=== PATIENT | male | born 1945 | race Caucasian/White ===

== ENCOUNTER → 2017-10-16 12:36 | Outpatient (CLI) | payer MEDICARE, SELFPAY ==
[2017-10-16 13:06] LABS: Hemoglobin A1c 6.1 % (4.2-6.3)
== END ==
PROVIDERS: Family Provider Family Medicine; PCP Family Medicine; Visit Provider Family Medicine
DX: Z79.899 Other long term (current) drug therapy (principal)
CPT/HCPCS: 83036

== ENCOUNTER → 2017-10-25 08:11 | Outpatient (CLI) | payer MEDICARE, SELFPAY ==
[2017-10-25 13:49] LABS: Vitamin B12 580 pg/mL (211-911)
[2017-10-25 14:14] LABS: T4 Free Direct 0.75 ng/dL (0.76-1.46); Thyroid Stim Hormone (TSH) 3.39 uIU/mL (0.358-3.74)
== END ==
PROVIDERS: Family Provider Family Medicine; PCP Family Medicine; Visit Provider Family Medicine
DX: R20.0 Anesthesia of skin (principal); R20.2 Paresthesia of skin
CPT/HCPCS: 82607; 82746; 84439; 84443

== ENCOUNTER → 2017-11-27 12:11 | Outpatient (CLI) | payer MEDICARE, SELFPAY ==
[2017-11-27 12:44] LABS: Free T3 2.6 pg/mL (2.18-3.98); T4 Free Direct 0.75 ng/dL (0.76-1.46); T4 Total, Thyroxin 6.7 ug/dL (4.5-12.1)
== END ==
PROVIDERS: Family Provider Family Medicine; PCP Family Medicine; Visit Provider Family Medicine
DX: R94.6 Abnormal results of thyroid function studies (principal)
CPT/HCPCS: 84436; 84439; 84443; 84481

== ENCOUNTER → 2018-01-10 12:20 | Outpatient (CLI) | payer MEDICARE, SELFPAY ==
--- NOTE | 2018-01-10 13:47 | NEURO ---
NCS and/or EMG Patient Report Ordering Doctor: Fidencio Benson DATE OF SERVICE: 01/10/18 Valdemar Vitale is a 72-year-old male who presents for electrodiagnostic testing of the left lower limb. He has numbness in the left lower leg. Electrodiagnostic findings: Left common peroneal nerve demonstrates normal distal latency, amplitude and conduction velocity. Normal left tibial motor response. Sensory responses are within normal limits. Normal F waves. On needle EMG, all muscles tested in the left lower limb show no evidence of denervation with normal motor unit action potentials. Electrodiagnostic impression: This a normal electrodiagnostic study in the left lower limb. There is no electrodiagnostic evidence for peripheral neuropathy or lumbosacral radiculopathy. If there are any further questions, please do not hesitate to contact me.
== END ==
PROVIDERS: Family Provider Family Medicine; PCP Family Medicine; Visit Provider Family Medicine
DX: R20.0 Anesthesia of skin (principal); R20.2 Paresthesia of skin
CPT/HCPCS: 95886; 95910

== ENCOUNTER → 2018-01-17 10:40 | Outpatient (CLI) | payer MEDICARE, SELFPAY ==
[2018-01-17 11:56] LABS: AST(SGOT) 29 U/L (15-37); Alanine Aminotransfer ALT/SGPT 27 U/L (16-61); Albumin, Serum 3.6 g/dL (3.2-5.0); Alkaline Phosphatase 46 U/L (45-117); Bilirubin, Direct 0.16 mg/dL (0.00-0.30); Cholesterol 146 mg/dL (200); Globulin 3.6 g/dL (2.2-4.2); High Density Lipoprotein 41 mg/dL; Protein, Total 7.2 g/dL (6.4-8.2); Triglycerides 123 mg/dL; Very Low Density Lipoprotein 25 mg/dL (5-40)
== END ==
PROVIDERS: Internal Medicine Cardiovascular Disease; Family Provider Family Medicine; PCP Family Medicine; Visit Provider Physician Assistant Medical
DX: E78.5 Hyperlipidemia, unspecified (principal); I25.10 Atherosclerotic heart disease of native coronary artery without angina pectoris
CPT/HCPCS: 36415; 80061; 80076; J0330; J2405

== ENCOUNTER 2018-02-05 11:27 | Day surgery (SDC) | payer MEDICARE, SELFPAY ==
[2018-01-30 11:17] VITALS: BP 131/85; PULSE 70; RESP 16; TEMP 36.4; O2SAT 96; BMI 25.9
[2018-01-30 13:46] LABS: Hematocrit 42.8 % (40-54); Hemoglobin 13.9 g/dl (13.0-16.5); Mean Corp Hgb Conc 32.5 g/gl (32-36); Mean Corpuscular Hgb 31.7 pg (27.0-32.0); Mean Corpuscular Volume 97.7 fL (80-94); Mean Platelet Vol. 9.5 fl (6.2-12.0); Platelet Count 191 K/mm3 (150-450); RBC Distribution Width CV 13.4 % (11.6-14.6); RBC Distribution Width SD 47.7 fl (35.1-43.9); Red Blood Count 4.38 M/mm3 (4.6-6.2); White Blood Count 5.8 K/mm3 (4.4-11.0)
[2018-01-30 13:49] LABS: Scan Indicated on CBC? Y/N NO
[2018-01-30 14:05] LABS: Anion Gap 4 (5-15); BUN 16 mg/dL (7-18); BUN/Creat Ratio 13.1 RATIO (10-20); Calcium,Total 9.3 mg/dL (8.5-10.1); Chloride 105 mmol/L (98-107); Creatinine, Serum 1.22 mg/dL (0.70-1.30); EST Glomerular Filtration Rate 62 mL/min (>60); Est Glom Filt Rate - Afr Amer 75 mL/min (>60); Glucose 85 mg/dL (74-106); Potassium 4.4 mmol/L (3.5-5.1); Sodium Level 140 mmol/L (136-145)
[2018-02-05] VITALS (7 sets, daily range): BP systolic 127–151; BP diastolic 84–93; PULSE 51–59; RESP 16; TEMP 35.9–36.9; O2SAT 94–100; BMI 25.9
[2018-02-05] MEDS: Cefazolin 2 GM in 0.9% Normal Saline 100 ML IV (12:39)
[2018-02-05] MEDS: Bupivacaine Mpf 0.5% 30 ML VIAL (13:06)
--- NOTE | 2018-02-05 13:58 | PCM.IMDPSTOP ---
Immediate Post-Op Note Date of Procedure: 02/05/18 Primary Surgeon/Physician: Markos Adair bow string maker: Israel Diamond Pre-Operative Diagnosis: SAIS, AC arthrosis, bicipital tendonitis and rotator cuff tear left Post-Operative Diagnosis: Same with Os Acromiale Surgery/Procedure Performed:: ASD, Araceli, biceps tenotomy and repair of rotator cuff tear left Description of Surgical Findings:: see note Estimated Blood Loss: 10cc Specimen's removed: none Drains: 0 Type of Anesthesia:: General ASA Class: ASA2 Mod Systematic Disease - Admit VTE Documentation VTE Present on Admission: No VTE Mechan Device Prophylaxis: SCD's VTE Pharm Prophylaxis ordered?: No Reason prophylaxis not ordered:: Treatment Not Indicated
--- NOTE | 2018-02-05 14:01 | OP.PN_ITS ---
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: Israel Diamond Pre-Operative Diagnosis: SAIS, AC arthrosis, bicipital tendonitis and rotator cuff tear left Post-Operative Diagnosis: Same with Os Acromiale Surgery/Procedure Performed:: ASD, Araceli, biceps tenotomy and repair of rotator cuff tear left Description of Surgical Findings:: see note Estimated Blood Loss: 10cc Specimen's removed: none Drains: 0 Type of Anesthesia:: General ASA Class: ASA2 Mod Systematic Disease - Admit VTE Documentation VTE Present on Admission: No VTE Mechan Device Prophylaxis: SCD's VTE Pharm Prophylaxis ordered?: No Reason prophylaxis not ordered:: Treatment Not Indicated
[2018-02-05] MEDS: HYDROcodone Bitartrate/Apap 5/325 Tablet PO (15:45)
== END 2018-02-05 16:22 | disposition home or self-care (01) ==
LOC: SDC 11:27 → AC 11:28
PROVIDERS: Family Provider Family Medicine; PCP Family Medicine; Visit Provider Orthopaedic Surgery
PROC: (CPT 29827; principal; 2018-02-05 12:45)
DX: M75.102 Unspecified rotator cuff tear or rupture of left shoulder, not specified as traumatic (principal); M75.22 Bicipital tendinitis, left shoulder; M25.512 Pain in left shoulder; I25.10 Atherosclerotic heart disease of native coronary artery without angina pectoris; E78.00 Pure hypercholesterolemia, unspecified; G47.30 Sleep apnea, unspecified; F32.9 Major depressive disorder, single episode, unspecified; Z86.73 Personal history of transient ischemic attack (TIA), and cerebral infarction without residual deficits; Z87.891 Personal history of nicotine dependence; Z79.1 Long term (current) use of non-steroidal anti-inflammatories (NSAID); Z79.899 Other long term (current) drug therapy
CPT/HCPCS: 29826; 29827; 29828; 36415; 80048; 85027; J7120

== ENCOUNTER → 2018-04-24 08:18 | Outpatient (CLI) | payer MEDICARE, SELFPAY ==
[2018-04-24 13:32] LABS: Bacteria 0 SEEN /hpf (None Seen); Mucous, Urine 0 SEEN /hpf (<or=2+); Red Blood Cells-Urine 0 SEEN /hpf (0-5); Squamous Epithelial Cells - UA 0 SEEN /hpf (0-5); White Blood Cells 0 SEEN /hpf (0-5)
[2018-04-24 14:19] LABS: AST(SGOT) 25 U/L (15-37); Alanine Aminotransfer ALT/SGPT 26 U/L (16-61); Albumin, Serum 3.8 g/dL (3.2-5.0); Alkaline Phosphatase 46 U/L (45-117); Anion Gap 10 (5-15); BUN 19 mg/dL (7-18); BUN/Creat Ratio 15.3 RATIO (10-20); Chloride 106 mmol/L (98-107); Cholesterol 142 mg/dL (200); Creatinine, Serum 1.24 mg/dL (0.70-1.30); EST Glomerular Filtration Rate 61 mL/min (>60); Est Glom Filt Rate - Afr Amer 73 mL/min (>60); Globulin 3.7 g/dL (2.2-4.2); Glucose 93 mg/dL (74-106); High Density Lipoprotein 43 mg/dL; PSA,Total- Diagnostic 0.43 ng/mL (0.0-4.0); Potassium 4.4 mmol/L (3.5-5.1); Protein, Total 7.5 g/dL (6.4-8.2); Sodium Level 143 mmol/L (136-145); Triglycerides 93 mg/dL; Very Low Density Lipoprotein 19 mg/dL (5-40)
[2018-04-24 15:00] LABS: Color, Urine Yellow (Yellow); Glucose, Dipstick Normal (Normal); Ketone-Dipstick Negative (Negative); Leukocyte Esterase-Dipstick Negative /ul (Negative); Nitrite-Dipstick Negative (Negative); Occult Blood-Urine 10 /ul (Negative); Protein-Dipstick Negative (Negative); Urine Bilirubin Dipstick Negative (Negative); Urine Clarity Clear (Clear); Urine Urobilinogen Normal (Normal)
[2018-04-24 15:03] LABS: Hemoglobin A1c 5.6 % (4.2-6.3)
== END ==
PROVIDERS: Family Provider Family Medicine; PCP Family Medicine; Visit Provider Family Medicine
DX: E78.2 Mixed hyperlipidemia (principal); R73.09 Other abnormal glucose; N42.9 Disorder of prostate, unspecified; I25.10 Atherosclerotic heart disease of native coronary artery without angina pectoris; I25.83 Coronary atherosclerosis due to lipid rich plaque; I10 Essential (primary) hypertension
CPT/HCPCS: 80053; 80061; 81001; 83036; 84153

== ENCOUNTER → 2018-07-20 07:59 | Outpatient (CLI) | payer MEDICARE, SELFPAY ==
[2018-02-05 11:49] VITALS: BMI 25.9
[2018-07-20 10:32] LABS: AST(SGOT) 27 U/L (15-37); Alanine Aminotransfer ALT/SGPT 33 U/L (16-61); Albumin, Serum 3.7 g/dL (3.2-5.0); Alkaline Phosphatase 47 U/L (45-117); Bilirubin, Direct 0.14 mg/dL (0.00-0.30); Cholesterol 160 mg/dL (200); Globulin 3.5 g/dL (2.2-4.2); High Density Lipoprotein 43 mg/dL; Protein, Total 7.2 g/dL (6.4-8.2); Triglycerides 124 mg/dL; Very Low Density Lipoprotein 25 mg/dL (5-40)
--- OUTSIDE RECORDS SUMMARY | 2018-09-14 01:40 | XMS RPT_ITS ---
:1945 Author Organization OHIP Support Name Relationship Address Phone SALINA JEFFERSON Unavailable [address] + [place] [address] SAWYER YI Un[address] + [place] [address] R Unavailable Unavailable Unavailable LI, SALINA Unavailable [address] + [place] [address] SAWYER YI Un[address] + [place] [address] R Unavailable Unavailable Unavailable LI, SALINA Unavailable [address] + [place] [address] SAWYER YI Un[address] + [place] [address] R Unavailable Unavailable Unavailable LI, SALINA Unavailable [address] + [place] [address] SAWYER YI Unavailable Unavailable + [place] [address] R Unavailable Unavailable Unavailable R Unavailable Unavailable Unavailable R Unavailable Unavailable Unavailable LI, SALINA Unavailable [address] + [place] [address] R Unavailable Unavailable Unavailable LI, SALINA Unavailable [address] + [place] [address] R Unavailable Unavailable Unavailable LI, SALINA Unavailable [address] + [place] [address] R Unavailable Unavailable Unavailable LI, SALINA Unavailable [address] + [place] [address] R Unavailable Unavailable Unavailable LI, SALINA Unavailable [address] + [place] [address] R Unavailable Unavailable Unavailable LI, SALINA Unavailable [address] + [place] [address] R Unavailable Unavailable Unavailable LI, SALINA Unavailable [address] + [place] [address] R Unavailable Unavailable Unavailable LI, SALINA Unavailable [address] + [place] [address] R Unavailable Unavailable Unavailable LI SALINA Unavailable [address] + [place] [address] R Unavailable Unavailable Unavailable LI SALINA Unavailable [address] + [place] [address] R Unavailable Unavailable Unavailable Care Team Providers Name Role Phone CHANTELLE, SIXTO A Referring Unavailable CHANTELLE, SIXTO A Attending Unavailable CHANTELLE, SIXTO A Referring Unavailable CHANTELLE, SIXTO A Referring Unavailable CHANTELLE, SIXTO A Referring Unavailable CHANTELLE, SIXTO A Referring Unavailable CHANTELLE, SIXTO A Attending Unavailable CHANTELLE, SIXTO A Referring Unavailable Uche, Lobo Attending Unavailable Chantelle, Sixto Primary Care Unavailable Samuel Cuello Attending Unavailable Chantelle, Sixto Primary Care Unavailable Chantelle, Sixto Attending Unavailable Chantelle, Sixto Primary Care Unavailable Uche, Lobo Attending Unavailable [facility], [facility] Referring Unavailable [facility], [facility] Attending Unavailable Uche, Lobo Referring Unavailable Chantelle, Sixto Attending Unavailable Chantelle, Sixto Referring Unavailable Chantelle, Sixto Primary Care Unavailable Chantelle, Sixto Attending Unavailable Chantelle, Sixto Primary Care Unavailable Chantelle, Sixto Referring Unavailable Nat Monterroso Attending Unavailable Chantelle, Sixto Attending Unavailable Chantelle, Sixto Referring Unavailable Chantelle, Sixto Primary Care Unavailable Kelin Lowe Attending Unavailable Kadi Infante Attending Unavailable Chantelle, Sixto Referring Unavailable Chantelle, Sixto Primary Care Unavailable Kadi Infante Attending Unavailable Kadi Infante Referring Unavailable Chantelle, Sixto Primary Care Unavailable Markos Adair Attending Unavailable Markos Adair Referring Unavailable Chantelle, Sixto Primary Care Unavailable Chantelle, Sixto Attending Unavailable Chantelle, Sixto Referring Unavailable Chantelle, Sixto Primary Care Unavailable Kadi Infante Attending Unavailable Kadi Infante Referring Unavailable Chantelle, Sixto Primary Care Unavailable PROBLEMS PROBLEMS DATE TYPE CONDITION / CODE ATTENDING STATUS SOURCE 10/16/2017 Active Other abnormal NA Active [place] glucose / Clinic Main R73.09(ICD-10) [place] Repository 10/16/2017 Active Essential (primary) NA Active [place] hypertension / Clinic Main I10(ICD-10) [place] Repository 04/26/2017 Active Personal history of NA Active [place] transient ischemic Clinic Main attack (TIA), and [place] cerebral infarction Repository without residual deficits / Z86.73(ICD-10) 04/26/2017 Active Disorder of prostate, NA Active [place] unspecified / Clinic Main N42.9(ICD-10) [place] Repository 04/26/2017 Active Mixed hyperlipidemia NA Active [place] / E78.2(ICD-10) Clinic Main [place] Repository 04/24/2018 Active Atherosclerotic heart NA Active [place] disease of [place] [facility] Main coronary artery [place] without angina Repository pectoris / I25.10(ICD-10) 04/24/2018 Active Coronary NA Active [place] atherosclerosis due [facility] Main to lipid rich plaque [place] / I25.83(ICD-10) Repository 04/24/2018 Unknown E78.2 - Mixed Sixto Lockhart Active [place] hyperlipidemia / Community E78.2(ICD-10) Hospital Repository 04/24/2018 Unknown R73.09 - Other Sixto Lockhart Active [place] abnormal glucose / Community R73.09(ICD-10) Hospital Repository 01/17/2018 Unknown 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 / Hospital I36.1(ICD-10) Repository 11/28/2017 Unknown R94.6 - Abnormal Sixto Lockhart Active [place] results of thyroid Community function studies / Hospital R94.6(ICD-10) Repository 11/27/2017 Active Abnormal results of NA Active [place] thyroid function Clinic Main studies / [place] R94.6(ICD-10) Repository 10/23/2017 Active Anesthesia of skin / NA Active [place] R20.0(ICD-10) Clinic Main [place] Repository 10/23/2017 Active Paresthesia of skin / NA Active [place] R20.2(ICD-10) [facility] Main [place] Repository 10/25/2017 Unknown R20.0 - Anesthesia of Sixto Lockhart Active [place] skin / R20.0(ICD-10) [facility] Repository 10/25/2017 Unknown R20.2 - Paresthesia Sixto Lockhart Active [place] of skin / Community R20.2(ICD-10) Hospital Repository 10/23/2017 Active Unknown / SIXTO LOCKHART Active [place] UNK(Unknown) A Clinic Main [place] Repository 10/16/2017 Unknown Z79.899 - Other long Sixto Lockhart Active [place] term (current) drug [facility] therapy / Hospital Z79.899(ICD-10) Repository 10/16/2017 Active Other [facility] NA Active [place] (current) drug [facility] Main therapy / [place] Z79.899(ICD-10) Repository 08/11/2017 Unknown E78.5 - [facility], [facility] Active [place] Hyperlipidemia, Community unspecified / Hospital E78.5(ICD-10) Repository PROCEDURES PROCEDURES No Procedure Records FoundRESULTS RESULTS LIVER PROFILE Collected: 07/20/2018 Status: F Source: [place] 8:03 [facility] REPOSITORY TYPE CODE TESTS RESULT OUT OF RANGE REFERENCE UNITS LAB L501.1500 6.4-8.2 g/dL Normal T PROT 7.2 LAB L501.1800 3.2-5.0 g/dL Normal ALB 3.7 LAB L501.1950 2.2-4.2 g/dL Normal GLOB 3.5 LAB L501.4100 15-37 U/L Normal AST 27 LAB L501.4305 45-117 U/L Normal ALK P 47 LAB L501.4405 16-61 U/L Normal ALT 33 LAB L501.4600 0.20-1.00 mg/dL Normal T BILI 0.60 LAB L501.4700 0.00-0.30 mg/dL Normal D BILI 0.14 Performed By: #### L500.3400, L500.4100 #### [facility] [address] [place], [place], [address] LIPID PROFILE Collected: 07/20/2018 Status: F Source: [place] 8:03 [facility] REPOSITORY TYPE CODE TESTS RESULT OUT OF RANGE REFERENCE UNITS LAB L501.4900 200 mg/dL Normal CHOL 160 Result Comment: <200 mg/dL Desirable 200-240 mg/dL Borderline >240 mg/dL High Risk LAB L501.5000 mg/dL Normal TRIG 124 Result Comment: The drugs N-Acetylcysteine and Metamizole may falsely depress this assay. Serum Triglycerides Reference Interval Normal <150 mg/dL Borderline high 150 - 199 mg/dL High 200 - 499 mg/dL Very High > or = 500 mg/dL LAB L501.6400 mg/dL Normal HDL 43 Result Comment: The drugs N-Acetylcysteine and Metamizole may falsely depress this assay. Reference Range HDL <40 mg/dL Low HDL Cholesterol HDL >or= 60 mg/dL High HDL Cholesterol LAB L501.6500 0-130 mg/dL Normal LDL 92 LAB L501.6600 5-40 mg/dL Normal VLDL 25 Performed By: #### L500.3400, L500.4100 #### [facility] [address] [place], [place], [address] PROGRESS Observed: 05/01/2018 Status: COMPLETED Source: [place] 2:12 PM [facility] [place] REPOSITORY HNO ID: [id number] Author: Sixto Lockhart Service: (none) Author Type: Physician Type: Progress Notes Filed: 05/01/2018 10:52 PM Note Text: Medicare Yearly Visit Medical B eligibilty date not able to find Date of last exam 04/26/2017 PAST MEDICAL HISTORY Diagnosis Date - Abdominal adhesions 01/10/2016 - Benign prostatic hyperplasia with lower urinary tract symptoms 04/26/2017 - Cataracts, bilateral - Coronary atherosclerosis of unspecified type of vessel, [place] or graft - Diverticulosis of colon (without mention of hemorrhage) Diverticulosis - Elevated hemoglobin A1c 10/16/2017 - Glaucoma - Head trauma 2011 - History of TIA (transient ischemic attack) 04/26/2017 Cause not know. - HTN (hypertension) - Hyperlipidemia, mixed - Major depressive disorder, single episode 04/19/2005 - Other and unspecified hyperlipidemia - Other specified anemias - Unspecified hemorrhoids without mention of complication Hemorrhoids - Vertigo PAST SURGICAL HISTORY Procedure Laterality Date - APPENDECTOMY - CARPAL TUNNEL Left - CATARACT EXTRACTION HX Right 2014 - COLONOSCOP W/ OR W/O [facility] SPEC Colonoscopy - HERNIA REPAIR HX Left - LAP REPAIR INTIAL INGUINAL HERNIA 01/04/16 Right direct (no left) - LAP VENT/ABD HERNIA REPAIR 01/04/16 with ventralex - LAP, SURG ENTEROLYSIS 01/04/16 RLQ adhesion due to prior appy - REPAIR ING HERNIA,5+Y/O,REDUCIBL Hernia repair, inguinal - STRESS ECHO EXERCISE Patient has no known allergies. Medications reviewed: Yes FAMILY HISTORY Problem Relation Age of Onset - Heart Brother - Heart Brother - Heart Sister - Hypertension Mother - Heart Mother - Stroke Mother SOCIAL HISTORY: Social History Marital status: Spouse name: Years of education: Number of children: Social History Main Topics Smoking status: Former Smoker Packs/day: 1.00 Years: 4.00 Types: Cigarettes Quit date: 01/11/1966 Smokeless tobacco: Never Used Alcohol use: Yes Comment: rare Drug use: No Valdemar works out regularly 2-4 times per week with walking and gym class. He watches his diet for sodium, low fat and low cholesterol most of the time. List of current specialists seen: Dr. Mahan and Dr. Ivey End of Live Planning discussed including patients advanced directive wishes: Yes I am willing to follow Valdemar's advanced directives. Depression screen He in the past two weeks denies having felt down, depressed, hopeless or with little interest or pleasure in doing things. Functional Ability/Safety Screen 1. Was the patient's timed Up and Go test unsteady or longer than 30 seconds? No 2. Does the patient need help with the phone, transportation, shopping,preparing meals, housework, laundry, medications or managing money? No 3. Does your home have rugs in the hallway, lack of grab bars in the bathroom(Y), lack of handrails on the stairs or have poor lighting? No Hearing Evaluation: normal PHYSICAL EXAM BP 126/82 Pulse 60 Resp 14 Ht 171.5 cm (5' 7.5) Wt 74.8 kg (165 lb) BMI 25.46 kg/m? Alert and oriented X 3: YES Body mass index is 25.46 kg/m?. See Below ASSESSMENT/PLAN: 73 year old male The following prevention plan was discussed during the office visit and provided to the patient: See below Sixto Lockhart MD Chief Complaint Patient presents with: Physical: 6 months HPI Valdemar Jefferson is a 73 year old male who presents here today for extensive exam. Patient with Hx of elevated A1c, HTN, Hyperlipidemia, CAD as well as those reviewed and addressed below. Has been doing well. Past medical history, appointments, medications, allergies reviewed. Previous Medical History PAST MEDICAL HISTORY Diagnosis Date - Abdominal adhesions 01/10/2016 - Benign prostatic hyperplasia with lower urinary tract symptoms 04/26/2017 - Cataracts, bilateral - Coronary atherosclerosis of unspecified type of vessel, [place] or graft - Diverticulosis of colon (without mention of hemorrhage) Diverticulosis - Elevated hemoglobin A1c 10/16/2017 - Glaucoma - Head trauma 2011 - History of TIA (transient ischemic attack) 04/26/2017 Cause not know. - HTN (hypertension) - Hyperlipidemia, mixed - Major depressive disorder, single episode 04/19/2005 - Other and unspecified hyperlipidemia - Other specified anemias - Unspecified hemorrhoids without mention of complication Hemorrhoids - Vertigo Previous Surgical History PAST SURGICAL HISTORY Procedure Laterality Date - APPENDECTOMY - CARPAL TUNNEL Left - CATARACT EXTRACTION HX Right 2014 - COLONOSCOP W/ OR W/O [facility] SPEC Colonoscopy - HERNIA REPAIR HX Left - LAP REPAIR INTIAL INGUINAL HERNIA 01/04/16 Right direct (no left) - LAP VENT/ABD HERNIA REPAIR 01/04/16 with ventralex - LAP, SURG ENTEROLYSIS 01/04/16 RLQ adhesion due to prior appy - REPAIR ING HERNIA,5+Y/O,REDUCIBL Hernia repair, inguinal - STRESS ECHO EXERCISE Family History FAMILY HISTORY Problem Relation Age of Onset - Heart Brother - Heart Brother - Heart Sister - Hypertension Mother - Heart Mother - Stroke Mother Patient Allergies ALLERGIES No Known Allergies Current Medications Current Outpatient Prescriptions on File Prior to Visit: buPROPion (WELLBUTRIN) 100 mg tablet TAKE ONE TABLET BY MOUTH TWICE DAILY tamsulosin ER (FLOMAX) 0.4 mg cap TAKE ONE CAPSULE BY MOUTH DAILY rosuvastatin (CRESTOR) 20 mg tablet Take 1 tablet by mouth once daily. omega-3 fatty acids 1,000 mg cap Take 1 capsule by mouth once daily. apixaban (ELIQUIS) 5 mg tab tab(s) Take 1 tablet by mouth twice daily. latanoprost (XALATAN) 0.005 % ophthalmic solution Use 1 Drop in the left eye daily at bedtime. coQ10, ubiquinol, 100 mg cap Take 1 tablet by mouth once daily. Timolol Maleate 0.25 % dpet Use 1 Drop in the left eye once daily. ATENOLOL 25 MG ORAL TAB Take 1/2 tablet by mouth once daily. MULTI-VITAMIN ORAL TAB Take one(1) tablet daily. No current facility-administered medications on file prior to visit. Social History Social History Marital status: Spouse name: Years of education: Number of children: Social History Main Topics Smoking status: Former Smoker Packs/day: 1.00 Years: 4.00 Types: Cigarettes Quit date: 01/11/1966 Smokeless tobacco: Never Used Alcohol use: Yes Comment: rare Drug use: No Review of Symptoms REVIEW OF SYSTEMS GENERAL: No weight loss, malaise or fevers HEENT: No changes in hearing or vision, no nose bleeds or other nasal problems NECK: Negative for lumps, goiter, pain and significant neck swelling RESPIRATORY: Negative for cough, hemoptysis, wheezing, COPD, dyspnea or shortness of breath CARDIOVASCULAR: Negative for chest pain, leg swelling, hypertension, CHF or palpitations GI: No nausea, vomiting, or diarrhea, No heartburn or reflux symptoms and no blood : No history of dysuria, frequency or blood. Up once a night. MUSCULOSKELETAL: Negative for joint pain or swelling, back pain or muscle pain SKIN: Negative for lesions, rash, and itching PSYCH: Negative for mood disorder and recent psychosocial stressors. No problems initially falling asleep but will wake up around 4 AM and can't get back to sleep. HEMATOLOGY/LYMPHOLOGY: Negative for prolonged bleeding, bruising easily or swollen nodes ENDOCRINE: Negative for cold or heat intolerance, polyuria, polydipsia and goiter, diana symptoms of low blood sugars NEURO: No history of syncope, paralysis, seizures or tremors. Has frequent headache's and seems to have been persistent since Stroke. Not bothersome or debilitating. EXAM: BP 126/82 Pulse 60 Resp 14 Ht 171.5 cm (5' 7.5) Wt 74.8 kg (165 lb) BMI 25.46 kg/m? General Appearance: Well appearing, alert, in no acute distress, well-hydrated, well nourished.. Skin: Skin color, texture, turgor normal, no suspicious rashes or lesions. Head: Normocephalic, no masses, lesions, tenderness or abnormalities. Eyes: Anicteric sclera. Pupils are equally round and reactive to light. Extraocular movements are intact. . Ears: External ears normal, canals clear. Nose/Sinuses: Nares normal, septum midline, mucosa normal, no drainage or sinus tenderness. Oropharynx: Lips, mucosa, and tongue normal, teeth and gums normal, oropharynx normal. Neck: Supple, no adenopathy; thyroid symmetric, normal size, no bruits. Lungs: Lungs clear to auscultation. No wheezing, rhonchi, rales. Heart: RRR without murmur, gallop, or rubs. No ectopy. Abdomen: Normal abdominal exam, Abdomen soft, non-tender. Bowel sounds normal. No masses, organomegaly. Extremities: No deformities, edema, skin discoloration. Musculoskeletal: No joint swelling, deformity, or tenderness. Muscle strength was normal. Peripheral Pulses: Normal. Neurologic: Gait normal. Reflexes normal and symmetric. Sensation to light touch and crainal nerves 2-12 intact.. Genitalia: Normal, Penis normal. No urethral discharge. Scrotum normal to palpation. No hernia.. Rectal: Normal exam. Prostate enlarged but smooth firm capsule. Health Maintenance List BP CONTROLLED (<130/80) due on 1962 DTAP,TDAP,TD(1 - Tdap) due on 1963 ADULT PREVNAR-13 due on 2009 INFLUENZA(1) due on 04/21/2018 STATIN MED ADHERENCE due on 05/21/2018 COLORECTAL CANCER SCREENING,SEE MODIFIER due on 09/03/2018 ANNUAL PCP TEAM CHRONIC DISEASE VISIT due on 10/23/2018 LDL CHOLESTEROL due on 04/24/2019 DIABETES SCREEN due on 04/24/2021 LIPID SCREEN due on 04/24/2023 PNEUMOVAX AGE 65 AND OVER WITH 5YR LOOKBACK Completed Data reviewed Component Latest Ref Rng AND Units 08/11/2017 10/16/2017 04/24/2018 NA 136 - 145 mmol/L 143 K 3.5 - 5.1 mmol/L 4.4 Chloride 98 - 107 MEQ/L 106 CO2 21 - 32 MEQ/L 27.0 Glucose 74 - 106 MG/DL 93 BUN 7 - 18 MG/DL 19 (A) Creatinine 0.6 - 1.3 MG/DL 1.24 GFR mL/MIN 61 GFR AFR AMER mL/MIN 73 Total Protein 6.4 - 8.2 gm/dL 7.5 Albumin 3.2 - 4.6 gm/dL 3.8 Calcium 8.5 - 10.1 mg/dL 9.0 Bili Total 0.2 - 1 mg/dL 0.60 AST 8 - 37 U/L 25 ALT (SGPT) 12 - 78 U/L 46 Alk Phos Total 45 - 117 U/L 46 Cholesterol, Total 200 163 Triglyceride 149 mg/dL 115 93 HDL CHOLESTEROL 40 53 LDL Cholesterol 70 87 (A) Cholesterol, Total 0 - 200 MG/DL 142 HDC-L 41 mg/dL 43 (A) LDL Chol, calculated 130 MG/DL 80 Hemoglobin A1C 4.3 - 5.6 6.1 5.6 PSA. 0.0 - 4.0 0.43 A/P ASSESSMENT/PLAN: 1. Medicare annual wellness visit, subsequent - ICD9: V70.0, ICD10: Z00.00 (primary diagnosis) - Completed Digital Rectal exam - Recommended regular aerobic exercise. - Follow up for annual exam in one year. 2. Need for vaccination - ICD9: V05.9, ICD10: Z23 - PNEUMOCOCCAL-13 VACCINE PCV-13 given 3. Essential hypertension - ICD9: 401.9, ICD10: I10 - good control - Continue current medication(s) - Recommended regular aerobic exercise. - Recommend home blood pressure monitoring, to bring results in on next visit - Goal of BP <140/90 4. Hyperlipidemia, mixed - ICD9: 272.2, ICD10: E78.2 - good control - Encouraged following a low fat, low cholesterol diet. - Discussed the benefits of regular aerobic exercise and weight loss. - Encouraged following a low carbohydrate, healthy oil intake diet. - Continue current therapy. 5. Elevated hemoglobin A1c - ICD9: 790.29, ICD10: R73.09 - Improved control with dietary changes. Patient to continue. 6. Depression, major, single episode, mild (HCC) - ICD9: 296.21, ICD10: F32.0 - doing well with the Wellbutrin no changes. 7. Coronary atherosclerosis due to lipid rich plaque - ICD9: 414.3, ICD10: I25.10, I25.83 - Clinically stable no changes cont f/u with cardio as well. 8. History of TIA (transient ischemic attack) - ICD9: V12.54, ICD10: Z86.73 - Clinically stable and source of frequent headaches. No changes in current Tx. 9. Diverticulosis of colon - ICD9: 562.10, ICD10: K57.30 - Clinically stable 10. Benign prostatic hyperplasia with lower urinary tract symptoms, symptom details unspecified - ICD9: 600.01, ICD10: N40.1 - Clinically stable 11. Insomnia, unspecified type - ICD9: 780.52, ICD10: G47.00 - Patient to try melatonin 5 mg right before bed and then let me know if helping stay asleep. Signed Prescriptions Disp Refills tamsulosin ER (FLOMAX) 0.4 mg cap 90 capsule 1 Sig: Take 1 capsule by mouth once daily. MARVA: No f/u 6 months routine check CMP and A1c prior. Sixto Lockhart MD CNOV Observed: 05/01/2018 Status: COMPLETED Source: [place] 2:00 PM [facility] REPOSITORY Office Visit (FAMPWS) VALDEMAR JEFFERSON ([id number]) 1945 M Date Time Provider Department 05/01/18 2:00 PM [facility] During your visit today, we recorded the following information about you: Pulse Respiration Blood pressure Weight 60/minute 14/minute 126/82 74.8 kg Height 1.715 m Sixto Lockhart MD 05/01/2018 10:52 PM Signed Medicare Yearly Visit Medical B eligibilty date not able to find Date of last exam 04/26/2017 PAST MEDICAL HISTORY Diagnosis Date - Abdominal adhesions 01/10/2016 - Benign prostatic hyperplasia with lower urinary tract symptoms 04/26/2017 - Cataracts, bilateral - Coronary atherosclerosis of unspecified type of vessel, [place] or graft - Diverticulosis of colon (without mention of hemorrhage) Diverticulosis - Elevated hemoglobin A1c 10/16/2017 - Glaucoma - Head trauma 2011 - History of TIA (transient ischemic attack) 04/26/2017 Cause not know. - HTN (hypertension) - Hyperlipidemia, mixed - Major depressive disorder, single episode 04/19/2005 - Other and unspecified hyperlipidemia - Other specified anemias - Unspecified hemorrhoids without mention of complication Hemorrhoids - Vertigo PAST SURGICAL HISTORY Procedure Laterality Date - APPENDECTOMY - CARPAL TUNNEL Left - CATARACT EXTRACTION HX Right 2014 - COLONOSCOP W/ OR W/O [facility] SPEC Colonoscopy - HERNIA REPAIR HX Left - LAP REPAIR INTIAL INGUINAL HERNIA 01/04/16 Right direct (no left) - LAP VENT/ABD HERNIA REPAIR 01/04/16 with ventralex - LAP, SURG ENTEROLYSIS 01/04/16 RLQ adhesion due to prior appy - REPAIR ING HERNIA,5+Y/O,REDUCIBL Hernia repair, inguinal - STRESS ECHO EXERCISE Patient has no known allergies. Medications reviewed: Yes FAMILY HISTORY Problem Relation Age of Onset - Heart Brother - Heart Brother - Heart Sister - Hypertension Mother - Heart Mother - Stroke Mother SOCIAL HISTORY: Social History Marital status: Spouse name: Years of education: Number of children: Social History Main Topics Smoking status: Former Smoker Packs/day: 1.00 Years: 4.00 Types: Cigarettes Quit date: 01/11/1966 Smokeless tobacco: Never Used Alcohol use: Yes Comment: rare Drug use: No Valdemar works out regularly 2-4 times per week with walking and gym class. He watches his diet for sodium, low fat and low cholesterol most of the time. List of current specialists seen: Dr. Mahan and Dr. Ivey End of Live Planning discussed including patients advanced directive wishes: Yes I am willing to follow Valdemar's advanced directives. Depression screen He in the past two weeks denies having felt down, depressed, hopeless or with little interest or pleasure in doing things. Functional Ability/Safety Screen 1. Was the patient's timed Up and Go test unsteady or longer than 30 seconds? No 2. Does the patient need help with the phone, transportation, shopping,preparing meals, housework, laundry, medications or managing money? No 3. Does your home have rugs in the hallway, lack of grab bars in the bathroom(Y), lack of handrails on the stairs or have poor lighting? No Hearing Evaluation: normal PHYSICAL EXAM BP 126/82 Pulse 60 Resp 14 Ht 171.5 cm (5' 7.5) Wt 74.8 kg (165 lb) BMI 25.46 kg/m? Alert and oriented X 3: YES Body mass index is 25.46 kg/m?. See Below ASSESSMENT/PLAN: 73 year old male The following prevention plan was discussed during the office visit and provided to the patient: See below Sixto Lockhart MD Chief Complaint Patient presents with: Physical: 6 months HPI Valdemar Jefferson is a 73 year old male who presents here today for extensive exam. Patient with Hx of elevated A1c, HTN, Hyperlipidemia, CAD as well as those reviewed and addressed below. Has been doing well. Past medical history, appointments, medications, allergies reviewed. Previous Medical History PAST MEDICAL HISTORY Diagnosis Date - Abdominal adhesions 01/10/2016 - Benign prostatic hyperplasia with lower urinary tract symptoms 04/26/2017 - Cataracts, bilateral - Coronary atherosclerosis of unspecified type of vessel, [place] or graft - Diverticulosis of colon (without mention of hemorrhage) Diverticulosis - Elevated hemoglobin A1c 10/16/2017 - Glaucoma - Head trauma 2011 - History of TIA (transient ischemic attack) 04/26/2017 Cause not know. - HTN (hypertension) - Hyperlipidemia, mixed - Major depressive disorder, single episode 04/19/2005 - Other and unspecified hyperlipidemia - Other specified anemias - Unspecified hemorrhoids without mention of complication Hemorrhoids - Vertigo Previous Surgical History PAST SURGICAL HISTORY Procedure Laterality Date - APPENDECTOMY - CARPAL TUNNEL Left - CATARACT EXTRACTION HX Right 2014 - COLONOSCOP W/ OR W/O [facility] SPEC Colonoscopy - HERNIA REPAIR HX Left - LAP REPAIR INTIAL INGUINAL HERNIA 01/04/16 Right direct (no left) - LAP VENT/ABD HERNIA REPAIR 01/04/16 with ventralex - LAP, SURG ENTEROLYSIS 01/04/16 RLQ adhesion due to prior appy - REPAIR ING HERNIA,5+Y/O,REDUCIBL Hernia repair, inguinal - STRESS ECHO EXERCISE Family History FAMILY HISTORY Problem Relation Age of Onset - Heart Brother - Heart Brother - Heart Sister - Hypertension Mother - Heart Mother - Stroke Mother Patient Allergies ALLERGIES No Known Allergies Current Medications Current Outpatient Prescriptions on File Prior to Visit: buPROPion (WELLBUTRIN) 100 mg tablet TAKE ONE TABLET BY MOUTH TWICE DAILY tamsulosin ER (FLOMAX) 0.4 mg cap TAKE ONE CAPSULE BY MOUTH DAILY rosuvastatin (CRESTOR) 20 mg tablet Take 1 tablet by mouth once daily. omega-3 fatty acids 1,000 mg cap Take 1 capsule by mouth once daily. apixaban (ELIQUIS) 5 mg tab tab(s) Take 1 tablet by mouth twice daily. latanoprost (XALATAN) 0.005 % ophthalmic solution Use 1 Drop in the left eye daily at bedtime. coQ10, ubiquinol, 100 mg cap Take 1 tablet by mouth once daily. Timolol Maleate 0.25 % dpet Use 1 Drop in the left eye once daily. ATENOLOL 25 MG ORAL TAB Take 1/2 tablet by mouth once daily. MULTI-VITAMIN ORAL TAB Take one(1) tablet daily. No current facility-administered medications on file prior to visit. Social History Social History Marital status: Spouse name: Years of education: Number of children: Social History Main Topics Smoking status: Former Smoker Packs/day: 1.00 Years: 4.00 Types: Cigarettes Quit date: 01/11/1966 Smokeless tobacco: Never Used Alcohol use: Yes Comment: rare Drug use: No Review of Symptoms REVIEW OF SYSTEMS GENERAL: No weight loss, malaise or fevers HEENT: No changes in hearing or vision, no nose bleeds or other nasal problems NECK: Negative for lumps, goiter, pain and significant neck swelling RESPIRATORY: Negative for cough, hemoptysis, wheezing, COPD, dyspnea or shortness of breath CARDIOVASCULAR: Negative for chest pain, leg swelling, hypertension, CHF or palpitations GI: No nausea, vomiting, or diarrhea, No heartburn or reflux symptoms and no blood : No history of dysuria, frequency or blood. Up once a night. MUSCULOSKELETAL: Negative for joint pain or swelling, back pain or muscle pain SKIN: Negative for lesions, rash, and itching PSYCH: Negative for mood disorder and recent psychosocial stressors. No problems initially falling asleep but will wake up around 4 AM and can't get back to sleep. HEMATOLOGY/LYMPHOLOGY: Negative for prolonged bleeding, bruising easily or swollen nodes ENDOCRINE: Negative for cold or heat intolerance, polyuria, polydipsia and goiter, diana symptoms of low blood sugars NEURO: No history of syncope, paralysis, seizures or tremors. Has frequent headache's and seems to have been persistent since Stroke. Not bothersome or debilitating. EXAM: BP 126/82 Pulse 60 Resp 14 Ht 171.5 cm (5' 7.5) Wt 74.8 kg (165 lb) BMI 25.46 kg/m? General Appearance: Well appearing, alert, in no acute distress, well-hydrated, well nourished.. Skin: Skin color, texture, turgor normal, no suspicious rashes or lesions. Head: Normocephalic, no masses, lesions, tenderness or abnormalities. Eyes: Anicteric sclera. Pupils are equally round and reactive to light. Extraocular movements are intact. . Ears: External ears normal, canals clear. Nose/Sinuses: Nares normal, septum midline, mucosa normal, no drainage or sinus tenderness. Oropharynx: Lips, mucosa, and tongue normal, teeth and gums normal, oropharynx normal. Neck: Supple, no adenopathy; thyroid symmetric, normal size, no bruits. Lungs: Lungs clear to auscultation. No wheezing, rhonchi, rales. Heart: RRR without murmur, gallop, or rubs. No ectopy. Abdomen: Normal abdominal exam, Abdomen soft, non-tender. Bowel sounds normal. No masses, organomegaly. Extremities: No deformities, edema, skin discoloration. Musculoskeletal: No joint swelling, deformity, or tenderness. Muscle strength was normal. Peripheral Pulses: Normal. Neurologic: Gait normal. Reflexes normal and symmetric. Sensation to light touch and crainal nerves 2-12 intact.. Genitalia: Normal, Penis normal. No urethral discharge. Scrotum normal to palpation. No hernia.. Rectal: Normal exam. Prostate enlarged but smooth firm capsule. Health Maintenance List BP CONTROLLED (<130/80) due on 1962 DTAP,TDAP,TD(1 - Tdap) due on 1963 ADULT PREVNAR-13 due on 2009 INFLUENZA(1) due on 04/21/2018 STATIN MED ADHERENCE due on 05/21/2018 COLORECTAL CANCER SCREENING,SEE MODIFIER due on 09/03/2018 ANNUAL PCP TEAM CHRONIC DISEASE VISIT due on 10/23/2018 LDL CHOLESTEROL due on 04/24/2019 DIABETES SCREEN due on 04/24/2021 LIPID SCREEN due on 04/24/2023 PNEUMOVAX AGE 65 AND OVER WITH 5YR LOOKBACK Completed Data reviewed Component Latest Ref Rng AND Units 08/11/2017 10/16/2017 04/24/2018 NA 136 - 145 mmol/L 143 K 3.5 - 5.1 mmol/L 4.4 Chloride 98 - 107 MEQ/L 106 CO2 21 - 32 MEQ/L 27.0 Glucose 74 - 106 MG/DL 93 BUN 7 - 18 MG/DL 19 (A) Creatinine 0.6 - 1.3 MG/DL 1.24 GFR mL/MIN 61 GFR AFR AMER mL/MIN 73 Total Protein 6.4 - 8.2 gm/dL 7.5 Albumin 3.2 - 4.6 gm/dL 3.8 Calcium 8.5 - 10.1 mg/dL 9.0 Bili Total 0.2 - 1 mg/dL 0.60 AST 8 - 37 U/L 25 ALT (SGPT) 12 - 78 U/L 46 Alk Phos Total 45 - 117 U/L 46 Cholesterol, Total 200 163 Triglyceride 149 mg/dL 115 93 HDL CHOLESTEROL 40 53 LDL Cholesterol 70 87 (A) Cholesterol, Total 0 - 200 MG/DL 142 HDC-L 41 mg/dL 43 (A) LDL Chol, calculated 130 MG/DL 80 Hemoglobin A1C 4.3 - 5.6 6.1 5.6 PSA. 0.0 - 4.0 0.43 A/P ASSESSMENT/PLAN: 1. Medicare annual wellness visit, subsequent - ICD9: V70.0, ICD10: Z00.00 (primary diagnosis) - Completed Digital Rectal exam - Recommended regular aerobic exercise. - Follow up for annual exam in one year. 2. Need for vaccination - ICD9: V05.9, ICD10: Z23 - PNEUMOCOCCAL-13 VACCINE PCV-13 given 3. Essential hypertension - ICD9: 401.9, ICD10: I10 - good control - Continue current medication(s) - Recommended regular aerobic exercise. - Recommend home blood pressure monitoring, to bring results in on next visit - Goal of BP <140/90 4. Hyperlipidemia, mixed - ICD9: 272.2, ICD10: E78.2 - good control - Encouraged following a low fat, low cholesterol diet. - Discussed the benefits of regular aerobic exercise and weight loss. - Encouraged following a low carbohydrate, healthy oil intake diet. - Continue current therapy. 5. Elevated hemoglobin A1c - ICD9: 790.29, ICD10: R73.09 - Improved control with dietary changes. Patient to continue. 6. Depression, major, single episode, mild (HCC) - ICD9: 296.21, ICD10: F32.0 - doing well with the Wellbutrin no changes. 7. Coronary atherosclerosis due to lipid rich plaque - ICD9: 414.3, ICD10: I25.10, I25.83 - Clinically stable no changes cont f/u with cardio as well. 8. History of TIA (transient ischemic attack) - ICD9: V12.54, ICD10: Z86.73 - Clinically stable and source of frequent headaches. No changes in current Tx. 9. Diverticulosis of colon - ICD9: 562.10, ICD10: K57.30 - Clinically stable 10. Benign prostatic hyperplasia with lower urinary tract symptoms, symptom details unspecified - ICD9: 600.01, ICD10: N40.1 - Clinically stable 11. Insomnia, unspecified type - ICD9: 780.52, ICD10: G47.00 - Patient to try melatonin 5 mg right before bed and then let me know if helping stay asleep. Signed Prescriptions Disp Refills tamsulosin ER (FLOMAX) 0.4 mg cap 90 capsule 1 Sig: Take 1 capsule by mouth once daily. MARVA: No f/u 6 months routine check CMP and A1c prior. MD Sixto Winkler MD 05/01/2018 2:37 PM Signed Please get fasting labs on or after 10/19/2018 piror to next visit. Referring Provider: SIXTO LOCKHART [[id number]] Allergies As of Date: 05/01/2018 (No Known Allergies) Date Reviewed: 05/01/2018 Reviewed by: Sixto Lockhart - Fully Assessed Reason for Visit: Physical [83] Cmt: 6 months Primary Visit Diagnosis:Medicare annual wellness visit, subsequent [Z00.00] Other Visit Diagnoses:Need for vaccination [Z23] Essential hypertension [I10] Hyperlipidemia, mixed [E78.2] Elevated hemoglobin A1c [R73.09] Coronary atherosclerosis due to lipid rich plaque [I25.10, I25.83] History of TIA (transient ischemic attack) [Z86.73] Diverticulosis of colon [K57.30] Benign prostatic hyperplasia with lower urinary tract symptoms, symptom details unspecified [N40.1] Insomnia, unspecified type [G47.00] Frequent headaches [R51] Depression, major, single episode, mild (HCC) [F32.0] Order(s):PNEUMOCOCCAL-13 VACCINE PCV-13 [[id number]] Order #: [id number] HGB A1C [EHADN7Q] Order #: [id number] FUTURE LIPID PANEL, NONFASTING [SQLIPNF] Order #: [id number] FUTURE tamsulosin ER (FLOMAX) 0.4 mg capTake 1 capsule by mouth once daily.Disp: 90 capsuleRfl: 1 Prescriptions as of 05/01/2018 Sig: TAMSULOSIN 0.4 MG CAPSULE Take 1 capsule by mouth once * BUPROPION HCL 100 MG TABLET TAKE ONE TABLET BY MOUTH TWIC* ROSUVASTATIN 20 MG TABLET Take 1 tablet by mouth once d* OMEGA-3 FATTY ACIDS 1,000 MG * Take 1 capsule by mouth once * APIXABAN 5 MG TABLET Take 1 tablet by mouth twice * LATANOPROST 0.005 % EYE DROPS Use 1 Drop in the left eye da* COENZYME Q10 (UBIQUINOL) 100 * Take 1 tablet by mouth once d* TIMOLOL MALEATE (PF) 0.25 % E* Use 1 Drop in the left eye on* * ATENOLOL 25 MG TABLET Take 1/2 tablet by mouth once* * MULTI-VITAMIN TABLET Take one(1) tablet daily. Problem List As Of Date 05/01/2018 Noted Resolved Depression, major, single episode, mild (HCC) [*INVALID FOR* Priority: A Hyperlipidemia, mixed [E78.2] Priority: A Diverticulosis of colon [K57.30] Priority: C More... Hemorrhoids [K64.9] Priority: C More... Coronary atherosclerosis [I25.10] Priority: A More... Abdominal adhesions [K66.0] INVALID FOR* Priority: C History of TIA (transient ischemic attack) [Z86*INVALID FOR* Priority: A More... Benign prostatic hyperplasia with lower urinary*INVALID FOR* Priority: C Prostate disorder [N42.9] INVALID FOR* Glaucoma [H40.9] Priority: G Essential hypertension [I10] Priority: A Ex-smoker [Z87.891] INVALID FOR* Priority: C More... Medicare annual wellness visit, subsequent [Z00*INVALID FOR* Priority: E More... Well adult exam [Z00.00] INVALID FOR* Priority: E More... Chronic anticoagulation [Z79.01] INVALID FOR* Priority: B Encounter for screening for diabetes mellitus [*INVALID FOR* Elevated hemoglobin A1c [R73.09] INVALID FOR* Priority: A Numbness and tingling of left leg [R20.0, R20.2]INVALID FOR* Left shoulder pain [M25.512] INVALID FOR* Insomnia [G47.00] INVALID FOR* Frequent headaches [R51] INVALID FOR* Priority: A More... Other instructions from your clinician: Please get fasting labs on or after 10/19/2018 piror to next visit. Prescriptions ordered this encounter Disp Refills Start End TAMSULOSIN 0.4 MG CAPSULE 90 c* 1 05/01/2018 Cmt: Patient accidentally threw out new script and is without medication. Please refill early. Route: ORAL Sig: Take 1 capsule by mouth once daily. Medications Discontinued During This Encounter tamsulosin ER (FLOMAX) 0.4 mg cap 90 c* 1 04/24/2018 05/01/2018 Cmt: This prescription was filled on 04/24/2018. Any refills authorized will be placed on file. Sig: TAKE ONE CAPSULE BY MOUTH DAILY Disc: Reason for discontinue is not on file. Disposition: Return in about 6 months (around 10/29/2018) for routine. Follow-up and Disposition History Recorded Encounter Status:Closed by SIXTO LOCKHART on 05/01/18 HOSP Observed: 04/25/2018 Status: COMPLETED Source: [place] 12:00 AM [facility] REPOSITORY Patient Update (FAMPWS) VALDEMAR JEFFERSON ([id number]) 1945 M Date Time Provider Department 04/25/18 [facility] During your visit today, we recorded the following information about you: Allergies As of Date: 04/25/2018 (No Known Allergies) Date Reviewed: 10/23/2017 Reviewed by: Sixto Lockhart - Fully Assessed Order(s):PSA (OUTSIDE) [[id number]] Order #: [id number] HBA1C (OUTSIDE) [[id number]] Order #: [id number] Prescriptions as of 04/25/2018 Sig: BUPROPION HCL 100 MG TABLET TAKE ONE TABLET BY MOUTH TWIC* TAMSULOSIN 0.4 MG CAPSULE TAKE ONE CAPSULE BY MOUTH JESSICA* ROSUVASTATIN 20 MG TABLET Take 1 tablet by mouth once d* OMEGA-3 FATTY ACIDS 1,000 MG * Take 1 capsule by mouth once * APIXABAN 5 MG TABLET Take 1 tablet by mouth twice * LATANOPROST 0.005 % EYE DROPS Use 1 Drop in the left eye da* COENZYME Q10 (UBIQUINOL) 100 * Take 1 tablet by mouth once d* TIMOLOL MALEATE (PF) 0.25 % E* Use 1 Drop in the left eye on* * ATENOLOL 25 MG TABLET Take 1/2 tablet by mouth once* * MULTI-VITAMIN TABLET Take one(1) tablet daily. Problem List As Of Date 04/25/2018 Noted Resolved Major depressive disorder, single episode [F32.*INVALID FOR* Priority: A Hyperlipidemia, mixed [E78.2] Priority: A Diverticulosis of colon [K57.30] Priority: C More... Hemorrhoids [K64.9] Priority: C More... Coronary atherosclerosis [I25.10] Priority: A More... Abdominal adhesions [K66.0] INVALID FOR* Priority: C History of TIA (transient ischemic attack) [Z86*INVALID FOR* Priority: A More... Benign prostatic hyperplasia with lower urinary*INVALID FOR* Priority: C Prostate disorder [N42.9] INVALID FOR* Glaucoma [H40.9] Priority: G Essential hypertension [I10] Priority: A Ex-smoker [Z87.891] INVALID FOR* Priority: C More... Medicare annual wellness visit, subsequent [Z00*INVALID FOR* Priority: E More... Well adult exam [Z00.00] INVALID FOR* Priority: E More... Chronic anticoagulation [Z79.01] INVALID FOR* Priority: B Encounter for screening for diabetes mellitus [*INVALID FOR* Elevated hemoglobin A1c [R73.09] INVALID FOR* Priority: A Numbness and tingling of left leg [R20.0, R20.2]INVALID FOR* Left shoulder pain [M25.512] INVALID FOR* Insomnia [G47.00] INVALID FOR* Encounter Status:Closed by SIXTO LOCKHART on 04/25/18 URINALYSIS WITH Collected: 04/24/2018 Status: F Source: [facility] 8:27 AM [facility] REPOSITORY TYPE CODE TESTS RESULT OUT OF RANGE REFERENCE UNITS LAB UCOL Yellow Abnormal Test Alert Color sent to [facility]. Result Comment: Account Credited HIDE LAB [facility] Clear Abnormal Test Alert Clarity sent to [facility]. Result Comment: Account Credited HIDE LAB UGLUC Negative mg/dL Test Abnormal Glucose, Urine sent to [facility]. Result Comment: Account Credited HIDE LAB UBIL Negative Abnormal Test Alert Bilirubin, Urine sent to [facility]. Result Comment: Account Credited HIDE LAB UKET Negative Abnormal Test Alert Ketones, Urine sent to [facility]. Result Comment: Account Credited HIDE LAB USPG 1.005-1.030 Test Specific sent to [facility] [place] [facility] Result Comment: Account Credited HIDE LAB UHGB Negative Hemoglobin/Blood,Ur Abnormal Test sent to Alert [facility]. Result Comment: Account Credited HIDE LAB UPH 4.5-8.0 Test sent to pH [facility]. Result Comment: Account Credited HIDE LAB UPROT Negative mg/dL Test Abnormal Protein, Urine sent to [facility]. Result Comment: Account Credited HIDE LAB UUROB Normal Abnormal Urobilinogen Test Alert sent to [facility]. Result Comment: Account Credited HIDE LAB UNITR Negative Abnormal Test Alert Nitrites sent to [facility]. Result Comment: Account Credited HIDE LAB ULKEST Negative Abnormal Test Alert Leukest sent to [facility]. Result Comment: Account Credited HIDE LAB UCOM Comments SEE COMMENT Result Comment: Test sent to [facility]. Account Credited HIDE LAB UMCOM Urine SEE Buddy Comment COMMENT Result Comment: Test sent to [facility]. Account Credited HIDE LAB RECHEK Recheck Test sent to [facility]. Result Comment: Account Credited AYLINE HEMOGLOBIN A1C Collected: 04/24/2018 Status: F Source: [place] 8:27 AM [facility] REPOSITORY TYPE CODE TESTS RESULT OUT OF REFERENCE UNITS RANGE LAB HGBA1C 4.0-6.0 % Test Hemoglobin A1c sent to [facility]. Result Comment: Account Credited HIDE LAB HBA0 mg/dL Est. Test sent Average Glucose to [facility]. Result Comment: Account Credited [facility] PSA, DIAGNOSTIC Collected: 04/24/2018 Status: F Source: [place] 8:27 AM [facility] REPOSITORY TYPE CODE TESTS RESULT OUT OF REFERENCE UNITS RANGE LAB PSA 0.00-2.59 ng/mL PSA, Test Diagnostic sent to [facility]. Result Comment: Account Credited [facility] COMP METABOLIC PANEL Collected: 04/24/2018 Status: F Source: [place] 8:27 AM [facility] REPOSITORY TYPE CODE TESTS RESULT OUT OF REFERENCE UNITS RANGE LAB TP 6.3-8.0 g/dL Test sent to [facility]. Result Comment: Account Credited HIDE LAB ALB 3.9-4.9 g/dL Test Albumin sent to [facility]. Result Comment: Account Credited HIDE LAB CA 8.5-10.2 mg/dL Test Calcium, Total sent to [facility]. Result Comment: Account Credited HIDE LAB TBIL 0.2-1.3 mg/dL Bilirubin, Test Total sent to [facility]. Result Comment: Account Credited HIDE LAB ALKP 36-108 U/L Alkaline Test Phosphatase sent to [facility]. Result Comment: Account Credited HIDE LAB AST 14-40 U/L Test sent AST to [facility]. Result Comment: Account Credited HIDE LAB GLU 74-99 mg/dL Test sent Glucose to [facility]. Result Comment: Account Credited HIDE LAB BUN 9-24 mg/dL Test sent BUN to [facility]. Result Comment: Account Credited HIDE LAB CRET 0.73-1.22 mg/dL Creatinine Test sent to [facility]. Result Comment: Account Credited HIDE LAB NA 136-144 mmol/L Test Sodium sent to [facility]. Result Comment: Account Credited HIDE LAB K 3.7-5.1 mmol/L Test Potassium sent to [facility]. Result Comment: Account Credited HIDE LAB CL 97-105 mmol/L Test Chloride sent to [facility]. Result Comment: Account Credited HIDE LAB CO2 22-30 mmol/L Test sent CO2 to [facility]. Result Comment: Account Credited HIDE LAB AGAP 9-18 mmol/L Test sent Anion Gap to [facility]. Result Comment: Account Credited HIDE LAB ALT 10-54 U/L Test sent ALT to [facility]. Result Comment: Account Credited HIDE LAB GFRAA eGFR- Amer. Test sent to [facility]. Result Comment: Account Credited HIDE LAB GFRNAA . eGFR-All Test sent Other Races to [facility]. Result Comment: Account Credited HIDE LAB GFRPED eGFR-Ped. Test sent Factor to [facility]. Result Comment: Account Credited HIDE LIPID PANEL, BASIC Collected: 04/24/2018 Status: F Source: [place] 8:27 AM [facility] REPOSITORY TYPE CODE TESTS RESULT OUT OF REFERENCE UNITS RANGE LAB CHOL <200 mg/dL Cholesterol Test sent to [facility]. Result Comment: Account Credited [facility] LAB TRIGLY <150 mg/dL Triglyceride Test sent to [facility]. Result Comment: Account Credited [facility] LAB HDL >39 mg/dL HDL-Cholesterol Test sent to [facility]. Result Comment: Account Credited [facility] LAB LDL <100 mg/dL LDL-Cholesterol Test sent to [facility]. Result Comment: Account Credited [facility] LAB NONHDL 90-159 mg/dL Non HDL Test Cholesterol sent to [facility]. Result Comment: Account Credited [facility] LAB FT hrs Fasting Time 12 LAB VLDL <30 mg/dL VLDL Cholesterol Test sent to [facility]. Result Comment: Account Credited [facility] LAB TCHDL <5.10 Test sent TC:HDL Ratio to [facility]. Result Comment: Account Credited [facility] LAB LDLHDL <2.54 Test sent LDL:HDL Ratio to [facility]. Result Comment: Account Credited [facility] COMPREHENSIVE METABOLIC Collected: 04/24/2018 Status: F Source: [facility] 12:00 AM [facility] REPOSITORY TYPE CODE TESTS RESULT OUT OF RANGE REFERENCE UNITS LAB L501.0100 74-106 mg/dL Normal GLU 93 Result Comment: Please note revised GLUCOSE reference range effective 2017. LAB L501.1000 7-18 mg/dL High BUN 19 LAB L501.1100 0.70-1.30 mg/dL Normal CREAT,SERUM 1.24 Result Comment: The validity of the calculated GFR AND GFRAA in patients over 70 years has not been determined. Clinical correlation is essential. LAB L501.1110 >60 mL/min Normal EST GFR 61 Result Comment: Non- GFR Calc LAB L501.1115 >60 mL/min Normal EST GFR - AA 73 Result Comment: GFR Calc LAB L501.1300 10-20 RATIO Normal BUN/CRE 15.3 LAB L501.1500 6.4-8.2 g/dL T Normal PROT 7.5 LAB L501.1800 3.2-5.0 g/dL Normal ALB 3.8 LAB L501.1950 2.2-4.2 g/dL Normal GLOB 3.7 LAB L501.2000 0.9-2.4 RATIO Normal A/G 1.0 LAB L501.2200 8.5-10.1 mg/dL CA Normal 9.0 LAB L501.4100 15-37 U/L Normal AST 25 LAB L501.4305 45-117 U/L Normal ALK P 46 LAB L501.4405 16-61 U/L Normal ALT 26 LAB L501.4600 0.20-1.00 mg/dL T Normal BILI 0.60 LAB L501.5300 136-145 mmol/L NA Normal 143 LAB L501.5600 3.5-5.1 mmol/L K Normal 4.4 LAB L501.5900 98-107 mmol/L CL Normal 106 LAB L501.6100 21.0-32.0 mmol/L Normal CO2 27.0 LAB L501.6200 5-15 Normal GAP 10 Performed By: #### L500.4050, L500.4100, L501.9940 #### [facility] [address] [place], [address] LIPID PROFILE Collected: 04/24/2018 Status: F Source: [place] 12:00 AM [facility] REPOSITORY TYPE CODE TESTS RESULT OUT OF RANGE REFERENCE UNITS LAB L501.4900 200 mg/dL Normal CHOL 142 Result Comment: <200 mg/dL Desirable 200-240 mg/dL Borderline >240 mg/dL High Risk LAB L501.5000 mg/dL Normal TRIG 93 Result Comment: The drugs N-Acetylcysteine and Metamizole may falsely depress this assay. Serum Triglycerides Reference Interval Normal <150 mg/dL Borderline high 150 - 199 mg/dL High 200 - 499 mg/dL Very High > or = 500 mg/dL LAB L501.6400 mg/dL Normal HDL 43 Result Comment: The drugs N-Acetylcysteine and Metamizole may falsely depress this assay. Reference Range HDL <40 mg/dL Low HDL Cholesterol HDL >or= 60 mg/dL High HDL Cholesterol LAB L501.6500 0-130 mg/dL Normal LDL 80 LAB L501.6600 5-40 mg/dL Normal VLDL 19 Performed By: #### L500.4050, L500.4100, L501.9940 #### [facility] [address] [place], [address] PSA,TOTAL- DIAGNOSTIC Collected: 04/24/2018 Status: F Source: [place] 12:00 AM [facility] REPOSITORY TYPE CODE TESTS RESULT OUT OF RANGE REFERENCE UNITS LAB L501.9940 0.0-4.0 ng/mL PSA, Normal DIAGNOSTIC 0.43 Result Comment: This test was performed using the TPSA assay method for the [employer] chemistry system. Values obtained with different assay methods cannot be used interchangably. When changing PSA assays in the course of monitoring a patient, additional sequential testing should be carried out to confirm baseline values. Performed By: #### L500.4050, L500.4100, L501.9940 #### [facility] [address] [place], [address] URINALYSIS, COMPLETE Collected: 04/24/2018 Status: F Source: [place] 12:00 AM [facility] REPOSITORY Order Comment: How was Urine Obtained? CLEAN CATCH TYPE CODE TESTS RESULT OUT OF RANGE REFERENCE UNITS LAB L400.3000 Yellow COLOR Normal Yellow LAB L400.3050 Clear Normal CLARITY Clear LAB L400.3200 Normal mg/dl Normal GLUCOSE, UR Normal LAB L400.3300 Negative mg/dL Normal BILIRUBIN URINE Negative LAB L400.3400 Negative mg/dl Normal KETONE UR Negative LAB L400.3465 1.002-1.030 Normal SP.GR. DIPSTX 1.010 LAB L400.3550 5.0 - 8.0 pH UR Normal 7.0 LAB L400.3600 Negative mg/dl PROT Normal DIPSTX Negative LAB L400.3700 Normal mg/dl Normal UROBILI Normal LAB L400.3750 Negative Normal NITRITE UR Negative LAB L400.3780 Negative /ul High 10 OCCULT BLOOD-UR LAB L400.3800 Negative /ul LEUK Normal ESTERASE Negative LAB L400.4050 0-5 /hpf WBC 0 Normal SEEN LAB L400.4100 0-5 /hpf 0 Normal RBC-UA SEEN LAB L400.4150 0-5 /hpf SQUAM 0 Normal EPI SEEN LAB L400.4300 None Seen /hpf 0 Normal BACTERIA SEEN LAB L400.4350 <or=2+ /hpf 0 Normal MUCUS, URINE SEEN Performed By: #### L400.0001 #### [facility] [address], [address] HEMOGLOBIN A1C Collected: 04/24/2018 Status: F Source: [place] 12:00 AM [facility] REPOSITORY TYPE CODE TESTS RESULT OUT OF RANGE REFERENCE UNITS LAB L501.9985 4.2-6.3 % Normal HGB A1C 5.6 Performed By: #### L501.9985 #### [facility] [address] [place], [address] CNPTOUTREACH Observed: 04/17/2018 Status: COMPLETED Source: [place] 12:00 AM [facility] REPOSITORY Patient Outreach (INTMWH) VALDEMAR JEFFERSON ([id number]) 1945 M Date Time Provider Department 04/17/18 SIXTO LOCKHART [facility] During your visit today, we recorded the following information about you: Allergies As of Date: 04/17/2018 (No Known Allergies) Date Reviewed: 10/23/2017 Reviewed by: Sixto Lockhart - Fully Assessed Visit Diagnosis:Medication management [Z79.899] Prescriptions as of 04/17/2018 Sig: ROSUVASTATIN 20 MG TABLET Take 1 tablet by mouth once d* X BUPROPION HCL 100 MG TABLET Take 1 tablet by mouth twice * X TAMSULOSIN 0.4 MG CAPSULE Take 1 capsule by mouth once * OMEGA-3 FATTY ACIDS 1,000 MG * Take 1 capsule by mouth once * APIXABAN 5 MG TABLET Take 1 tablet by mouth twice * LATANOPROST 0.005 % EYE DROPS Use 1 Drop in the left eye da* COENZYME Q10 (UBIQUINOL) 100 * Take 1 tablet by mouth once d* TIMOLOL MALEATE (PF) 0.25 % E* Use 1 Drop in the left eye on* * ATENOLOL 25 MG TABLET Take 1/2 tablet by mouth once* * MULTI-VITAMIN TABLET Take one(1) tablet daily. Problem List As Of Date 04/17/2018 Noted Resolved Major depressive disorder, single episode [F32.*INVALID FOR* Priority: A Hyperlipidemia, mixed [E78.2] Priority: A Diverticulosis of colon [K57.30] Priority: C More... Hemorrhoids [K64.9] Priority: C More... Coronary atherosclerosis [I25.10] Priority: A More... Abdominal adhesions [K66.0] INVALID FOR* Priority: C History of TIA (transient ischemic attack) [Z86*INVALID FOR* Priority: A More... Benign prostatic hyperplasia with lower urinary*INVALID FOR* Priority: C Prostate disorder [N42.9] INVALID FOR* Glaucoma [H40.9] Priority: G Essential hypertension [I10] Priority: A Ex-smoker [Z87.891] INVALID FOR* Priority: C More... Medicare annual wellness visit, subsequent [Z00*INVALID FOR* Priority: E More... Well adult exam [Z00.00] INVALID FOR* Priority: E More... Chronic anticoagulation [Z79.01] INVALID FOR* Priority: B Encounter for screening for diabetes mellitus [*INVALID FOR* Elevated hemoglobin A1c [R73.09] INVALID FOR* Priority: A Numbness and tingling of left leg [R20.0, R20.2]INVALID FOR* Left shoulder pain [M25.512] INVALID FOR* Insomnia [G47.00] INVALID FOR* Encounter Status:Closed by RIC CISNEROS on 06/01/18 CARDIOLOGY VISIT Observed: 01/31/2018 Status: F Source: [place] REPORT 8:21 AM [facility] REPOSITORY [facility] [address] [place] [address]. [address] [place] [address] OFFICE VISIT Date of Service: 01/17/18 MR#: [id number] Acct: [id number] Name: VALDEMAR JEFFERSON Danny Rep #: [id number] : 1945 Provider: Kadi Infante Age/Sex: 72/M Location: [facility] Status: Signed HPI HPI Details: VALDEMAR JEFFERSON, is a 72 M who presents to the office today for a cardiovascular follow-up. He has a history of mild coronary artery disease, ischemic stroke involving the left temporal and parietal lobes, probable atrial fibrillation and hyperlipidemia. EKG today demonstrates sinus bradycardia with heart rate of 53. From a cardiac standpoint patient is doing well. He does not have any chest discomfort or heaviness. He is not aware of any palpitations. He has not had any further strokelike symptoms. He does not have any worsening shortness of breath. He does keep himself active. He does not have any near-syncope or syncope. He does occasionally have positional dizziness. He does not have any lower extremity edema. He is planning on having surgery for his rotator cuff Dr. Adair's office has requested preoperative cardiac assessment from us. 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 Accompanied by: Is patient in pain?: No Allergies No Known Allergies Allergy (Verified 01/17/18 09:53) Medications Co Q10 200 [Co Q-10] 200 mg PO DAILY 12/31/15 [History Confirmed 01/17/18] Latanoprost 0.005% [Xalatan Opthalmic] 1 drp LEFT EYE QHS 12/31/15 [History Confirmed 01/17/18] Multivitamins,Therapeutic [Multivitamin] 1 tab PO DAILY 12/31/15 [History Confirmed 01/17/18] Tamsulosin HCl [Flomax] 0.4 mg PO QHS 12/31/15 [History Confirmed 01/17/18] Timolol Maleate [Timoptic-XE 0.25%] 1 drp LEFT EYE DAILY 12/31/15 [History Confirmed 01/17/18] buPROPion tablets [Wellbutrin tablets] 100 mg PO BID 12/31/15 [History Confirmed 01/17/18] Apixaban [Eliquis] 5 mg PO BID #90 tab 04/12/16 [Rx Confirmed 01/17/18] metoprolol tartrate 25 mg tablet See Label Instructions PO BID 01/08/18 [History Confirmed 01/17/18] rosuvastatin 20 mg tablet 20 mg PO QHS tab 01/08/18 [History Confirmed 01/17/18] Ejection fraction %: 60 to 64 PFSH Medical History History of carpal tunnel release (Resolved) Paroxysmal atrial fibrillation (Chronic) CAD (coronary artery disease) (Chronic) Hyperlipidemia (Chronic) Benign essential hypertension (Chronic) Surgical History Hx of appendectomy (Resolved) Hx of cataract surgery (Resolved) H/O colonoscopy (Resolved) H/O hernia repair (Resolved) Family History Mother CAD (coronary artery disease) Hypertension Brother CAD (coronary artery disease) Sister CAD (coronary artery disease) Social History Smoking Status: Former smoker alcohol intake: current alcohol intake frequency: holidays/special occasions only substance use type: does not use caffeine: Yes Type: coffee Number of servings: 2 what type of physical activity do you participate in: other details: healthpoint ROS Const Const: Negative for weakness, fatigue, fever(s) or headache(s) Eyes Eyes: Negative for blind spots, loss of peripheral vision or transient loss of vision ENT ENT: Negative for headache(s), dizziness, tinnitus or Nosebleed/epistaxis Cardio Chest Pain: No Palpitations: No Edema: None Muscle aches with walking: None Resp Respiratory: Negative for SOB with activity, SOB at rest, SOB orthopnea\SOB lying down or Cough GI GI: Negative nausea, vomiting, heartburn or vomiting blood/hematemesis : Negative for hematuria Musc Musc: Negative for muscle aches/ myalgia Neuro Neuro: Negative for weakness, headache(s), dizziness, near syncope, syncope, lightheadedness or orthostatic symptoms Huy Hematologic/Lymphatic: Negative for easy bleeding Endo Endo: Negative for fatigue Cardiology Exam Const Appearance: cooperative, no acute distress and well developed Orientation: alert, awake and oriented x3 Head Head: normocephalic and atraumatic Mouth: moist mucous membranes Eyes General: appearance normal, both eyes and all related structures Conjunctivae: conjunctivae normal Pupils: PERRL EOM: EOM intact bilaterally Neck Neck: normal visual inspection, no lymphadenopathy and no JVD Carotids: Negative bruit Neck Mass: Negative Neck mass Chest Chest inspection: normal inspection of the chest and symmetric chest movement Auscultation: Bilateral: Clear to Auscultation Cardio Palpation: normal PMI Rate: regular rate Rhythm: regular rhythm Heart sounds: S1 normal and S2 normal; negative rub, gallop or murmur GI GI: normal to inspection, soft, no hepatosplenomegaly and bowel sounds present; negative tender Neuro General: alert, awake, oriented x3, CN's II-XI intact bilaterally and moves all extremities Extremities Pulses: Normal: Right Posterior Tibial Pulse, Left Posterior Tibial Pulse, Right Radial Pulse, Left Radial Pulse Lower Extremity Edema: None: Bilateral Psych Psychological: normal affect Supplemental Info Stress test in 2016 demonstrated CONCLUSION: 1. Mild left ventricular systolic dysfunction. 2. Exercise myocardial perfusion stress test with no evidence of ischemia at a high workload. 3. Excellent functional work capacity. 4. No clinical angina noted. Echocardiogram at that time demnstrated Normal LV size. Left ventricular systolic function is normal. The estimated ejection fraction is 55 %. Mild tricuspid va].ve insufficien . Trivial eccentric mitral valve insufficiency. Trivial aort.ic valve insufficien.c3 . Previous positive buhb].e Assessment AND Plan 1. Paroxysmal atrial fibrillation I48.0 Plan - BRADFORD Johnston Patient has not had any symptomatic recurrence. He remains anticoagulated with a factor Xa have better. He also remains on his beta-eder. In regards to his upcoming surgery do not feel that any additional cardiac testing needed at this time. It would be okay for him to hold his factor Xa inhibitor prior to his surgery and resume as soon as possible after surgery. 2. Pure hypercholesterolemia E78.00; E78.0 Plan - BRADFORD Johnston Patient is due to have these checked in the near future. Will adjust accordingly. He will have these done later today. Plan Detail Other Orders Orders: Additional Comments - BRADFORD Johnston The above patient was discussed with Dr. Ivey, he agrees with plan of care. Thank you for allowing us to participate in patient's plan of care, if you have any questions please do not hesitate to call. This note was generated using a voice recognition system and there may be incorrect words, spelling or punctuation errors that were not noted when reviewing the office note prior to saving. 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) Coding Level of Care Code Off vis,est,level 3 Diagnoses Paroxysmal atrial fibrillation I48.0 Pure hypercholesterolemia E78.00; E78.0 Hyperlipidemia type: pure hypercholesterolemia Coding Level of Care Code Off vis,est,level 3 Diagnoses Paroxysmal atrial fibrillation I48.0 Pure hypercholesterolemia E78.00; E78.0 Hyperlipidemia type: pure hypercholesterolemia 01/17/18 1100 <Electronically signed by Kadi Infante PA> Date Kadi FELDER 01/31/18 0821<Electronically signed by Lobo Ivey MD> Cosigner Signature: Date (if applicable) Lobo Ivey MD CC: Sixto Lockhart MD; Markos Adair DO CBC-COMPLETE BLOOD CNT Collected: 01/30/2018 Status: F Source: [place] NO DIFF 12:05 PM [facility] REPOSITORY TYPE CODE TESTS RESULT OUT OF RANGE REFERENCE UNITS LAB L100.1000 4.4-11.0 K/mm3 Normal WBC 5.8 LAB L100.1200 4.6-6.2 M/mm3 Low RBC 4.38 LAB L100.1300 13.0-16.5 g/dl Normal HGB 13.9 LAB L100.1400 40-54 % Normal HCT 42.8 LAB L100.1500 80-94 fL High MCV 97.7 LAB L100.1600 27.0-32.0 pg Normal MCH 31.7 LAB L100.1700 32-36 g/gl Normal MCHC 32.5 LAB L100.1810 11.6-14.6 % Normal RDW CV 13.4 LAB L100.1820 35.1-43.9 fl High RDW SD 47.7 LAB L100.1900 150-450 K/mm3 Normal PLT 191 LAB L100.2000 6.2-12.0 fl Normal MPV 9.5 Performed By: #### L100.0500 #### [facility] [address] [place], [address] BASIC METABOLIC Collected: 01/30/2018 Status: F Source: [place] PROFILE (BMP) 12:05 PM [facility] REPOSITORY TYPE CODE TESTS RESULT OUT OF RANGE REFERENCE UNITS LAB L501.0100 74-106 mg/dL Normal GLU 85 Result Comment: Please note revised GLUCOSE reference range effective 2017. LAB L501.1000 7-18 mg/dL Normal BUN 16 LAB L501.1100 0.70-1.30 mg/dL Normal CREAT,SERUM 1.22 Result Comment: The validity of the calculated GFR AND GFRAA in patients over 70 years has not been determined. Clinical correlation is essential. LAB L501.1110 >60 mL/min Normal EST GFR 62 Result Comment: Non- GFR Calc LAB L501.1115 >60 mL/min Normal EST GFR - AA 75 Result Comment: GFR Calc LAB L501.1300 10-20 RATIO Normal BUN/CRE 13.1 LAB L501.2200 8.5-10.1 mg/dL CA Normal 9.3 LAB L501.5300 136-145 mmol/L NA Normal 140 LAB L501.5600 3.5-5.1 mmol/L K Normal 4.4 LAB L501.5900 98-107 mmol/L CL Normal 105 LAB L501.6100 21.0-32.0 mmol/L Normal CO2 31.0 LAB L501.6200 5-15 Low GAP 4 Performed By: #### L500.2500 #### [facility] [address] [place], [address] LIVER PROFILE Collected: 01/17/2018 Status: F Source: [place] 10:47 AM [facility] REPOSITORY TYPE CODE TESTS RESULT OUT OF RANGE REFERENCE UNITS LAB L501.1500 6.4-8.2 g/dL Normal T PROT 7.2 LAB L501.1800 3.2-5.0 g/dL Normal ALB 3.6 LAB L501.1950 2.2-4.2 g/dL Normal GLOB 3.6 LAB L501.4100 15-37 U/L Normal AST 29 LAB L501.4305 45-117 U/L Normal ALK P 46 LAB L501.4405 16-61 U/L Normal ALT 27 LAB L501.4600 0.20-1.00 mg/dL Normal T BILI 0.50 LAB L501.4700 0.00-0.30 mg/dL Normal D BILI 0.16 Performed By: #### L500.3400, L500.4100 #### [facility] [address] [place], [address] LIPID PROFILE Collected: 01/17/2018 Status: F Source: [place] 10:47 AM [facility] REPOSITORY TYPE CODE TESTS RESULT OUT OF RANGE REFERENCE UNITS LAB L501.4900 200 mg/dL Normal CHOL 146 Result Comment: <200 mg/dL Desirable 200-240 mg/dL Borderline >240 mg/dL High Risk LAB L501.5000 mg/dL Normal TRIG 123 Result Comment: The drugs N-Acetylcysteine and Metamizole may falsely depress this assay. Serum Triglycerides Reference Interval Normal <150 mg/dL Borderline high 150 - 199 mg/dL High 200 - 499 mg/dL Very High > or = 500 mg/dL LAB L501.6400 mg/dL Normal HDL 41 Result Comment: The drugs N-Acetylcysteine and Metamizole may falsely depress this assay. Reference Range HDL <40 mg/dL Low HDL Cholesterol HDL >or= 60 mg/dL High HDL Cholesterol LAB L501.6500 0-130 mg/dL Normal LDL 80 LAB L501.6600 5-40 mg/dL Normal VLDL 25 Performed By: #### L500.3400, L500.4100 #### [facility] [address] [place], [address] 12 LEAD EKG PERFORMED Observed: 01/17/2018 Status: F Source: [place] BY [facility] 9:49 AM [facility] REPOSITORY [facility] [address] [place] [address] 12 Lead EKG performed by [facility] 01/17/18 0948 MR#: [id number] Acct: [id number] Name: VALDEMAR JEFFERSON Danny Rep #: [id number] : 1945 72 From: Kadi FELDER Attending Dr: Kadi Infante Status: DEP [facility] Ordering Dr: Kadi Infante Date: 01/17/18 Location: [facility] Sex: M C Admitted: BMS/12 Lead EKG performed by [facility] ECG Report Interpretation Sinus Bradycardia WITHIN NORMAL LIMITSElectronically signed on 02/12/2018 at 17:16 by Lobo Ivey 02/12/18 1720 Date Kadi FELDER CC: Sixto Lockhart MD Date Dictated: 01/17/18947 Date Transcribed: 01/17/18947 Tourist Agent: FARHAD Signed HOSP Observed: 01/17/2018 Status: COMPLETED Source: [place] 12:00 AM [facility] REPOSITORY Patient Update (FAMPWS) VALDEMAR JEFFERSON ([id number]) 1945 M Date Time Provider Department 01/17/18 SIXTO LOCKHART During your visit today, we recorded the following information about you: Allergies As of Date: 01/17/2018 (No Known Allergies) Date Reviewed: 10/23/2017 Reviewed by: Sixto Lockhart - Fully Assessed Order(s):LIPID PANEL (OUTSIDE) [[id number]] Order #: [id number] Prescriptions as of 01/17/2018 Sig: ROSUVASTATIN 20 MG TABLET Take 1 tablet by mouth once d* BUPROPION HCL 100 MG TABLET Take 1 tablet by mouth twice * TAMSULOSIN 0.4 MG CAPSULE Take 1 capsule by mouth once * OMEGA-3 FATTY ACIDS 1,000 MG * Take 1 capsule by mouth once * APIXABAN 5 MG TABLET Take 1 tablet by mouth twice * LATANOPROST 0.005 % EYE DROPS Use 1 Drop in the left eye da* COENZYME Q10 (UBIQUINOL) 100 * Take 1 tablet by mouth once d* TIMOLOL MALEATE (PF) 0.25 % E* Use 1 Drop in the left eye on* * ATENOLOL 25 MG TABLET Take 1/2 tablet by mouth once* * MULTI-VITAMIN TABLET Take one(1) tablet daily. Problem List As Of Date 01/17/2018 Noted Resolved Major depressive disorder, single episode [F32.*INVALID FOR* Priority: A Hyperlipidemia, mixed [E78.2] Priority: A Diverticulosis of colon [K57.30] Priority: C More... Hemorrhoids [K64.9] Priority: C More... Coronary atherosclerosis [I25.10] Priority: A More... Abdominal adhesions [K66.0] INVALID FOR* Priority: C History of TIA (transient ischemic attack) [Z86*INVALID FOR* Priority: A More... Benign prostatic hyperplasia with lower urinary*INVALID FOR* Priority: C Prostate disorder [N42.9] INVALID FOR* Glaucoma [H40.9] Priority: G Essential hypertension [I10] Priority: A Ex-smoker [Z87.891] INVALID FOR* Priority: C More... Medicare annual wellness visit, subsequent [Z00*INVALID FOR* Priority: E More... Well adult exam [Z00.00] INVALID FOR* Priority: E More... Chronic anticoagulation [Z79.01] INVALID FOR* Priority: B Encounter for screening for diabetes mellitus [*INVALID FOR* Elevated hemoglobin A1c [R73.09] INVALID FOR* Priority: A Numbness and tingling of left leg [R20.0, R20.2]INVALID FOR* Left shoulder pain [M25.512] INVALID FOR* Insomnia [G47.00] INVALID FOR* Encounter Status:Closed by SIXTO LOCKHART on 01/17/18 NCS AND/OR EMG Observed: 01/10/2018 Status: F Source: [place] PATIENT 2:26 PM [facility] REPOSITORY [facility] Pulmonary Services/Neurology [address] [place] [address] MR#: [id number] Acct: [id number] Name: VALDEMAR JEFFERSON Rep #: [id number] : 1945 72 From: Carola Glover MD Referring Dr: Sixto Lockhart MD Status: REG CLI Ordering Dr: Date: Location: PSN Sex: M C NCS and/or EMG Patient Report Ordering Doctor: Sixto Lockhart DATE OF SERVICE: 01/10/18 Valdemar Jefferson is a 72-year-old male who presents for electrodiagnostic testing of the left lower limb. He has numbness in the left lower leg. Electrodiagnostic findings: Left common peroneal nerve demonstrates normal distal latency, amplitude and conduction velocity. Normal left tibial motor response. Sensory responses are within normal limits. Normal F waves. On needle EMG, all muscles tested in the left lower limb show no evidence of denervation with normal motor unit action potentials. Electrodiagnostic impression: This a normal electrodiagnostic study in the left lower limb. There is no electrodiagnostic evidence for peripheral neuropathy or lumbosacral radiculopathy. If there are any further questions, please do not hesitate to contact me. 01/10/18 1426 <Electronically signed by Carola Glover MD> Date Carola Glover MD CC: Carola Glover; Sixto Lockhart MD Date Dictated: 01/10/18 1347 Date Transcribed: 01/10/181346 Tourist Agent: NINA Signed FREE T3 Collected: 11/27/2017 Status: F Source: [place] 10:28 AM [facility] REPOSITORY TYPE CODE TESTS RESULT OUT OF REFERENCE UNITS RANGE LAB FREET3 2.3-4.1 pg/mL Test Free sent to [address] Result Comment: Account Credited HIDE FREE T4 Collected: 11/27/2017 Status: F Source: [place] 10:28 AM [facility] REPOSITORY TYPE CODE TESTS RESULT OUT OF REFERENCE UNITS RANGE LAB FT4 0.9-1.7 ng/dL Test Free sent to [address] Result Comment: Account Credited HIDE TSH Collected: 11/27/2017 Status: F Source: [place] 10:28 AM [facility] REPOSITORY TYPE CODE TESTS RESULT OUT OF REFERENCE UNITS RANGE LAB TSH 0.400-5.500 uU/mL Test TSH sent to [facility]. Result Comment: Account Credited HIDE FREE T3 Collected: 11/27/2017 Status: F Source: [place] 10:25 AM [facility] REPOSITORY Order Comment: Has Patient had X-rays with Contrast this admission? N TYPE CODE TESTS RESULT OUT OF RANGE REFERENCE UNITS LAB L501.60037 2.18-3.98 pg/mL Normal FREE T3 2.6 Performed By: #### L501.77577, L501.9310, L501.9520, L506.0400 #### [facility] [address] [place], [address] T4 TOTAL, THYROXIN Collected: 11/27/2017 Status: F Source: [place] 10:25 AM [facility] REPOSITORY Order Comment: Has Patient had X-rays with Contrast this admission? N TYPE CODE TESTS RESULT OUT OF RANGE REFERENCE UNITS LAB L501.9310 4.5-12.1 ug/dL T4 Normal THYROXIN 6.7 Performed By: #### L501.00647, L501.9310, L501.9520, L506.0400 #### [facility] [address] [place], [address] THYROID STIM HORMONE Collected: 11/27/2017 Status: F Source: [place] (TSH) 10:25 AM [facility] REPOSITORY Order Comment: Has Patient had X-rays with Contrast this admission? N TYPE CODE TESTS RESULT OUT OF RANGE REFERENCE UNITS LAB L501.9520 0.358-3.74 uIU/mL Normal TSH 2.80 Performed By: #### L501.38609, L501.9310, L501.9520, L506.0400 #### [facility] [address] [place], [address] T4 FREE DIRECT Collected: 11/27/2017 Status: F Source: [place] 10:25 AM [facility] REPOSITORY Order Comment: Has Patient had X-rays with Contrast this admission? N TYPE CODE TESTS RESULT OUT OF REFERENCE UNITS RANGE LAB L506.0400 0.76-1.46 ng/dL Low T4 FREE 0.75 DIRECT Performed By: #### L501.19203, L501.9310, L501.9520, L506.0400 #### [facility] [address] [place], [address] VITAMIN B12 Collected: 10/25/2017 Status: F Source: [place] 1:09 PM [facility] REPOSITORY TYPE CODE TESTS RESULT OUT OF RANGE REFERENCE UNITS LAB L503.0105 211-911 pg/mL Normal Vitamin B12 580 Performed By: #### L503.0105 #### [facility] [address] [place], [address] THYROID STIM HORMONE Collected: 10/25/2017 Status: F Source: [place] (TSH) 1:09 PM [facility] REPOSITORY Order Comment: Is Patient Taking Vitamins or Folic Acid Supplements? N TYPE CODE TESTS RESULT OUT OF RANGE REFERENCE UNITS LAB L501.9520 0.358-3.74 uIU/mL Normal TSH 3.39 Performed By: #### L501.9520, L506.0250, L506.0400 #### [facility] [address] [place], [address] FOLATES, (FOLIC ACID) Collected: 10/25/2017 Status: F Source: [place] 1:09 PM [facility] REPOSITORY Order Comment: Is Patient Taking Vitamins or Folic Acid Supplements? N TYPE CODE TESTS RESULT OUT OF REFERENCE UNITS RANGE LAB L506.0250 3.1-55.4 ng/mL High FOLATES 61.90 Performed By: #### L501.9520, L506.0250, L506.0400 #### [facility] [address] [place], [address] T4 FREE DIRECT Collected: 10/25/2017 Status: F Source: [place] 1:09 PM [facility] REPOSITORY Order Comment: Is Patient Taking Vitamins or Folic Acid Supplements? N TYPE CODE TESTS RESULT OUT OF REFERENCE UNITS RANGE LAB L506.0400 0.76-1.46 ng/dL Low T4 FREE 0.75 DIRECT Performed By: #### L501.9520, L506.0250, L506.0400 #### [facility] [address] [place], [address] VITAMIN B12 Collected: 10/25/2017 Status: F Source: [place] 8:18 AM [facility] REPOSITORY TYPE CODE TESTS RESULT OUT OF REFERENCE UNITS RANGE LAB B12 232-1245 pg/mL Test Vitamin B12 sent to [facility]. Result Comment: Account Credited HIDE FREE T4 Collected: 10/25/2017 Status: F Source: [place] 8:18 AM [facility] REPOSITORY TYPE CODE TESTS RESULT OUT OF REFERENCE UNITS RANGE LAB FT4 0.9-1.7 ng/dL Test Free sent to [address] Result Comment: Account Credited AYLINE FOLATE, SERUM Collected: 10/25/2017 Status: F Source: [place] 8:18 AM [facility] REPOSITORY TYPE CODE TESTS RESULT OUT OF REFERENCE UNITS RANGE LAB SERFOL >4.7 ng/mL Test sent to [facility]. Result Comment: Account Credited HIDE TSH Collected: 10/25/2017 Status: F Source: [place] 8:18 AM [facility] REPOSITORY TYPE CODE TESTS RESULT OUT OF REFERENCE UNITS RANGE LAB TSH 0.400-5.500 uU/mL Test TSH sent to [facility]. Result Comment: Account Credited ADVON MONTGOMERY Observed: 10/25/2017 Status: COMPLETED Source: [place] 12:00 AM [facility] REPOSITORY [facility] VALDEMAR JEFFERSON ([id number]) 1945 M Date Time Provider Department 10/25/17 [facility]OCK[facility] During your visit today, we recorded the following information about you: Allergies As of Date: 10/25/2017 (No Known Allergies) Date Reviewed: 10/23/2017 Reviewed by: Sixto Lockhart - Fully Assessed Reason for Visit: Patient Update [1234] Order(s):TSH (EXTERNAL) [2970914] Order #: [id number] VITAMIN B12 BLOOD [97690] Order #: [id number] Prescriptions as of 10/25/2017 Sig: ROSUVASTATIN 20 MG TABLET Take 1 tablet by mouth once d* BUPROPION HCL 100 MG TABLET Take 1 tablet by mouth twice * TAMSULOSIN 0.4 MG CAPSULE Take 1 capsule by mouth once * OMEGA-3 FATTY ACIDS 1,000 MG * Take 1 capsule by mouth once * APIXABAN 5 MG TABLET Take 1 tablet by mouth twice * LATANOPROST 0.005 % EYE DROPS Use 1 Drop in the left eye da* COENZYME Q10 (UBIQUINOL) 100 * Take 1 tablet by mouth once d* TIMOLOL MALEATE (PF) 0.25 % E* Use 1 Drop in the left eye on* * ATENOLOL 25 MG TABLET Take 1/2 tablet by mouth once* * MULTI-VITAMIN TABLET Take one(1) tablet daily. Problem List As Of Date 10/25/2017 Noted Resolved Major depressive disorder, single episode [F32.*INVALID FOR* Priority: A Hyperlipidemia, mixed [E78.2] Priority: A Diverticulosis of colon [K57.30] Priority: C More... Hemorrhoids [K64.9] Priority: C More... Coronary atherosclerosis [I25.10] Priority: A More... Abdominal adhesions [K66.0] INVALID FOR* Priority: C History of TIA (transient ischemic attack) [Z86*INVALID FOR* Priority: A More... Benign prostatic hyperplasia with lower urinary*INVALID FOR* Priority: C Prostate disorder [N42.9] INVALID FOR* Glaucoma [H40.9] Priority: G Essential hypertension [I10] Priority: A Ex-smoker [Z87.891] INVALID FOR* Priority: C More... Medicare annual wellness visit, subsequent [Z00*INVALID FOR* Priority: E More... Well adult exam [Z00.00] INVALID FOR* Priority: E More... Chronic anticoagulation [Z79.01] INVALID FOR* Priority: B Encounter for screening for diabetes mellitus [*INVALID FOR* Elevated hemoglobin A1c [R73.09] INVALID FOR* Priority: A Numbness and tingling of left leg [R20.0, R20.2]INVALID FOR* Left shoulder pain [M25.512] INVALID FOR* Insomnia [G47.00] INVALID FOR* Encounter Status:Closed by CHRISTINA OTTO MA on 10/25/17 PROGRESS Observed: 10/23/2017 Status: COMPLETED Source: [place] 1:50 PM [facility] REPOSIT[facility] HNO ID: [id number] Author: Sixto Lockhart Service: (none) Author Type: Physician Type: Progress Notes Filed: 10/23/2017 2:35 PM Note Text: Chief Complaint Patient presents with: Recheck HPI Valdemar Jefferson is a 72 year old male who presents here today for Chronic Medical Conditions.. Patient with Hx as reviewed and documented below. Has been ok. left shoulder was continuing to hurt so went to PHYSICAL THERAPY twice a week and in the past 4-6 weeks has had no improvement in the pain. Some times maybe awoken from sleep. Patient has been waking up around 4:00 AM and then can't fall back to sleep. Sometimes his shoulder is bothering him at this time. Is wearing his CPAP and wears nightly. Has not had a CPAP titration in quit some time. Not aware of any recent weight changes. Has been getting a tingling in the back of his left calf. 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 Occasional low back pain but nothing new or different. Past medical history, appointments, medications, allergies reviewed. Previous Medical History PAST MEDICAL HISTORY Diagnosis Date - Abdominal adhesions 01/10/2016 - Benign prostatic hyperplasia with lower urinary tract symptoms 04/26/2017 - Cataracts, bilateral - Coronary atherosclerosis of unspecified type of vessel, [place] or graft - Diverticulosis of colon (without mention of hemorrhage) Diverticulosis - Elevated hemoglobin A1c 10/16/2017 - Glaucoma - Head trauma 2011 - History of TIA (transient ischemic attack) 04/26/2017 Cause not know. - HTN (hypertension) - Hyperlipidemia, mixed - Major depressive disorder, single episode 04/19/2005 - Other and unspecified hyperlipidemia - Other specified anemias - Unspecified hemorrhoids without mention of complication Hemorrhoids - Vertigo Previous Surgical History PAST SURGICAL HISTORY Procedure Laterality Date - APPENDECTOMY - CARPAL TUNNEL Left - CATARACT EXTRACTION HX Right 2014 - COLONOSCOP W/ OR W/O [facility] SPEC Colonoscopy - HERNIA REPAIR HX Left - LAP REPAIR INTIAL INGUINAL HERNIA 01/04/16 Right direct (no left) - LAP VENT/ABD HERNIA REPAIR 01/04/16 with ventralex - LAP, SURG ENTEROLYSIS 01/04/16 RLQ adhesion due to prior appy - REPAIR ING HERNIA,5+Y/O,REDUCIBL Hernia repair, inguinal - STRESS ECHO EXERCISE Family History FAMILY HISTORY Problem Relation Age of Onset - Heart Brother - Heart Brother - Heart Sister - Hypertension Mother - Heart Mother - Stroke Mother Patient Allergies ALLERGIES No Known Allergies Current Medications Current Outpatient Prescriptions on File Prior to Visit: omega-3 fatty acids 1,000 mg cap Take 1 capsule by mouth once daily. apixaban (ELIQUIS) 5 mg tab tab(s) Take 1 tablet by mouth twice daily. latanoprost (XALATAN) 0.005 % ophthalmic solution Use 1 Drop in the left eye daily at bedtime. coQ10, ubiquinol, 100 mg cap Take 1 tablet by mouth once daily. Timolol Maleate 0.25 % dpet Use 1 Drop in the left eye once daily. tamsulosin ER (FLOMAX) 0.4 mg cp24 Take 0.4 mg by mouth once daily. buPROPion (WELLBUTRIN) 100 mg tablet Take 100 mg by mouth twice daily. ATENOLOL 25 MG ORAL TAB Take 1/2 tablet by mouth once daily. MULTI-VITAMIN ORAL TAB Take one(1) tablet daily. No current facility-administered medications on file prior to visit. Social History Social History Marital status: Spouse name: Years of education: Number of children: Social History Main Topics Smoking status: Former Smoker Packs/day: 1.00 Years: 4.00 Types: Cigarettes Quit date: 01/11/1966 Smokeless status: Never Used Alcohol use: Yes Comment: rare Drug use: No Review of Symptoms REVIEW OF SYSTEMS GENERAL: No weight loss, malaise or fevers NECK: Negative for lumps, goiter, pain and significant neck swelling RESPIRATORY: Negative for cough, hemoptysis, wheezing, COPD, dyspnea or shortness of breath CARDIOVASCULAR: Negative for chest pain, leg swelling, hypertension, CHF or palpitations GI: No nausea, vomiting, or diarrhea and No heartburn or reflux symptoms MUSCULOSKELETAL: See HPI ENDOCRINE: Negative for , polyuria, polydipsia and goiter NEURO: No history of headaches, syncope, paralysis, seizures or tremors. See HPI Psych: Seems ok on the Wellbutrin. EXAM: BP 118/88 (BP Site: Right Arm, BP Position: Sitting, BP Cuff Size: Regular Adult) Pulse 68 Resp 14 Wt 79.4 kg (175 lb) BMI 27 kg/m2 General Appearance: Well appearing, alert, in no acute distress, well-hydrated, well nourished.. Eyes: Anicteric sclera. Pupils are equally round and reactive to light. Extraocular movements are intact. . Oropharynx: Lips, mucosa, and tongue normal, teeth and gums normal, oropharynx normal. Neck: Supple, no adenopathy; thyroid symmetric, normal size, no bruits. Lungs: Lungs clear to auscultation. No wheezing, rhonchi, rales. Heart: RRR without murmur, gallop, or rubs. No ectopy. Abdomen: Normal abdominal exam, Abdomen soft, non-tender. Bowel sounds normal. No masses, organomegaly. Extremities: No deformities, edema, skin discoloration. Musculoskeletal: has weakness and pain on the left with external rotation and a positive empty can test. Hawken's and nears was unremarkable.. Peripheral Pulses: Normal. Health Maintenance List TETANUS due on 1955 ADULT PREVNAR-13 due on 2009 COLORECTAL CANCER SCREENING,SEE MODIFIER due on 09/03/2018 DIABETES SCREEN due on 10/16/2020 LIPID SCREEN due on 08/11/2022 PROSTATE CANCER SCREENING DISCUSSION Completed INFLUENZA Completed PNEUMOVAX AGE 65 AND OVER WITH 5YR LOOKBACK Completed Data reviewed Component Latest Ref Rng AND Units 08/11/2017 10/16/2017 Cholesterol, Total 200 163 Triglyceride 150 115 HDL CHOLESTEROL 40 53 LDL Cholesterol 70 87 (A) Hemoglobin A1C 6.5 6.1 A/P ASSESSMENT/PLAN: 1. Coronary atherosclerosis due to lipid rich plaque - ICD9: 414.3, ICD10: I25.10, I25.83 (primary diagnosis) - Clinically stable, npo changes, cont cardio f/u 2. Hyperlipidemia, mixed - ICD9: 272.2, ICD10: E78.2 - good control - Continue current dose of rosuvastatin (Crestor) 20 mg. - Encouraged following a low fat, low cholesterol diet. - Discussed the benefits of regular aerobic exercise and weight loss. - Encouraged following a low carbohydrate, healthy oil intake diet. 3. Major depressive disorder with single episode, remission status unspecified - ICD9: 296.20, ICD10: F32.9 - Clinically stable with the Wellbutrin 4. History of TIA (transient ischemic attack) - ICD9: V12.54, ICD10: Z86.73 - Stable cont current Tx. 5. Essential hypertension - ICD9: 401.9, ICD10: I10 - good control - Continue current medication(s) - Recommended regular aerobic exercise. - Recommend home blood pressure monitoring, to bring results in on next visit - Goal of BP <140/90 6. Elevated hemoglobin A1c - ICD9: 790.29, ICD10: R73.09 - Patient to work on diet to get improved control 7. Numbness and tingling of left leg - ICD9: 782.0, ICD10: R20.0, R20.2 Changes in symptom Check - TSH BLD - VITAMIN B12 BLOOD - T4 FREE/FREE THYROX - FOLATE SERUM - EMG(NEURO/NI) 8. Left shoulder pain, unspecified chronicity - ICD9: 719.41, ICD10: M25.512 Change in symptom Has done PHYSICAL THERAPY twice a week for last 4-6 weeks with no change. ?Patient has a positive empty can test and pain with weakness with external rotation. ?These are strong indicators for a rotator cuff tear and a plain x-ray will be none diagnostic. Check - MRI SHOULDER WO IVCON LT 9. Insomnia, unspecified type - ICD9: 780.52, ICD10: G47.00 New issue - This maybe related to needing new CPAP settings. Patient to discuss with neurology in near future. This may also be related to the shoulder pain and not being able to lay on it. Signed Prescriptions Disp Refills rosuvastatin (CRESTOR) 20 mg tablet Sig: Take 1 tablet by mouth once daily. MARVA: No buPROPion (WELLBUTRIN) 100 mg tablet 180 tablet 1 Sig: Take 1 tablet by mouth twice daily. MARVA: No tamsulosin ER (FLOMAX) 0.4 mg cp24 90 capsule 1 Sig: Take 1 capsule by mouth once daily. MARVA: No F/u in 6 months WAE, Check CMP, FLP, UA, A1c and PSA prior. Time with patient face to face was 25 min MD MIO Winkler Observed: 10/23/2017 Status: COMPLETED Source: [place] 1:40 PM [facility] REPOSITORY Office Visit ([facility]) VALDEMAR JEFFERSON ([id number]) 1945 M Date Time Provider Department 10/23/17 1:40 PM SIXTO LOCKHART During your visit today, we recorded the following information about you: Pulse Respiration Blood pressure Weight 68/minute 14/minute 118/88 79.4 kg Sixto Lockhart MD 10/23/2017 2:35 PM Signed Chief Complaint Patient presents with: Recheck HPI Valdemar Jefferson is a 72 year old male who presents here today for Chronic Medical Conditions.. Patient with Hx as reviewed and documented below. Has been ok. left shoulder was continuing to hurt so went to PHYSICAL THERAPY twice a week and in the past 4-6 weeks has had no improvement in the pain. Some times maybe awoken from sleep. Patient has been waking up around 4:00 AM and then can't fall back to sleep. Sometimes his shoulder is bothering him at this time. Is wearing his CPAP and wears nightly. Has not had a CPAP titration in quit some time. Not aware of any recent weight changes. Has been getting a tingling in the back of his left calf. 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 Occasional low back pain but nothing new or different. Past medical history, appointments, medications, allergies reviewed. Previous Medical History PAST MEDICAL HISTORY Diagnosis Date - Abdominal adhesions 01/10/2016 - Benign prostatic hyperplasia with lower urinary tract symptoms 04/26/2017 - Cataracts, bilateral - Coronary atherosclerosis of unspecified type of vessel, [place] or graft - Diverticulosis of colon (without mention of hemorrhage) Diverticulosis - Elevated hemoglobin A1c 10/16/2017 - Glaucoma - Head trauma 2011 - History of TIA (transient ischemic attack) 04/26/2017 Cause not know. - HTN (hypertension) - Hyperlipidemia, mixed - Major depressive disorder, single episode 04/19/2005 - Other and unspecified hyperlipidemia - Other specified anemias - Unspecified hemorrhoids without mention of complication Hemorrhoids - Vertigo Previous Surgical History PAST SURGICAL HISTORY Procedure Laterality Date - APPENDECTOMY - CARPAL TUNNEL Left - CATARACT EXTRACTION HX Right 2014 - COLONOSCOP W/ OR W/O [facility] SPEC Colonoscopy - HERNIA REPAIR HX Left - LAP REPAIR INTIAL INGUINAL HERNIA 01/04/16 Right direct (no left) - LAP VENT/ABD HERNIA REPAIR 01/04/16 with ventralex - LAP, SURG ENTEROLYSIS 01/04/16 RLQ adhesion due to prior appy - REPAIR ING HERNIA,5+Y/O,REDUCIBL Hernia repair, inguinal - STRESS ECHO EXERCISE Family History FAMILY HISTORY Problem Relation Age of Onset - Heart Brother - Heart Brother - Heart Sister - Hypertension Mother - Heart Mother - Stroke Mother Patient Allergies ALLERGIES No Known Allergies Current Medications Current Outpatient Prescriptions on File Prior to Visit: omega-3 fatty acids 1,000 mg cap Take 1 capsule by mouth once daily. apixaban (ELIQUIS) 5 mg tab tab(s) Take 1 tablet by mouth twice daily. latanoprost (XALATAN) 0.005 % ophthalmic solution Use 1 Drop in the left eye daily at bedtime. coQ10, ubiquinol, 100 mg cap Take 1 tablet by mouth once daily. Timolol Maleate 0.25 % dpet Use 1 Drop in the left eye once daily. tamsulosin ER (FLOMAX) 0.4 mg cp24 Take 0.4 mg by mouth once daily. buPROPion (WELLBUTRIN) 100 mg tablet Take 100 mg by mouth twice daily. ATENOLOL 25 MG ORAL TAB Take 1/2 tablet by mouth once daily. MULTI-VITAMIN ORAL TAB Take one(1) tablet daily. No current facility-administered medications on file prior to visit. Social History Social History Marital status: Spouse name: Years of education: Number of children: Social History Main Topics Smoking status: Former Smoker Packs/day: 1.00 Years: 4.00 Types: Cigarettes Quit date: 01/11/1966 Smokeless status: Never Used Alcohol use: Yes Comment: rare Drug use: No Review of Symptoms REVIEW OF SYSTEMS GENERAL: No weight loss, malaise or fevers NECK: Negative for lumps, goiter, pain and significant neck swelling RESPIRATORY: Negative for cough, hemoptysis, wheezing, COPD, dyspnea or shortness of breath CARDIOVASCULAR: Negative for chest pain, leg swelling, hypertension, CHF or palpitations GI: No nausea, vomiting, or diarrhea and No heartburn or reflux symptoms MUSCULOSKELETAL: See HPI ENDOCRINE: Negative for , polyuria, polydipsia and goiter NEURO: No history of headaches, syncope, paralysis, seizures or tremors. See HPI Psych: Seems ok on the Wellbutrin. EXAM: BP 118/88 (BP Site: Right Arm, BP Position: Sitting, BP Cuff Size: Regular Adult) Pulse 68 Resp 14 Wt 79.4 kg (175 lb) BMI 27 kg/m2 General Appearance: Well appearing, alert, in no acute distress, well-hydrated, well nourished.. Eyes: Anicteric sclera. Pupils are equally round and reactive to light. Extraocular movements are intact. . Oropharynx: Lips, mucosa, and tongue normal, teeth and gums normal, oropharynx normal. Neck: Supple, no adenopathy; thyroid symmetric, normal size, no bruits. Lungs: Lungs clear to auscultation. No wheezing, rhonchi, rales. Heart: RRR without murmur, gallop, or rubs. No ectopy. Abdomen: Normal abdominal exam, Abdomen soft, non-tender. Bowel sounds normal. No masses, organomegaly. Extremities: No deformities, edema, skin discoloration. Musculoskeletal: has weakness and pain on the left with external rotation and a positive empty can test. Hawken's and nears was unremarkable.. Peripheral Pulses: Normal. Health Maintenance List TETANUS due on 1955 ADULT PREVNAR-13 due on 2009 COLORECTAL CANCER SCREENING,SEE MODIFIER due on 09/03/2018 DIABETES SCREEN due on 10/16/2020 LIPID SCREEN due on 08/11/2022 PROSTATE CANCER SCREENING DISCUSSION Completed INFLUENZA Completed PNEUMOVAX AGE 65 AND OVER WITH 5YR LOOKBACK Completed Data reviewed Component Latest Ref Rng ANDamp; Units 08/11/2017 10/16/2017 Cholesterol, Total 200 163 Triglyceride 150 115 HDL CHOLESTEROL 40 53 LDL Cholesterol 70 87 (A) Hemoglobin A1C 6.5 6.1 A/P ASSESSMENT/PLAN: 1. Coronary atherosclerosis due to lipid rich plaque - ICD9: 414.3, ICD10: I25.10, I25.83 (primary diagnosis) - Clinically stable, npo changes, cont cardio f/u 2. Hyperlipidemia, mixed - ICD9: 272.2, ICD10: E78.2 - good control - Continue current dose of rosuvastatin (Crestor) 20 mg. - Encouraged following a low fat, low cholesterol diet. - Discussed the benefits of regular aerobic exercise and weight loss. - Encouraged following a low carbohydrate, healthy oil intake diet. 3. Major depressive disorder with single episode, remission status unspecified - ICD9: 296.20, ICD10: F32.9 - Clinically stable with the Wellbutrin 4. History of TIA (transient ischemic attack) - ICD9: V12.54, ICD10: Z86.73 - Stable cont current Tx. 5. Essential hypertension - ICD9: 401.9, ICD10: I10 - good control - Continue current medication(s) - Recommended regular aerobic exercise. - Recommend home blood pressure monitoring, to bring results in on next visit - Goal of BP ANDlt;140/90 6. Elevated hemoglobin A1c - ICD9: 790.29, ICD10: R73.09 - Patient to work on diet to get improved control 7. Numbness and tingling of left leg - ICD9: 782.0, ICD10: R20.0, R20.2 Changes in symptom Check - TSH BLD - VITAMIN B12 BLOOD - T4 FREE/FREE THYROX - FOLATE SERUM - EMG(NEURO/NI) 8. Left shoulder pain, unspecified chronicity - ICD9: 719.41, ICD10: M25.512 Change in symptom Has done PHYSICAL THERAPY twice a week for last 4-6 weeks with no change. ?Patient has a positive empty can test and pain with weakness with external rotation. ?These are strong indicators for a rotator cuff tear and a plain x-ray will be none diagnostic. Check - MRI SHOULDER WO IVCON LT 9. Insomnia, unspecified type - ICD9: 780.52, ICD10: G47.00 New issue - This maybe related to needing new CPAP settings. Patient to discuss with neurology in near future. This may also be related to the shoulder pain and not being able to lay on it. Signed Prescriptions Disp Refills rosuvastatin (CRESTOR) 20 mg tablet Sig: Take 1 tablet by mouth once daily. MARVA: No buPROPion (WELLBUTRIN) 100 mg tablet 180 tablet 1 Sig: Take 1 tablet by mouth twice daily. MARVA: No tamsulosin ER (FLOMAX) 0.4 mg cp24 90 capsule 1 Sig: Take 1 capsule by mouth once daily. MARVA: No F/u in 6 months WAE, Check CMP, FLP, UA, A1c and PSA prior. Time with patient face to face was 25 min MD Sixto Winkler MD 10/23/2017 2:17 PM Signed Please get fasting labs and urine test on or after 04/13/2018 prior to next visit. Referring Provider: SIXTO LOCKHART [[id number]] Allergies As of Date: 10/23/2017 (No Known Allergies) Date Reviewed: 10/23/2017 Reviewed by: Sixto Lockhart - Fully Assessed Reason for Visit: Recheck [92] Primary Visit Diagnosis:Coronary atherosclerosis due to lipid rich plaque [I25.10, I25.83] Other Visit Diagnoses:Hyperlipidemia, mixed [E78.2] Major depressive disorder with single episode, remission status unspecified [F32.9] History of TIA (transient ischemic attack) [Z86.73] Essential hypertension [I10] Elevated hemoglobin A1c [R73.09] Numbness and tingling of left leg [R20.0, R20.2] Left shoulder pain, unspecified chronicity [M25.512] Insomnia, unspecified type [G47.00] Prostate disorder [N42.9] Order(s):rosuvastatin (CRESTOR) 20 mg tabletTake 1 tablet by mouth once daily.Disp: Rfl: MRI SHOULDER WO IVCON LT [[id number]] Order #: [id number] FUTURE TSH BLD [SQTSH] Order #: [id number] FUTURE VITAMIN B12 BLOOD [SQB12] Order #: [id number] FUTURE T4 FREE/FREE THYROX [SQFT4] Order #: [id number] FUTURE FOLATE SERUM [SQSERFOL] Order #: [id number] FUTURE EMG(NEURO/NI) [[id number]] Order #: [id number]: 1 FUTURE COMP METABOLIC PANEL [SQCMP] Order #: [id number] FUTURE HGB A1C [GFEBM9Q] Order #: [id number] FUTURE LIPID PANEL BASIC [SQLIPB] Order #: [id number] FUTURE PSA/PROSTSPECAG DIAG [SQPSA] Order #: [id number] FUTURE URINALYSIS WITH MICROSCOPIC [SQUAWMIC] Order #: [id number] FUTURE buPROPion (WELLBUTRIN) 100 mg tabletTake 1 tablet by mouth twice daily.Disp: 180 tabletRfl: 1 tamsulosin ER (FLOMAX) 0.4 mg [id number] 1 capsule by mouth once daily.Disp: 90 capsuleRfl: 1 Prescriptions as of 10/23/2017 Sig: ROSUVASTATIN 20 MG TABLET Take 1 tablet by mouth once d* BUPROPION HCL 100 MG TABLET Take 1 tablet by mouth twice * TAMSULOSIN 0.4 MG CAPSULE Take 1 capsule by mouth once * OMEGA-3 FATTY ACIDS 1,000 MG * Take 1 capsule by mouth once * APIXABAN 5 MG TABLET Take 1 tablet by mouth twice * LATANOPROST 0.005 % EYE DROPS Use 1 Drop in the left eye da* COENZYME Q10 (UBIQUINOL) 100 * Take 1 tablet by mouth once d* TIMOLOL MALEATE (PF) 0.25 % E* Use 1 Drop in the left eye on* * ATENOLOL 25 MG TABLET Take 1/2 tablet by mouth once* * MULTI-VITAMIN TABLET Take one(1) tablet daily. Problem List As Of Date 10/23/2017 Noted Resolved Major depressive disorder, single episode [F32.*INVALID FOR* Priority: A Hyperlipidemia, mixed [E78.2] Priority: A Diverticulosis of colon [K57.30] Priority: C More... Hemorrhoids [K64.9] Priority: C More... Coronary atherosclerosis [I25.10] Priority: A More... Abdominal adhesions [K66.0] INVALID FOR* Priority: C History of TIA (transient ischemic attack) [Z86*INVALID FOR* Priority: A More... Benign prostatic hyperplasia with lower urinary*INVALID FOR* Priority: C Prostate disorder [N42.9] INVALID FOR* Glaucoma [H40.9] Priority: G Essential hypertension [I10] Priority: A Ex-smoker [Z87.891] INVALID FOR* Priority: C More... Medicare annual wellness visit, subsequent [Z00*INVALID FOR* Priority: E More... Well adult exam [Z00.00] INVALID FOR* Priority: E More... Chronic anticoagulation [Z79.01] INVALID FOR* Priority: B Encounter for screening for diabetes mellitus [*INVALID FOR* Elevated hemoglobin A1c [R73.09] INVALID FOR* Priority: A Numbness and tingling of left leg [R20.0, R20.2]INVALID FOR* Left shoulder pain [M25.512] INVALID FOR* Insomnia [G47.00] INVALID FOR* Other instructions from your clinician: Please get fasting labs and urine test on or after 04/13/2018 prior to next visit. Prescriptions ordered this encounter Disp Refills Start End ROSUVASTATIN 20 MG TABLET 10/23/2017 Class: Med Update Route: ORAL Sig: Take 1 tablet by mouth once daily. BUPROPION HCL 100 MG TABLET 180 * 1 10/23/2017 Route: ORAL Sig: Take 1 tablet by mouth twice daily. TAMSULOSIN 0.4 MG CAPSULE 90 c* 1 10/23/2017 Route: ORAL Sig: Take 1 capsule by mouth once daily. Medications Discontinued During This Encounter rosuvastatin (CRESTOR) 40 mg tablet 10/23/2017 Class: Historical Med Route: ORAL Sig: Take 40 mg by mouth once daily. Disc: Reason for discontinue is not on file. buPROPion (WELLBUTRIN) 100 mg tablet 10/23/2017 Class: Historical Med Route: ORAL Sig: Take 100 mg by mouth twice daily. Disc: Reason for discontinue is not on file. tamsulosin ER (FLOMAX) 0.4 mg cp24 10/23/2017 Class: Historical Med Route: ORAL Sig: Take 0.4 mg by mouth once daily. Disc: Reason for discontinue is not on file. Disposition: Return in about 6 months (around 04/25/2018) for complete PE. Follow-up and Disposition History Recorded Encounter Status:Closed by SIXTO LOCKHART on 10/23/17 HEMOGLOBIN A1C Collected: 10/16/2017 Status: F Source: [place] 9:21 AM [facility] REPOSITORY TYPE CODE TESTS RESULT OUT OF REFERENCE UNITS RANGE LAB HGBA1C 4.0-6.0 % Test Hemoglobin A1c sent to [facility]. Result Comment: Account Credited [facility] LAB HBA0 mg/dL Est. Test sent Average Glucose to [facility]. Result Comment: Account Credited [facility] HEMOGLOBIN A1C Collected: 10/16/2017 Status: F Source: [place] 9:15 AM [facility] REPOSITORY TYPE CODE TESTS RESULT OUT OF RANGE REFERENCE UNITS LAB L501.9985 4.2-6.3 % Normal HGB A1C 6.1 Performed By: #### L501.9985 #### [facility] [address] [place], [address] HOSP Observed: 10/16/2017 Status: COMPLETED Source: [place] 12:00 AM [facility] REPOSITORY Patient Update (FAMPWS) LIVALDEMAR HOANG ([id number]) 1945 M Date Time Provider Department 10/16[facility]17 [facility] During your visit today, we recorded the following information about you: Allergies As of Date: 10/16/2017 (No Known Allergies) Date Reviewed: 04/26/2017 Reviewed by: Sixto Lockhart - Fully Assessed Order(s):HBA1C (OUTSIDE) [2304342] Order #: [id number] Prescriptions as of 10/16/2017 Sig: OMEGA-3 FATTY ACIDS 1,000 MG * Take 1 capsule by mouth once * APIXABAN 5 MG TABLET Take 1 tablet by mouth twice * LATANOPROST 0.005 % EYE DROPS Use 1 Drop in the left eye da* COENZYME Q10 (UBIQUINOL) 100 * Take 1 tablet by mouth once d* TIMOLOL MALEATE (PF) 0.25 % E* Use 1 Drop in the left eye on* TAMSULOSIN 0.4 MG CAPSULE Take 0.4 mg by mouth once jessica* ROSUVASTATIN 40 MG TABLET Take 40 mg by mouth once collette* BUPROPION HCL 100 MG TABLET Take 100 mg by mouth twice da* * ATENOLOL 25 MG TABLET Take 1/2 tablet by mouth once* * MULTI-VITAMIN TABLET Take one(1) tablet daily. Problem List As Of Date 10/16/2017 Noted Resolved Major depressive disorder, single episode [F32.*INVALID FOR* Priority: A Hyperlipidemia, mixed [E78.2] Priority: A ANEMIA NEC [D64.89] Diverticulosis of colon [K57.30] Priority: C More... Hemorrhoids [K64.9] Priority: C More... Coronary atherosclerosis [I25.10] Priority: A More... Abdominal adhesions [K66.0] INVALID FOR* Priority: C History of TIA (transient ischemic attack) [Z86*INVALID FOR* Priority: A More... Benign prostatic hyperplasia with lower urinary*INVALID FOR* Priority: C Prostate disorder [N42.9] INVALID FOR* Glaucoma [H40.9] HTN (hypertension) [I10] Ex-smoker [Z87.891] INVALID FOR* Priority: C More... Medicare annual wellness visit, subsequent [Z00*INVALID FOR* Priority: E More... Well adult exam [Z00.00] INVALID FOR* Priority: E More... Chronic anticoagulation [Z79.01] INVALID FOR* Encounter for screening for diabetes mellitus [*INVALID FOR* Encounter Status:Closed by SIXTO LOCKHART on 10/16/17 GARRETTTOUTRGENARO Observed: 10/10/2017 Status: COMPLETED Source: [place] 12:00 AM [facility] REPOSITORY Patient Outreach (FAMPST) VALDEMAR JEFFERSON ([id number]) 1945 M Date Time Provider Department 10/10/17 SIXTO LOCKHARTPST During your visit today, we recorded the following information about you: Allergies As of Date: 10/10/2017 (No Known Allergies) Date Reviewed: 04/26/2017 Reviewed by: Sixto Lockhart - Fully Assessed Visit Diagnosis:Medication management [Z79.899] Order(s):HGB A1C [PBFZC4S] Order #: [id number] FUTURE Prescriptions as of 10/10/2017 Sig: OMEGA-3 FATTY ACIDS 1,000 MG * Take 1 capsule by mouth once * APIXABAN 5 MG TABLET Take 1 tablet by mouth twice * LATANOPROST 0.005 % EYE DROPS Use 1 Drop in the left eye da* COENZYME Q10 (UBIQUINOL) 100 * Take 1 tablet by mouth once d* TIMOLOL MALEATE (PF) 0.25 % E* Use 1 Drop in the left eye on* X TAMSULOSIN 0.4 MG CAPSULE Take 0.4 mg by mouth once jessica* X ROSUVASTATIN 40 MG TABLET Take 40 mg by mouth once collette* X BUPROPION HCL 100 MG TABLET Take 100 mg by mouth twice da* * ATENOLOL 25 MG TABLET Take 1/2 tablet by mouth once* * MULTI-VITAMIN TABLET Take one(1) tablet daily. Problem List As Of Date 10/10/2017 Noted Resolved Major depressive disorder, single episode [F32.*INVALID FOR* Priority: A Hyperlipidemia, mixed [E78.2] Priority: A ANEMIA NEC [D64.89] Diverticulosis of colon [K57.30] Priority: C More... Hemorrhoids [K64.9] Priority: C More... Coronary atherosclerosis [I25.10] Priority: A More... Abdominal adhesions [K66.0] INVALID FOR* Priority: C History of TIA (transient ischemic attack) [Z86*INVALID FOR* Priority: A More... Benign prostatic hyperplasia with lower urinary*INVALID FOR* Priority: C Prostate disorder [N42.9] INVALID FOR* Glaucoma [H40.9] HTN (hypertension) [I10] Ex-smoker [Z87.891] INVALID FOR* Priority: C More... Medicare annual wellness visit, subsequent [Z00*INVALID FOR* Priority: E More... Well adult exam [Z00.00] INVALID FOR* Priority: E More... Chronic anticoagulation [Z79.01] INVALID FOR* Encounter for screening for diabetes mellitus [*INVALID FOR* Encounter Status:Closed by [employer] on 06/01/18 LIVER PROFILE Collected: 08/11/2017 Status: F Source: [place] 7:55 AM [facility] REPOSITORY Order Comment: Order Date: 02/02/17 Order Info: 0788-1 - *Hepatic Function Panel Order Info: 21867-0 - *Lipid Profile CC PCP Comments: 12 hours fasting, may have water. TYPE CODE TESTS RESULT OUT OF RANGE REFERENCE UNITS LAB L501.1500 6.4-8.2 g/dL Normal T PROT 7.5 LAB L501.1800 3.4-5.0 g/dL Normal ALB 3.9 Result Comment: Please note revised Albumin AND Globulin reference range effective 2017. LAB L501.1950 2.2-4.2 g/dL Normal GLOB 3.6 LAB L501.4100 15-37 U/L Normal AST 28 LAB L501.4305 45-117 U/L Low ALK P 44 LAB L501.4405 12-78 U/L Normal ALT 35 LAB L501.4600 0.20-1.00 mg/dL Normal T BILI 0.60 LAB L501.4700 0.00-0.30 mg/dL Normal D BILI 0.12 Performed By: #### L500.3400 #### [facility] [address] [place], [address] LIPID PROFILE Collected: 08/11/2017 Status: F Source: [place] 7:55 AM [facility] REPOSITORY Order Comment: Order Date: 02/02/17 Order Info: 0788-1 - *Hepatic Function Panel Order Info: 21641-2 - *Lipid Profile CC PCP Comments: 12 hours fasting, may have water. TYPE CODE TESTS RESULT OUT OF RANGE REFERENCE UNITS LAB L501.4900 200 mg/dL Normal CHOL 163 Result Comment: <200 mg/dL Desirable 200-240 mg/dL Borderline >240 mg/dL High Risk LAB L501.5000 mg/dL Normal TRIG 115 Result Comment: The drugs N-Acetylcysteine and Metamizole may falsely depress this assay. Serum Triglycerides Reference Interval Normal <150 mg/dL Borderline high 150 - 199 mg/dL High 200 - 499 mg/dL Very High > or = 500 mg/dL LAB L501.6400 mg/dL Normal HDL 53 Result Comment: The drugs N-Acetylcysteine and Metamizole may falsely depress this assay. Reference Range HDL <40 mg/dL Low HDL Cholesterol HDL >or= 60 mg/dL High HDL Cholesterol LAB L501.6500 0-130 mg/dL Normal LDL 87 LAB L501.6600 5-40 mg/dL Normal VLDL 23 Performed By: #### L500.4100 #### [facility] [address] [place], [address] HOSP Observed: 08/11/2017 Status: COMPLETED Source: [place] 12:00 AM [facility] REPOSITORY Patient Update (FAMPWS) LI,ELMER Danny ([id number]) 1945 M Date Time Provider Department 08/11/17 SIXTO LOCKHART During your visit today, we recorded the following information about you: Allergies As of Date: 08/11/2017 (No Known Allergies) Date Reviewed: 04/26/2017 Reviewed by: Sixto Lockhart - Fully Assessed Order(s):LIPID PANEL (OUTSIDE) [[id number]] Order #: [id number] Prescriptions as of 08/11/2017 Sig: OMEGA-3 FATTY ACIDS 1,000 MG * Take 1 capsule by mouth once * APIXABAN 5 MG TABLET Take 1 tablet by mouth twice * LATANOPROST 0.005 % EYE DROPS Use 1 Drop in the left eye da* COENZYME Q10 (UBIQUINOL) 100 * Take 1 tablet by mouth once d* TIMOLOL MALEATE (PF) 0.25 % E* Use 1 Drop in the left eye on* TAMSULOSIN 0.4 MG CAPSULE Take 0.4 mg by mouth once jessica* ROSUVASTATIN 40 MG TABLET Take 40 mg by mouth once collette* BUPROPION HCL 100 MG TABLET Take 100 mg by mouth twice da* * ATENOLOL 25 MG TABLET Take 1/2 tablet by mouth once* * MULTI-VITAMIN TABLET Take one(1) tablet daily. Problem List As Of Date 08/11/2017 Noted Resolved Major depressive disorder, single episode [F32.*INVALID FOR* Priority: A Hyperlipidemia, mixed [E78.2] Priority: A ANEMIA NEC [D64.89] Diverticulosis of colon [K57.30] Priority: C More... Hemorrhoids [K64.9] Priority: C More... Coronary atherosclerosis [I25.10] Priority: A More... Abdominal adhesions [K66.0] INVALID FOR* Priority: C History of TIA (transient ischemic attack) [Z86*INVALID FOR* Priority: A More... Benign prostatic hyperplasia with lower urinary*INVALID FOR* Priority: C Prostate disorder [N42.9] INVALID FOR* Glaucoma [H40.9] HTN (hypertension) [I10] Ex-smoker [Z87.891] INVALID FOR* Priority: C More... Medicare annual wellness visit, subsequent [Z00*INVALID FOR* Priority: E More... Well adult exam [Z00.00] INVALID FOR* Priority: E More... Chronic anticoagulation [Z79.01] INVALID FOR* Encounter for screening for diabetes mellitus [*INVALID FOR* Encounter Status:Closed by SIXTO LOCKHART on 08/11/17 ALLERGIES ALLERGIES DATE TYPE / CODE NAME / CODE REACTION SEVERITY SOURCE 01/17/2018 Drug No Known Unknown [facility] Allergy/416 Allergies/S61262 Hospital 308279(SNOM 0388(RXNORM) Repository ED CT) Drug NO KNOWN [facility] Class/90459 ALLERGIES [facility] [place] 1003(SNOMED Repository CT) ENCOUNTERS ENCOUNTERS ADMIT/DISCHARGE ACCOUNT ADMITTING ENCOUNTER LOCATION SOURCE NUMBER CLASS 07/20/2018 [id number] Ambulatory [facility] ing:MTLAB Repository 05/01/2018/05/02/20 [id number] Ambulatory [address] Repository 04/24/2018/04/24/20 [id number] Ambulatory [address] Repository 04/24/2018 [id number] Ambulatory [facility] ing:LABSPEC Repository 02/05/2018/02/06/20 [id number] Ambulatory [address] ing:SDC Repository 01/17/2018 [id number] Ambulatory [facility] ing:LAB Repository 01/17/2018/01/18/20 [id number] Ambulatory BMSBuilding:B [place] [address] [facility] Repository 01/10/2018 [id number] Ambulatory [facility] ing:PSN Repository 01/08/2018 [id number] Ambulatory [facility] Repository 12/29/2017 [id number] Ambulatory BMSBuilding:B Pedro MS.[facility] Repository 11/27/2017 [id number] Ambulatory [facility] ing:LABSPEC Repository 11/27/2017/11/28/19 [id number] Ambulatory [address] Repository 10/25/2017/10/26/19 [id number] Ambulatory [address] Repository 10/25/2017 [id number] Ambulatory [facility] ing:LAB Repository 10/23/2017/10/25/19 [id number] Ambulatory [address] Repository 10/16/2017 [id number] Ambulatory [facility] ing:LABSPEC Repository 10/16/2017/10/16/19 [id number] Ambulatory [address] Repository 08/24/2017 [id number] Ambulatory [facility]MSBuilding:[facility] Repository 08/22/2017 [id number] Ambulatory [facility] ing:CVS Repository 08/22/2017 [id number] Ambulatory BMSBuilding:[facility] Repository 08/11/2017 [id number] Ambulatory [facility] ing:MTLAB Repository PAYERS PAYERS ENCOUNTER GUARANTOR PAYER SUBSCRIBER SOURCE 07/20/2018 VALDEMAR O Primary VALDEMAR O Pedro [id number] Insurance:SUMMA CARE HA[place]THORNEDOB: Community [id number] Number: Repository [address]Wlr: 330 [id number] [phone] (HP) Date:6043-90-42VU [address] [place] [address]RT: 07/20/2018 Secondary NOT GIVENUNK [place] Insurance:SELF PAY [facility] Number: Effective Repository Date:2018-07-20 04/24/2018 VALDEMAR O Primary VALDEMAR O Pedro [id number] Insurance:SUMMA CARE HAWTHORNEDOB: Community [place] MED[place] [id number] Number: Repository 07369Hzm: 330 [id number] [phone] (HP) Date:8239-13-01QS [address] [place] [address]IL: 04/24/2018 Secondary NOT GIVENUNK Pedro Insurance:SELF PAY [facility] Number: Effective Repository Date:2018-04-24 02/05/2018 VALDEMAR O Primary VALDEMAR O Erwin [id number] Insurance:SUMMA CARE HAWTHORNEDOB: Community [place] [id number] Number: Repository 174[address]Qvz: (330) [id number] [phone] (HP) Date:8813-64-50II [address], [place] [address]GR: 02/05/2018 Secondary NOT GIVENUNK [place] Insurance:SELF PAY [facility] Number: Effective Repository Date:2018-01-25 01/17/2018 VALDEMAR O Primary VALDEMAR O Er[place] [id number] Insurance:SUMMA CARE HAWTHORNEDOB: Community [place] MEDICAREPolicy [id number] Number: Repository [address]Rnx: (330) [id number] [phone] (HP) Date:3305-35-16YD [address] [facility], [place] [address]GV: 01/17/2018 Secondary NOT GIVENUNK Pedro Insurance:SELF PAY [facility] Number: Effective Repository Date:2018-01-17 01/17/2018 VALDEMAR O Primary VALDEMAR O Erwin [id number] Insurance:SUMMA CARE HAWTHORNEDOB: Community [place] [id number] Number: Repository [address]Auu: (330) [id number] [phone] (HP) Date:0396-87-73KB [address] [facility] [address]ZX: 01/17/2018 Secondary NOT GIVENUNK Er[place] Insurance:SELF PAY [facility] Number: Effective Repository Date:2017-08-02 01/10/2018 Valdemar O Primary Valdemar O Erwin [id number] Insurance:SUMMA CARE HawthorneDOB: Community [place] MED[place] [id number] Number: Repository [address]Etu: (330) [id number] [phone] (HP) Date:8528-93-89QR [address], [place] [address]ES: 01/10/2018 Secondary NOT GIVENUNK Pedro Insurance:SELF PAY [facility] Number: Effective Repository Date:2017-10-23 01/08/2018 Valdemar O Primary Vadlemar O Pedro [id number] Insurance:SUMMA CARE HawthorneDOB: Community [place] MEDICARE[place] [id number] Number: Repository [address]Wlw: 330 [id number] [phone] () Date:0656-79-85BM BOX [facility] [place] [address]CQ: 01/08/2018 Secondary NOT GIVENUNK Er[place] Insurance:SELF PAY [facility] Number: Effective Repository Date:2018-01-08 12/29/2017 Valdemar O Primary Valdemar O Pedro [id number] Insurance:SUMMA CARE [place]orneDOB: Community [place] MED[place] Number: Repository [address]Czo: 330 [id number] [phone] () Date:3015-19-58QQ BOX [facility] CenterGreciaPAJUSTINat[place], [place] [address]JD: 12/29/2017 Secondary NOT GIVENUNK Pedro Insurance:SELF PAY [facility] Number: Effective Repository Date:2017-12-29 11/27/2017 Valdemar O Primary Valdemar O Erwin [id number] Insurance:SUMMA CARE HawthorneDOB: Community [place] MEDICAREPolicy [id number] Number: Repository [address]Qkq: 330 [id number] [phone] () Date:7270-52-12FO BOX [facility] CenterCA[facility]LY[place], [place] [address]JB: 11/27/2017 Secondary NOT GIVENUNK Er[place] Insurance:SELF PAY [facility] Number: Effective Repository Date:2017-11-27 10/25/2017 Valdemar O Primary Valdemar O Er[place] [id number] Insurance:SUMMA CARE [place]orneDOB: Community [place] MED[place] Number: Repository [address]Jzv: (330) [id number] [phone] (HP) Date:9536-80-79LO [address] [place] [address]AY: 10/25/2017 Secondary NOT GIVENUNK Er[place] Insurance:SELF PAY [facility] Number: Effective Repository Date:2017-10-25 10/16/2017 Valdemar O Primary Valdemar O Pedro [id number] Insurance:SUMMA CARE HawthorneDOB: Community [place] MED[place]ARE[place] [id number] Number: Repository [address]Exu: (330) [id number] [phone] () Date:1694-33-94VR [address] [place] [address]DU: 10/16/2017 Secondary NOT GIVENUNK Pedro Insurance:SELF PAY [facility] Number: Effective Repository Date:2017-10-16 08/24/2017 Valdemar O Primary Valdemar O Erwin [id number] Insurance:SUMMA CARE HawthorneDOB: Community [place] MEDICAREPolicy [id number], [place] Number: Repository [address]Zue: (330) [id number] [phone] () Date:5700-11-28XW [address] [place] [address]HJ: 08/24/2017 Secondary NOT GIVENUNK Pedro Insurance:SELF PAY [facility] Number: Effective Repository Date:2017-08-24 08/22/2017 Valdemar O Primary NOT GIVENUNK Erwin [id number] Insurance:SELF PAY [place] Number: Effective Repository [address]Ebb: (330) Date:2017-08-17 [phone] () 08/22/2017 Valdemar O Primary Valdemar O Pedro [id number] Insurance:SUMMA CARE HawthorneDOB: Community [place] MEDICARE[place] [id number], [place] Number: Repository 18[address]Ucy: (330) [id number] [phone] () Date:2214-42-19GT [address] [place] [address]JH: 08/22/2017 Secondary NOT GIVENUNK Er[place] Insurance:SELF PAY [facility] Number: Effective Repository Date:2017-08-22 08/11/2017 Valdemar O Primary Valdemar O Pedro [id number] Insurance:[facility] HaworneDOB: Community [place] MEDICAREPolicy [id number], [place] Number: Repository [address]Kgo: 330 [id number] [phone] () Date:2106-95-99LE [address] [place] [address]KQ: 08/11/2017 Secondary NOT GIVENUNK Pedro Insurance:SELF PAY [facility] Number: Effective Repository Date:2017-08-11
== END ==
PROVIDERS: Family Provider Family Medicine; PCP Family Medicine; Referring Provider Physician Assistant Medical; Visit Provider Physician Assistant Medical
DX: E78.5 Hyperlipidemia, unspecified (principal)
CPT/HCPCS: 36415; 80061; 80076

== ENCOUNTER 2018-09-11 13:51 | Emergency (ER) | payer MEDICARE, SELFPAY ==
[2018-09-11 13:52] VITALS: BP 168/115; PULSE 68; RESP 18; TEMP 36.6; O2SAT 95; BMI 28.2
--- NOTE | 2018-09-11 13:54 | ED.RN ---
CALLED [facility] EKG
--- NOTE | 2018-09-11 13:57 | EKG12_ITS ---
Test Reason : CP Blood Pressure : / mmHG Vent. Rate : 061 BPM Atrial Rate : 061 BPM P-R Int : 176 ms QRS Dur : 096 ms QT Int : 414 ms P-R-T Axes : 050 -02 036 degrees QTc Int : 416 ms Normal sinus rhythm Minimal voltage criteria for LVH, may be normal variant Borderline ECG Confirmed by STACY FRAGOSO, EVER ([id number]), manager editorial REUBEN VICENTE ([id number] on 09/14/2018 2:28:54 PM Referred By: PRESTON Confirmed By:EVER KUMAR MD
--- NOTE | 2018-09-11 14:09 | ED.VISSUMM ---
- ER Visit Summary Date of Service: 09/11/18 Chief Complaint: Bleeding intermittent left pectoral chest pain History of Present Illness: The patient is a 73 M who has history of hypertension, coronary disease TIA and benign prostatic hypertrophy who presents with fleeting left-sided chest pain that last 1-2 seconds. He has had 2-3 episodes per day for the last 3 days. He has no exacerbating, precipitating or alleviating factors. He denies fever, chills night sweats. Denies visual, ocular auditory symptoms. He denies respiratory symptoms. He denies abdominal pain, nausea or vomiting. He denies urologic symptoms. He denies myalgias, arthralgias, neck pain or back pain. He denies headache, weakness, paresthesia, anesthesia or difficulty using his extremities. 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 He had a cardiac catheterization in 2016 which revealed no progression of the stenosis. Physical Examination: Patient appears in no distress. Vital signs are noted for an elevated blood pressure. HEENT exam is unremarkable. Insert cardiopulmonary exam abdomen soft nontender. Neuro exam is nonfocal. Distal pulses are symmetric. Lower extremity exam is unremarkable. Test Results: EKG was obtained per nurse protocol reveals a sinus rhythm rate of 61 with criteria suggestive of LVH. EKG is otherwise normal. Emergency Department Course and Treatment: Patient was informed fleeting chest pain of 1-2 seconds is not cardiac. Since his exam is normal and he has no other symptoms no further testing was obtained and he was discharged to follow-up with his primary care physician. Treatment Plan: Follow-up with PCP Dr. Fidencio Benson as needed Disposition: Discharge to home with spouse Impression: Fleeting left-sided chest pain noncardiac etiology History of coronary disease History of hypertension History of benign prostatic hypertrophy History of TIA History of high risk medication, Eliquis This note was generated with [employer] dictation software. It may contain incorrect words, spelling, and punctuation that were not noted in review of the chart prior to signing ED Disposition - Plan for ED Patient: Disposition: Home or Assisted Living Chief Complaint: Chest Pain Instructions: ED Chest Pain NonCardiac Referrals: Fidencio Benson MD [Primary Care Provider] - As Needed
[2018-09-11 14:25] VITALS: BP 166/111; PULSE 60
--- OUTSIDE RECORDS SUMMARY | 2018-11-13 19:46 | XMS RPT_ITS ---
:1945 Author Organization OHIP Support Name Relationship Address Phone SALINA JEFFERSON Unavailable [address] + [place] [address] SAWYER YI Un[address] + [place] [address] R Unavailable Unavailable Unavailable LISALINA Unavailable [address] + [place] [address] SAWYER YI Un[address] + [place] [address] R Unavailable Unavailable Unavailable LI, SALINA Unavailable [address] + [place] [address] SAWYER YI Un[address] + [place] [address] R Unavailable Unavailable Unavailable LI, SALINA Unavailable [address] + [place] [address] SAWYER YI Un[address] + [place] [address] R Unavailable Unavailable Unavailable LI, SALINA Unavailable [address] + [place] [address] SAWYER YI Un[address] + [place] [address] R Unavailable Unavailable Unavailable LI, SALINA Unavailable [address] + [place] [address] SAWYER YI Un[address] + [place] [address] R Unavailable Unavailable Unavailable LI, SALINA Unavailable [address] + [place] [address] SAWYER YI Un[address] + [place] [address] R Unavailable Unavailable Unavailable LI, SALINA Unavailable [address] + [place] [address] SAWYER YI Unavailable [address] + [place] [address] R Unavailable Unavailable Unavailable LI, SALINA Unavailable [address] + [place] [address] SAWYER YI Unavailable Unavailable + [place] [address] R Unavailable Unavailable Unavailable R Unavailable Unavailable Unavailable R Unavailable Unavailable Unavailable LI, SALINA Unavailable [address] + [place] [address] R Unavailable Unavailable Unavailable LI, SALINA Unavailable [address] + [place] [address] R Unavailable Unavailable Unavailable LI, SALINA Unavailable [address] + [place] [address] R Unavailable Unavailable Unavailable LI, SALINA Unavailable [address] + [place] [address] R Unavailable Unavailable Unavailable LI, SALINA Unavailable [address] + [place] [address] R Unavailable Unavailable Unavailable LI, SALINA Unavailable [address] + [place] [address] R Unavailable Unavailable Unavailable Care Team Providers Name Role Phone SIXTO LOCKHART Referring Unavailable SIXOT LOCKHART Attending Unavailable SIXTO LOCKHART Referring Unavailable SIXTO LOCKHART Referring Unavailable SIXTO LOCKHART Referring Unavailable SIXTO LOCKHART A Referring Unavailable SIXTO LOCKHART Attending Unavailable SIXTO LOCKHART A Referring Unavailable SIXTO LOCKHART A Attending Unavailable SIXTO LOCKHART A Referring Unavailable SIXTO LOCKHART A Referring Unavailable Sixto Lockhart Primary Care Unavailable Farrar, [place] Attending Unavailable Sixto Lockhart Attending Unavailable Sixto Lockhart Referring Unavailable Sixto Lockhart Primary Care Unavailable Kristine Logan Attending Unavailable Uche, [place] Attending Unavailable Sixto Lockhart Referring Unavailable Uche, Lobo Attending Unavailable Uche, Lobo Referring Unavailable Sixto Lockhart Primary Care Unavailable Sixto Lockhart Attending Unavailable Sixto Lockhart Primary Care Unavailable Sixto Lockhart Attending Unavailable Chantelle, Sixto Referring Unavailable Chantelle, Sixto Primary Care Unavailable Chantelle, Sixto Attending Unavailable Chantelle, Sixto Primary Care Unavailable Chantelle, Sixto Referring Unavailable aNt Monterroso Attending Unavailable Chantelle, Sixto Attending Unavailable [...] Primary Care Unavailable Kadi Infante Attending Unavailable InfanteKadi montano Referring Unavailable Chantelle, Sixto Primary Care Unavailable PROBLEMS PROBLEMS DATE TYPE CONDITION / CODE ATTENDING STATUS SOURCE Unknown E78.00 - Pure Uche, Lobo Active [place] [facility] hypercholesterolemia, Community unspecified / Hospital E78.00(ICD-10) Repository Unknown R07.9 - Chest pain, Uche, Lobo Active [facility] unspecified / Community R07.9(ICD-10) Hospital Repository Unknown I10 - Essential (primary) Uche, Lobo Active [facility] 9 hypertension / Community I10(ICD-10) Hospital Repository Unknown E78.0 - Pure Uche, Lobo Active [place] 9 hypercholesterolemia / Community E78.0(ICD-10) Hospital Repository Unknown I48.0 - Paroxysmal atrial Uche, Lobo Active [place] 9 fibrillation / Community I48.0(ICD-10) Hospital Repository Unknown R07.89 - Other chest pain Chantelle, Active [place] 9 / R07.89(ICD-10) [facility] Hospital Repository Unknown I25.10 - Atherosclerotic Chantelle, Active [place] 9 heart disease of [place] [facility] coronary artery without Hospital angina pectoris / Repository I25.10(ICD-10) Active Other chest pain / NA Active [place] [facility] R07.89(ICD-10) [facility] Main [place] Repository Active Other abnormal glucose / NA Active [place] [facility] R73.09(ICD-10) [facility] Main [place] Repository Active Essential (primary) NA Active [place] 8 hypertension / Clinic Main I10(ICD-10) [place] Rep[facility] Active Personal history of NA Active [place] 7 transient ischemic attack Clinic Main (TIA), and cerebral [place] infarction without Repository residual deficits / Z86.73(ICD-10) Active Disorder of prostate, NA Active [place] [facility] unspecified / Clinic Main N42.9(ICD-10) [place] Repository Active Mixed hyperlipidemia / NA Active [place] 7 E78.2(ICD-10) [facility] Main [place] Repository Active Atherosclerotic heart NA Active [place] 8 disease of [place] [facility] Main coronary artery without [place] angina pectoris / Repository I25.10(ICD-10) Active Coronary atherosclerosis NA Active [place] 8 due to lipid rich plaque [facility] Main / I25.83(ICD-10) [place] Repository Unknown E78.2 - Mixed Chantelle Active [place] 8 hyperlipidemia / [facility] E78.2(ICD-10) Hospital Repository Unknown R73.09 - Other abnormal Chantelle Active [place] 8 glucose / R73.09(ICD-10) [facility] Repository Unknown I36.1 - Nonrheumatic Arelis, Active [place] 8 tricuspid (valve) [facility] insufficiency / Hospital I36.1(ICD-10) Repository Unknown R94.6 - Abnormal results Chantelle Active [place] 8 of thyroid function [facility] studies / R94.6(ICD-10) Hospital Repository Active Abnormal results of NA Active [place] 8 thyroid function studies [facility] Main / R94.6(ICD-10) [place] Repository Active Anesthesia of skin / NA Active [place] 8 R20.0(ICD-10) [facility] Main [place] Repository Active Paresthesia of skin / NA Active [place] 8 R20.2(ICD-10) [facility] [place] Repository Unknown R20.0 - Anesthesia of Chantelle Active [place] 8 skin / R20.0(ICD-10) [facility] Repository Unknown R20.2 - Paresthesia of Chantelle, Active [place] 8 skin / R20.2(ICD-10) [facility] Repository Active Unknown / UNK(Unknown) CHANTELLE, Active [address] Repository Unknown 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, Active [place] 8 (current) drug therapy / [facility] Z79.899(ICD-10) [facility] Repository Active Other termite treater helper (current) NA Active [place] 8 drug therapy / [facility] Z79.899(ICD-10) [place] Repository PROCEDURES PROCEDURES No Procedure Records FoundRESULTS RESULTS CBC W/DIFF, AUTOMATED Collected: 09/14/2018 Status: F Source: [place] 9:45 AM [facility] REPOSITORY TYPE CODE TESTS RESULT OUT OF RANGE REFERENCE UNITS LAB L100.1000 4.4-11.0 K/mm3 Normal WBC 6.2 LAB L100.1200 4.6-6.2 M/mm3 Low RBC 4.47 LAB L100.1300 13.0-16.5 g/dl Normal HGB 14.1 LAB L100.1400 40-54 % Normal HCT 43.5 LAB L100.1500 80-94 fL High MCV 97.3 LAB L100.1600 27.0-32.0 pg Normal MCH 31.5 LAB L100.1700 32-36 g/gl Normal MCHC 32.4 LAB L100.1810 11.6-14.6 % Normal RDW CV 13.5 LAB L100.1820 35.1-43.9 fl High RDW SD 47.8 LAB L100.1900 150-450 K/mm3 Normal PLT 165 LAB L100.2000 6.2-12.0 fl Normal MPV 9.5 LAB L100.2100 47-70 % Normal NEUT% 55.0 LAB L100.2200 19-41 % Normal LY% 37.3 LAB L100.2300 0-10 % Normal MONO% 6.8 LAB L100.2400 0-5 % Normal EO% 0.5 LAB L100.2500 0-1 % Normal BASO% 0.2 LAB L100.2550 0.0-0.9 % Normal IM GRAN % 0.200 Result Comment: IG% - Immature Granulocytes (promyelocytes, myelocytes and metamyelocytes) > 1% indicates that a LEFT SHIFT is Present. LAB L100.2620 2.0-7.7 X10 3/uL Normal Absolute Neut 3.4 LAB L100.2720 0.83-4.51 X10 3/ul Normal Absolute Lymph 2.31 Performed By: #### L100.0100 #### [facility] [address] [place], [place], [address] BASIC METABOLIC Collected: 09/14/2018 Status: F Source: [place] PROFILE (BMP) 9:45 AM [facility] REPOSITORY TYPE CODE TESTS RESULT OUT OF RANGE REFERENCE UNITS LAB L501.0100 74-106 mg/dL Normal GLU 106 Result Comment: Fasting Glucose result from 100 to 125 mg/dL suggests IMPAIRED HOMEOSTASIS per A.D.A. criteria. Please note revised GLUCOSE reference range effective 2017. LAB L501.1000 7-18 mg/dL Normal BUN 18 LAB L501.1100 0.70-1.30 mg/dL Normal CREAT,SERUM 1.23 Result Comment: The validity of the calculated GFR AND GFRAA in patients over 70 years has not been determined. Clinical correlation is essential. LAB L501.1110 >60 mL/min Normal EST GFR 61 Result Comment: Non- GFR Calc LAB L501.1115 >60 mL/min Normal EST GFR - AA 74 Result Comment: GFR Calc LAB L501.1300 10-20 RATIO Normal BUN/CRE 14.6 LAB L501.2200 8.5-10.1 mg/dL CA Normal 9.1 LAB L501.5300 136-145 mmol/L NA Normal 143 LAB L501.5600 3.5-5.1 mmol/L K Normal 4.2 LAB L501.5900 98-107 mmol/L CL Normal 107 LAB L501.6100 21.0-32.0 mmol/L Normal CO2 27.0 LAB L501.6200 5-15 Normal GAP 9 Performed By: #### L500.2500 #### [facility] [address] [place], [place], [address] CARDIOLOGY VISIT Observed: 09/14/2018 Status: F Source: [place] REPORT 9:16 AM [facility] REPOSITORY [facility] [place] [facility] [address] [place] [address] OFFICE VISIT Date of Service: 09/14/18 MR#: [id number] Acct: [id number] Name: VALDEMAR JEFFERSON Rep #: [id number] : 1945 Provider: Lobo Ivey MD Age/Sex: 73/M Location: [facility] Status: Signed HPI HPI Chief Complaint: Follow up Details: VALDEMAR JEFFERSON, is a 73 M who presents to the office today for a follow-up visit. He is a gentleman with a history of mild coronary artery disease, previous ischemic stroke involving the left temporal and parietal lobes, probable atrial fibrillation and hyperlipidemia. He apparently had been doing fairly well until he started experiencing some left-sided chest discomfort he describes this as sharp it occurs a few times a day and lasts only a few seconds. He has also had some extension to his left shoulder. It occurs at rest and is not necessarily affected by exertion. An EKG was done which showed no acute changes. He was seen in the emergency room and no blood work was done but his primary physician did subsequently order a troponin which came back at 0.077 indicative of some cardiac damage. He has not had any rest discomfort his electrocardiogram demonstrated normal sinus rhythm with a rate of 53 bpm and no acute changes. His physical exam here today demonstrates clear lung reyna regular rate and rhythm and no pedal edema. Intake Vital Signs09/14/18 Height 5 ft 6 in 09/14/18 Weight: 175 lb 09/14/18 Body Mass Index (BMI) 28.2 09/14/18 Blood Pressure 134/86 H 09/14/18 Respiratory Rate 16 09/14/18 Pulse Rate 74 Intake Visit Reasons: ER 09/11/18 chest pain elevated troponin Allergies No Known Allergies Allergy (Verified 09/14/18 08:11) Medications Co Q10 200 [Co Q-10] 200 mg PO DAILY 12/31/15 [History Confirmed 09/14/18] Latanoprost 0.005% [Xalatan Opthalmic] 1 drp LEFT EYE QHS 12/31/15 [History Confirmed 09/14/18] Multivitamins,Therapeutic [Multivitamin] 1 tab PO DAILY 12/31/15 [History Confirmed 09/14/18] Tamsulosin HCl [Flomax] 0.4 mg PO QHS 12/31/15 [History Confirmed 09/14/18] Timolol Maleate [Timoptic-XE 0.25%] 1 drp LEFT EYE DAILY 12/31/15 [History Confirmed 09/14/18] buPROPion tablets [Wellbutrin tablets] 100 mg PO BID 12/31/15 [History Confirmed 09/14/18] rosuvastatin 20 mg tablet 20 mg PO QHS tab 01/08/18 [History Confirmed 09/14/18] apixaban 5 mg tablet 5 mg PO BID #180 tab 08/20/18 [Rx Confirmed 09/14/18] Metoprolol Tartrate 12.5 mg PO BID 09/11/18 [History Confirmed 09/14/18] lisinopril 10 mg tablet 10 mg PO DAILY #90 tab 09/14/18 [Rx Confirmed 09/14/18] omega-3 fatty acids 1,000 mg capsule 1,000 mg PO DAILY 09/14/18 [History Confirmed 09/14/18] [facility] Medical History Ischemic cerebrovascular accident (CVA) (Chronic) Atherosclerosis of coronary artery of [place] heart with angina pectoris (Chronic) Nonrheumatic tricuspid (valve) insufficiency (Chronic) Paroxysmal atrial fibrillation (Chronic) Hyperlipidemia (Chronic) Benign essential hypertension (Chronic) Depression (Chronic) Surgical History H/O repair of left rotator cuff (Suspected 01/2018) History of appendectomy (Resolved) History of carpal tunnel release (Resolved) History of cataract surgery (Resolved) History of herniorrhaphy (Resolved) History of right and left heart catheterization (Resolved 2014) Family History Mother CAD (coronary artery disease) [...] details: [facility] ROS Const Const: Negative for fatigue, weakness, difficulty sleeping, frequent falls, excessive sweating or headache(s) Eyes Eyes: Negative for loss of peripheral vision, transient loss of vision, blurry vision, tunnel vision or double vision ENT ENT: Negative for headache(s), dizziness, Nosebleed/epistaxis or balance problems Cardio Chest Pain: Yes Frequency: daily Character: sharp, dull, other (Dull left sided pain constant with episodes of brief tightness/stabbing) Onset: at rest Location: left chest Duration: brief, hours Palpitations: No Edema: None Muscle aches with walking: None Additional Details: Patient has not felt well over the past couple Resp Respiratory: Negative for SOB with activity, SOB at rest, SOB orthopnea\SOB lying down, paroxysmal nocturnal dyspnea or Cough GI GI: Negative nausea, heartburn, black,tarry stools or vomiting : Negative for hematuria Musc Musc: Negative for balance problems, muscle aches/ myalgia, muscle weakness or joint pain Skin Skin: Negative non-healing lesions, unusual bruising or rash Neuro Neuro: Negative for weakness, frequent falls, headache(s), blurry vision, double vision, dizziness, lightheadedness, orthostatic symptoms, near syncope, syncope or lack of coordination Huy Hematologic/Lymphatic: Negative for easy bruising or easy bleeding Endo Endo: Negative for fatigue, excessive sweating or increased thirst/drinking Psych Psych: Negative for anxiety or depression Allergy Allergy/Immunology: Negative for hives, Negative for rash Cardiology Exam Const Appearance: cooperative, healthy appearing, well developed, well groomed and no acute distress Nutritional Appearance: well nourished and average body habitus Orientation: alert, awake and oriented x3 Head Head: normal to inspection, normocephalic and atraumatic Ears: hearing grossly normal bilaterally and external ears normal Nose: external nose normal, nasal mucous membranes and turbinates normal, nares normal, septum normal, no nasal discharge Face and Sinus: face symmetric Mouth: oral mucosae normal, tongue normal, oropharynx normal and moist mucous membranes Teeth and gingiva: dentition normal Throat: posterior oropharynx normal, tonsils normal and uvula midline Eyes General: appearance normal, both eyes and all related structures Eyelids: eyelids normal Conjunctivae: conjunctivae normal Pupils: PERRL, normal by confrontation and accommodation normal EOM: EOM intact bilaterally Neck Neck: normal visual inspection, trachea midline and no JVD JVD: +5 Carotids: normal carotid upstroke and bounding pulses Chest Chest inspection: normal inspection of the chest, symmetric chest movement and normal respiratory effort Auscultation: Bilateral: Clear to Auscultation Cardio Palpation: normal PMI Rate: regular rate Rhythm: regular rhythm Heart sounds: S1 normal, S2 normal and normal, physiologic split S2; negative rub, gallop or murmur GI GI: normal to inspection, soft, no hepatosplenomegaly and bowel sounds present Neuro General: alert, awake, oriented x3, no focal sensory deficit, gait normal and moves all extremities Skin Skin: no rashes or lesions noted Extremities Pulses: Normal: Right Femoral Pulse, Left Femoral Pulse, Right Dorsalis Pedis Pulse, Left Dorsalis Pedis Pulse, Right Posterior Tibial Pulse, Left Posterior Tibial Pulse, Right Radial Pulse, Left Radial Pulse Lower Extremity Edema: None: Bilateral Musculoskel Musculoskeletal: No joint tenderness Psych Psychological: normal affect Assessment AND Plan 1. Chest pain R07.9 Plan He does have a history of chest pain which appears to be rather atypical. However he has minimally elevated troponin on one test as an outpatient. My recommendation at this time is for us to pursue an exercise myocardial perfusion stress test especially in view of his normal EKG. Depending on the findings further recommendations will be made. He also would obtain an echocardiogram to assess his left ventricular function. Orders Orders: 2. Benign essential hypertension I10 Plan He does have a history of hypertension with his blood pressure being suboptimally controlled he does have an elevated diastolic pressure. I would like us to add an TODD inhibitor to his current regimen. Orders Orders: 3. Pure hypercholesterolemia E78.00 Plan He does have a history of hyperlipidemia with his most recent lipid profile demonstrating a total cholesterol 160, LDL of 92, HDL of 43. No changes will be made with respect to the above. Orders Orders: 4. Paroxysmal atrial fibrillation I48.0 Plan He does have a history of paroxysmal atrial fibrillation he is maintaining sinus rhythm at this time he will remain on his Eliquis in the time being. Thank you for allowing me to participate in the care of your patient. Please don't hesitate to call if any issues arise Plan Detail Other Orders Orders: Other Medications New: Follow Up 4 Months (mmm) Coding Level of Care Code Off vis,est,level 4 Diagnoses Chest pain R07.9 Benign essential hypertension I10 Pure hypercholesterolemia E78.00 Hyperlipidemia type: pure hypercholesterolemia Paroxysmal atrial fibrillation I48.0 Coding Level of Care Code Off vis,est,level 4 Diagnoses Chest pain R07.9 Benign essential hypertension I10 Pure hypercholesterolemia E78.00 Hyperlipidemia type: pure hypercholesterolemia Paroxysmal atrial fibrillation I48.0 Supplemental Info Supplemental Information Labs LDL Cholesterol 92 mg/dL (0-130) 07/20/18 HDL Cholesterol 43 mg/dL (40-) 07/20/18 Triglycerides 124 mg/dL (-199) 07/20/18 VLDL Cholesterol 25 mg/dL (5-40) 07/20/18 Diagnostics Electrocardiogram 01/17/18 09/14/18 0916 <Electronically signed by Lobo Ivey MD> Date Lobo Ivey MD Cosigner Signature: Date (if applicable) CC: Sixto Lockhart MD TROPONIN T Collected: 09/13/2018 Status: F Source: [place] 11:35 AM [facility] REPOSITORY TYPE CODE TESTS RESULT OUT OF REFERENCE UNITS RANGE LAB TROPT 0.000-0.029 ng/mL Test Troponin T sent to [facility]. Result Comment: Account Credited HIDMadhu CK Collected: 09/13/2018 Status: F Source: [facility] 11:35 AM MAIN CAMPUS REPOSITORY TYPE CODE TESTS RESULT OUT OF REFERENCE UNITS RANGE LAB CK 51-298 U/L Test CK sent to [facility]. Result Comment: Account Credited AYLINE CPK TOTAL, CREATINE Collected: 09/13/2018 Status: F Source: [place] 11:08 AM [facility] REPOSITORY Order Comment: Comments: ONE ONLY LABSPEC 'TROP' Serial specimen #1, #2, #3, or #4: 1 TYPE CODE TESTS RESULT OUT OF RANGE REFERENCE UNITS LAB L501.3620 39-308 U/L Normal CPK TOTAL 97 Performed By: #### L501.3620, L501.4010 #### [facility] [address] [place], [address] TROPONIN-I Collected: 09/13/2018 Status: F Source: [place] 11:08 AM [facility] REPOSITORY Order Comment: Comments: ONE ONLY LABSPEC 'TROP' Serial specimen #1, #2, #3, or #4: 1 TYPE CODE TESTS RESULT OUT OF RANGE REFERENCE UNITS LAB L501.4010 <0.045 ng/mL High 0.077 TROPONIN-I Result Comment: TROPONIN-I EXPECTED VALUES <0.045 Negative 0.045 - 0.590 Consistent with Cardiac Damage > OR = 0.600 Critical Value Not every elevated troponin is indicative of HI. These values should be used with clinical judgement in examining the patient's clinical picture for diagnosis. To establish a diagnosis of HI versus myocardial injury, there must be a demonstrated rise and/or fall in the troponin values, in addition to ischemic symptoms, EKG changes, new regional wall motion abnormality, and/or angiographical evidence. PLEASE NOTE: REFERENCE RANGES EDITED 18 Performed By: #### L501.3620, L501.4010 #### [facility] [address] [place], [address] PROGRESS Observed: 09/13/2018 Status: COMPLETED Source: [place] 10:23 AM [facility] REPOSITORY O ID: [id number] Author: Sixto Lockhart Service: (none) Author Type: Physician Type: Progress Notes Filed: 09/13/2018 12:57 PM Note Text: Chief Complaint Patient presents with: ED Follow-up: [facility] chest pain HPI Valdemar Jefferson is a 73 year old male who presents here today for ER Follow Up.. Patient with Hx Hx of CAD, HTN, hyperlipidemia, elevated A1c, ex-smoker and a strong family Hx of heart disease in siblings went to [facility] ER on 09/11/2018 with the c/o of intermittent left sided chest pain over a 3 day span. Pain woudl last 2-3 seconds and stop. Had mild discomfort develop in the left chest about a week ago and this is constant with extension into the left shoulder. Typically the sharper pains occurred at rest and activity did not affect this or the constant ache. No shortness of breath, diaphoresis, nausea, vomiting or palpitations. An EKG was done and showed no acute changes per report. No blood work was done. Was released to home. Still has the constant dull ache and still getting the waves of chest pain. Past medical history, appointments, medications, allergies reviewed. Previous Medical History PAST MEDICAL HISTORY Diagnosis Date - Abdominal adhesions 01/10/2016 - Benign prostatic hyperplasia with lower urinary tract symptoms 04/26/2017 - Cataracts, bilateral - Chronic anticoagulation 04/26/2017 - Coronary atherosclerosis Sees Dr. Ivey - Coronary atherosclerosis of unspecified type of vessel, [place] or graft - Depression, major, single episode, mild (HCC) 04/19/2005 - Diverticulosis of colon Diverticulosis - Diverticulosis of colon (without mention of hemorrhage) Diverticulosis - Elevated hemoglobin A1c 10/16/2017 - Essential hypertension - Ex-smoker 04/26/2017 Started at age 15 up to 1 PPD quite at age 19, 04/2017 US no AAA. - Frequent headaches 05/01/2018 Ever since stroke. Not debilitating and treated with OTC agents as needed. - Glaucoma - Head trauma 2011 - Hemorrhoids Hemorrhoids - History of TIA (transient ischemic attack) [...] Right 2014 - COLONOSCOP W/ OR W/O [facility] SPEC Colonoscopy - HERNIA REPAIR HX [...] DAILY tamsulosin ER (FLOMAX) 0.4 mg cap Take 1 capsule by mouth once daily. rosuvastatin (CRESTOR) 20 mg tablet Take 1 [...] No Review of Symptoms REVIEW OF SYSTEMS See HPI EXAM: BP 118/84 Pulse (!) 58 Resp 12 Wt 79.8 kg (176 lb) BMI 27.16 kg/m? General Appearance: Well appearing, alert, in no acute distress, well-hydrated, well nourished.. Neck: Supple, no adenopathy; thyroid symmetric, normal size, no bruits. Lungs: lungs clear to auscultation. No wheezing, rhonchi, rales. Heart: RRR without murmur, gallop, or rubs. No ectopy. Abdomen: Normal abdominal exam, Abdomen soft, non-tender. Bowel sounds normal. No masses, organomegaly. Extremities: No deformities, edema. Peripheral Pulses: Normal. Health Maintenance List BP CONTROLLED (<130/80) due on 1962 DTAP,TDAP,TD(1 - Tdap) due on 1963 COLORECTAL CANCER SCREENING,SEE MODIFIER due on 09/03/2018 STATIN MED ADHERENCE due on 09/21/2018 LDL CHOLESTEROL due on 04/24/2019 ANNUAL PCP TEAM CHRONIC DISEASE VISIT due on 05/01/2019 DIABETES SCREEN due on 04/24/2021 LIPID SCREEN due on 07/20/2023 ADULT PREVNAR-13 Completed INFLUENZA Completed PNEUMOVAX AGE 65 AND OVER WITH 5YR LOOKBACK Completed Data reviewed In office EKG: NSR with no acute changes suspicious for HI. ER report reviewed. No labs done at ER. A/P ASSESSMENT/PLAN: 1. Atypical chest pain - ICD9: 786.59, ICD10: R07.89 (primary diagnosis) Check - ECG COMPLETE W INTERPRETATION - STRESS REGULAR W/TREAD Check STAT - CK CREATINE KINASE - TROPONIN (POCT) - If these abnormal will discuss with his events intern about cath. 2. Coronary atherosclerosis due to lipid rich plaque - ICD9: 414.3, ICD10: I25.10, I25.83 - As per #1 Time with patient face to face was 25 min Sixto Lockhart MD CNOV Observed: 09/13/2018 Status: COMPLETED Source: RAPIDAN 9:40 AM [facility] REPOSITORY [facility] VALDEMAR JEFFERSON ([id number]) 1945 M Date Time Provider Department 09/13/18 9:40 AM S[facility]TO LOCKHART [facility] During your visit today, we recorded the following information about you: Pulse Respiration Blood pressure Weight 58/minute 12/minute 118/84 79.8 kg Sixto Lockhart MD 09/13/2018 12:57 PM Signed Chief Complaint Patient presents with: ED Follow-up: [facility] chest pain HPI Valdemar Delgado Erie is a 73 year old male who presents here today for ER Follow Up.. Patient with Hx Hx of CAD, HTN, hyperlipidemia, elevated A1c, ex-smoker and a strong family Hx of heart disease in siblings went to [facility] ER on 09/11/2018 with the c/o of intermittent left sided chest pain over a 3 day span. Pain woudl last 2-3 seconds and stop. Had mild discomfort develop in the left chest about a week ago and this is constant with extension into the left shoulder. Typically the sharper pains occurred at rest and activity did not affect this or the constant ache. No shortness of breath, diaphoresis, nausea, vomiting or palpitations. An EKG was done and showed no acute changes per report. No blood work was done. Was released to home. Still has the constant dull ache and still getting the waves of chest pain. Past medical history, appointments, medications, allergies reviewed. Previous Medical History PAST MEDICAL HISTORY Diagnosis Date - Abdominal adhesions 01/10/2016 - Benign prostatic hyperplasia with lower urinary tract symptoms 04/26/2017 - Cataracts, bilateral - Chronic anticoagulation 04/26/2017 - Coronary atherosclerosis Sees Dr. Ivey - Coronary atherosclerosis of unspecified type of vessel, yomba shoshone or graft - Depression, major, single episode, mild (HCC) 04/19/2005 - Diverticulosis of colon Diverticulosis - Diverticulosis of colon (without mention of hemorrhage) Diverticulosis - Elevated hemoglobin A1c 10/16/2017 - Essential hypertension - Ex-smoker 04/26/2017 Started at age 15 up to 1 PPD quite at age 19, 04/2017 [place] no AAA. - Frequent headaches 05/01/2018 Ever since stroke. Not debilitating and treated with OTC agents as needed. - Glaucoma - Head trauma 2011 - Hemorrhoids Hemorrhoids - History of TIA (transient ischemic attack) [...] Right 2014 - COLONOSCOP W/ OR W/O [facility] SPEC Colonoscopy - HERNIA REPAIR HX [...] DAILY tamsulosin ER (FLOMAX) 0.4 mg cap Take 1 capsule by mouth once daily. rosuvastatin (CRESTOR) 20 mg tablet Take 1 [...] No Review of Symptoms REVIEW OF SYSTEMS See HPI EXAM: BP 118/84 Pulse (!) 58 Resp 12 Wt 79.8 kg (176 lb) BMI 27.16 kg/m? General Appearance: Well appearing, alert, in no acute distress, well-hydrated, well nourished.. Neck: Supple, no adenopathy; thyroid symmetric, normal size, no bruits. Lungs: lungs clear to auscultation. No wheezing, rhonchi, rales. Heart: RRR without murmur, gallop, or rubs. No ectopy. Abdomen: Normal abdominal exam, Abdomen soft, non-tender. Bowel sounds normal. No masses, organomegaly. Extremities: No deformities, edema. Peripheral Pulses: Normal. Health Maintenance List BP CONTROLLED (<130/80) due on 1962 DTAP,TDAP,TD(1 - Tdap) due on 1963 COLORECTAL CANCER SCREENING,SEE MODIFIER due on 09/03/2018 STATIN MED ADHERENCE due on 09/21/2018 LDL CHOLESTEROL due on 04/24/2019 ANNUAL PCP TEAM CHRONIC DISEASE VISIT due on 05/01/2019 DIABETES SCREEN due on 04/24/2021 LIPID SCREEN due on 07/20/2023 ADULT PREVNAR-13 Completed INFLUENZA Completed PNEUMOVAX AGE 65 AND OVER WITH 5YR LOOKBACK Completed Data reviewed In office EKG: NSR with no acute changes suspicious for HI. ER report reviewed. No labs done at ER. A/P ASSESSMENT/PLAN: 1. Atypical chest pain - ICD9: 786.59, ICD10: R07.89 (primary diagnosis) Check - ECG COMPLETE W INTERPRETATION - STRESS REGULAR W/TREAD Check STAT - CK CREATINE KINASE - TROPONIN (POCT) - If these abnormal will discuss with his events intern about cath. 2. Coronary atherosclerosis due to lipid rich plaque - ICD9: 414.3, ICD10: I25.10, I25.83 - As per #1 Time with patient face to face was 25 min Sixto Lockhart MD Referring Provider: SELF [[id number]] Allergies As of Date: 09/13/2018 (No Known Allergies) Date Reviewed: 09/13/2018 Reviewed by: Sixto Lockhart - Fully Assessed Reason for Visit: ED Follow-up [821] Cmt: [facility] chest pain Primary Visit Diagnosis:Atypical chest pain [R07.89] Other Visit Diagnosis:Coronary atherosclerosis due to lipid rich plaque [I25.10, I25.83] Order(s):tamsulosin ER (FLOMAX) 0.4 mg capTake 1 capsule by mouth once daily.Disp: 90 capsuleRfl: 1 buPROPion (WELLBUTRIN) 100 mg tabletTake 1 tablet by mouth twice daily.Disp: 180 tabletRfl: 1 ECG COMPLETE W INTERPRETATION [ECG01] Order #: [id number] FUTURE COMPLETE ECG [] Order #: [id number]. #:[id number]--SDDUdhgOls: 1 STRESS REGULAR W/TREAD [[id number]] Order #: [id number]: 1 CK CREATINE KINASE [SQCK] Order #: [id number] FUTURE TROPONIN T [SQTNT] Order #: [id number] FUTURE Prescriptions as of 09/13/2018 Sig: TAMSULOSIN 0.4 MG CAPSULE Take 1 capsule by mouth once * BUPROPION HCL 100 MG TABLET Take 1 tablet by mouth twice * ROSUVASTATIN 20 MG TABLET Take 1 tablet [...] tablet daily. Problem List As Of Date 09/13/2018 Noted Resolved Depression, major, single episode, mild (HCC) [*INVALID FOR* Hyperlipidemia, mixed [E78.2] Diverticulosis of colon [K57.30] More... Hemorrhoids [K64.9] More... Coronary atherosclerosis [I25.10] More... Abdominal adhesions [K66.0] INVALID FOR* History of TIA (transient ischemic attack) [Z86*INVALID FOR* More... Benign prostatic hyperplasia with lower urinary*INVALID FOR* Prostate disorder [N42.9] INVALID FOR* Glaucoma [H40.9] Essential hypertension [I10] Ex-smoker [Z87.891] INVALID FOR* More... Medicare annual wellness visit, subsequent [Z00*INVALID FOR* More... Well adult exam [Z00.00] INVALID FOR* More... Chronic anticoagulation [Z79.01] INVALID FOR* Encounter for screening for diabetes mellitus [*INVALID FOR* Elevated hemoglobin A1c [R73.09] INVALID FOR* Numbness and tingling of left leg [R20.0, R20.2]INVALID FOR* Left shoulder pain [M25.512] INVALID FOR* Insomnia [G47.00] INVALID FOR* Frequent headaches [R51] INVALID FOR* More... Prescriptions ordered this encounter Disp Refills Start End TAMSULOSIN 0.4 MG CAPSULE 90 c* 1 09/13/2018 Route: ORAL Sig: Take 1 capsule by mouth once daily. BUPROPION HCL 100 MG TABLET 180 * 1 09/13/2018 Route: ORAL Sig: Take 1 tablet by mouth twice daily. Medications Discontinued During This Encounter tamsulosin ER (FLOMAX) 0.4 mg cap 90 c* 1 05/01/2018 09/13/2018 Cmt: Patient accidentally threw out new script and is without medication. Please refill early. Route: ORAL Sig: Take 1 capsule by mouth once daily. Disc: Reason for discontinue is not on file. buPROPion (WELLBUTRIN) 100 mg tablet 180 * 1 08/20/2018 09/13/2018 Sig: TAKE ONE TABLET BY MOUTH TWICE DAILY Disc: Reason for discontinue is not on file. Disposition: Return if symptoms worsen or fail to improve. Follow-up and Disposition History Recorded Encounter Status:Closed by SIXTO LOCKHART on 09/13/18 EMERGENCY DEPARTMENT Observed: 09/11/2018 Status: F Source: BAL[place] SUMMARY 2:12 PM [facility] REPOSITORY [facility] Medical Records Department [address] [place] [address] Emergency Department Summary 09/11/18 1409 MR#: [id number] Acct: [id number] Name: VALDEMAR JEFFERSON Rep #: [id number] : 1945 73 From: Ervin Farrar MD PCP: Sixto Lockhart MD Status: REG ER - ER Visit Summary Date of Service: 09/11/18 Chief Complaint: Bleeding intermittent left pectoral chest pain History of Present Illness: The patient is a 73 M who has history of hypertension, coronary disease TIA and benign prostatic hypertrophy who presents with fleeting left-sided chest pain that last 1-2 seconds. He has had 2-3 episodes per day for the last 3 days. He has no exacerbating, precipitating or alleviating factors. He denies fever, chills night sweats. Denies visual, ocular auditory symptoms. He denies respiratory symptoms. He denies abdominal pain, nausea or vomiting. He denies urologic symptoms. He denies myalgias, arthralgias, neck pain or back pain. He denies headache, weakness, paresthesia, anesthesia or difficulty using his extremities. 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 He had a cardiac catheterization in 2016 which revealed no progression of the stenosis. Physical Examination: Patient appears in no distress. Vital signs are noted for an elevated blood pressure. HEENT exam is unremarkable. Insert cardiopulmonary exam abdomen soft nontender. Neuro exam is nonfocal. Distal pulses are symmetric. Lower extremity exam is unremarkable. Test Results: EKG was obtained per nurse protocol reveals a sinus rhythm rate of 61 with criteria suggestive of LVH. EKG is otherwise normal. Emergency Department Course and Treatment: Patient was informed fleeting chest pain of 1-2 seconds is not cardiac. Since his exam is normal and he has no other symptoms no further testing was obtained and he was discharged to follow-up with his primary care physician. Treatment Plan: Follow-up with PCP Dr. Sixto Lockhart as needed Disposition: Discharge to home with spouse Impression: Fleeting left-sided chest pain noncardiac etiology History of coronary disease History of hypertension History of benign prostatic hypertrophy History of TIA History of high risk medication, Eliquis This note was generated with [employer] software. It may contain incorrect words, spelling, and punctuation that were not noted in review of the chart prior to signing ED Disposition - Plan for ED Patient: Disposition: Home or Assisted Living Chief Complaint: Chest Pain Instructions: ED Chest Pain NonCardiac Referrals: Sixto Lockhart MD [Primary Care Provider] - As Needed What to do if you have Problems For any increased pain, shortness of breath, bleeding, nausea or vomiting, chest pain, or any unexpected problems, contact your Primary Care Provider. Call [facility] ([phone]) or report to the closest Emergency Room. Call 911 if necessary. 09/11/18 1412 <Electronically signed by Ervin Farrar MD> Date Ervin Farrar MD Cosigner Signature (If Indicated): Date CC: Sixto Lockhart MD; Burak Denson MD LIVER PROFILE Collected: 07/20/2018 Status: F Source: ERWIN 8:03 AM [facility] REPOSITORY TYPE CODE TESTS RESULT OUT [...] 0.14 Performed By: #### L500.3400, L500.4100 #### [facility] [address] [place], [address] LIPID PROFILE Collected: 07/20/2018 Status: F Source: BAL[place] 8:03 AM [facility] REPOSITORY TYPE CODE TESTS RESULT OUT [...] 25 Performed By: #### L500.3400, L500.4100 #### [facility] [address] [facility]. [place], [place], [address] PROGRESS Observed: 05/01/2018 Status: COMPLETED Source: RAPIDAN 2:12 PM [facility] REPOSITORY HNO ID: [id number] Author: Sixto Lockhart Service: (none) Author Type: Physician Type: Progress Notes Filed: 05/01/2018 10:52 PM Note Text: Medicare Yearly Visit Medical B eligibilty date not able to find Date of last exam 04/26/2017 PAST MEDICAL HISTORY Diagnosis Date - Abdominal adhesions 01/10/2016 - Benign prostatic hyperplasia with lower urinary tract symptoms 04/26/2017 - Cataracts, bilateral - Coronary atherosclerosis of unspecified type of vessel, [place]oshone or graft - Diverticulosis of colon (without [...] Right 2014 - COLONOSCOP W/ OR W/O [facility] SPEC Colonoscopy - HERNIA REPAIR HX [...] Coronary atherosclerosis of unspecified type of vessel, [place] shoshone or graft - Diverticulosis of colon (without [...] Right 2014 - COLONOSCOP W/ OR W/O [facility] SPEC Colonoscopy - HERNIA REPAIR HX [...] MD CNOV Observed: 05/01/2018 Status: COMPLETED Source: RAPIDAN 2:00 PM [facility] REPOSITORY Office Visit ([facility]) VALDEMAR JEFFERSON ([id number]) 1945 M Date Time Provider Department 05/01/18 2:00 PM SIXTO LOCKHART [facility] During your visit today, we recorded the [...] Coronary atherosclerosis of unspecified type of vessel, [place] shoshone or graft - Diverticulosis of colon (without [...] Right 2014 - COLONOSCOP W/ OR W/O [facility] SPEC Colonoscopy - HERNIA REPAIR HX Left [...] Coronary atherosclerosis of unspecified type of vessel, [place] shoshone or graft - Diverticulosis of colon (without [...] Right 2014 - COLONOSCOP W/ OR W/O [facility] SPEC Colonoscopy - HERNIA REPAIR HX [...] to next visit. Referring Provider: SIXTO LOCKHART [[id number]] Allergies As of Date: 05/01/2018 (No Known [...] episode, mild (HCC) [F32.0] Order(s):PNEUMOCOCCAL-13 VACCINE PCV-13 [[id number]] Order #: [id number] HGB A1C [YIYCA2W] Order #: [id number] FUTURE LIPID PANEL, NONFASTING [SQLIPNF] Order #: [id number] FUTURE tamsulosin ER (FLOMAX) 0.4 mg capTake [...] 05/01/18 HOSP Observed: 04/25/2018 Status: COMPLETED Source: RAPIDAN 12:00 AM [facility] REPOSITORY [facility] VALDEMAR JEFFERSON ([id number]) 1945 M Date Time Provider Department 04/25/18 SIXTO LOCKHART During your visit today, we recorded the following information about you: Allergies As of Date: 04/25/2018 (No Known Allergies) Date Reviewed: 10/23/2017 Reviewed by: Sixto Lockhrat - Fully Assessed Order(s):PSA (OUTSIDE) [[id number]] Order #: [id number] HBA1C (OUTSIDE) [[id number]] Order #: [id number] Prescriptions as of 04/25/2018 Sig: BUPROPION HCL [...] URINALYSIS WITH Collected: 04/24/2018 Status: F Source: [facility] 8:27 AM [facility] REPOSITORY TYPE CODE TESTS RESULT OUT OF RANGE REFERENCE UNITS LAB UCOL Yellow Abnormal Test Alert Color sent to [facility]. Result Comment: Account Credited HIDE LAB [facility] Clear Abnormal Test Alert Clarity sent to [facility]. Result Comment: Account Credited HIDE LAB UGLUC Negative mg/dL Test Abnormal Glucose, Urine sent to [facility]. Result Comment: Account Credited HIDE LAB UBIL Negative Abnormal Test Alert Bilirubin, Urine sent to [facility]. Result Comment: Account Credited HIDE LAB UKET Negative Abnormal Test Alert Ketones, Urine sent to [facility]. Result Comment: Account Credited HIDE LAB USPG 1.005-1.030 Test Specific sent to [facility]. Result Comment: Account Credited HIDE LAB UHGB Negative Hemoglobin/Blood,Ur Abnormal Test sent to [facility]. Result Comment: Account Credited HIDE LAB UPH 4.5-8.0 Test sent to pH [facility]. Result Comment: Account Credited HIDE LAB UPROT Negative mg/dL Test Abnormal Protein, Urine sent to [facility]. Result Comment: Account Credited HIDE LAB UUROB Normal Abnormal Urobilinogen Test Alert sent to [facility]. Result Comment: Account Credited HIDE LAB UNITR Negative Abnormal Test Alert Nitrites sent to [facility]. Result Comment: Account Credited HIDE LAB ULKEST Negative Abnormal Test Alert Leukest sent to [facility]. Result Comment: Account Credited HIDE LAB UCOM Comments SEE COMMENT Result Comment: Test sent to [facility]. Account Credited HIDE LAB UMCOM Urine SEE Buddy Comment COMMENT Result Comment: Test sent to [facility]. Account Credited HIDE LAB RECHEK Recheck Test sent to [facility]. Result Comment: Account Credited AYLINE HEMOGLOBIN A1C Collected: 04/24/2018 Status: F Source: [place] 8:27 AM [facility] REPOSITORY TYPE CODE TESTS RESULT OUT OF REFERENCE UNITS RANGE LAB HGBA1C 4.0-6.0 % Test Hemoglobin A1c sent to [facility]. Result Comment: Account Credited HIDE LAB HBA0 mg/dL Est. Test sent Average Glucose to [facility]. Result Comment: Account Credited AYLNIE PSA, DIAGNOSTIC Collected: 04/24/2018 Status: F Source: RAPIDAN 8:27 AM [facility] REPOSITORY TYPE CODE TESTS RESULT OUT OF REFERENCE UNITS RANGE LAB PSA 0.00-2.59 ng/mL PSA, Test Diagnostic sent to [facility]. Result Comment: Account Credited AYLINE COMP METABOLIC PANEL Collected: 04/24/2018 Status: F Source: R[place]AN 8:27 AM [facility] REPOSITORY TYPE CODE TESTS RESULT OUT OF REFERENCE UNITS RANGE LAB TP 6.3-8.0 g/dL Test sent to [facility]. Result Comment: Account Credited HIDE LAB ALB 3.9-4.9 g/dL Test Albumin sent to [facility]. Result Comment: Account Credited HIDE LAB CA 8.5-10.2 mg/dL Test Calcium, Total sent to [facility]. Result Comment: Account Credited HIDE LAB TBIL 0.2-1.3 mg/dL Bilirubin, Test Total sent to [facility]. Result Comment: Account Credited HIDE LAB ALKP 36-108 U/L Alkaline Test Phosphatase sent to [facility]. Result Comment: Account Credited HIDE LAB AST 14-40 U/L Test sent AST to [facility]. Result Comment: Account Credited HIDE LAB GLU 74-99 mg/dL Test sent Glucose to [facility]. Result Comment: Account Credited HIDE LAB BUN 9-24 mg/dL Test sent BUN to [facility]. Result Comment: Account Credited HIDE LAB CRET 0.73-1.22 mg/dL Creatinine Test sent to [facility]. Result Comment: Account Credited [facility] LAB NA 136-144 mmol/L Test Sodium sent to [facility]. Result Comment: Account Credited [facility] K 3.7-5.1 mmol/L Test Potassium sent to [facility]. Result Comment: Account Credited [facility] CL 97-105 mmol/L Test Chloride sent to [facility]. Result Comment: Account Credited [facility] LAB CO2 22-30 mmol/L Test sent CO2 to [facility]. Result Comment: Account Credited [facility] LAB AGAP 9-18 mmol/L Test sent Anion Gap to [facility]. Result Comment: Account Credited [facility] ALT 10-54 U/L Test sent ALT to [facility]. Result Comment: Account Credited [facility] GFRAA eGFR- Amer. Test sent to [facility]. Result Comment: Account Credited [facility] GFRNAA . eGFR-All Test sent Other Races to [facility]. Result Comment: Account Credited [facility] GFRPED eGFR-Ped. Test sent Factor to [facility]. Result Comment: Account Credited [facility] LIPID PANEL, BASIC Collected: 04/24/2018 Status: F Source: [facility] 8:27 AM [facility] REPOSITORY TYPE CODE TESTS RESULT OUT OF REFERENCE UNITS RANGE LAB CHOL <200 mg/dL Cholesterol Test sent to [facility]. Result Comment: Account Credited [facility] TRIGLY <150 mg/dL Triglyceride Test sent to [facility]. Result Comment: Account Credited [facility] HDL >39 mg/dL HDL-Cholesterol Test sent to [facility]. Result Comment: Account Credited [facility] LDL <100 mg/dL LDL-Cholesterol Test sent to [facility]. Result Comment: Account Credited [facility] NONHDL 90-159 mg/dL Non HDL Test Cholesterol sent to [facility]. Result Comment: Account Credited [facility] FT hrs Fasting Time 12 LAB VLDL <30 mg/dL VLDL Cholesterol Test sent to [facility]. Result Comment: Account Credited [facility] TCHDL <5.10 Test sent TC:HDL Ratio to [facility]. Result Comment: Account Credited [facility] LDLHDL <2.54 Test sent LDL:HDL Ratio to [facility]. Result Comment: Account Credited [facility] COMPREHENSIVE METABOLIC Collected: 04/24/2018 Status: F Source: [facility]WIN [facility] 12:00 AM [facility] REPOSITORY TYPE CODE TESTS RESULT OUT [...] Performed By: #### L500.4050, L500.4100, L501.9940 #### [facility] [address] [place], [address] LIPID PROFILE Collected: 04/24/2018 Status: F Source: [place] 12:00 AM [facility] REPOSITORY TYPE CODE TESTS RESULT OUT [...] Performed By: #### L500.4050, L500.4100, L501.9940 #### [facility] [address] [place], [place], [address] PSA,TOTAL- DIAGNOSTIC Collected: 04/24/2018 Status: F Source: [place] 12:00 AM [facility] REPOSITORY TYPE CODE TESTS RESULT OUT OF RANGE REFERENCE UNITS LAB L501.9940 0.0-4.0 ng/mL PSA, Normal DIAGNOSTIC 0.43 Result Comment: This test was performed using the TPSA assay method for the [employer] chemistry system. Values obtained with different assay methods cannot be used interchangably. When changing PSA assays in the course of monitoring a patient, additional sequential testing should be carried out to confirm baseline values. Performed By: #### L500.4050, L500.4100, L501.9940 #### [facility] [address] [place], [place], [address] URINALYSIS, COMPLETE Collected: 04/24/2018 Status: F Source: [place] 12:00 AM [facility] REPOSITORY Order Comment: How was Urine Obtained? [...] URINE SEEN Performed By: #### L400.0001 #### [facility] [address] [facility] [facility]. [place], [place], [address] HEMOGLOBIN A1C Collected: 04/24/2018 Status: F Source: [place] 12:00 [facility] REPOSITORY TYPE CODE TESTS RESULT OUT OF RANGE REFERENCE UNITS LAB L501.9985 4.2-6.3 % Normal HGB A1C 5.6 Performed By: #### L501.9985 #### [facility] [address] [facility] [place], [address] CNPTOUTREACH Observed: 04/17/2018 Status: COMPLETED Source: RAPIDAN 12:00 AM [facility] REPOSITORY Patient Outreach (INTMWH) VALDEMAR JEFFERSON ([id number]) 1945 M Date Time Provider Department 04/17/18 [facility] During your visit today, we recorded [...] Insomnia [G47.00] INVALID FOR* Encounter Status:Closed by EPIC, PRODUSER on 06/01/18 CARDIOLOGY VISIT Observed: 01/31/2018 Status: F Source: ERWIN REPORT 8:21 AM [facility] REPOSITORY [facility] [address] [place] [address] OFFICE VISIT Date of Service: 01/17/18 MR#: [id number] Acct: [id number] Name: VALDEMAR JEFFERSON Rep #: [id number] : 1945 Provider: Kadi Infante Age/Sex: 72/M Location: [facility] Status: Signed HPI HPI Details: VALDEMAR JEFFERSON, [...] 122/78 Intake Visit Reasons: 1 Y FU Active Directory Specialist Required: No Accompanied by: Is patient in [...] prior to saving. Follow Up 1 Year (ASSESSMENT EXPERT) Coding Level of Care Code Off vis,est,level 3 Diagnoses Paroxysmal atrial fibrillation I48.0 Pure hypercholesterolemia E78.00; E78.0 Hyperlipidemia type: pure hypercholesterolemia Coding Level of Care Code Off vis,est,level 3 Diagnoses Paroxysmal atrial fibrillation I48.0 Pure hypercholesterolemia E78.00; E78.0 Hyperlipidemia type: pure hypercholesterolemia 01/17/18 1100 <Electronically signed by Kadi FELDER> Date Kadi FELDER 01/31/18 0821<Electronically signed by Lobo Ivey MD> Cosigner Signature: Date (if applicable) Lobo Ivey MD CC: Sixto Lockhart MD; Markos Adair DO CBC-COMPLETE BLOOD CNT Collected: 01/30/2018 Status: F Source: ERWIN NO DIFF 12:05 PM [facility] REPOSITORY TYPE CODE TESTS RESULT OUT [...] MPV 9.5 Performed By: #### L100.0500 #### [facility] [address] [place], [address] BASIC METABOLIC Collected: 01/30/2018 Status: F Source: [place] PROFILE (BMP) 12:05 PM [facility] REPOSITORY TYPE CODE TESTS RESULT OUT [...] GAP 4 Performed By: #### L500.2500 #### [facility] [address] [place], [place], [id number] LIVER PROFILE Collected: 01/17/2018 Status: F Source: [place] 10:47 AM [facility] REPOSITORY TYPE CODE TESTS RESULT OUT [...] 0.16 Performed By: #### L500.3400, L500.4100 #### [facility] [address] [place], [place], [id number] LIPID PROFILE Collected: 01/17/2018 Status: F Source: [place] 10:47 [facility] REPOSITORY TYPE CODE TESTS RESULT OUT [...] 25 Performed By: #### L500.3400, L500.4100 #### [facility] [address] [place], [address] 12 LEAD EKG PERFORMED Observed: 01/17/2018 Status: F Source: [place] BY [facility] 9:49 AM [facility] REPOSITORY [facility] [address] [place] [address] 12 Lead EKG performed by [facility] 01/17/1848 MR#: [id number] Acct: [id number] Name: VALDEMAR JEFFERSON Rep #: [id number] : 1945 72 From: Kadi FELDER Attending Dr: Kadi Infante Status: DEP AMB Ordering Dr: Kadi Infante Date: 01/17/18 Location: [facility] Sex: M C Admitted: [facility]/12 Lead EKG performed by [facility] ECG Report Interpretation Sinus Bradycardia WITHIN NORMAL LIMITSElectronically signed on 02/12/2018 at 17:16 by Lobo Ivey 02/12/18 1720 Date Kadi FELDER CC: Sixto Lockhart MD Date Dictated: 01/17/18947 Date Transcribed: 01/17/18947 Loan Operations Manager: FARHAD Signed HOSP Observed: 01/17/2018 Status: COMPLETED Source: R[place] 12:00 AM [facility] REPOSITORY Patient Update (FAMPWS) LI,ELMER Danny ([id number]) 1945 M Date Time Provider Department 01/17/18 SIXTO LOCKHART During your visit today, we recorded the following information about you: Allergies As of Date: 01/17/2018 (No Known Allergies) Date Reviewed: 10/23/2017 Reviewed by: Sixto Lockhart - Fully Assessed Order(s):LIPID PANEL (OUTSIDE) [[id number]] Order #: [id number] Prescriptions as of 01/17/2018 Sig: ROSUVASTATIN 20 [...] AND/OR EMG Observed: 01/10/2018 Status: F Source: [place] PATIENT 2:26 PM [facility] REPOSITORY [facility] Pulmonary Services/Neurology [address] [place] [address] MR#: [id number] Acct: [id number] Name: VALDEMAR JEFFERSON Rep #: [id number] : 1945 72 From: Carola Glover MD Referring Dr: Sixto Lockhart MD Status: REG CLI Ordering Dr: Date: Location: [facility] Sex: M C NCS and/or EMG Patient [...] Carola Glover; Sixto Lockhart MD Date Dictated: 01/10/181346 Date Transcribed: 01/10/181346 Loan Operations Manager: NINA Signed FREE T3 Collected: 11/27/2017 Status: F Source: [place] 10:28 AM [facility] REPOSITORY TYPE CODE TESTS RESULT OUT OF REFERENCE UNITS RANGE LAB FREET3 2.3-4.1 pg/mL Test Free sent to [address] Result Comment: Account Credited HIDE FREE T4 Collected: 11/27/2017 Status: F Source: [place] 10:28 AM [facility] REPOSITORY TYPE CODE TESTS RESULT OUT OF REFERENCE UNITS RANGE LAB FT4 0.9-1.7 ng/dL Test Free sent to [address] Result Comment: Account Credited HIDE TSH Collected: 11/27/2017 Status: F Source: [place] 10:28 AM [facility] REPOSITORY TYPE CODE TESTS RESULT OUT OF REFERENCE UNITS RANGE LAB TSH 0.400-5.500 uU/mL Test TSH sent to [facility]. Result Comment: Account Credited HIDE FREE T3 Collected: 11/27/2017 Status: F Source: [place] 10:25 AM [facility] REPOSITORY Order Comment: Has Patient had X-rays with Contrast this admission? N TYPE CODE TESTS RESULT OUT OF RANGE REFERENCE UNITS LAB L501.20781 2.18-3.98 pg/mL Normal FREE T3 2.6 Performed By: #### L501.15941, L501.9310, L501.9520, L506.0400 #### [facility] [address] [place], [address] T4 TOTAL, THYROXIN Collected: 11/27/2017 Status: F Source: [place] 10:25 AM [facility] REPOSITORY Order Comment: Has Patient had X-rays with Contrast this admission? N TYPE CODE TESTS RESULT OUT OF RANGE REFERENCE UNITS LAB L501.9310 4.5-12.1 ug/dL T4 Normal THYROXIN 6.7 Performed By: #### L501.04778, L501.9310, L501.9520, L506.0400 #### [facility] [address] [place], [address] THYROID STIM HORMONE Collected: 11/27/2017 Status: F Source: [place] (TSH) 10:25 AM [facility] REPOSITORY Order Comment: Has Patient had X-rays with Contrast this admission? N TYPE CODE TESTS RESULT OUT OF RANGE REFERENCE UNITS LAB L501.9520 0.358-3.74 uIU/mL Normal TSH 2.80 Performed By: #### L501.96536, L501.9310, L501.9520, L506.0400 #### [facility] [address] [place], [address] T4 FREE DIRECT Collected: 11/27/2017 Status: F Source: [place] 10:25 AM [facility] REPOSITORY Order Comment: Has Patient had X-rays with Contrast this admission? N TYPE CODE TESTS RESULT OUT OF REFERENCE UNITS RANGE LAB L506.0400 0.76-1.46 ng/dL Low T4 FREE 0.75 DIRECT Performed By: #### L501.09232, L501.9310, L501.9520, L506.0400 #### [facility] [address] [place], [address] VITAMIN B12 Collected: 10/25/2017 Status: F Source: [place] 1:09 PM [facility] REPOSITORY TYPE CODE TESTS RESULT OUT OF RANGE REFERENCE UNITS LAB L503.0105 211-911 pg/mL Normal Vitamin B12 580 Performed By: #### L503.0105 #### [facility] [address] [place], [address] THYROID STIM HORMONE Collected: 10/25/2017 Status: F Source: [place] (TSH) 1:09 PM [facility] REPOSITORY Order Comment: Is Patient Taking Vitamins or Folic Acid Supplements? N TYPE CODE TESTS RESULT OUT OF RANGE REFERENCE UNITS LAB L501.9520 0.358-3.74 uIU/mL Normal TSH 3.39 Performed By: #### L501.9520, L506.0250, L506.0400 #### [facility] [address] [place], [address] FOLATES, (FOLIC ACID) Collected: 10/25/2017 Status: F Source: [place] 1:09 PM [facility] REPOSITORY Order Comment: Is Patient Taking Vitamins or Folic Acid Supplements? N TYPE CODE TESTS RESULT OUT OF REFERENCE UNITS RANGE LAB L506.0250 3.1-55.4 ng/mL High FOLATES 61.90 Performed By: #### L501.9520, L506.0250, L506.0400 #### [facility] [address] [facility] [place], [address] T4 FREE DIRECT Collected: 10/25/2017 Status: F Source: [place] 1:09 PM [facility] REPOSITORY Order Comment: Is Patient Taking Vitamins or Folic Acid Supplements? N TYPE CODE TESTS RESULT OUT OF REFERENCE UNITS RANGE LAB L506.0400 0.76-1.46 ng/dL Low T4 FREE 0.75 DIRECT Performed By: #### L501.9520, L506.0250, L506.0400 #### [facility] [address] [facility] [place], [address] VITAMIN B12 Collected: 10/25/2017 Status: F Source: [place] 8:18 AM [facility] REPOSITORY TYPE CODE TESTS RESULT OUT OF REFERENCE UNITS RANGE LAB B12 232-1245 pg/mL Test Vitamin B12 sent to [facility]. Result Comment: Account Credited HIDE FREE T4 Collected: 10/25/2017 Status: F Source: [place] 8:18 AM [facility] REPOSITORY TYPE CODE TESTS RESULT OUT OF REFERENCE UNITS RANGE LAB FT4 0.9-1.7 ng/dL Test Free sent to [address] Result Comment: Account Credited DAVON FOLATE, SERUM Collected: 10/25/2017 Status: F Source: [place] 8:18 AM [facility] REPOSITORY TYPE CODE TESTS RESULT OUT OF REFERENCE UNITS RANGE LAB SERFOL >4.7 ng/mL Test sent to [facility]. Result Comment: Account Credited HIDE TSH Collected: 10/25/2017 Status: F Source: [place] 8:18 AM [facility] REPOSITORY TYPE CODE TESTS RESULT OUT OF REFERENCE UNITS RANGE LAB TSH 0.400-5.500 uU/mL Test TSH sent to [facility]. Result Comment: Account Credited DAVON CNPN Observed: 10/25/2017 Status: COMPLETED Source: [place] 12:00 AM [facility] REPOSITORY Telephone (ADALIWS) VALDEMAR JEFFERSON ([id number]) 1945 M Date Time Provider Department 10/25/17 SIXTO LOCKHART During your visit today, we recorded the following information about you: Allergies As of Date: 10/25/2017 (No Known Allergies) Date Reviewed: 10/23/2017 Reviewed by: Sixto Lockhart - Fully Assessed Reason for Visit: Patient Update [1234] Order(s):TSH (EXTERNAL) [[id number]] Order #: [id number] VITAMIN B12 BLOOD [54915] Order #: [id number] Prescriptions as of 10/25/2017 Sig: ROSUVASTATIN 20 [...] 10/25/17 PROGRESS Observed: 10/23/2017 Status: COMPLETED Source: [place] 1:50 PM [facility] REPOSITORY HNO ID: [id number] Author: Sixto Lockhart Service: (none) Author Type: [...] Coronary atherosclerosis of unspecified type of vessel, [place] or graft - Diverticulosis of colon (without [...] Right 2014 - COLONOSCOP W/ OR W/O [facility] SPEC Colonoscopy - HERNIA REPAIR HX [...] patient face to face was 25 min Sixto Lockhart MD CNOV Observed: 10/23/2017 Status: COMPLETED Source: [place] 1:40 PM [facility] REPOSITORY [facility] VALDEMAR JEFFERSON ([id number]) 1945 M Date Time Provider Department 10/23/17 1:40 PM [facility] During your visit today, we recorded the following information about you: Pulse Respiration Blood pressure Weight 68/minute 14/minute 118/88 79.4 kg Sixto Lockhart MD 10/23/2017 2:35 PM Signed Chief Complaint Patient presents with: Recheck HPI Valdemar Walkere is a 72 year old male who [...] Coronary atherosclerosis of unspecified type of vessel, [place] or graft - Diverticulosis of colon (without [...] Right 2014 - COLONOSCOP W/ OR W/O [facility] SPEC Colonoscopy - HERNIA REPAIR HX [...] face to face was 25 min MD Sxito Winkler MD 10/23/2017 2:17 PM Signed Please get fasting labs and urine test on or after 04/13/2018 prior to next visit. Referring Provider: SIXTO LOCKHART [[id number]] Allergies As of Date: 10/23/2017 (No Known [...] daily.Disp: Rfl: MRI SHOULDER WO IVCON LT [[id number]] Order #: [id number] FUTURE TSH BLD [SQTSH] Order #: [id number] FUTURE VITAMIN B12 BLOOD [SQB12] Order #: [id number] FUTURE T4 FREE/FREE THYROX [SQFT4] Order #: [id number] FUTURE FOLATE SERUM [SQSERFOL] Order #: [id number] FUTURE EMG(NEURO/NI) [[id number]] Order #: [id number]: 1 FUTURE COMP METABOLIC PANEL [SQCMP] Order #: [id number] FUTURE HGB A1C [NMAER4P] Order #: [id number] FUTURE LIPID PANEL BASIC [SQLIPB] Order #: [id number] FUTURE PSA/PROSTSPECAG DIAG [SQPSA] Order #: [id number] FUTURE URINALYSIS WITH MICROSCOPIC [SQUAWMIC] Order #: [id number] FUTURE buPROPion (WELLBUTRIN) 100 mg tabletTake 1 tablet by mouth twice daily.Disp: 180 tabletRfl: 1 tamsulosin ER (FLOMAX) 0.4 mg az75Oukn 1 capsule by mouth once daily.Disp: 90 [...] HEMOGLOBIN A1C Collected: 10/16/2017 Status: F Source: R[place] 9:21 AM [facility] REPOSITORY TYPE CODE TESTS RESULT OUT OF REFERENCE UNITS RANGE LAB HGBA1C 4.0-6.0 % Test Hemoglobin A1c sent to [facility]. Result Comment: Account Credited HIDE LAB HBA0 mg/dL Est. Test sent Average Glucose to [facility]. Result Comment: Account Credited HIDE HEMOGLOBIN A1C Collected: 10/16/2017 Status: F Source: [place] 9:15 AM [facility] REPOSITORY TYPE CODE TESTS RESULT OUT OF RANGE REFERENCE UNITS LAB L501.9985 4.2-6.3 % Normal HGB A1C 6.1 Performed By: #### L501.9985 #### [facility] [address] [place], [address] HOSP Observed: 10/16/2017 Status: COMPLETED Source: [place] 12:00 AM [facility] REPOSITORY Patient Update (FAMPWS) VALDEMAR JEFFERSON ([id number]) 1945 M Date Time Provider Department 10/16/17 [facility] During your visit today, we recorded the following information about you: Allergies As of Date: 10/16/2017 (No Known Allergies) Date Reviewed: 04/26/2017 Reviewed by: Sixto Lockhart - Fully Assessed Order(s):HBA1C (OUTSIDE) [[id number]] Order #: [id number] Prescriptions as of 10/16/2017 Sig: OMEGA-3 FATTY [...] Encounter Status:Closed by SIXTO LOCKHART on 10/16/17 YUMIKO Observed: 10/10/2017 Status: COMPLETED Source: [place] 12:00 AM [facility] REPOSITORY [facility] VALDEMAR JEFFERSON Danny ([id number]) 1945 M Date Time Provider Department 10/10/17 SIXTO LOCKHART During your visit today, we recorded the following information about you: Allergies As of Date: 10/10/2017 (No Known Allergies) Date Reviewed: 04/26/2017 Reviewed by: Sixto Lockhart - Fully Assessed Visit Diagnosis:Medication management [Z79.899] Order(s):HGB A1C [VZBZQ1A] Order #: [id number] FUTURE Prescriptions as of 10/10/2017 Sig: OMEGA-3 [...] diabetes mellitus [*INVALID FOR* Encounter Status:Closed by RIC CISNEROS on 06/01/18 ALLERGIES ALLERGIES DATE TYPE / CODE NAME / CODE REACTION SEVERITY SOURCE 09/14/2018 Drug No Known Unknown [facility] Allergy/416 Allergies/Z41137 Hospital 576941(SNOM 0388(RXNORM) Repository ED CT) Drug NO KNOWN [facility] Class/77475 ALLERGIES [place] 1003(SNOMED Repository CT) ENCOUNTERS ENCOUNTERS ADMIT/DISCHARGE ACCOUNT ADMITTING ENCOUNTER LOCATION SOURCE NUMBER CLASS 09/14/2018 [id number] Ambulatory [facility] ing:LAB Repository 09/14/2018/09/14/19 [id number] Ambulatory BMSBuilding:[address] [place] [address] [facility] Repository 09/13/2018 [id number] Ambulatory BMSBuilding:B [place] Repository 09/13/2018 [id number] Ambulatory [facility] ing:LAB Repository 09/13/2018/09/13/19 [id number] Ambulatory [address] [place] Repository 09/13/2018/09/14/19 [id number] Ambulatory [address] Repository 09/13/2018/09/14/19 [id number] Ambulatory [address] Repository 09/11/2018/09/11/19 [id number] Emergency [address] Hospital ing:ED Repository 07/20/2018 [id number] Ambulatory [facility] ing:MTLAB Repository 05/01/2018/05/02/20 [id number] Ambulatory [address] Repository 04/24/2018/04/24/20 [id number] Ambulatory [address] Repository 04/24/2018 [id number] Ambulatory [facility] ing:LABSPEC Repository 02/05/2018/02/06/20 [id number] Ambulatory [address] ing:SDC Repository 01/17/2018 [id number] Ambulatory [facility] Hospital ing:LAB Repository 01/17/2018/01/18/20 [id number] Ambulatory BMSBuilding:B [place] [address] [facility] Repository 01/10/2018 [id number] Ambulatory [facility] Hospital ing:PSN Repository 01/08/[id number] [facility] Repository 12/29/2017 [id number] Ambulatory BMSBuilding:B [place] Repository 11/27/2017 [id number] Ambulatory [facility] ing:LABSPEC Repository 11/27/2017/11/28/19 [id number] Ambulatory [address] Repository 10/25/2017/10/26/19 [id number] Ambulatory [address] Repository 10/25/2017 [id number] Ambulatory [facility] Hospital ing:LAB Repository 10/23/2017/10/25/19 [id number] Ambulatory [address] Repository 10/16/2017 [id number] Ambulatory [facility] Hospital ing:LABSPEC Repository 10/16/2017/10/16/19 [id number] Ambulatory [address] Repository PAYERS PAYERS ENCOUNTER GUARANTOR PAYER SUBSCRIBER SOURCE 09/14/2018 VALDEMAR O Primary VALDEMAR O [place] [id number] [facility]: Community [place] MEDICARE[id number] Number: Repository [address]Inc: 330 [id number] [phone] () Date:4360-45-76GZ [address] [place] [address] 27388MW: 09/14/2018 Secondary NOT GIVENUNK [place] Insurance:SELF PAY [facility] Number: Effective Repository Date:2018-09-14 09/14/2018 VALDEMAR O Primary VALDEMAR O [place] [id number] Insurance:[facility]: Community [place] MEDICAREPolicy [id number] Number: Repository [address]Sxt: (330 [id number] [phone] (HP) Date:0088-71-50LE [address] [place] [address] 615[address]IF: 09/14/2018 Secondary NOT GIVENUNK [place] Insurance:SELF PAY [facility] Number: Effective Repository Date:2018-09-14 09/13/2018 VALDEMAR O Primary VALDEMAR O [place] [id number] Insurance:SUMMA CARE HAWTHORNEDOB: Community [place] MEDICAREPolicy [id number] Number: Repository [address]Zhb: 330 [id number] [id number] () Date:8252-09-33JO [address] [place] [address] 53555DA: 09/13/2018 Secondary NOT GIVENUNK [place] Insurance:SELF PAY [facility] Number: Effective Repository Date:2018-09-13 09/13/2018 VALDEMAR O Primary VALDEMAR O [place] [id number] Insurance:SUMMA CARE HAWTHORNEDOB: Community [place] MEDICAREPolicy [id number] Number: Repository [address]Hui: (330 [id number] [phone] () Date:8812-15-06IY [address] [place] [address] 13909LM: 09/13/2018 Secondary NOT GIVENUNK [place] Insurance:SELF PAY [facility] Number: Effective Repository Date:2018-09-13 09/11/2018 VALDEMAR O Primary VALDEMAR O [place] [id number] Insurance:SUM[facility] CARE HAWTHORNEDOB: Community [place] MEDICAREPolicy [id number] Number: Repository [address]Uak: (330 [id number] [phone] () Date:9676-71-95DZ [address] [place] [address] 05080XZ: 09/11/2018 Secondary NOT GIVENUNK [place] Insurance:SELF PAY [facility] Number: Effective Repository Date:2018-09-11 07/20/2018 VALDEMAR O Primary VALDEMAR O [place] [id number] Insurance:SUMMA CARE HAWTHORNEDOB: Community [place] MEDICARE[place] [id number] Number: Repository [address]Hfb: (330) [id number] [phone] (HP) Date:5802-55-99CI [facility]OX [facility] [place] [address]FV: 07/20/2018 Secondary NOT GIVENUNK [place] Insurance:SELF PAY [facility] Number: Effective Repository Date:2018-07-20 04/24/2018 VALDEMAR O Primary VALDEMAR O [place] [id number] Insurance:SUMMA CARE HAWTHORNEDOB: Community [place] MEDICAREPolicy [id number] Number: Repository [address]Xty: (330) [id number] [phone] (HP) Date:0364-86-71YH BOX [facility] [address]NQ: 04/24/2018 Secondary NOT GIVENUNK [place] Insurance:SELF PAY [facility] Number: Effective Repository Date:2018-04-24 02/05/2018 VALDEMAR O Primary VALDEMAR O [place] [id number] Insurance:SUMMA CARE HAWTHORNEDOB: Community [place] MEDICARE[place] [id number] Number: Repository [address]Bco: (330) [id number] [phone] (HP) Date:2480-73-23DH [address] [place] [address] 16988TM: 02/05/2018 Secondary NOT GIVENUNK [place] Insurance:SELF PAY [facility] Number: Effective Repository Date:2018-01-25 01/17/2018 VALDEMAR O Primary VALDEMAR O [place] [id number] Insurance:SUMMA CARE HAWTHORNEDOB: Community [place] Number: Repository [address]Gmh: (330) [id number] [phone] (HP) Date:9974-38-04AK [address] [place] [address] 11482GZ: 01/17/2018 Secondary NOT GIVENUNK [place] Insurance:SELF PAY [facility] Number: Effective Repository Date:2018-01-17 01/17/2018 VALDEMAR O Primary VALDEMAR O [place] [id number] Insurance:SUMMA CARE HAWTHORNEDOB: Community [place] MEDICARE[place] [id number] Number: Repository [address]Nhj: 330 [id number] [phone] () Date:3102-28-20AN [address] [place] [address] 36978FD: 01/17/2018 Secondary NOT GIVENUNK [place] Insurance:SELF PAY [facility] Number: Effective Repository Date:2017-08-02 01/10/2018 Valdemar O Primary Valdemar O [place] [id number] Insurance:SUMMA CARE HawthorneDOB: Community [place] MEDICAREPolicy [id number] Number: Repository [address]Ctq: (330 [id number] [phone] () Date:77[address] [place] [address] 77[address]WC: 01/10/2018 Secondary NOT GIVENUNK [place] Insurance:SELF PAY [facility] Number: Effective Repository Date:2017-10-23 01/08/2018 Valdemar O Primary Valdemar O [place] [id number] Insurance:SUMMA CARE HawthorneDOB: Community [place] MEDICAREPolicy [id number] Number: Repository [address]Owr: (330 [id number] [phone] () Date:0658-73-57OR [address] [place] [address] 15311WW: 01/08/2018 Secondary NOT GIVENUNK [place] Insurance:SELF PAY [facility] Number: Effective Repository Date:2018-01-08 12/29/2017 Valdemar O Primary Valdemar O [place] [id number] Insurance:SUMMA CARE HawthorneDOB: Community [place] MEDICAREPolicy [id number] Number: Repository [address]Wis: (330) [id number] [phone] (HP) Date:2046-57-46RB BOX [facility] [place] [address]DT: 12/29/2017 Secondary NOT GIVENUNK [place] Insurance:SELF PAY [facility] Number: Effective Repository Date:2017-12-29 11/27/2017 Valdemar O Primary Valdemar O [place] [id number] Insurance:SUMMA CARE HawthorneDOB: Community [place] MEDICARE[place] [id number], [place] Number: Repository [address]Saw: (330 [id number] [phone] (HP) Date:0523-31-47KM [address] [place] [address] 26840WB: 11/27/2017 Secondary NOT GIVENUNK [place] Insurance:SELF PAY [facility] Number: Effective Repository Date:2017-11-27 10/25/2017 Valdemar O Primary Valdemar O [place] [id number] Insurance:SUMMA CARE HawthorneDOB: Community [place] MEDICAREPolicy [id number], [place] Number: Repository [address]Umt: (330) [id number] () Date:7523-30-41NO BOX [facility] [address]OR: 10/25/2017 Secondary NOT GIVENUNK [place] Insurance:SELF PAY [facility] Number: Effective Repository Date:2017-10-25 10/16/2017 Valdemar O Primary Valdemar O [place] [id number] Insurance:SUMMA CARE HawthorneDOB: Community [place] MEDICARE[place] [id number], [place] Number: Repository [address]Fym: (330) [id number] [phone] (HP) Date:3420-56-52CA [address] [facility], [place] [address]CY: 10/16/2017 Secondary NOT GIVENUNK [place] Insurance:SELF PAY [facility] Number: Effective Repository Date:2017-10-16
== END 2018-09-11 14:35 | disposition home or self-care (01) ==
PROVIDERS: Emergency Provider Emergency Medicine; Family Provider Family Medicine; PCP Family Medicine
DX: R07.89 Other chest pain (principal); I25.10 Atherosclerotic heart disease of native coronary artery without angina pectoris; I10 Essential (primary) hypertension; N40.0 Benign prostatic hyperplasia without lower urinary tract symptoms; Z86.73 Personal history of transient ischemic attack (TIA), and cerebral infarction without residual deficits; Z79.02 Long term (current) use of antithrombotics/antiplatelets; Z79.899 Other long term (current) drug therapy
CPT/HCPCS: 93005; 99282

== ENCOUNTER → 2018-09-13 12:12 | Outpatient (CLI) | payer MEDICARE, SELFPAY ==
[2018-09-11 13:52] VITALS: BMI 28.2
[2018-09-13 12:56] LABS: CPK Total, Creatine Kinase 97 U/L (39-308)
== END ==
PROVIDERS: Family Provider Family Medicine; PCP Family Medicine; Referring Provider Family Medicine; Visit Provider Family Medicine
DX: R07.89 Other chest pain (principal); I25.10 Atherosclerotic heart disease of native coronary artery without angina pectoris; I25.83 Coronary atherosclerosis due to lipid rich plaque
CPT/HCPCS: 82550; 84484

== ENCOUNTER → 2018-09-14 09:40 | Outpatient (CLI) | payer MEDICARE, SELFPAY ==
[2018-09-14 08:11] VITALS: BMI 28.2
[2018-09-14 10:33] LABS: Absolute Lymphocyte Count 2.31 X10^3/ul (0.83-4.51); Absolute Neutrophil Count 3.4 X10^3/uL (2.0-7.7); Basophil# 0.01 X10^3/uL; Basophil% 0.2 % (0-1); Eosinophil# 0.03 X10^3/uL; Eosinophils% 0.5 % (0-5); Hematocrit 43.5 % (40-54); Hemoglobin 14.1 g/dl (13.0-16.5); Lymphocyte # 2.31 X10^3/ul (4.0); Lymphocyte % 37.3 % (19-41); Mean Corp Hgb Conc 32.4 g/gl (32-36); Mean Corpuscular Hgb 31.5 pg (27.0-32.0); Mean Corpuscular Volume 97.3 fL (80-94); Mean Platelet Vol. 9.5 fl (6.2-12.0); Monocyte# 0.42 X10^3/uL; Monocyte% 6.8 % (0-10); Neutrophil # 3.42 X10^3/uL (2.7-7.7); Platelet Count 165 K/mm3 (150-450); RBC Distribution Width CV 13.5 % (11.6-14.6); RBC Distribution Width SD 47.8 fl (35.1-43.9); Red Blood Count 4.47 M/mm3 (4.6-6.2); White Blood Count 6.2 K/mm3 (4.4-11.0)
[2018-09-14 10:38] LABS: POSITIVE COUNT NO; POSITIVE DIFFERENTIAL NO; POSITIVE MORPHOLOGY NO
[2018-09-14 10:59] LABS: Anion Gap 9 (5-15); BUN 18 mg/dL (7-18); BUN/Creat Ratio 14.6 RATIO (10-20); Calcium,Total 9.1 mg/dL (8.5-10.1); Chloride 107 mmol/L (98-107); Creatinine, Serum 1.23 mg/dL (0.70-1.30); EST Glomerular Filtration Rate 61 mL/min (>60); Est Glom Filt Rate - Afr Amer 74 mL/min (>60); Glucose 106 mg/dL (74-106); Potassium 4.2 mmol/L (3.5-5.1); Sodium Level 143 mmol/L (136-145)
== END ==
PROVIDERS: Family Provider Family Medicine; PCP Family Medicine; Referring Provider Internal Medicine Cardiovascular Disease; Visit Provider Internal Medicine Cardiovascular Disease
DX: I10 Essential (primary) hypertension (principal); E78.00 Pure hypercholesterolemia, unspecified
CPT/HCPCS: 36415; 80048; 85025

== ENCOUNTER → 2018-09-17 06:12 | Outpatient (CLI) | payer MEDICARE, SELFPAY ==
[2018-09-14 08:11] VITALS: BMI 28.2
--- NOTE | 2018-09-17 09:55 | STRESSREP ---
Stress Test Report Exercise myocardial perfusion stress test. 73-year-old man with a history of coronary artery disease and chest pain. Next Medications: Lisinopril, metoprolol, apixaban, rosuvastatin. Stress protocol: Resting EKG demonstrates normal sinus rhythm with a rate of 68 bpm normal intervals are noted resting blood pressure 130/86 mmHg. The patient exercised according to regular Berto protocol for total duration of 7 minutes and 30 seconds completing 1 minute and 30 seconds into stage III of the Berto protocol the maximum heart rate attained was 134 bpm which was 91% of maximum predicted heart rate the maximum workload was 9.3 metabolic equivalents. At rest there were no ST or T wave changes noted suggest ischemia at peak exercise no ST or T wave changes were noted suggest ischemia. No atrial fibrillation was noted. The resting blood pressure 130/86 with a peak blood pressure 160/82. Myocardial perfusion protocol. 10.3 mCi of technetium 99m sestamibi was injected at rest. The patient exercised according to regular Berto protocol for 7-1/2 minutes. At peak exercise 31.5 mCi of technetium 99m sestamibi was injected stress images were obtained stress and rest images were reconstructed and compared in the short axis vertical long horizontal long axis. Gated images were also obtained Perfusion SPECT analysis: Review of the stress images demonstrate normal uptake of tracer noted in all areas of the myocardium on the stress images the resting images similarly demonstrate normal uptake of tracer noted in all areas of the myocardium. There is significant GI attenuation artifact noted on the resting images. No obvious reversibility however is noted. Gated SPECT analysis: The gated ejection fraction is noted to be 60%. Conclusion: Normal exercise myocardial perfusion stress test at a moderate workload. No clinical angina noted. Preserved ejection fraction.
== END ==
PROVIDERS: Family Provider Family Medicine; PCP Family Medicine; Referring Provider Internal Medicine Cardiovascular Disease; Visit Provider Internal Medicine Cardiovascular Disease
DX: R07.9 Chest pain, unspecified (principal)
CPT/HCPCS: 78452; 93017; 93306; A9500; A4216

== ENCOUNTER → 2018-10-22 08:26 | Outpatient (CLI) | payer MEDICARE, SELFPAY ==
[2018-09-14 08:11] VITALS: BMI 28.2
[2018-10-22 10:40] LABS: Cholesterol 134 mg/dL (200); High Density Lipoprotein 42 mg/dL; Triglycerides 96 mg/dL; Very Low Density Lipoprotein 19 mg/dL (5-40)
[2018-10-22 10:47] LABS: Hemoglobin A1c 5.8 % (4.2-6.3)
== END ==
PROVIDERS: Family Provider Family Medicine; PCP Family Medicine; Referring Provider Family Medicine; Visit Provider Family Medicine
DX: I10 Essential (primary) hypertension (principal); R73.09 Other abnormal glucose; E78.2 Mixed hyperlipidemia
CPT/HCPCS: 36415; 80061; 83036

== ENCOUNTER → 2018-10-30 16:19 | Outpatient (CLI) | payer MEDICARE, SELFPAY ==
[2018-09-14 08:11] VITALS: BMI 28.2
[2018-10-30 17:03] LABS: Hemoglobin A1c 5.8 % (4.2-6.3)
[2018-10-30 17:19] LABS: ALB/GLOB Ratio 1.1 RATIO (0.9-2.4); AST(SGOT) 30 U/L (15-37); Alanine Aminotransfer ALT/SGPT 37 U/L (16-61); Albumin, Serum 3.8 g/dL (3.2-5.0); Alkaline Phosphatase 44 U/L (45-117); Anion Gap 8 (5-15); BUN 18 mg/dL (7-18); BUN/Creat Ratio 13.2 RATIO (10-20); Calcium,Total 8.9 mg/dL (8.5-10.1); Chloride 107 mmol/L (98-107); Creatinine, Serum 1.36 mg/dL (0.70-1.30); EST Glomerular Filtration Rate 54 mL/min (>60); Est Glom Filt Rate - Afr Amer 66 mL/min (>60); Globulin 3.4 g/dL (2.2-4.2); Glucose 89 mg/dL (74-106); Potassium 4.2 mmol/L (3.5-5.1); Protein, Total 7.2 g/dL (6.4-8.2); Sodium Level 144 mmol/L (136-145)
== END ==
PROVIDERS: Family Provider Family Medicine; PCP Family Medicine; Referring Provider Family Medicine; Visit Provider Family Medicine
DX: R73.09 Other abnormal glucose (principal); I10 Essential (primary) hypertension; E78.2 Mixed hyperlipidemia
CPT/HCPCS: 80053; 83036

== ENCOUNTER → 2019-04-30 | Outpatient (CLI) | payer MEDICARE, SELFPAY ==
[2019-01-17 10:00] VITALS: BMI 26.6
[2019-04-30 12:15] LABS: Absolute Lymphocyte Count 2.39 X10^3/uL (0.83-4.51); Absolute Neutrophil Count 2.7 X10^3/uL (2.0-7.7); Basophil# 0.03 X10^3/uL; Basophil% 0.5 % (0-1); Color, Urine Yellow (Yellow); Eosinophil# 0.07 X10^3/uL; Eosinophils% 1.2 % (0-5); Glucose, Dipstick Normal (Normal); Hematocrit 43.1 % (40-54); Hemoglobin 14.3 g/dL (13.0-16.5); Ketone-Dipstick Negative (Negative); Leukocyte Esterase-Dipstick Negative /ul (Negative); Lymphocyte # 2.39 X10^3/ul (4.0); Lymphocyte % 40.8 % (19-41); Mean Corp Hgb Conc 33.2 g/dL (32-36); Mean Corpuscular Hgb 32.5 pg (27.0-32.0); Monocyte# 0.63 X10^3/uL; Monocyte% 10.8 % (0-10); NRBC Flagged by Analyzer 0 % (0-5); Neutrophil # 2.74 X10^3/uL (2.7-7.7); Neutrophil % 46.7 % (47-70); Nitrite-Dipstick Negative (Negative); Occult Blood-Urine Negative /ul (Negative); Platelet Count 181 K/mm3 (150-450); Protein-Dipstick Negative (Negative); RBC Distribution Width CV 13.1 % (11.6-14.6); RBC Distribution Width SD 46.8 fl (35.1-43.9); Urine Bilirubin Dipstick Negative (Negative); Urine Clarity Clear (Clear); Urine Urobilinogen Normal (Normal); White Blood Count 5.9 K/mm3 (4.4-11.0)
[2019-04-30 12:34] LABS: Hemoglobin A1c 5.4 % (4.2-6.3)
[2019-04-30 12:35] LABS: AST(SGOT) 23 U/L (15-37); Alanine Aminotransfer ALT/SGPT 25 U/L (16-61); Albumin, Serum 3.7 g/dL (3.2-5.0); Alkaline Phosphatase 43 U/L (45-117); Anion Gap 4 (5-15); BUN 22 mg/dL (7-18); BUN/Creat Ratio 17.2 RATIO (10-20); Calcium,Total 9.2 mg/dL (8.5-10.1); Chloride 107 mmol/L (98-107); Cholesterol 144 mg/dL (200); Creatinine, Serum 1.28 mg/dL (0.70-1.30); EST Glomerular Filtration Rate 58 mL/min (>60); Est Glom Filt Rate - Afr Amer 70 mL/min (>60); Globulin 3.6 g/dL (2.2-4.2); Glucose 100 mg/dL (74-106); High Density Lipoprotein 42 mg/dL; PSA,Total- Diagnostic 0.23 ng/mL (0.0-4.0); Potassium 4.3 mmol/L (3.5-5.1); Protein, Total 7.3 g/dL (6.4-8.2); Sodium Level 140 mmol/L (136-145); Thyroid Stim Hormone (TSH) 3.01 uIU/mL (0.358-3.74); Triglycerides 101 mg/dL; Very Low Density Lipoprotein 20 mg/dL (5-40)
[2019-04-30 12:46] LABS: Microalbumin,Random Urine 11.3 mg/L (NO RANGE EST.); Microalbumin:Creatinine Ratio 18.6 mg/g CRE (<30 mg/g CRE)
== END | disposition home or self-care (01) ==
LOC: LABSPEC 11:22
PROVIDERS: Family Provider Family Medicine; PCP Family Medicine; Referring Provider Family Medicine; Visit Provider Family Medicine
DX: I10 Essential (primary) hypertension (principal); E78.2 Mixed hyperlipidemia; I25.10 Atherosclerotic heart disease of native coronary artery without angina pectoris; I25.83 Coronary atherosclerosis due to lipid rich plaque; N42.9 Disorder of prostate, unspecified; R73.09 Other abnormal glucose; Z79.01 Long term (current) use of anticoagulants; Z79.899 Other long term (current) drug therapy
CPT/HCPCS: 80053; 80061; 81002; 82043; 82570; 83036; 84153; 84443; 85025

== ENCOUNTER → 2019-10-29 12:05 | Outpatient (CLI) | payer MEDICARE, SELFPAY ==
[2019-08-27 07:44] VITALS: BMI 28.2
[2019-10-29 12:29] LABS: Cholesterol 155 mg/dL (200); High Density Lipoprotein 41 mg/dL; Triglycerides 140 mg/dL; Very Low Density Lipoprotein 28 mg/dL (5-40)
[2019-10-29 12:37] LABS: Hemoglobin A1c 5.9 % (4.2-6.3)
== END ==
PROVIDERS: PCP Family Medicine; Referring Provider Family Medicine; Visit Provider Family Medicine
DX: I25.10 Atherosclerotic heart disease of native coronary artery without angina pectoris (principal); I10 Essential (primary) hypertension; E78.2 Mixed hyperlipidemia; I25.83 Coronary atherosclerosis due to lipid rich plaque; R73.09 Other abnormal glucose
CPT/HCPCS: 80061; 83036

== ENCOUNTER → 2020-03-06 12:16 | Outpatient (CLI) | payer MEDICARE, SELFPAY ==
[2019-08-27 07:44] VITALS: BMI 28.2
[2020-03-06 12:46] LABS: Cholesterol 150 mg/dL (200); High Density Lipoprotein 44 mg/dL; Triglycerides 163 mg/dL; Very Low Density Lipoprotein 33 mg/dL (5-40)
[2020-03-06 13:48] LABS: Hemoglobin A1c 5.7 % (3.8-5.6)
== END ==
PROVIDERS: PCP Family Medicine; Referring Provider Family Medicine; Visit Provider Family Medicine
DX: I10 Essential (primary) hypertension (principal); E78.2 Mixed hyperlipidemia; I25.10 Atherosclerotic heart disease of native coronary artery without angina pectoris; I25.83 Coronary atherosclerosis due to lipid rich plaque; Z86.73 Personal history of transient ischemic attack (TIA), and cerebral infarction without residual deficits; Z79.899 Other long term (current) drug therapy
CPT/HCPCS: 80061; 83036

== ENCOUNTER 2020-07-31 12:35 | Day surgery (SDC) | payer MEDICARE, SELFPAY ==
[2019-08-27 07:44] VITALS: BMI 28.2
[2020-07-31 13:39] VITALS: BP 145/92; PULSE 57; TEMP 37.2; O2SAT 95; BMI 28.8
[2020-07-31] MEDS: Lactated Ringers 1,000 ML 100 ML IV ×2 (13:47→15:01)
--- NOTE | 2020-07-31 14:04 | HP.PCM_ITS ---
History of Present Illness Date of Admission: 07/31/20 The patient is a 75 year old M [] Past Medical History Past Medical History (Chronic Problems): Chronic Problems (Last Reviewed 08/27/19 @ 11:[address] Lobo Ivey MD) Atherosclerosis of coronary artery of [place] heart with angina pectoris (Chronic) Paroxysmal atrial fibrillation (Chronic) Benign essential hypertension (Chronic) Hyperlipidemia (Chronic) Ischemic cerebrovascular accident (CVA) (Chronic) Medical History: Medical History (Last Reviewed 08/27/19 @ 11:[address] Lobo Ivey MD) Atherosclerosis of coronary artery of [place] heart with angina pectoris (Chronic) I25.119 Paroxysmal atrial fibrillation (Chronic) I48.0 Benign essential hypertension (Chronic) I10 Hyperlipidemia (Chronic) E78.5 Ischemic cerebrovascular accident (CVA) (Chronic) I63.9 Depression F32.9 Elevated troponin Onset Date: 09/13/18 R74.8 Nonrheumatic tricuspid (valve) insufficiency (Inactive) I36.1 Allergies No Known Allergies Allergy (Verified 07/31/20 13:16) Home Medications: Ambulatory Orders Medication Instructions Recorded Co Q10 200 [Co Q-10] 200 mg PO DAILY 12/31/15 Latanoprost 0.005% [Xalatan 1 drp LEFT EYE QHS 12/31/15 Opthalmic] Multivitamins,Therapeutic 1 tab PO DAILY 12/31/15 [Multivitamin] Tamsulosin HCl [Flomax] 0.4 mg PO QHS 12/31/15 Timolol Maleate [Timoptic-XE 0.25%] 1 drp LEFT EYE DAILY 12/31/15 buPROPion tablets [Wellbutrin 100 mg PO BID 12/31/15 tablets] lisinopril 10 mg tablet 10 mg PO DAILY #90 tab 05/29/19 apixaban 5 mg tablet 5 mg PO BID #180 tab 09/20/19 rosuvastatin 20 mg tablet 20 mg PO QHS #90 tab 11/20/19 metoprolol tartrate 25 mg tablet 12.5 mg PO BID #90 tab 03/25/20 Surgical History: Surgical History (Last Reviewed 08/27/19 @ 11:[address] Lobo Ivey MD) H/O repair of left rotator cuff Onset Date: 01/2018 Z98.890 History of appendectomy Z90.49 History of carpal tunnel release Z98.890 History of cataract surgery Z98.49 History of herniorrhaphy Z98.890, Z87.19 History of right and left heart catheterization Onset Date: 02/08/02 Z98.890 Surgical History: appendectomy, cataract, - - carpal tunnel Psychiatric History: No pertinent psych hx Smoking Status: Former smoker Tobacco Use: Non-smoker - *Family History Maternal Family History: Family History (Last Reviewed 08/27/19 @ 11:[address] Lobo Ivey MD) Mother CAD (coronary artery disease) Hypertension Brother CAD (coronary artery disease) Sister CAD (coronary artery disease) History Items: Stroke Paternal Family History: Family History (Last Reviewed 08/27/19 @ 11:[address] Lobo Ivey MD) Mother CAD (coronary artery disease) Hypertension Brother CAD (coronary artery disease) Sister CAD (coronary artery disease) History Items: No pertinent history VTE Information - Inpt Only VTE Present on Admission: No VTE Mechan Device Prophylaxis: SCD's, Knee High DUDLEY Hose - Physical Exam Vitals/I&O's: Vital Signs Temp Pulse BP Pulse Ox 99.0 F 57 L 145/92 H 95 07/31/20 13:39 07/31/20 13:39 07/31/20 13:39 07/31/20 13:39 Oxygen Delivery Method Room Air Weight: 81.1 kg Body Mass Index (BMI) 28.8 Finger Stick Blood Glucose 176 Microbiology Past 72 Hours 07/30/20 08:47 Interface Orders SARS-CoV-2 Antigen (Rapid) - Final Current Medications Lactated Ringer's () 1,000 mls @ 100 mls/hr IV .Q10H ELAINE Last Admin: 07/31/20 13:47 Dose: 100 mls/hr Documented by: Assessment/Plan All Active Problems (Last Reviewed 08/27/19 @ 11:[address] Lobo vIey MD) Preop cardiovascular exam (Acute) History and physical exam available under reports reviewed and signed regarding left knee arthroscopy planned for July 31, 2020. Significant change from previous document
[2020-07-31] MEDS: morphine PF (epidural) 5 MG/10 ML Vial (14:47)
[2020-07-31] MEDS: Epinephrine (1 mg/ml) 1 MG/ML VIAL (14:47)
[2020-07-31] MEDS: Lidocaine 1% /Epi 1:100 (20ml) 20 ML Vial (14:47)
--- NOTE | 2020-07-31 14:55 | PRO.PCM_ITS ---
Procedure Report Date of Procedure: 07/31/20 Preoperative diagnosis: Left knee medial meniscus tear, arthritis Postoperative diagnosis : Left knee medial and lateral meniscus tear, arthritis Procedure: Diagnostic video arthroscopy, left knee partial medial and partial lateral meniscectomy, chondroplasty Surgeon: Dr. Lance Robison Anesthesia: General, Dr. Lindy crna Special medications: Injected lidocaine and morphine intra-articular Locations: None EBL: Minimal Indications for surgery: Patient is a 75 -year-old male with a long-standing history of left knee pain. Patient failed adequate nonoperative treatment for the knee pain. MRI findings discussed with patient. Due to persistent symptoms they wish to proceed with knee arthroscopy. Findings: Intraoperative findings were consistent with her preoperative history, physical, radiographic exam. Details of procedure: Patient was taken to the OR transfer to the OR table. Nonoperative limb was appropriately padded, DUDLEY hose and SCD applied. Patient was placed under the anesthetic agent. Operative knee was examined. No signs of infection. Operative upper thigh was well-padded and ultimately placed in a well-padded thigh rincon. Operative lower extremity was prepped and draped in usual orthopedic sterile fashion for the procedure. Local anesthetic agent was sterilely injected into the proposed arthroscopic portals. Lateral portal was established with a knife. Took us through skin only. Dull trocar took us into the joint. The scope was placed through the lateral portal. Medial portal and ultimately established using a spinal needle followed by a knife through skin, followed by a dull trocar into the joint. Probe was placed to the medial p ortal. Patellofemoral joint: No significant arthritis was noted. Patella tracked nicely. No significant plica noted. Medial and lateral gutter: No loose bodies or pathology noted. Intercondylar notch: ACL appeared within normal limits. Nice resting tension. No loose bodies or cystic changes noted. Medial compartment: Complex tear posterior horn undersurface medial meniscus. Also mild diffuse chondrosis medial femoral condyle. Partial medial meniscectomy carried out with a shaver and biters. Lateral compartment: Rim tear mid and posterior horn lateral meniscus. No significant arthritic changes. Partial lateral meniscectomy carried out with a shaver. Posterior medial compartment: No loose bodies or pathology noted. Posterior lateral compartment: No loose bodies or pathology noted. Arthroscopic pictures were taken and saved throughout the procedure. Knee was drained of excess fluid. Arthroscopic instruments were removed. Arthroscopic portals closed with simple sutures of 4-0 nylon. Knee joint injected with a combination of local anesthetic and Duramorph. sterile bandage was applied. Patient was transferred to the room bed and recovery room in [facility]. They will be discharged to home when stable, follow-up in the office in 7- 10 days. Patient and the family understand discharge instructions, all of their questions answered. This note was generated with intelworks dictation software. It may contain incorrect words, spelling, and punctuation that were not noted in checking the note before signing.
[2020-07-31 15:03] VITALS: BP 145/92; BP 152/92; PULSE 57; RESP 16; TEMP 36.4; O2SAT 94
[2020-07-31 15:15] VITALS: BP 140/85; BP 145/92; PULSE 60; RESP 16; O2SAT 93
[2020-07-31 15:30] VITALS: BP 145/92; BP 157/94; PULSE 61; RESP 16; O2SAT 93
[2020-07-31 15:45] VITALS: BP 145/92; BP 155/92; PULSE 55; RESP 16; TEMP 36.2; O2SAT 93
[2020-07-31 16:48] VITALS: BP 145/92; BP 151/96; PULSE 53; RESP 16; TEMP 36.3; O2SAT 96
== END 2020-07-31 16:49 | disposition home or self-care (01) ==
LOC: SDC 12:38 → AC 12:38
PROVIDERS: PCP Family Medicine; Referring Provider Orthopaedic Surgery; Visit Provider Orthopaedic Surgery
PROC: (CPT 29870; principal; 2020-07-31 14:00)
DX: S83.282A Other tear of lateral meniscus, current injury, left knee, initial encounter (principal); S83.242A Other tear of medial meniscus, current injury, left knee, initial encounter; X58.XXXA Exposure to other specified factors, initial encounter; Y93.9 Activity, unspecified; Y92.9 Unspecified place or not applicable; Y99.9 Unspecified external cause status; M17.12 Unilateral primary osteoarthritis, left knee; I48.0 Paroxysmal atrial fibrillation; I25.10 Atherosclerotic heart disease of native coronary artery without angina pectoris; E78.5 Hyperlipidemia, unspecified; I10 Essential (primary) hypertension; Z79.899 Other long term (current) drug therapy; Z86.73 Personal history of transient ischemic attack (TIA), and cerebral infarction without residual deficits; F32.9 Major depressive disorder, single episode, unspecified; Z87.891 Personal history of nicotine dependence
CPT/HCPCS: 01400; 29880; 87426; C9803; J7120; J2405

== ENCOUNTER → 2020-08-24 11:47 | Outpatient (CLI) | payer MEDICARE, SELFPAY ==
[2020-07-31 13:39] VITALS: BMI 28.8
[2020-08-24 12:29] LABS: Anion Gap 5 (5-15); BUN 20 mg/dL (7-18); BUN/Creat Ratio 13.2 RATIO (10-20); Calcium,Total 9.2 mg/dL (8.5-10.1); Chloride 107 mmol/L (98-107); Cholesterol 181 mg/dL (200); Creatinine, Serum 1.52 mg/dL (0.70-1.30); EST Glomerular Filtration Rate 48 mL/min (>60); Est Glom Filt Rate - Afr Amer 58 mL/min (>60); Glucose 107 mg/dL (74-106); High Density Lipoprotein 49 mg/dL; Potassium 4.1 mmol/L (3.5-5.1); Sodium Level 141 mmol/L (136-145); Triglycerides 181 mg/dL; Very Low Density Lipoprotein 36 mg/dL (5-40)
[2020-08-24 12:32] LABS: Hemoglobin A1c 5.8 % (3.8-5.6)
[2020-08-24 12:47] LABS: Absolute Lymphocyte Count 3.13 X10^3/uL (0.83-4.51); Absolute Neutrophil Count 3.7 X10^3/uL (2.0-7.7); Basophil# 0.03 X10^3/uL; Basophil% 0.4 % (0-1); Eosinophil# 0.05 X10^3/uL; Eosinophils% 0.7 % (0-5); Hematocrit 47.7 % (40-54); Hemoglobin 15.1 g/dL (13.0-16.5); Lymphocyte # 3.13 X10^3/ul (4.0); Lymphocyte % 41.6 % (19-41); Mean Corp Hgb Conc 31.7 g/dL (32-36); Mean Corpuscular Hgb 31.2 pg (27.0-32.0); Mean Corpuscular Volume 98.6 fL (80-94); Monocyte# 0.63 X10^3/uL; Monocyte% 8.4 % (0-10); NRBC Flagged by Analyzer 0 % (0-5); Neutrophil # 3.66 X10^3/uL (2.7-7.7); Neutrophil % 48.6 % (47-70); Platelet Count 187 K/mm3 (150-450); RBC Distribution Width CV 13.2 % (11.6-14.6); RBC Distribution Width SD 47.6 fl (35.1-43.9); Red Blood Count 4.84 M/mm3 (4.6-6.2); White Blood Count 7.5 K/mm3 (4.4-11.0)
== END ==
PROVIDERS: PCP Family Medicine; Referring Provider Family Medicine; Visit Provider Family Medicine
DX: N42.9 Disorder of prostate, unspecified (principal); Z79.899 Other long term (current) drug therapy; Z12.5 Encounter for screening for malignant neoplasm of prostate
CPT/HCPCS: 80048; 80061; 83036; 84153; 85025; G0103

== ENCOUNTER → 2021-02-24 12:50 | Outpatient (CLI) | payer MEDICARE, SELFPAY ==
[2020-08-27 10:28] VITALS: BMI 28.7
[2021-02-24 13:54] LABS: Cholesterol 177 mg/dL (200); High Density Lipoprotein 41 mg/dL; Triglycerides 208 mg/dL; Very Low Density Lipoprotein 42 mg/dL (5-40)
[2021-02-24 14:00] LABS: Hemoglobin A1c 5.6 % (3.8-5.6)
== END ==
PROVIDERS: PCP Family Medicine; Visit Provider Family Medicine
DX: E78.2 Mixed hyperlipidemia (principal); I10 Essential (primary) hypertension; R73.09 Other abnormal glucose
CPT/HCPCS: 80061; 83036

== ENCOUNTER 2021-09-02 12:00 | Outpatient (CLI) | payer MEDICARE, SELFPAY ==
[2021-09-02 13:14] LABS: Bacteria 0 SEEN /hpf (None Seen); Mucous, Urine 0 SEEN /hpf (<or=2+); Red Blood Cells-Urine 0 SEEN /hpf (0-5); Squamous Epithelial Cells - UA 0 SEEN /hpf (0-5); White Blood Cells 0 SEEN /hpf (0-5)
[2021-09-02 13:28] LABS: Color, Urine Yellow (Yellow); Glucose, Dipstick Normal (Normal); Ketone-Dipstick Negative (Negative); Leukocyte Esterase-Dipstick Negative /ul (Negative); Nitrite-Dipstick Negative (Negative); Occult Blood-Urine 10 /ul (Negative); Protein-Dipstick 15 mg/dl (Negative); Specific Gravity, Urine 1.015 (1.002-1.030); Urine Bilirubin Dipstick Negative (Negative); Urine Clarity Clear (Clear); Urine Urobilinogen Normal (Normal)
[2021-09-02 13:36] LABS: Cholesterol 162 mg/dL (200); High Density Lipoprotein 43 mg/dL; PSA,Total - Annual Screen 0.24 ng/mL (0.00-4.00); Triglycerides 110 mg/dL; Very Low Density Lipoprotein 22 mg/dL (5-40)
[2021-09-02 13:39] LABS: Hemoglobin A1c 5.7 % (3.8-5.6)
== END 2021-09-02 23:59 | disposition short-term general hospital (02) ==
LOC: LABSPEC 12:03
PROVIDERS: PCP Family Medicine; Visit Provider Family Medicine
DX: N42.9 Disorder of prostate, unspecified (principal); I10 Essential (primary) hypertension; E78.2 Mixed hyperlipidemia; I25.10 Atherosclerotic heart disease of native coronary artery without angina pectoris; I25.83 Coronary atherosclerosis due to lipid rich plaque; R73.09 Other abnormal glucose
CPT/HCPCS: 80061; 81001; 83036; 84153; G0103

== ENCOUNTER 2022-09-13 07:38 | Emergency (ER) | payer MEDICARE, SELFPAY ==
[2022-09-13 07:39] VITALS: BP 174/103; PULSE 62; RESP 16; TEMP 36.6; O2SAT 98; BMI 27.3
--- NOTE | 2022-09-13 08:19 | CT_ITS ---
STUDY: CT ABDOMEN AND PELVIS WITH CONTRAST REASON FOR EXAM: Male, 77 years old. Periumbilical abd pain RADIATION DOSAGE (If Supplied By Facility): CTDIvol = ( 15.59 ) mGy, DLP = ( 1099.75 ) mGycm TECHNIQUE: Transaxial images were obtained from the dome of the diaphragm to the symphysis pubis without oral contrast. IV 100mL Isovue-300 was administered. Sagittal and coronal images were reconstructed. Individualized dose optimization techniques were used for this CT. COMPARISON: None. FINDINGS: Mild increased markings at the lung bases suggestive of atelectasis and/or scarring. Coronary artery calcification. There is decreased attenuation of the liver consistent with steatosis. There is a 8.7 mm cyst in the left lobe of the liver. Mildly distended gallbladder. Normal spleen. Normal pancreas. Normal bilateral adrenal glands. Normal right kidney. Normal left kidney. Normal visualized stomach. Normal small intestine. There are multiple colonic diverticula consistent with diverticulosis. Diverticular disease is also seen in the right hemicolon. The appendix is visualized and appears normal. There is scattered atherosclerotic calcification of the abdominal aorta, without a demonstrated aneurysm. Normal inferior vena cava. Normal retroperitoneum. Distended urinary bladder. Heterogeneous appearance of the prostate. The prostate measures 4.2 cm x 4.9 cm. Central calcifications are seen within it. There is a small umbilical hernia containing fat. There are diffuse degenerative changes of the visualized lumbar spine. CT/Abdomen/Pelvis W IV Cont ONLY IMPRESSION: Fatty infiltration of the liver. Small cyst in the left lobe of the liver. Distended gallbladder. Sigmoid diverticulosis. Distended urinary bladder. Electronically Signed: Rommel Duron MD at 10:09 EST ,
--- NOTE | 2022-09-13 08:21 | ED.VIS.GI ---
HPI HPI - GI History of Present Illness Chief Complaint: Abd Pain Informant: patient Abdominal Pain/Flank Pain Onset: Today, Yesterday and Hours Context: Gradual Onset Timing: Continuous Location: Diffuse Current Severity: Mild Maximum Severity: Moderate Worsened by: Nothing Relieved by: Nothing Nausea/Vomiting/Emesis GI Symptom: Positive for Nausea Onset: Today Severity: Mild Diarrhea/Melena/Hematochezia GI Symptom: Negative for Diarrhea, Melena or Hematochezia Associated Symptoms Associated Symptoms: Negative for Dysuria, Frequency or Hematuria Narrative Narrative: 77-year-old male history of hypertension, CAD, A. fib on Eliquis and prior ischemic stroke. Prior appendectomy no other abdominal surgeries. States around last night around 10 PM he started getting midline abdominal pain. Associated nausea no vomiting. No diarrhea or fever. No constipation. Bowel movement today. Denies any dysuria. Denies any fever or chills. No melena. No recent weight loss. Normal p.o. intake. Prior similar symptoms: No Recent Illness/Hospitalization: No PFSH PFSH Medical History Benign essential hypertension Depression Hyperlipidemia Ischemic cerebrovascular accident (CVA) (09/2016) Nonobstructive atherosclerosis of coronary artery Paroxysmal atrial fibrillation Home Medications bupropion HCl 100 mg tablet 100 mg PO BID 12/31/15 [History Last Taken 02/05/18 08:00] coenzyme Q10 100 mg capsule 200 mg PO DAILY 12/31/15 [History Last Taken 02/05/18 08:00] latanoprost 0.005 % eye drops 1 drp LEFT EYE QHS 12/31/15 [History Last Taken 02/05/18 08:00] multivitamin with folic acid 400 mcg tablet 1 tab PO DAILY 12/31/15 [History Last Taken 04/09/16] tamsulosin 0.4 mg capsule 0.4 mg PO QHS 12/31/15 [History Last Taken 04/08/16] timolol maleate 0.25 % eye gel forming solution 1 drp LEFT EYE DAILY 12/31/15 [History Last Taken 02/05/18 08:00] lisinopril 10 mg tablet 10 mg PO DAILY #90 tabs 05/29/19 [Rx Last Taken 07/31/20] rosuvastatin 40 mg tablet 40 mg PO DAILY 10/19/21 [History Last Taken Unknown] metoprolol tartrate 25 mg tablet 12.5 mg PO BID #90 tabs 03/18/22 [Rx Last Taken Unknown] apixaban 5 mg tablet (Eliquis) 5 mg PO BID #180 tabs 06/23/22 [Rx Last Taken Unknown] Allergy/AdvReac Type Severity Reaction Status Date / Time No Known Allergies Allergy Verified 09/13/22 07:40 Family History Mother CAD (coronary artery disease) Hypertension Brother CAD (coronary artery disease) Sister CAD (coronary artery disease) Surgical History H/O repair of left rotator cuff (01/2018) History of appendectomy History of carpal tunnel release History of cataract surgery History of herniorrhaphy History of right and left heart catheterization (02/08/02) Social History Smoking Status: Former smoker alcohol intake: current alcohol intake frequency: holidays/special occasions only substance use type: does not use caffeine: Yes Type: coffee Number of servings: 2 what type of physical activity do you participate in: other details: [employer] ROS ROS ED ROS Narrative Abdominal pain. Nausea. Review of Systems ROS Unobtainable: Denies due to encephalopathy Constitutional Constitutional ED: Denies chills or fever(s) ENT ENT ED: Denies ear pain Cardiovascular Cardiovascular: Denies chest pain Respiratory/Chest Respiratory/Chest: Denies cough or dyspnea Gastrointestinal Gastrointestinal: Reports abdominal pain and nausea; Denies constipation, diarrhea, melena or vomiting Genitourinary Genitourinary ED: Denies dysuria or hematuria Musculoskeletal Musculoskeletal: Denies arthralgias or back pain Integumentary Denies abscess or Abrasions Neurologic Neurologic: Denies headache(s) or paresthesias Psychiatric Psychiatric: Denies anxiety or depression Endocrine Endocrinology: Denies polydipsia Hematologic/Lymphatic Hematologic/Lymphatic: Denies easy bleeding Allergic/Immunologic Allergic/Immunologic ED: Denies mouth swelling or tongue swelling EXAM Physical Exam Narrative Exam Narrative: 77-year-old male no acute distress vital signs stable afebrile. H EENT exam unremarkable. Moist Riis members. Neck nontender no lymphadenopathy. Lungs clear to auscultation bilaterally. Heart regular rate about 60. No murmur. Abdomen soft nondistended normal bowel sounds no peritoneal signs. Diffusely tender primarily in the midline. No hernia or mass. Right upper and right lower quadrants are unremarkable. No peritoneal signs. Moving all 4 extremities. Nontender no edema. Neurologically is awake alert with no focal motor deficits. Const Vital Signs: 09/13/22 07:39 09/13/22 08:43 Temperature 97.9 F Temperature Source Temporal Pulse Rate 62 66 Respiratory Rate 16 14 Blood Pressure 174/103 H 164/96 H Blood Pressure Mean 126 118 Pulse Ox 98 93 Oxygen Delivery Method Room Air Room Air Positive well nourished and well developed; Negative for obese, cachectic, contractures or unkempt General Appearance ED: well developed and NAD; Negative for unkempt, cachectic, contractures or pallor Nutritional Appearance: Negative for cachectic or obese HEENT Reports moist mucous membranes normocephalic and atraumatic; Negative for trauma or tenderness Eyes PERRL and EOMs intact bilaterally General Eye ED: Negative for pale conjunctiva or scleral icterus Neck no lymphadenopathy, supple and no JVD General: Negative for tenderness Carotids: Negative for other Lymph Lymphatic: Negative for other Resp normal respiratory effort and clear to auscultation bilaterally Effort and Inspection: Negative for respiratory distress or retractions Auscultation: Negative for rales, rhonchi or wheezes Cardio regular rate, regular rhythm, S1 normal heart sound, S2 normal heart sound and no murmurs Rate: Negative for bradycardia or tachycardic Rhythm: Negative for abnormal rhythm GI non-distended and no masses; Negative for non-tender Inspection: Negative for abdominal distention Auscultation: normoactive bowel sounds; Negative for hyperactive bowel sounds or hypoactive bowel sounds Palpation: soft and tender; Negative for guarding, rigid, hepatomegaly, splenomegaly, hernia, mass, pulsatile mass or rebound tenderness present Back/Spine no CVA tenderness General Back: Negative for CVA tenderness Cervical Spine: Negative for cervical spine tenderness Thoracic Spine / Upper Back: Negative for thoracic spinal tenderness Lumbar Spine / Lower Back: Negative for lumbar spinal tenderness Coccyx: Negative for other Extremity full ROM General Extremety ED: Negative for edema, tenderness or other findings General Extremity: Negative for edema or other findings Neuro CN's II-XII intact bilaterally and moves all extremities Sensorium / Orientation: alert; Negative for oriented to person, oriented to place, oriented to time, orientation impaired, confused, lethargic or stuporous Motor Exam: strength 5/5 throughout Psych mental status grossly normal and thought process normal Appearance: Negative for unkempt Attitude: No agitated Mood & Affect: Negative for depressed, anxious or tearful Skin no wounds General Skin Exam: Negative for jaundice or pallor Lesions: no lesions Rashes: no rashes Trauma: Negative for abrasion Nails: Negative for discolored MDM MDM MDM Narrative Medical decision making narrative: 77-year-old male with midline abdominal pain associated nausea. Exam he is tender there is not peritoneal signs. Does not appear to be secondary to his gallbladder or appendix he has had previously resected. Possibility of an obstruction. No history but could be pancreatitis. CAT scan labs are being obtained. Treated with IV morphine for pain Zofran for nausea. IV fluids. Repeat exam patient is doing well. His bladder scan is 271. He urinated after that. He had and his went over all his test results. They are unremarkable. Including his CAT scan. We do not have a specific cause for his abdominal pain. He will be discharged home with outpatient follow-up. Lab Data Attestation: I reviewed the patient's lab results. Lab results narrative: CBC unremarkable white count of 9.8. H&H 14 and 43. Platelets 191. Electrolytes show a gap of 7 BUN 19 creatinine 1.32. Liver enzymes unremarkable. Lipase normal at 95. Amylase 102 and normal. Glucose 158. Urinalysis negative. No white or red cells. No nitrites. Labs: Laboratory Results - last 24 hr 09/13/22 09/13/22 09/13/22 08:03 08:03 08:30 WBC 9.8 RBC 4.49 L Hgb 14.3 Hct 43.5 MCV 96.9 H MCH 31.8 MCHC 32.9 RDW Std Deviation 46.4 H RDW Coeff of Rashad 12.9 Plt Count 191 MPV 9.4 Immature Gran % (Auto) 0.300 Neut % (Auto) 75.5 H Lymph % (Auto) 19.2 Sullivan % (Auto) 4.3 Eos % (Auto) 0.4 Baso % (Auto) 0.3 Absolute Neuts (auto) 7.4 Absolute Lymphs (auto) 1.87 Nucleated RBC % 0 Sodium 138 Potassium 4.1 Chloride 104 Carbon Dioxide 27.0 Anion Gap 7 BUN 19 H Creatinine 1.32 H Estim Creat Clear Calc 43.12 Est GFR (MDRD) Af Amer 67 Est GFR (MDRD) Non-Af 56 L BUN/Creatinine Ratio 14.4 Glucose 158 H Calcium 9.1 Total Bilirubin 0.50 AST 19 ALT 27 Alkaline Phosphatase 44 L Total Protein 7.3 Albumin 3.7 Globulin 3.6 Albumin/Globulin Ratio 1.0 Amylase 102 Lipase 95 Urine Color Yellow Urine Clarity Clear Urine pH 7.0 Ur Specific [place] 1.015 Urine Protein 30 H Urine Glucose (UA) Normal Urine Ketones 5 H Urine Occult Blood 25 H Urine Nitrite Negative Urine Bilirubin Negative Urine Urobilinogen Normal Ur Leukocyte Esterase 25 H Urine RBC 0-5 SEEN Urine WBC 0-5 SEEN Ur Squamous Epith Cells 0 SEEN Urine Bacteria 0 SEEN Urine Mucus 0 SEEN Radiography Diagnostic Testing: Clinical Impression(s) from Imaging Studies Abdomen/Pelvis CT 09/13/22 08:19 IMPRESSION: Fatty infiltration of the liver. Small cyst in the left lobe of the liver. Distended gallbladder. Sigmoid diverticulosis. Distended urinary bladder. Electronically Signed: Rommel Duron MD at 10:09 EST , Discharge Plan Triage Chief Complaint: Abd Pain ED Provider: Rick Barone Dx/Rx/DC Orders Clinical Impression: Abdominal pain, History of atrial fibrillation, Chronic anticoagulation Instructions: Abdominal Pain, ED Abdominal Pain Unkn Cause Male... Prescriptions: No Action rosuvastatin 40 mg tablet 40 mg PO DAILY latanoprost 1 DROP bottle 1 drp LEFT EYE QHS Label Comments: [facility] bupropion HCl 100 MG tablet 100 mg PO BID Label Comments: DEPRESSION tamsulosin 0.4 MG capsule 0.4 mg PO QHS Label Comments: PROSTATE timolol maleate 1 DROP gel forming solution 1 drp LEFT EYE DAILY Label Comments: [facility] coenzyme Q10 100 MG capsule 200 mg PO DAILY Label Comments: SUPPLEMENT multivitamin with folic acid 1 TABLET tablet 1 tab PO DAILY Label Comments: SUPPLEMENT lisinopril 10 mg tablet 10 mg PO DAILY Qty: 90 3RF metoprolol tartrate 25 mg tablet 12.5 mg PO BID Qty: 90 3RF Rx Instructions: BID25 MG, 1/2 Tablet PO BID Eliquis 5 mg tablet 5 mg PO BID Qty: 180 3RF Primary Care Provider: Fidencio Benson Referrals: Fidencio Benson MD [Primary Care Provider] - 1-2 Days if not improving Activity Restrictions/Additional Instructions: Your test and CAT scan were unremarkable. We do not have a specific cause for your pain. Follow-up with your doctor if not improving. Return if worse. Disposition Disposition: Home, Self Care
--- NOTE | 2022-09-13 08:27 | EKG12_ITS ---
Test Reason : ABD PAIN Blood Pressure : / mmHG Vent. Rate : 062 BPM Atrial Rate : 062 BPM P-R Int : 186 ms QRS Dur : 098 ms QT Int : 436 ms P-R-T Axes : 053 007 029 degrees QTc Int : 442 ms Normal sinus rhythm Normal ECG Confirmed by AMAURI FRAGOSO, CHRISTEN ([id number]), associate entertainment editor KELSI BURGOS ([id number]) on 09/14/2022 9:11:47 AM Referred By: NEHEMIAH Confirmed By:CHRISTEN BAUGH MD
[2022-09-13 08:32] LABS: Absolute Lymphocyte Count 1.87 X10^3/uL (0.83-4.51); Absolute Neutrophil Count 7.4 X10^3/uL (2.0-7.7); Basophil# 0.03 X10^3/uL; Basophil% 0.3 % (0-1); Eosinophil# 0.04 X10^3/uL; Eosinophils% 0.4 % (0-5); Hematocrit 43.5 % (40-54); Hemoglobin 14.3 g/dL (13.0-16.5); Lymphocyte # 1.87 X10^3/ul (0.83-4.51); Lymphocyte % 19.2 % (19-41); Mean Corp Hgb Conc 32.9 g/dL (32-36); Mean Corpuscular Hgb 31.8 pg (27.0-32.0); Mean Corpuscular Volume 96.9 fL (80-94); Mean Platelet Vol. 9.4 fl (6.2-12.0); Monocyte# 0.42 X10^3/uL; Monocyte% 4.3 % (0-10); NRBC Flagged by Analyzer 0 % (0-5); Neutrophil # 7.36 X10^3/uL (2.7-7.7); Neutrophil % 75.5 % (47-70); Platelet Count 191 K/mm3 (150-450); RBC Distribution Width CV 12.9 % (11.6-14.6); RBC Distribution Width SD 46.4 fl (35.1-43.9); Red Blood Count 4.49 M/mm3 (4.6-6.2); White Blood Count 9.8 K/mm3 (4.4-11.0)
[2022-09-13 08:40] LABS: Bacteria 0 SEEN /hpf (None Seen); Mucous, Urine 0 SEEN /hpf (<or=2+); Squamous Epithelial Cells - UA 0 SEEN /hpf (0-5)
[2022-09-13] MEDS: 0.9% Normal Saline 1,000 ML 1000 ML IV (08:40)
[2022-09-13] MEDS: Morphine 4 MG/ML Syringe IV (08:40)
[2022-09-13] MEDS: Ondansetron 4 MG/2 ML Vial IV (08:40)
[2022-09-13 08:43] VITALS: BP 164/96; PULSE 66; RESP 14; O2SAT 93
[2022-09-13 08:44] LABS: Glucose, Dipstick Normal (Normal); Ketone-Dipstick 5 mg/dl (Negative); Leukocyte Esterase-Dipstick 25 /ul (Negative); Nitrite-Dipstick Negative (Negative); Occult Blood-Urine 25 /ul (Negative); Protein-Dipstick 30 mg/dl (Negative); Specific Gravity, Urine 1.015 (1.002-1.030); Urine Bilirubin Dipstick Negative (Negative); Urine Urobilinogen Normal (Normal)
[2022-09-13 08:46] LABS: AST(SGOT) 19 U/L (15-37); Alanine Aminotransfer ALT/SGPT 27 U/L (16-61); Albumin, Serum 3.7 g/dL (3.2-5.0); Alkaline Phosphatase 44 U/L (45-117); Amylase 102 U/L (25-115); Anion Gap 7 (5-15); BUN 19 mg/dL (7-18); BUN/Creat Ratio 14.4 RATIO (10-20); Calcium,Total 9.1 mg/dL (8.5-10.1); Chloride 104 mmol/L (98-107); Creatinine, Serum 1.32 mg/dL (0.70-1.30); EST Glomerular Filtration Rate 56 mL/min (>60); Est Glom Filt Rate - Afr Amer 67 mL/min (>60); Estimated Creatinine Clearance 43.12 ml/min; Globulin 3.6 g/dL (2.2-4.2); Glucose 158 mg/dL (74-106); Lipase 95 U/L (73-393); Potassium 4.1 mmol/L (3.5-5.1); Protein, Total 7.3 g/dL (6.4-8.2); Sodium Level 138 mmol/L (136-145)
[2022-09-13 08:47] LABS: Color, Urine Yellow (Yellow); Urine Clarity Clear (Clear)
[2022-09-13 08:51] LABS: Red Blood Cells-Urine 0-5 SEEN /hpf (0-5); White Blood Cells 0-5 SEEN /hpf (0-5)
--- NOTE | 2022-09-13 10:05 | ED.RN ---
orders not connecting with MAR. 6mg of Morphine given IV push in lt ac.
[2022-09-13] MEDS: Morphine 4 MG/ML Syringe 6 MG IV (10:10)
[2022-09-13 10:22] VITALS: BP 161/103; PULSE 71; RESP 12; O2SAT 91
[2022-09-13 11:07] VITALS: BP 158/98; PULSE 76; RESP 18; O2SAT 95
== END 2022-09-13 11:08 | disposition home or self-care (01) ==
PROVIDERS: Emergency Provider Emergency Medicine; PCP Family Medicine; Visit Provider Emergency Medicine
DX: R10.9 Unspecified abdominal pain (principal); I48.0 Paroxysmal atrial fibrillation; I25.10 Atherosclerotic heart disease of native coronary artery without angina pectoris; Z86.73 Personal history of transient ischemic attack (TIA), and cerebral infarction without residual deficits; Z87.891 Personal history of nicotine dependence; Z79.01 Long term (current) use of anticoagulants
CPT/HCPCS: 96374; 96375; 96361; 96376; 74177; 80053; 81001; 82150; 83690; 85025; 93005; J7030; Q9967; A4216; J2405

== ENCOUNTER 2022-09-13 15:51 | Inpatient (IN) | payer MEDICARE, SELFPAY ==
[2022-09-13 16:01] VITALS: BP 149/111; PULSE 119; RESP 16; TEMP 36.8; O2SAT 93; BMI 27.2
--- NOTE | 2022-09-13 16:59 | ED.VIS.GI ---
HPI HPI - GI History of Present Illness Chief Complaint: Abd Pain Detail of Chief Complaint: Worsening general abdominal pain and difficulty urinating Informant: patient and spouse/S.O. Abdominal Pain/Flank Pain Onset: Hours Context: Sudden Onset Timing: Continuous Quality: Aching Location: Diffuse Current Severity: Moderate Maximum Severity: Severe Worsened by: Movement; Not Worsened By Food Relieved by: Nothing Nausea/Vomiting/Emesis GI Symptom: Positive for Nausea; Negative for Vomiting Diarrhea/Melena/Hematochezia GI Symptom: Negative for Diarrhea, Melena or Hematochezia Associated Symptoms Associated Symptoms: Positive for Urgency; Negative for Dysuria, Frequency or Hematuria Narrative Narrative: Patient is a 77-year-old male with history of atrial fibrillation, on anticoagulant for paroxysmal H fibrillation, benign essential hypertension, hyperlipidemia, ischemic cerebrovascular accident and nonobstructive atherosclerotic coronary disease who returns because of worsening abdominal pain with distention. He denies fever or chills. He does report nausea without vomiting or diarrhea. He endorses urgency and slight discomfort with urination. He states he is only able to go a little amount. He does have history of BPH. He had a bladder scan pre and post urination this morning which were unremarkable. Patient denies black or maroon-colored stool. Patient denies scrotal pain or swelling. Patient denies headache, ocular, visual auditory symptoms. Patient denies cardiac or respiratory symptoms. Patient denies leg pain, swelling discoloration. Patient denies rash. Patient denies myalgias or arthralgias. Patient denies history of trauma. Records from this morning were read. Patient is tachycardic now. His abdominal exam has changed. Bladder scan was obtained because of history of BPH with complaint of urgency and negative. Patient states he does not feel well. Prior similar symptoms: Yes (Symptoms have gotten worse since he left the emergency department) Recent Illness/Hospitalization: Yes [facility] Medical History Benign essential hypertension Depression Hyperlipidemia Ischemic cerebrovascular accident (CVA) (09/2016) Nonobstructive atherosclerosis of coronary artery Paroxysmal atrial fibrillation Home Medications bupropion HCl 100 mg tablet 100 mg PO BID DEPRESSION 12/31/15 [History Last Taken 09/12/22] coenzyme Q10 100 mg capsule 100 mg PO DAILY SUPPLEMENT 12/31/15 [History Last Taken 09/12/22] latanoprost 0.005 % eye drops 1 drp LEFT EYE QHS GLAUCOMA 12/31/15 [History Last Taken 09/12/22] tamsulosin 0.4 mg capsule 0.4 mg PO QHS PROSTATE 12/31/15 [History Last Taken 09/12/22] rosuvastatin 40 mg tablet 40 mg PO DAILY CHOLESTEROL 10/19/21 [History Last Taken 09/12/22] apixaban 5 mg tablet (Eliquis) 5 mg PO BID BLOOD THINNER 09/13/22 [History Last Taken 09/12/22] dorzolamide 22.3 mg-timolol 6.8 mg/mL eye drops 1 drp EACH EYE DAILY 09/13/22 [History Last Taken 09/12/22] fluticasone propionate 50 mcg/actuation nasal spray,suspension 2 spray intranasal DAILY NASAL CONGESTION 09/13/22 [History Last Taken Unknown] lisinopril 10 mg tablet 10 mg PO QHS BLOOD PRESSURE 09/13/22 [History Last Taken 09/12/22] metoprolol tartrate 25 mg tablet 12.5 mg PO BID BLOOD PRESSURE 09/13/22 [History Last Taken 09/12/22] montelukast 10 mg tablet 10 mg PO QHS ALLERGIES 09/13/22 [History Last Taken 09/12/22] multivitamin 1 tab PO DAILY SUPPLEMENT 09/13/22 [History Last Taken 09/12/22] zolpidem 5 mg tablet 2.5 mg PO QHS PRN Sleep 09/13/22 [History Last Taken Unknown] Allergy/AdvReac Type Severity Reaction Status Date / Time No Known Allergies Allergy Verified 09/13/22 16:01 Family History Mother CAD (coronary artery disease) Hypertension Brother CAD (coronary artery disease) Sister CAD (coronary artery disease) Surgical History H/O repair of left rotator cuff (01/2018) History of appendectomy History of carpal tunnel release History of cataract surgery History of herniorrhaphy History of right and left heart catheterization (02/08/02) Social History (Updated 09/13/22 @ 17:[address] Ervin Farrar MD) household members: spouse Smoking Status: Former smoker alcohol intake: current alcohol intake frequency: holidays/special occasions only substance use type: does not use caffeine: Yes Type: coffee Number of servings: 2 what type of physical activity do you participate in: other details: [facility] ROS ROS ED Constitutional Constitutional ED: Denies chills, fever(s), subjective, sweats or weight loss ENT ENT ED: Denies ear pain, rhinorrhea or sore throat Cardiovascular Cardiovascular: Denies chest pain, palpitations or racing heartbeat Respiratory/Chest Respiratory/Chest: Denies cough, dyspnea or dyspnea on exertion Gastrointestinal Gastrointestinal: Reports abdominal pain and nausea; Denies constipation, diarrhea, melena or vomiting Genitourinary Genitourinary ED: Reports dysuria and other Details: Urgency ; Denies hematuria or urinary frequency Musculoskeletal Musculoskeletal: Denies arthralgias, back pain, myalgias or neck pain Integumentary Denies Abrasions or rash Psychiatric Psychiatric: Denies anxiety or depression Endocrine Endocrinology: Denies polydipsia, polyphagia or polyuria Hematologic/Lymphatic Hematologic/Lymphatic: Denies easy bleeding or easy bruising EXAM Physical Exam Const Vital Signs: 09/13/22 16:01 Temperature 98.3 F Temperature Source Temporal Pulse Rate 119 H Respiratory Rate 16 Blood Pressure 149/111 H Blood Pressure Mean 123 Pulse Ox 93 Oxygen Delivery Method Room Air Positive well nourished and well developed Constitutional Narrative: Patient appears uncomfortable. He walks slowly and hunched over. Abdomen appears distended. General Appearance ED: well developed; Negative for NAD or pallor HEENT Reports TM's clear and dry mucous membranes HEENT Narrative: Nares patent. Uvula midline. No erythema or exudate the posterior pharynx. normocephalic and atraumatic Tympanic Membrane ED: Yes TM's clear Mouth ED: Yes dry mucous membranes Mouth: dry mucous membranes Eyes PERRL and EOMs intact bilaterally General Eye ED: Negative for pale conjunctiva or scleral icterus Neck no lymphadenopathy, supple and no JVD Resp normal respiratory effort and clear to auscultation bilaterally Cardio S1 normal heart sound, S2 normal heart sound and no murmurs Rate: tachycardic GI no masses; Negative for non-tender or non-distended GI Narrative: There is tympany to percussion of the abdomen. He does have evidence of a rectus diastases. Bowel sounds are diminished. He has guarding. He complains of percussion tenderness in the right and left lower quadrant. There may be enlargement of the bladder to percussion. There is no inguinal mass or inguinal lymphadenopathy. Patient does have a small umbilical hernia, which is reducible. Inspection: abdominal distention Palpation: Negative for hepatomegaly, splenomegaly, hernia, mass or pulsatile mass Back/Spine no CVA tenderness Extremity full ROM General Extremety ED: Negative for edema or tenderness General Extremity: Negative for edema Neuro No CN's II-XII intact bilaterally and moves all extremities Sensorium / Orientation: alert Psych mental status grossly normal and thought process normal Skin no wounds General Skin Exam: Negative for jaundice or pallor Lesions: no lesions Rashes: no rashes MDM MDM MDM Narrative Medical decision making narrative: From this morning and cardiovascular records were reviewed. He does have history of atrial relation. There is never been a documented mural thrombus. Patient states he is compliant with his anticoagulant which makes ischemic bowel due to embolic phenomena less likely. He did have a CT of the abdomen with contrast. This is not as accurate as a CTA to assess this. He was noted to have a distended gallbladder. His laboratory studies were reviewed and are unremarkable. Since patient's exam is changed we will repeat blood work and determine if ultrasound is indicated versus CT of the abdomen. Ultrasound does have a higher sensitivity, 95%, for biliary disease compared to CAT scan, 75%. I was informed at 1749 that patient still complains of significant pain and the morphine that was initially ordered has not helped. Reviewing records from earlier today indicated the patient required 10 mg of morphine. In light of this will order 1 mg of Dilaudid IV push. I was informed by nurse that patient appears worse. He was reassessed at 1811. His abdomen is firm. He has peritoneal findings. His white count has doubled since this morning. Will obtain CT with IV contrast. Doubt his generalized abdominal pain with distention, guarding and rebound tenderness is due to biliary disease. Patient has been medicated with Dilaudid. He reports slight improvement. Because patient's creatinine is elevated we will also administer 1 L of normal saline specially with him having peritonitis and concern for third spacing. CT of the abdomen reveals distended gallbladder. There is ascitic fluid noted. There is increased haziness in the gallbladder. Suspect patient has acute cholecystitis. Sepsis treatment for intra-abdominal infection was initiated. Blood cultures and lactate was ordered as well. Will contact surgeon regarding patient. Patient is on anticoagulant, apixaban 5 mg twice daily. He is on this for paroxysmal atrial fibrillation. The ultrasound was canceled after discussion with Dr. Delgadillo who agrees patient has acute cholecystitis. Patient's last dose of apixaban was yesterday. She requested I contact the hospitalist for admission. Dr. Dave asked that I wait until placing the order for admission. Dr. Delgadillo would like patient admitted to the hospital service consult to her. She was informed that patient meets sepsis criteria and should be at a higher level. She requested specifically MedSurg. Lab Data Attestation: I reviewed the patient's lab results. Lab results narrative: Comprehensive metabolic panel reveals mild hyponatremia. Creatinine is 1.45 with a GFR of 50. Glucose is 191. AST is slightly elevated 63. Lipase is normal. Labs: Laboratory Results - last 24 hr 09/13/22 09/13/22 09/13/22 17:05 17:05 18:45 WBC 17.1 H RBC 4.86 Hgb 15.7 Hct 48.6 MCV 100.0 H MCH 32.3 H MCHC 32.3 RDW Std Deviation 47.9 H RDW Coeff of Rashad 13.0 Plt Count 143 L MPV 10.2 Immature Gran % (Auto) 0.600 Neut % (Auto) 84.8 H Lymph % (Auto) 9.4 L Dawson % (Auto) 5.0 Eos % (Auto) 0.1 Baso % (Auto) 0.1 Absolute Neuts (auto) 14.5 H Absolute Lymphs (auto) 1.60 Nucleated RBC % 0 Sodium 135 L Potassium 3.7 Chloride 102 Carbon Dioxide 22.0 Anion Gap 11 BUN 16 Creatinine 1.45 H Estim Creat Clear Calc 39.25 Est GFR (MDRD) Af Amer 61 Est GFR (MDRD) Non-Af 50 L BUN/Creatinine Ratio 11.0 Glucose 191 H Lactic Acid 3.4 H* Calcium 9.2 Total Bilirubin 0.90 Direct Bilirubin 0.30 AST 63 H ALT 42 Alkaline Phosphatase 51 Total Protein 8.1 Albumin 4.1 Globulin 4.0 Lipase 357 Radiography Diagnostic Testing: Clinical Impression(s) from Imaging Studies Abdomen/Pelvis CT 09/13/22 18:16 IMPRESSION: 1. Mild fluid-filled proximal small bowel loops not seen on the earlier study. There is no visualized transitional zone. Persistent contrast is seen in distal small bowel loops. 2. No other interval change. Electronically Signed: José Hughes DO at 19:27 EST , ADDENDUM: 09/13/221947 IMPRESSION: undefined Critical Care Time Critical Care Time: Yes Critical care time (excluding procedures): 30-74 minutes (3 3), Including time spent: (History, physical, documentation, review of prior ER visit including laboratory studies and results and CAT scan independent review of CAT scan and disagreement with radiologist read.), Discussing w/Patient &/or Family/Conference Reservationist (And and family been told there is a discrepancy in the read of his CAT scan by me and the surgeon compared to the radiologist.), Discussing w/Consultants (Dr. Delgadillo who is on-call for surgery and Dr. Dave who is the admitting hospitalist), Arranging Admission or Transfer, Performing Direct Patient Care at Bedside and - (Repeat examination) Discharge Plan Dx/Rx/DC Orders Clinical Impression: Acute cholecystitis, Benign essential hypertension, Ischemic cerebrovascular accident (CVA), Nonobstructive atherosclerosis of coronary artery, History of atrial fibrillation, Abdominal ascites, Acute infectious generalized peritonitis Disposition Disposition: Acute Care [facility]
[2022-09-13] MEDS: Morphine 4 MG/ML Syringe IV (17:15)
[2022-09-13] MEDS: Ondansetron 4 MG/2 ML Vial IV (17:15)
[2022-09-13 17:18] LABS: Absolute Neutrophil Count 14.5 X10^3/uL (2.0-7.7); Basophil# 0.02 X10^3/uL; Basophil% 0.1 % (0-1); Eosinophil# 0.01 X10^3/uL; Eosinophils% 0.1 % (0-5); Hematocrit 48.6 % (40-54); Hemoglobin 15.7 g/dL (13.0-16.5); Lymphocyte % 9.4 % (19-41); Mean Corp Hgb Conc 32.3 g/dL (32-36); Mean Corpuscular Hgb 32.3 pg (27.0-32.0); Mean Platelet Vol. 10.2 fl (6.2-12.0); Monocyte# 0.86 X10^3/uL; NRBC Flagged by Analyzer 0 % (0-5); Neutrophil # 14.49 X10^3/uL (2.7-7.7); Neutrophil % 84.8 % (47-70); POSITIVE COUNT YES; Platelet Count 143 K/mm3 (150-450); RBC Distribution Width SD 47.9 fl (35.1-43.9); Red Blood Count 4.86 M/mm3 (4.6-6.2); White Blood Count 17.1 K/mm3 (4.4-11.0)
[2022-09-13 17:33] LABS: AST(SGOT) 63 U/L (15-37); Alanine Aminotransfer ALT/SGPT 42 U/L (16-61); Albumin, Serum 4.1 g/dL (3.2-5.0); Alkaline Phosphatase 51 U/L (45-117); Anion Gap 11 (5-15); BUN 16 mg/dL (7-18); Calcium,Total 9.2 mg/dL (8.5-10.1); Chloride 102 mmol/L (98-107); Creatinine, Serum 1.45 mg/dL (0.70-1.30); EST Glomerular Filtration Rate 50 mL/min (>60); Est Glom Filt Rate - Afr Amer 61 mL/min (>60); Estimated Creatinine Clearance 39.25 ml/min; Glucose 191 mg/dL (74-106); Lipase 357 U/L (73-393); Potassium 3.7 mmol/L (3.5-5.1); Protein, Total 8.1 g/dL (6.4-8.2); Sodium Level 135 mmol/L (136-145)
[2022-09-13] MEDS: HYDROmorphone 1 MG/ML Syringe IV (17:55)
--- NOTE | 2022-09-13 18:16 | CT_ITS ---
INDICATION: Distention. Guarding. Leukocytosis. Question peritonitis. EXAMINATION: CT ABDOMEN AND PELVIS WITH CONTRAST - CT Abdomen And Pelvis W/ Contrast Injection TECHNIQUE: Helically acquired images were obtained of the abdomen and pelvis following IV contrast. A radiation dose optimization technique was used for this scan. IV Contrast dosage and agent: 25 mL of Isovue 370 Oral contrast: None. COMPARISON: September 13, 2022 (0925 hours). FINDINGS: LOWER CHEST: Dependent changes at the right lung base secondary to elevation of the right hemidiaphragm. The lungs are clear. No cardiomegaly or pericardial effusion. LIVER: Stable small cyst left lobe of an otherwise normal liver. No focal mass. GALLBLADDER AND BILIARY TREE: No calcified gallstones. No gallbladder distension or wall edema. No intra- or extrahepatic biliary ductal dilation. PANCREAS: No focal cystic or solid mass. SPLEEN: Normal size without focal cystic or solid mass. ADRENAL GLANDS: No nodules. KIDNEYS AND URETERS: Normal renal size and position. No hydronephrosis. Normal visualized ureters. PERITONEUM: Ascites is seen within the pelvis and right subphrenic space. No free air. No other fluid collection. BOWEL: Normal stomach. Residual contrast is seen within nondistended distal small bowel loops. Is mild fluid distention of proximal small bowel loops diverticulosis without distention or inflammatory change. The appendix is not visualized. LYMPH NODES: No enlarged mesenteric or retroperitoneal lymph nodes. VESSELS: Atherosclerotic changes of the thoracic aorta without aneurysm or dissection. Normal IVC. URINARY BLADDER: Unremarkable. REPRODUCTIVE ORGANS: The prostate appears small in size. ABDOMINAL WALL: Small umbilical hernia of omental fat. The abdominal wall is otherwise unremarkable. BONES: Degenerative changes lumbar spine without lytic or blastic lesions. CT/Abdomen/Pelvis W IV Cont ONLY IMPRESSION: 1. Mild fluid-filled proximal small bowel loops not seen on the earlier study. There is no visualized transitional zone. Persistent contrast is seen in distal small bowel loops. 2. No other interval change. Electronically Signed: José Hughes DO at 19:27 [facility] Reading Location ID and State: [facility] / [place] Tel [phone], Service support ,
[2022-09-13] MEDS: 0.9% Normal Saline 1,000 ML 1000 ML IV ×2 (18:48→22:53)
[2022-09-13 19:22] LABS: Lactic Acid 3.4 mmol/L (0.4-1.9)
[2022-09-13 22:50] LABS: Reflex Lactate? Y
--- NOTE | 2022-09-13 22:51 | PCM.HP.STD ---
HPI - General General Date of Admission: 09/13/22 Date of Service: 09/13/22 Chief Complaint: Abdominal pain. HPI Narrative The patient is a 77 y/o M w/ PMHx: BPH, Nonobstructive CAD, HTN, HLD, Hx CVA, Former tobacco use, Anxiety and Depression, PAF who presents to the [facility] ED on 09/13/22 with history of generalized abdominal pain with difficulty urinating with onset initially starting at approximately 10 PM the day prior specifically in the midline of the abdomen at that time and reportedly ongoing despite evaluation earlier in the day at approximately 8 AM, reported as aching, transition to diffuse, worsened by movement with associated nausea without emesis with increasing abdominal distention and concurrent urinary urgency as well as slight dysuria with urination with history of BPH. In the ED patient was assessed with a bladder scan pre and post urination earlier in the day per report which have been unremarkable at that time. He currently reports his abdominal discomfort is generalized although worse with palpation in the right upper quadrant and rates it 10 out of 10, severe constant. He does state he still feels as though he needs to urinate but his bladder scan is unremarkable but he does feel significantly distended and feels as though the pressure is pushing downward on his bladder. He does state that he had bowel movement earlier in the day but has had significant decreased flatus. Work-up in the ED included T98.3, heart rate 119, BP 149/111, respiratory rate 16, 93% on room air, CBC with WC 17.1, hemoglobin 15.7, platelet 143 with left shift, CMP with sodium 135, BUN/creatinine 16/1.45, glucose 191, hepatic profile with AST 63 otherwise not marked appearing, lipase 357, lactic acid 3.4, blood culture x2 pending per ED, CT abdomen and pelvis with a persistent distention of the gallbladder with minimally increased stranding in the gallbladder neck when compared to the prior study with mild fluid-filled proximal small bowel loops not seen on earlier study with no visualized transition zone with persistent contrast seen within the distal small bowel loops. ED discussed case and imaging studies with general surgery who agreed that patient presentation and findings were consistent with acute cholecystitis. In the ED patient ministered IV Zosyn, Zofran 4 mg IV x1, morphine 4 mg IV x1, Dilaudid 1 mg IV x1 as well as 1 L normal saline bolus. Planned percutaneous drainage 09/12/22 evening last dose. General surgery requested admission per medical service given patient's medical history and noted intention for assessment for acute cholecystitis and possible associated partial bowel obstruction with planned cholecystostomy tube per their direction. [facility] Medical History Benign essential hypertension Depression Hyperlipidemia Ischemic cerebrovascular accident (CVA) (09/2016) Nonobstructive atherosclerosis of coronary artery Paroxysmal atrial fibrillation Home Medications bupropion HCl 100 mg tablet 100 mg PO BID DEPRESSION 12/31/15 [History Last Taken 09/12/22] coenzyme Q10 100 mg capsule 100 mg PO DAILY SUPPLEMENT 12/31/15 [History Last Taken 09/12/22] latanoprost 0.005 % eye drops 1 drp LEFT EYE QHS GLAUCOMA 12/31/15 [History Last Taken 09/12/22] tamsulosin 0.4 mg capsule 0.4 mg PO QHS PROSTATE 12/31/15 [History Last Taken 09/12/22] rosuvastatin 40 mg tablet 40 mg PO DAILY CHOLESTEROL 10/19/21 [History Last Taken 09/12/22] apixaban 5 mg tablet (Eliquis) 5 mg PO BID BLOOD THINNER 09/13/22 [History Last Taken 09/12/22] dorzolamide 22.3 mg-timolol 6.8 mg/mL eye drops 1 drp EACH EYE DAILY 09/13/22 [History Last Taken 09/12/22] fluticasone propionate 50 mcg/actuation nasal spray,suspension 2 spray intranasal DAILY NASAL CONGESTION 09/13/22 [History Last Taken Unknown] lisinopril 10 mg tablet 10 mg PO QHS BLOOD PRESSURE 09/13/22 [History Last Taken 09/12/22] metoprolol tartrate 25 mg tablet 12.5 mg PO BID BLOOD PRESSURE 09/13/22 [History Last Taken 09/12/22] montelukast 10 mg tablet 10 mg PO QHS ALLERGIES 09/13/22 [History Last Taken 09/12/22] multivitamin 1 tab PO DAILY SUPPLEMENT 09/13/22 [History Last Taken 09/12/22] zolpidem 5 mg tablet 2.5 mg PO QHS PRN Sleep 09/13/22 [History Last Taken Unknown] Allergy/AdvReac Type Severity Reaction Status Date / Time No Known Allergies Allergy Verified 09/13/22 16:01 Family History Mother CAD (coronary artery disease) Hypertension Brother CAD (coronary artery disease) Sister CAD (coronary artery disease) Surgical History H/O repair of left rotator cuff (01/2018) History of appendectomy History of carpal tunnel release History of cataract surgery History of herniorrhaphy History of right and left heart catheterization (02/08/02) Social History (Updated 09/13/22 @ 17:[address] Ervin Fararr MD) household members: spouse Smoking Status: Former smoker alcohol intake: current alcohol intake frequency: holidays/special occasions only substance use type: does not use caffeine: Yes Type: coffee Number of servings: 2 what type of physical activity do you participate in: other details: [employer] ROS Narrative Admission Review of Systems: CONSTITUTIONAL: No weight loss, fever, chills, + weakness or fatigue. HEENT: Eyes: No visual loss, blurred vision, double vision or yellow sclerae. Ears, Nose, Throat: No hearing loss, sneezing, congestion, runny nose or sore throat. SKIN: No rash or itching, lesions, wounds. CARDIOVASCULAR: No chest pain, chest pressure or chest discomfort, palpitations, edema, orthopnea, syncopal events. RESPIRATORY: No shortness of breath, cough or sputum, wheezing, hemoptysis. GASTROINTESTINAL: + anorexia, nausea without vomiting, abdominal pain, abdominal distention, No diarrhea, melena, BRBPR. GENITOURINARY: + dysuria, urgency, sensation of retention. NEUROLOGICAL: No headache, dizziness, syncope, paralysis, ataxia, numbness or tingling in the extremities, focal weakness, change in bowel or bladder control, seizure. MUSCULOSKELETAL: + muscle, back pain, joint pain or stiffness. HEMATOLOGIC: + easy bleeding or bruising. LYMPHATICS: No enlarged nodes. No history of splenectomy. PSYCHIATRIC: No history of depression or anxiety. ENDOCRINOLOGIC: No reports of sweating, cold or heat intolerance. No polyuria or polydipsia. ALLERGIES: + history of rhinitis. Vital Signs Vital Signs Vital Signs: 09/13/22 16:01 Temperature 98.3 F Temperature Source Temporal Pulse Rate 119 H Respiratory Rate 16 Blood Pressure 149/111 H Blood Pressure Mean 123 Pulse Ox 93 Oxygen Delivery Method Room Air Weight Weight: 174 lb Body Mass Index (BMI) 27.2 Physical Exam Narrative Physical Examination: General: Awake, alert, oriented x 3 and cooperative, laying in the ED bed, fatigued, uncomfortable appearing. Skin: Normal color, normal turgor, no icterus, no cyanosis. HEENT: AT/NC, EOMI, PERRLA, dry MM, no carotid bruits or JVD noted. Lungs: Mildly diminished, greater bases, appropriate effort, no rales, ronchi or wheezing. Heart: Mildly tachycardic with regular rhythm; no gallop, rub audible. Abdomen: Soft, generalized discomfort however worse right upper quadrant, tympanitic, distended, significantly decreased bowel sounds more prominently absent bilateral lower quadrants, voluntary guarding right upper quadrant, difficult to assess HSM. Extremities: No cyanosis, clubbing, or edema. Neurological: Patient awake, alert, oriented as noted, cognitive function intact; pupils equally reactive to light and accommodation, cranial nerves II-XII grossly normal, moving all 4 extremities, no focal deficits, strength moderately to severely global decrease secondary to acute presentation. Psychiatric: Affect appears fatigued, uncomfortable, no acute evidence of depressive or anxiety feelings. Results Lab / Micro Data Result Diagrams: 09/13/22 17:05 09/13/22 17:05 Labs: Laboratory Results - last 24 hr 09/13/22 17:05: WBC 17.1 H, RBC 4.86, Hgb 15.7, Hct 48.6, MCV 100.0 H, MCH 32.3 H, MCHC 32.3, RDW Std Deviation 47.9 H, RDW Coeff of Rashad 13.0, Plt Count 143 L, MPV 10.2, Immature Gran % (Auto) 0.600, Neut % (Auto) 84.8 H, Lymph % (Auto) 9.4 L, [place] % (Auto) 5.0, Eos % (Auto) 0.1, Baso % (Auto) 0.1, Absolute Neuts (auto) 14.5 H, Absolute Lymphs (auto) 1.60, Nucleated RBC % 0 09/13/22 17:05: Sodium 135 L, Potassium 3.7, Chloride 102, Carbon Dioxide 22.0, Anion Gap 11, BUN 16, Creatinine 1.45 H, Estim Creat Clear Calc 39.25, Est GFR (MDRD) Af Amer 61, Est GFR (MDRD) Non-Af 50 L, BUN/Creatinine Ratio 11.0, Glucose 191 H, Calcium 9.2, Total Bilirubin 0.90, Direct Bilirubin 0.30, AST 63 H, ALT 42, Alkaline Phosphatase 51, Total Protein 8.1, Albumin 4.1, Globulin 4.0, Lipase 357 09/13/22 18:45: Lactic Acid 3.4 H* Radiology Impression Abdomen/Pelvis CT 09/13/22 18:16 IMPRESSION: 1. Mild fluid-filled proximal small bowel loops not seen on the earlier study. There is no visualized transitional zone. Persistent contrast is seen in distal small bowel loops. 2. No other interval change. Electronically Signed: José Hughes DO at 19:27 EST Reading Location ID and State: [address] [place] [address] Tel [phone], Service support , ADDENDUM: 09/13/221947 IMPRESSION: undefined Assessment & Plan Assessment/Plan (1) Acute cholecystitis: PLAN: Plan The patient is a 77 y/o M w/ PMHx: BPH, Nonobstructive CAD, HTN, HLD, Hx CVA, Former tobacco use, Anxiety and Depression, PAF who presents to the [facility] ED on 09/13/22 with history of generalized abdominal pain with difficulty urinating with onset initially starting at approximately 10 PM the day prior specifically in the midline of the abdomen at that time and reportedly ongoing despite evaluation earlier in the day at approximately 8 AM, reported as aching, transition to diffuse, worsened by movement with associated nausea without emesis with increasing abdominal distention and concurrent urinary urgency as well as slight dysuria with urination with history of BPH. #1. Acute Sepsis secondary to concern Acute Peritonitis secondary to Acute Cholecystitis with associated lactic acidosis and concern for possible small bowel obstruction secondary to enlarging gallbladder: Will admit to MS telemetry per Dr. Keller specific request; however, did also discuss that low threshold to transition to higher level of care if decompensates, will administer additional NS bolus and maintain on MIVFs, trend LA per facility procotol, NPO, PPI, IV/po pain control, will defer consideration GBUS consideration to Surgery discretion, will maintain on IV zosyn, did discuss concerns regarding abdominal examination and possible partial SBO as well, awaiting Surgery evaluation of patient, will defer cholecystostomy tube assessment and discussions with IR to general surgery per discussion with their service, will plan KUB in AM to be cautious. #2. Nonobstructive CAD: Patient with no history of PCI, nonobstructive disease, will continue metoprolol, lisinopril, statin therapy, holding Eliquis. #3. History of prior CVA: Holding Eliquis given presentation, will continue hypertensive regimen, statin therapy. #4. Anxiety and depression: We will continue patient home bupropion regimen. #5. PAF: We will hold patient home apixaban, continue patient home metoprolol regimen. #6. Hypertension: Continue home regimen including lisinopril, metoprolol with hold parameters as needed, PRN hydralazine. #7. Hyperlipidemia: We will continue patient on statin therapy. #8. BPH: We will continue patient home Flomax regimen. Earlier assessment for urinary retention negative but will continue closely monitor. #9. Former tobacco use: Encourage continued tobacco cessation. #10. DVT prophylaxis: SCDs, holding Eliquis regimen, given presentation planned eventual OR per surgery. #11. CODE status: Patient SOBEIDA is his and living will is currently in place. Discussed CODE status at length including difference between FULL code, DNR-CCA and DNR-CC status. Following discussions about the differences in these status, requested Full Code status. Advanced Care Planning Face to Face Time: 16 minutes. Admission Evaluation Time spent evaluating chart, patient history, patient evaluation, care planning and discussion with specialists: 76 minutes. Charges/Coding Visit Charges Inpatient E&M: 53752 Init Hosp L3 Procedures Hospitalists Procedures: 67537 Advncd Care Plan 30 Min
[2022-09-13 23:19] VITALS: BP 123/84; PULSE 101; RESP 16; TEMP 36.7; O2SAT 97
[2022-09-13 23:46] VITALS: BP 137/92; PULSE 105; RESP 18; TEMP 37; O2SAT 92
[2022-09-13 23:48] VITALS: BMI 27.1
[2022-09-13 23:50] VITALS: PULSE 108
[2022-09-13 23:59] LABS: Lactic Acid 1.3 mmol/L (0.4-1.9)
[2022-09-14] VITALS (16 sets, daily range): BP systolic 80–107; BP diastolic 51–76; PULSE 65–107; RESP 14–18; TEMP 36.5–37.3; O2SAT 88–97; BMI 27.1
[2022-09-14] MEDS: HYDROmorphone 0.5 MG/0.5 ML SYRINGE IV ×2 (00:15→06:10)
[2022-09-14] MEDS: 0.9% Normal Saline 1,000 ML 150 ML IV ×4 (00:20→19:20)
[2022-09-14] MEDS: buPROPion 100 MG Tablet PO ×2 (00:51→09:10)
[2022-09-14] MEDS: Tamsulosin HCl 0.4 MG Capsule PO ×2 (00:51→21:04)
[2022-09-14] MEDS: Montelukast 10 MG Tablet PO (00:51)
[2022-09-14] MEDS: Latanoprost 0.005% 1 Bottle 1 DRP LEFT EYE ×2 (00:52→21:35)
--- NOTE | 2022-09-14 05:55 | EKG12_ITS ---
Test Reason : AM EKG Blood Pressure : / mmHG Vent. Rate : 101 BPM Atrial Rate : 101 BPM P-R Int : 172 ms QRS Dur : 086 ms QT Int : 346 ms P-R-T Axes : 043 011 019 degrees QTc Int : 448 ms Sinus tachycardia Minimal voltage criteria for LVH, may be normal variant ( R in aVL ) Nonspecific ST and T wave abnormality Abnormal ECG When compared with ECG of 13-SEP-2022 08:40, MANUAL COMPARISON REQUIRED, DATA IS UNCONFIRMED Confirmed by AMAURI FRAGOSO, CHRISTEN ([id number]), fashion editor KELSI BURGOS ([id number]) on 09/14/2022 12:56:49 PM Referred By: Confirmed By:CHRISTEN BAUGH MD
[2022-09-14] MEDS: Ondansetron 4 MG/2 ML Vial IV (06:10)
[2022-09-14] MEDS: 0.9% Saline Lock 10 ML Syringe IV ×2 (06:10→20:51)
[2022-09-14 06:25] LABS: Absolute Lymphocyte Count 2.24 X10^3/uL (0.83-4.51); Absolute Neutrophil Count 14.4 X10^3/uL (2.0-7.7); Basophil# 0.03 X10^3/uL; Basophil% 0.2 % (0-1); Eosinophil# 0.12 X10^3/uL; Eosinophils% 0.7 % (0-5); Hematocrit 49.2 % (40-54); Hemoglobin 16.2 g/dL (13.0-16.5); Lymphocyte # 2.24 X10^3/ul (0.83-4.51); Lymphocyte % 12.5 % (19-41); Mean Corp Hgb Conc 32.9 g/dL (32-36); Mean Corpuscular Hgb 32.5 pg (27.0-32.0); Mean Corpuscular Volume 98.6 fL (80-94); Mean Platelet Vol. 9.3 fl (6.2-12.0); Monocyte% 5.6 % (0-10); NRBC Flagged by Analyzer 0 % (0-5); Neutrophil % 80.6 % (47-70); Platelet Count 165 K/mm3 (150-450); RBC Distribution Width CV 13.4 % (11.6-14.6); RBC Distribution Width SD 48.7 fl (35.1-43.9); Red Blood Count 4.99 M/mm3 (4.6-6.2); White Blood Count 17.9 K/mm3 (4.4-11.0)
[2022-09-14 07:08] LABS: ALB/GLOB Ratio 0.9 RATIO (0.9-2.4); AST(SGOT) 64 U/L (15-37); Alanine Aminotransfer ALT/SGPT 49 U/L (16-61); Albumin, Serum 3.1 g/dL (3.2-5.0); Alkaline Phosphatase 38 U/L (45-117); Anion Gap 8 (5-15); BUN 23 mg/dL (7-18); BUN/Creat Ratio 14.3 RATIO (10-20); Calcium,Total 8.4 mg/dL (8.5-10.1); Chloride 108 mmol/L (98-107); Creatinine, Serum 1.61 mg/dL (0.70-1.30); EST Glomerular Filtration Rate 44 mL/min (>60); Est Glom Filt Rate - Afr Amer 54 mL/min (>60); Estimated Creatinine Clearance 35.35 ml/min; Globulin 3.6 g/dL (2.2-4.2); Glucose 142 mg/dL (74-106); Potassium 3.9 mmol/L (3.5-5.1); Protein, Total 6.7 g/dL (6.4-8.2); Sodium Level 137 mmol/L (136-145)
--- NOTE | 2022-09-14 07:30 | US_ITS ---
STUDY: ABDOMINAL ULTRASOUND - RIGHT UPPER QUADRANT REASON FOR VISIT: Male, 77 years old . The right upper quadrant pain. TECHNIQUE: Ultrasound evaluation of the right upper quadrant was performed with real-time and static lowery-scale imaging. TECHNICAL QUALITY: Adequate. COMPARISON: Comparison is made with prior CT scans abdomen and pelvis dated 09/13/2022. FINDINGS: Liver: The liver measures 16 cm. There is normal echogenicity of the liver. The bile ducts are within normal limits. There is hepatic color flow. The direction of portal flow is hepatopetal. There is no demonstrated mass lesion. Trace of fluid in the perihepatic space. Gallbladder: Normal distended gallbladder. The gallbladder wall is thickened and measures 4 mm. There is a positive sonographic Hudson''s sign. There is no pericholecystic fluid. There are multiple echogenic structures within the gallbladder, consistent with multiple gallstones. Common Bile Duct (C.B.D.): The common bile duct is dilated and measures 9 mm. Pancreas: There is nonvisualization of the pancreas due to overlying bowel gas. Right Kidney: Normal size of the right kidney. The right kidney measures 11.5 cm x 5.7 cm x 5.9 cm. Normal renal cortex. The right cortex measures 1.9 cm. There is no demonstrated renal mass or cyst. There is no right hydronephrosis. US/Gallbladder IMPRESSION: Multiple gallstones with the mildly thickened gallbladder wall and dilated common bile duct. Trace amount of fluid in the perihepatic space. Electronically Signed: Rommel Duron MD at 9:31 EST ,
--- NOTE | 2022-09-14 07:31 | CON.PCM.SX_ITS ---
Assessment & Plan Assessment/Plan (1) Acute cholecystitis: (2) Chronic anticoagulation: (3) Leukocytosis: PLAN: Plan Planned for cholecystostomy tube initially today but unable to get it due to IR not available today. Pt pain controlled with meds and on IV zosyn. US GB ordered. Likely will plan for pt to leave with cholecystostomy tube and come back for an interval cholecystectomy as pt last took his eliquis yesterday AM. Pt was agreeable with plan. HPI Consult Data Date of Consult: 09/14/22 HPI Narrative Reason for Consultation: acute cholecystitis HPI Narrative: JAY JEFFERSON, is a 77 M who presents due to midline abd pain. Pt was seen in ER yesterday AM and PM-- in AM CT a/p was negative acutely and PM CT a/p showed stranding near GB, ascites near liver and in the pelvis with WBC increased from wnl to 17.1. Pt was given zosyn IV. Lactic was 3.4 but improved to 1.3 with IVF. Pt states the abd pain started the day before; however, after talking to him he admitted not really eating for the last three days. Pt is on eliquis due to Afib last took yesterday AM. [facility] Medical History (Updated 09/14/22 @ 08:[address] Marie Escalante, DO) Benign essential hypertension Depression Hyperlipidemia Ischemic cerebrovascular accident (CVA) (09/2016) Nonobstructive atherosclerosis of coronary artery Paroxysmal atrial fibrillation Stage 3b chronic kidney disease (CKD) Home Medications bupropion HCl 100 mg tablet 100 mg PO BID DEPRESSION 12/31/15 [History Last Taken 09/12/22] coenzyme Q10 100 mg capsule 100 mg PO DAILY SUPPLEMENT 12/31/15 [History Last Taken 09/12/22] latanoprost 0.005 % eye drops 1 drp LEFT EYE QHS GLAUCOMA 12/31/15 [History Last Taken 09/12/22] tamsulosin 0.4 mg capsule 0.4 mg PO QHS PROSTATE 12/31/15 [History Last Taken 09/12/22] rosuvastatin 40 mg tablet 40 mg PO DAILY CHOLESTEROL 10/19/21 [History Last Taken 09/12/22] apixaban 5 mg tablet (Eliquis) 5 mg PO BID BLOOD THINNER 09/13/22 [History Last Taken 09/13/22] dorzolamide 22.3 mg-timolol 6.8 mg/mL eye drops 1 drp EACH EYE DAILY 09/13/22 [History Last Taken 09/12/22] fluticasone propionate 50 mcg/actuation nasal spray,suspension 2 spray intranasal DAILY NASAL CONGESTION 09/13/22 [History Last Taken Unknown] lisinopril 10 mg tablet 10 mg PO QHS BLOOD PRESSURE 09/13/22 [History Last Taken 09/12/22] metoprolol tartrate 25 mg tablet 12.5 mg PO BID BLOOD PRESSURE 09/13/22 [History Last Taken 09/12/22] montelukast 10 mg tablet 10 mg PO QHS ALLERGIES 09/13/22 [History Last Taken 09/12/22] multivitamin 1 tab PO DAILY SUPPLEMENT 09/13/22 [History Last Taken 09/12/22] zolpidem 5 mg tablet 2.5 mg PO QHS PRN Sleep 09/13/22 [History Last Taken Unknown] Allergy/AdvReac Type Severity Reaction Status Date / Time No Known Allergies Allergy Verified 09/13/22 16:01 Family History Mother CAD (coronary artery disease) Hypertension Brother CAD (coronary artery disease) Sister CAD (coronary artery disease) Surgical History H/O repair of left rotator cuff (01/2018) History of appendectomy History of carpal tunnel release History of cataract surgery History of herniorrhaphy History of right and left heart catheterization (02/08/02) Social History (Updated 09/14/22 @ 00:05 by Klaudia Singh) household members: spouse housing: house number of children: 3 current occupational status: retired pets and animals: No Smoking Status: Former smoker alcohol intake: current alcohol intake frequency: holidays/special occasions only substance use type: does not use caffeine: Yes Type: coffee Number of servings: 2 what type of physical activity do you participate in: other details: [employer] ROS Constitutional Constitutional: Reports anorexia; Denies chills Eyes Eyes: Denies loss of central vision ENT HEENT: Denies dysphagia Cardiovascular Cardiovascular: Denies chest pain Respiratory/Chest Respiratory/Chest: Denies cough Gastrointestinal Gastrointestinal: Reports abdominal pain, nausea and vomiting Genitourinary Genitourinary: Reports dysuria Musculoskeletal Musculoskeletal: Denies difficulty walking Neurologic Neurologic: Denies dizziness Hematologic/Lymphatic Hematologic/Lymphatic: Reports easy bleeding Lab / Micro Data Result Diagrams: 09/14/22 05:33 09/14/22 05:33 Labs: Laboratory Results - last 24 hr 09/13/22 17:05: WBC 17.1 H, RBC 4.86, Hgb 15.7, Hct 48.6, MCV 100.0 H, MCH 32.3 H, MCHC 32.3, RDW Std Deviation 47.9 H, RDW Coeff of Rashad 13.0, Plt Count 143 L, MPV 10.2, Immature Gran % (Auto) 0.600, Neut % (Auto) 84.8 H, Lymph % (Auto) 9.4 L, [place] % (Auto) 5.0, Eos % (Auto) 0.1, Baso % (Auto) 0.1, Absolute Neuts (auto) 14.5 H, Absolute Lymphs (auto) 1.60, Nucleated RBC % 0 09/13/22 17:05: Sodium 135 L, Potassium 3.7, Chloride 102, Carbon Dioxide 22.0, Anion Gap 11, BUN 16, Creatinine 1.45 H, Estim Creat Clear Calc 39.25, Est GFR (MDRD) Af Amer 61, Est GFR (MDRD) Non-Af 50 L, BUN/Creatinine Ratio 11.0, Glucose 191 H, Calcium 9.2, Total Bilirubin 0.90, Direct Bilirubin 0.30, AST 63 H, ALT 42, Alkaline Phosphatase 51, Total Protein 8.1, Albumin 4.1, Globulin 4.0, Lipase 357 09/13/22 18:45: Lactic Acid 3.4 H* 09/13/22 23:24: Lactic Acid 1.3 09/14/22 05:33: WBC 17.9 H, RBC 4.99, Hgb 16.2, Hct 49.2, MCV 98.6 H, MCH 32.5 H , MCHC 32.9, RDW Std Deviation 48.7 H, RDW Coeff of Rashad 13.4, Plt Count 165, MPV 9.3, Immature Gran % (Auto) 0.400, Neut % (Auto) 80.6 H, Lymph % (Auto) 12.5 L, [place] % (Auto) 5.6, Eos % (Auto) 0.7, Baso % (Auto) 0.2, Absolute Neuts (auto) 14.4 H, Absolute Lymphs (auto) 2.24, Nucleated RBC % 0 09/14/22 05:33: Sodium 137, Potassium 3.9, Chloride 108 H, Carbon Dioxide 21.0, Anion Gap 8, BUN 23 H, Creatinine 1.61 H, Estim Creat Clear Calc 35.35, Est GFR (MDRD) Af Amer 54 L, Est GFR (MDRD) Non-Af 44 L, BUN/Creatinine Ratio 14.3, Glucose 142 H, Calcium 8.4 L, Total Bilirubin 1.00, AST 64 H, ALT 49, Alkaline Phosphatase 38 L, Total Protein 6.7, Albumin 3.1 L, Globulin 3.6, Albumin/Globulin Ratio 0.9 Radiology Impression Abdomen/Pelvis CT 09/13/22 18:16 IMPRESSION: 1. Mild fluid-filled proximal small bowel loops not seen on the earlier study. There is no visualized transitional zone. Persistent contrast is seen in distal small bowel loops. 2. No other interval change. Electronically Signed: José Hughes DO at 19:27 EST Reading Location ID and State: [address] [place] [address] Tel [phone], Service support , ADDENDUM: 09/13/221947 IMPRESSION: undefined
--- NOTE | 2022-09-14 07:55 | PN.HOSP_ITS ---
Subjective Subjective Mr. Vitale is a 77-year-old white male who presented to the emergency department on 09/13/2022 with abdominal pain. He evidently had generalized abdominal pain with difficulty urinating starting approximately 10 PM on the he presented to the emergency department and at that time he was discharged home after labs, CT, UA were unremarkable. He represented to the emergency department last evening with worsening symptoms and repeat imaging was performed. CT at that time showed a distended gallbladder with ascitic fluid and increased haziness in the gallbladder and was suspicious for acute cholecystitis. Sepsis treatment was initiated for intra-abdominal infection. Blood cultures and lactate were obtained and general surgery was consulted. Antibiotics were initiated the emergency department as well as IV fluids antiemetics and medication for pain. At sounds like general surgery wanted a PERC Neena tube placed at this time but there consultation is still pending. Patient states overall he is feeling a little bit better. Still with abdominal pain most noted in the right upper quadrant. States he is hungry and thirsty. Last oral meal was approximately 3 days ago. I reviewed the plan with him and he seemed of good knowledge of what will be happening in the next 24 to 48 hours. Objective Data Objective Data Vital Signs: Vital Signs Temp Pulse Resp BP Pulse Ox O2 Del Method O2 Flow Rate 98.6 F 65 16 82/62 L 94 Nasal Cannula 3 09/14/22 06:57 09/14/22 06:57 09/14/22 06:57 09/14/22 06:57 09/14/22 06:57 09/14/22 06:57 09/14/22 06:57 Oxygen Flow Rate (L/min) 3 Oxygen Delivery Method Nasal Cannula Weight: 78.8 kg Body Mass Index (BMI) 27.1 Intake & Output: Intake and Output for Last 24 Hours 09/12/22 09/13/22 09/14/22 23:59 23:59 23:59 Intake Total 1100 / 1100 1927.5 / 1927.5 Balance 1100 / 1100 1927.5 / 1927.5 Lab / Micro Data Result Diagrams: 09/14/22 05:33 09/14/22 05:33 Labs: Laboratory Results - last 24 hr 09/13/22 17:05: WBC 17.1 H, RBC 4.86, Hgb 15.7, Hct 48.6, MCV 100.0 H, MCH 32.3 H, MCHC 32.3, RDW Std Deviation 47.9 H, RDW Coeff of Rashad 13.0, Plt Count 143 L, MPV 10.2, Immature Gran % (Auto) 0.600, Neut % (Auto) 84.8 H, Lymph % (Auto) 9.4 L, [place] % (Auto) 5.0, Eos % (Auto) 0.1, Baso % (Auto) 0.1, Absolute Neuts (auto) 14.5 H, Absolute Lymphs (auto) 1.60, Nucleated RBC % 0 09/13/22 17:05: Sodium 135 L, Potassium 3.7, Chloride 102, Carbon Dioxide 22.0, Anion Gap 11, BUN 16, Creatinine 1.45 H, Estim Creat Clear Calc 39.25, Est GFR (MDRD) Af Amer 61, Est GFR (MDRD) Non-Af 50 L, BUN/Creatinine Ratio 11.0, Glucose 191 H, Calcium 9.2, Total Bilirubin 0.90, Direct Bilirubin 0.30, AST 63 H, ALT 42, Alkaline Phosphatase 51, Total Protein 8.1, Albumin 4.1, Globulin 4.0, Lipase 357 09/13/22 18:45: Lactic Acid 3.4 H* 09/13/22 23:24: Lactic Acid 1.3 09/14/22 05:33: WBC 17.9 H, RBC 4.99, Hgb 16.2, Hct 49.2, MCV 98.6 H, MCH 32.5 H , MCHC 32.9, RDW Std Deviation 48.7 H, RDW Coeff of Rashad 13.4, Plt Count 165, MPV 9.3, Immature Gran % (Auto) 0.400, Neut % (Auto) 80.6 H, Lymph % (Auto) 12.5 L, [place] % (Auto) 5.6, Eos % (Auto) 0.7, Baso % (Auto) 0.2, Absolute Neuts (auto) 14 .4 H, Absolute Lymphs (auto) 2.24, Nucleated RBC % 0 09/14/22 05:33: Sodium 137, Potassium 3.9, Chloride 108 H, Carbon Dioxide 21.0, Anion Gap 8, BUN 23 H, Creatinine 1.61 H, Estim Creat Clear Calc 35.35, Est GFR (MDRD) Af Amer 54 L, Est GFR (MDRD) Non-Af 44 L, BUN/Creatinine Ratio 14.3, Glucose 142 H, Calcium 8.4 L, Total Bilirubin 1.00, AST 64 H, ALT 49, Alkaline Phosphatase 38 L, Total Protein 6.7, Albumin 3.1 L, Globulin 3.6, Al bumin/Globulin Ratio 0.9 Radiography Diagnostic Testing: Radiology Impression Abdomen/Pelvis CT 09/13/22 18:16 IMPRESSION: 1. Mild fluid-filled proximal small bowel loops not seen on the earlier study. There is no visualized transitional zone. Persistent contrast is seen in distal small bowel loops. 2. No other interval change. Electronically Signed: José Hughes, at 19:27 EST Reading Location ID and State: [address] [place] [address] Tel [phone], Service support , ADDENDUM: 09/13/221947 IMPRESSION: undefined Physical Exam Const alert, oriented x3, no apparent distress and well nourished Constitutional Narrative: Overweight, very pleasant, elderly, white male, sitting up, appears nontoxic but slightly uncomfortable HEENT head/scalp atraumatic HEENT Narrative: Mucous membranes are somewhat dry Head and Scalp: normocephalic Resp normal respiratory effort, no retractions, no use of accessory muscles and clear to auscultation bilaterally Auscultation: Negative for crackles, rales, rhonchi or wheezes Cardio regular rate, regular rhythm, S1 normal heart sound, S2 normal heart sound, no murmurs, no rub, no gallops and no clicks GI GI Narrative: Significant tenderness right upper quadrant, abdomen seems slightly distended but soft, bowel sounds are somewhat hypoactive Palpation: tender and guarding Extremity no clubbing, cyanosis or edema Extremity Narrative: 2+ pedal pulses Neuro oriented x3, moves all extremities and no focal motor deficits Speech: speech normal Psych affect normal Assessment & Plan Assessment/Plan (1) Acute cholecystitis: (2) Sepsis: (3) Lactic acidosis: (4) Leukocytosis: PLAN: Plan Sepsis secondary to acute cholecystitis -CT of the abdomen and pelvis shows enlarging gallbladder with surrounding fluid as well as mild fluid-filled proximal small bowel loops -Continue n.p.o. -IV fluids -Lactate has improved -Patient has received full fluid resuscitation at 30 cc/kg of body weight which would be 2.34 L -Blood pressure appears a little bit soft this morning if this is actual will need to consider starting pressors and transfer to ICU -Continue Zosyn -Discussed case with Dr. Philippe from general surgery and unfortunately IR is not here today so PERC Neena tube will have to be placed tomorrow -Patient is a poor surgical candidate secondary to the appearance of his g allbladder at this point and would be significant risk for operative complications therefore management will be conservative at this point with PERC Jina drain and surgery in the future -Unable to rule out shock at this time as patient may still need pressors depending on what his blood pressure does -Discontinue home lisinopril -Hold parameters on home metoprolol -White count remains elevated Leukocytosis -Secondary to above -White count yesterday morning was 9.8 and skyrocketed to 17.1 by yesterday evening -17.9 this morning -Cultures pending -Continue IV antibiotics Lactic acidosis -3.4 last evening -Repeat 1.3 -Resolved CAD/HTN/HPL/PAF -Nonobstructive with no history of intervention -Continue home metoprolol/hold lisinopril -Continue home statin -Eliquis on hold for per Neena tube and possible surgical intervention in the future History of stroke -Eliquis on hold for intervention -Continue secondary prevention -No current issues BPH -Continue home Flomax Glaucoma -Continue home eyedrop ups Seasonal allergies -Continue home Singulair History of tobacco abuse -Continued cessation encouraged Anxiety/depression -Continue home bupropion CODE STATUS -Full code is verified on presentation Charges/Coding Visit Charges Inpatient E&M: 57417 Subs Hosp L2
[2022-09-14] MEDS: Dorzolamide HCL/Timolol 10 ml Bottle 1 DRP EACH EYE (09:10)
[2022-09-14] MEDS: Metoprolol Tartrate 25 MG Tablet 12.5 MG PO ×2 (09:10→21:04)
--- NOTE | 2022-09-14 11:30 | CASEMGMT ---
RN?CM?SHIPPING TECHNICIAN?CM?placed call to pt's room for initial transition planning/care coordination?assessment.?RN?CM?introduced self and role at [facility].? Pt voices understanding and consents to?assessment?at this time.? Pt is A/O at this time and answers all questions appropriately.?? Care providers, pharmacy, and demographics verified/updated at this time.? PCP:? Dr Benson Specialists:?Dr Ivey-cardiology Preferred Pharmacy:?[facility] Insurance:?[facility] Prescription Benefit:??Yes Living Will/HPOA:??Pt states has both LW and HCPOA, who is his , Lynda TROTTEROK:?, Lynda. Dtr, Kimberly. Pt has 2 other children Living Arrangements:?Lives w/ in one-story home w/basement. 2 steps to enter home w/railing. Independent w/ADL's and manages his own medications. does most home mgmt tasks. Transportation:?Pt states drives self and states no transportation concerns at this time.?? also drives DME: ?Has a BP machine HHC/SNF:?No hx of either. No needs identified. Pt wishes to return home and states has no concerns with going home at time of discharge. CM?to follow for any discharge planning/needs.? Pt voices no concerns/needs at this time.? Advised pt to ask for?CM?if any questions/concerns/needs arise.? Voices understanding.? PLAN:??Home Khadijah BSN?RN?CM
[2022-09-14] MEDS: Acetaminophen 325 MG Tablet 650 MG PO (12:56)
[2022-09-14] MEDS: oxyCODONE 5 MG Tablet PO ×2 (12:57→21:06)
[2022-09-14] MEDS: proCHLORPERazine 10 MG/2 ML Vial 5 MG IV ×2 (13:35→20:50)
--- NOTE | 2022-09-14 15:44 | CHAPLAIN ---
Type of Pastoral Visit _x__ Initial Visit ___ Follow-up Visit ___ On-call Visit ___ General Patient Visit ___ Spiritual Assessment ___ Family Conference ___ Bereavement ___ Rapid Response ___ Code Blue ___ Other (describe below) Pastoral Care Referral From _x__ Patient ___ Family ___ Nurse ___ Physician ___ Retail Marketing Specialist ___ Manager Employee Benefits ___ Other (describe below) Sacrament/Intervention _x__ Active listening ___ Anointing ___ Jain ___ Bereavement ___ Communion ___ Melony exploration ___ ___ Life review _x__ Prayer ___ Reconciliation ___ Sacrament of Sick _x__ Supportive presence ___ Wedding ___ Other (describe below) Pastoral Comments patient and spouse are welcoming of visit; pt was to have surgery today but it was postponed; pt is disappointed but understanding about the changes; pt has some nausea but RN was present to give new meds; pt and spouse welcome prayer; no other needs at this time
[2022-09-15] VITALS (17 sets, daily range): BP systolic 81–136; BP diastolic 50–85; PULSE 24–100; RESP 16–26; TEMP 36.8–37.4; O2SAT 90–95
[2022-09-15] MEDS: 0.9% Normal Saline 1,000 ML 150 ML IV (02:50)
--- NOTE | 2022-09-15 03:46 | CPS ---
Was unable to catch pt awake this evening to do his incentive spirometer.
[2022-09-15 04:46] LABS: Absolute Lymphocyte Count 1.48 X10^3/uL (0.83-4.51); Basophil# 0.01 X10^3/uL; Basophil% 0.1 % (0-1); Hemoglobin 12.8 g/dL (13.0-16.5); Lymphocyte # 1.48 X10^3/ul (0.83-4.51); Lymphocyte % 10.3 % (19-41); Mean Corpuscular Hgb 32.5 pg (27.0-32.0); Mean Corpuscular Volume 101.5 fL (80-94); Mean Platelet Vol. 9.8 fl (6.2-12.0); Monocyte# 0.67 X10^3/uL; Monocyte% 4.7 % (0-10); NRBC Flagged by Analyzer 0 % (0-5); Neutrophil % 83.5 % (47-70); Platelet Count 150 K/mm3 (150-450); RBC Distribution Width CV 14.1 % (11.6-14.6); RBC Distribution Width SD 52.9 fl (35.1-43.9); Red Blood Count 3.94 M/mm3 (4.6-6.2); White Blood Count 14.4 K/mm3 (4.4-11.0)
[2022-09-15 04:56] LABS: International Normalized Ratio 1.9; Prothrombin Time (Protime)PT. 21.7 SECONDS (11.7-14.9)
[2022-09-15 04:57] LABS: Partial Thromboplast Time 31.4 Seconds (24.1-36.2)
--- NOTE | 2022-09-15 05:27 | RAD_ITS ---
STUDY: X-RAY CHEST REASON FOR EXAM: Male, 77 years old patient with hypoxia. TECHNIQUE: Single AP portable view of the chest. COMPARISON: April 09, 2016. FINDINGS: Cardiac monitoring leads are present. Lungs are underexpanded. There is bilateral basilar subsegmental atelectasis. There is moderate elevation of the right hemidiaphragm which has increased since the previous study. There is no demonstrated pleural abnormality. Normal size heart. Normal mediastinum and royce. Normal visualized pulmonary arteries. There is atherosclerotic calcification of the aortic arch with tortuosity. There are diffuse degenerative changes of the visualized thoracic spine. There are degenerative changes of both shoulders. There is no demonstrated abnormality of the visualized soft tissue structures of the upper abdomen. RAD/Chest 1 View (Portable) IMPRESSION: Bilateral basilar subsegmental atelectasis. Electronically Signed: Concepcion Robison MD at 5:59 EST ,
[2022-09-15 05:33] LABS: ALB/GLOB Ratio 0.7 RATIO (0.9-2.4); AST(SGOT) 52 U/L (15-37); Alanine Aminotransfer ALT/SGPT 37 U/L (16-61); Albumin, Serum 2.2 g/dL (3.2-5.0); Alkaline Phosphatase 33 U/L (45-117); Anion Gap 10 (5-15); BUN 48 mg/dL (7-18); BUN/Creat Ratio 20.3 RATIO (10-20); Calcium,Total 7.5 mg/dL (8.5-10.1); Chloride 111 mmol/L (98-107); Creatinine, Serum 2.36 mg/dL (0.70-1.30); EST Glomerular Filtration Rate 29 mL/min (>60); Est Glom Filt Rate - Afr Amer 35 mL/min (>60); Estimated Creatinine Clearance 24.12 ml/min; Globulin 3.3 g/dL (2.2-4.2); Glucose 124 mg/dL (74-106); Magnesium 1.8 mg/dL (1.6-2.6); Phosphorus 3.9 mg/dL (2.5-4.9); Potassium 3.5 mmol/L (3.5-5.1); Protein, Total 5.5 g/dL (6.4-8.2); Sodium Level 139 mmol/L (136-145)
[2022-09-15] MEDS: Ondansetron 4 MG/2 ML Vial IV (07:48)
[2022-09-15] MEDS: 0.9% Saline Lock 10 ML Syringe IV ×4 (07:48→22:36)
--- NOTE | 2022-09-15 08:00 | CT_ITS ---
STUDY: PERCUTANEOUS CHOLECYSTOSTOMY. REASON FOR EXAM: Male, 77 years old. Cholecystostomy tube, cholecystitis on Eliquis -- please try to do in AM RADIATION DOSAGE (If Supplied By Facility): CTDIvol = ( 23 ) mGy, DLP = ( 666.31 ) mGycm. Individualized dose optimization techniques were used for this CT.? TECHNIQUE: The procedure as well as the benefits and possible complications including infection and bleeding were explained to the patient. Informed consent was obtained. Conscious sedation was performed. The patient received 2 mg of VERSED and 50 mcg of FENTANYL intravenously. Conscious sedation was started at 9:43 AM and terminated at 10:00 AM. The patient was independently monitored by the department nurse. The patient was in the supine position. The overlying skin was prepped and draped in the usual sterile manner. Following local anesthetic application, a 8 Polish percutaneous drainage catheter was placed into the gallbladder. 60 cc of dark bilious fluid was aspirated. The catheter was left in place to drain by gravity. The patient tolerated the procedure well. COMPARISON: Comparison is made with prior examination dated 09/13/2022. CT/CT Guidance Abscess Drg w/Cath IMPRESSION: Successful CT-guided percutaneous cholecystostomy with drainage catheter. 60 cc of dark bilious fluid was aspirated. Conscious sedation protocol was followed. The patient tolerated the procedure well. Electronically Signed: Rommel Duron MD at 10:24 EST ,
[2022-09-15] MEDS: Lactated Ringers 500 ML 999 ML IV (08:06)
[2022-09-15] MEDS: fentaNYL 100 MCG/2 ML Ampul IV (09:43)
[2022-09-15] MEDS: Midazolam 2 MG/2 ML Syringe IV (09:43)
[2022-09-15] MEDS: Lidocaine 2% (20 ml mdv) 20 ML Vial INFILT (09:54)
[2022-09-15] MEDS: 0.45% Normal Saline 1,000 ML 125 ML IV (11:56)
[2022-09-15] MEDS: Dorzolamide HCL/Timolol 10 ml Bottle 1 DRP EACH EYE (12:20)
[2022-09-15] MEDS: buPROPion 100 MG Tablet PO ×2 (12:21→22:11)
[2022-09-15] MEDS: Fluticasone 0.05% 1 SPRAY NASAL.SRY 2 SPRAY NASAL (12:21)
--- NOTE | 2022-09-15 13:30 | PN.SURG_ITS ---
Subjective Subjective Pt got cholecystostomy tube today. wbc down to 14 from 17 Objective Data Objective Data Vital Signs: Vital Signs Temp Pulse Resp BP Pulse Ox O2 Del Method O2 Flow Rate 99.0 F 90 20 H 81/61 L 93 Nasal Cannula 4 09/15/22 09:08 09/15/22 12:13 09/15/22 10:55 09/15/22 12:13 09/15/22 10:55 09/15/22 10:55 09/15/22 10:55 Oxygen Flow Rate (L/min) [4] 6 Oxygen Flow Rate (L/min) [3] 6 Oxygen Flow Rate (L/min) [2] 6 Oxygen Flow Rate (L/min) [1 ( 4 Initial Baseline)] Oxygen Flow Rate (L/min) 4 Oxygen Delivery Method [4] Nasal Cannula Oxygen Delivery Method [3] Nasal Cannula Oxygen Delivery Method [2] Nasal Cannula Oxygen Delivery Method [1 ( Nasal Cannula Initial Baseline)] Oxygen Delivery Method Nasal Cannula Weight: 173 lb 1.006 oz Body Mass Index (BMI) 27.1 Intake & Output: Intake and Output for Last 24 Hours 09/13/22 09/14/22 09/15/22 23:59 23:59 23:59 Intake Total 1100 / 1100 4235.00 / 4235.00 2800 / 2800 Output Total 50 / 50 Balance 1100 / 1100 4234.00 / 4234.00 2750 / 2750 Lab / Micro Data Result Diagrams: 09/15/22 03:58 09/15/22 03:58 Labs: Laboratory Results - last 24 hr 09/15/22 03:58: WBC 14.4 H, RBC 3.94 L, Hgb 12.8 L, Hct 40.0, MCV 101.5 H, MCH 32.5 H, MCHC 32.0, RDW Std Deviation 52.9 H, RDW Coeff of Rashad 14.1, Plt Count 150, MPV 9.8, Immature Gran % (Auto) 1.400 H, Neut % (Auto) 83.5 H, Lymph % (Auto) 10.3 L, [place] % (Auto) 4.7, Eos % (Auto) 0.0, Baso % (Auto) 0.1, Absolute Neuts (auto) 12.0 H, Absolute Lymphs (auto) 1.48, Nucleated RBC % 0 09/15/22 03:58: Sodium 139, Potassium 3.5, Chloride 111 H, Carbon Dioxide 18.0 L , Anion Gap 10, BUN 48 H, Creatinine 2.36 H, Estim Creat Clear Calc 24.12, Est GFR (MDRD) Af Amer 35 L, Est GFR (MDRD) Non-Af 29 L, BUN/Creatinine Ratio 20.3 H , Glucose 124 H, Calcium 7.5 L, Phosphorus 3.9, Magnesium 1.8, Total Bilirubin 0.70, AST 52 H, ALT 37, Alkaline Phosphatase 33 L, Total Protein 5.5 L, Albumin 2.2 L, Globulin 3.3, Albumin/Globulin Ratio 0.7 L 09/15/22 03:58: PT 21.7 H, INR 1.9, APTT 31.4 Micro: Microbiology 09/15/22 10:13 Aspirate - Abdominal Gram Stain - Final Radiography Diagnostic Testing: Radiology Impression Chest X-Ray 09/15/22 05:27 IMPRESSION: Bilateral basilar subsegmental atelectasis. Electronically Signed: Concepcion Robison MD at 5:59 EST , Abscess Drainage CT 09/15/22 08:00 IMPRESSION: Successful CT-guided percutaneous cholecystostomy with drainage catheter. 60 cc of dark bilious fluid was aspirated. Conscious sedation protocol was followed. The patient tolerated the procedure well. Electronically Signed: Rommel Duron MD at 10:24 EST , Physical Exam Const oriented x3 and no apparent distress Resp normal respiratory effort Cardio regular rate GI soft to palpation GI Narrative: ttp RUQ, cholecystostomy tube in place- dark bilious fluid in MIRI Assessment & Plan Assessment/Plan (1) Acute cholecystitis: (2) Chronic anticoagulation: (3) Leukocytosis: PLAN: Plan cholecystostomy tube placed in IR today, cx pending, continue IV zosyn- will likely d/c on augmentin. US GB reviewed personally and reviewed CTs and US with patient and family. Will d/c pt likely tomorrow with cholecystostomy tube and have him come back for an interval cholecystectomy. Pt was agreeable with plan. ok to restart que loco. Charges/Coding Visit Charges Inpatient E&M: 08280 Subs Hosp L3
--- NOTE | 2022-09-15 17:12 | PN.HOSP_ITS ---
Subjective Subjective Patient has returned from PERC colostomy tube placement. States his abdomen feels a little bit distended but no significant issues. Started on a diet but has not yet tried it. Reports that general surgery told him he could probably go home tomorrow if he is eating well. Objective Data Objective Data Vital Signs: Vital Signs Temp Pulse Resp BP Pulse Ox O2 Del Method O2 Flow Rate 98.4 F 89 18 119/76 95 Nasal Cannula 3 09/15/22 15:00 09/15/22 15:00 09/15/22 15:00 09/15/22 15:00 09/15/22 15:00 09/15/22 15:00 09/15/22 15:00 Oxygen Flow Rate (L/min) [4] 6 Oxygen Flow Rate (L/min) [3] 6 Oxygen Flow Rate (L/min) [2] 6 Oxygen Flow Rate (L/min) [1 ( 4 Initial Baseline)] Oxygen Flow Rate (L/min) 3 Oxygen Delivery Method [4] Nasal Cannula Oxygen Delivery Method [3] Nasal Cannula Oxygen Delivery Method [2] Nasal Cannula Oxygen Delivery Method [1 ( Nasal Cannula Initial Baseline)] Oxygen Delivery Method Nasal Cannula Weight: 78.5 kg Body Mass Index (BMI) 27.1 Intake & Output: Intake and Output for Last 24 Hours 09/13/22 09/14/22 09/15/22 23:59 23:59 23:59 Intake Total 1100 / 1100 4235.00 / 4235.00 2910 / 2910 Output Total 350 / 350 Balance 1100 / 1100 4234.00 / 4234.00 2560 / 2560 Lab / Micro Data Result Diagrams: 09/15/22 03:58 09/15/22 03:58 Labs: Laboratory Results - last 24 hr 09/15/22 03:58: WBC 14.4 H, RBC 3.94 L, Hgb 12.8 L, Hct 40.0, MCV 101.5 H, MCH 32.5 H, MCHC 32.0, RDW Std Deviation 52.9 H, RDW Coeff of Rashad 14.1, Plt Count 150, MPV 9.8, Immature Gran % (Auto) 1.400 H, Neut % (Auto) 83.5 H, Lymph % (Auto) 10.3 L, [place] % (Auto) 4.7, Eos % (Auto) 0.0, Baso % (Auto) 0.1, Absolute Neuts (auto) 12.0 H, Absolute Lymphs (auto) 1.48, Nucleated RBC % 0 09/15/22 03:58: Sodium 139, Potassium 3.5, Chloride 111 H, Carbon Dioxide 18.0 L , Anion Gap 10, BUN 48 H, Creatinine 2.36 H, Estim Creat Clear Calc 24.12, Est GFR (MDRD) Af Amer 35 L, Est GFR (MDRD) Non-Af 29 L, BUN/Creatinine Ratio 20.3 H , Glucose 124 H, Calcium 7.5 L, Phosphorus 3.9, Magnesium 1.8, Total Bilirubin 0.70, AST 52 H, ALT 37, Alkaline Phosphatase 33 L, Total Protein 5.5 L, Albumin 2.2 L, Globulin 3.3, Albumin/Globulin Ratio 0.7 L 09/15/22 03:58: PT 21.7 H, INR 1.9, APTT 31.4 Micro: Microbiology 09/15/22 10:13 Aspirate - Abdominal Gram Stain - Final Radiography Diagnostic Testing: Radiology Impression Chest X-Ray 09/15/22 05:27 IMPRESSION: Bilateral basilar subsegmental atelectasis. Electronically Signed: Concepcion Robison MD at 5:59 EST , Abscess Drainage CT 09/15/22 08:00 IMPRESSION: Successful CT-guided percutaneous cholecystostomy with drainage catheter. 60 cc of dark bilious fluid was aspirated. Conscious sedation protocol was followed. The patient tolerated the procedure well. Electronically Signed: Rommel Duron MD at 10:24 EST , Physical Exam Const alert, oriented x3, no apparent distress and well nourished Constitutional Narrative: Overweight, very pleasant, elderly, white male, lying in bed, appears comfortable and nontoxic, family at bedside HEENT head/scalp atraumatic and moist oral mucous membranes Head and Scalp: normocephalic Resp normal respiratory effort, no retractions, no use of accessory muscles and clear to auscultation bilaterally Auscultation: Negative for crackles, rales, rhonchi or wheezes Cardio regular rate, regular rhythm, S1 normal heart sound, S2 normal heart sound, no murmurs, no rub, no gallops and no clicks GI GI Narrative: Mild distention, bowel sounds are normal active, soft to palpation, mild tenderness around percutaneous colostomy tube site, drain in place with bile appearing fluid and drain Palpation: tender and guarding Extremity no clubbing, cyanosis or edema Extremity Narrative: 2+ pedal pulses Neuro oriented x3, moves all extremities and no focal motor deficits Speech: speech normal Psych affect normal Psych Narrative: Very pleasant Assessment & Plan Assessment/Plan (1) Acute cholecystitis: (2) Sepsis: (3) Lactic acidosis: (4) Leukocytosis: (5) Metabolic acidosis: PLAN: Plan Sepsis secondary to acute cholecystitis -CT of the abdomen and pelvis shows enlarging gallbladder with surrounding fluid as well as mild fluid-filled proximal small bowel loops -Patient received full fluid resuscitation at 30 cc/kg of body weight which would be 2.34 L on admission -Clear liquid diet per general surgery -Lactate has improved -Continue Zosyn -Percutaneous colostomy tube placed today -Plan for discharge home on Augmentin possibly tomorrow -Discontinue home lisinopril -White count is trending down Leukocytosis -Secondary to above -Improving -Cultures remain pending -Continue IV antibiotics with Zosyn SHAMAR on CKD stage IIIb -Baseline serum creatinine looks to be between 1.2 and 1.4 -Serum creatinine increased to 2.36 today -Suspect this is related to hypotension he had yesterday and contrast -Urine output is good -We will repeat BMP in a.m. and continue to hold nephrotoxins as able -If worsens may need further investigation -Continue IV fluids for now with half-normal saline but decrease rate to 75 cc/h Non anion gap metabolic acidosis -Likely related to hyperchloremia -Repeat BMP in a.m. -IV fluids changed from normal to half-normal saline CAD/HTN/HPL/PAF -Nonobstructive with no history of intervention -Continue home metoprolol -hold lisinopril -Continue home statin -Restart Eliquis this evening History of stroke -Eliquis on hold for intervention -Continue secondary prevention -No current issues BPH -Continue home Flomax Glaucoma -Continue home eyedrop ups Seasonal allergies -Continue home Singulair History of tobacco abuse -Continued cessation encouraged Anxiety/depression -Continue home bupropion CODE STATUS -Full code is verified on presentation Charges/Coding Visit Charges Inpatient E&M: 12503 Subs Hosp L2
[2022-09-15] MEDS: 0.45% Normal Saline 1,000 ML 75 ML IV (21:55)
[2022-09-15] MEDS: Tamsulosin HCl 0.4 MG Capsule PO (22:06)
[2022-09-15] MEDS: Metoprolol Tartrate 25 MG Tablet 12.5 MG PO (22:06)
[2022-09-15] MEDS: Atorvastatin Calcium 80 MG Tablet PO (22:06)
[2022-09-15] MEDS: Montelukast 10 MG Tablet PO (22:11)
[2022-09-15] MEDS: Latanoprost 0.005% 1 Bottle 1 DRP LEFT EYE (22:12)
[2022-09-15] MEDS: APIXABAN 5 MG TABLET PO (22:35)
[2022-09-15] MEDS: oxyCODONE 5 MG Tablet PO (22:36)
[2022-09-15] MEDS: Acetaminophen 325 MG Tablet 650 MG PO (22:37)
[2022-09-16] VITALS (7 sets, daily range): BP systolic 117–121; BP diastolic 58–79; PULSE 70–77; RESP 18–20; TEMP 36.4–36.7; O2SAT 90–94
[2022-09-16] MEDS: Acetaminophen 325 MG Tablet 650 MG PO (04:56)
[2022-09-16] MEDS: 0.9% Saline Lock 10 ML Syringe IV (04:57)
[2022-09-16] MEDS: Ondansetron 4 MG/2 ML Vial IV (04:57)
--- NOTE | 2022-09-16 05:16 | RAD_ITS ---
STUDY: X-RAY CHEST REASON FOR EXAM: Male, 77 years old. Shortness of breath and cough TECHNIQUE: Single AP portable view of the chest. COMPARISON: Yesterday FINDINGS: EKG leads overlie the chest. Stable elevation right hemidiaphragm. Lungs are aerated with bibasilar atelectasis, no interval change since the previous study. Normal size heart. Normal mediastinum and royce. Normal visualized pulmonary arteries. There is atherosclerotic calcification of the aortic arch with tortuosity. There are diffuse degenerative changes of the visualized thoracic spine. There is degenerative osteoarthritis of the bilateral shoulders. There is no demonstrated abnormality of the visualized soft tissue structures of the upper abdomen. RAD/Chest 1 View (Portable) IMPRESSION: No interval change Electronically Signed: Wilbur Luo MD at 11:41 EST ,
[2022-09-16 06:11] LABS: Absolute Lymphocyte Count 1.53 X10^3/uL (0.83-4.51); Absolute Neutrophil Count 8.8 X10^3/uL (2.0-7.7); Basophil# 0.01 X10^3/uL; Basophil% 0.1 % (0-1); Eosinophil# 0.01 X10^3/uL; Eosinophils% 0.1 % (0-5); Hematocrit 35.8 % (40-54); Hemoglobin 11.3 g/dL (13.0-16.5); Lymphocyte # 1.53 X10^3/ul (0.83-4.51); Lymphocyte % 13.7 % (19-41); Mean Corp Hgb Conc 31.6 g/dL (32-36); Mean Corpuscular Hgb 31.4 pg (27.0-32.0); Mean Corpuscular Volume 99.4 fL (80-94); Mean Platelet Vol. 9.8 fl (6.2-12.0); Monocyte# 0.66 X10^3/uL; Monocyte% 5.9 % (0-10); NRBC Flagged by Analyzer 0 % (0-5); Neutrophil # 8.82 X10^3/uL (2.7-7.7); Neutrophil % 79.2 % (47-70); Platelet Count 151 K/mm3 (150-450); RBC Distribution Width SD 51.4 fl (35.1-43.9); White Blood Count 11.1 K/mm3 (4.4-11.0)
[2022-09-16 06:38] LABS: ALB/GLOB Ratio 0.9 RATIO (0.9-2.4); AST(SGOT) 82 U/L (15-37); Alanine Aminotransfer ALT/SGPT 52 U/L (16-61); Albumin, Serum 2.2 g/dL (3.2-5.0); Alkaline Phosphatase 36 U/L (45-117); Anion Gap 7 (5-15); BUN 33 mg/dL (7-18); BUN/Creat Ratio 27.7 RATIO (10-20); Calcium,Total 7.3 mg/dL (8.5-10.1); Chloride 112 mmol/L (98-107); Creatinine, Serum 1.19 mg/dL (0.70-1.30); EST Glomerular Filtration Rate 63 mL/min (>60); Est Glom Filt Rate - Afr Amer 76 mL/min (>60); Estimated Creatinine Clearance 47.83 ml/min; Globulin 2.5 g/dL (2.2-4.2); Glucose 97 mg/dL (74-106); Potassium 3.3 mmol/L (3.5-5.1); Protein, Total 4.7 g/dL (6.4-8.2); Sodium Level 141 mmol/L (136-145)
[2022-09-16] MEDS: Dorzolamide HCL/Timolol 10 ml Bottle 1 DRP EACH EYE (07:59)
[2022-09-16] MEDS: Potassium Chloride Oral Tablet 20 MEQ 40 MEQ PO (07:59)
[2022-09-16] MEDS: buPROPion 100 MG Tablet PO (08:00)
[2022-09-16] MEDS: Fluticasone 0.05% 1 SPRAY NASAL.SRY 2 SPRAY NASAL (08:00)
[2022-09-16] MEDS: Metoprolol Tartrate 25 MG Tablet 12.5 MG PO (08:00)
[2022-09-16] MEDS: APIXABAN 5 MG TABLET PO (08:01)
--- NOTE | 2022-09-16 10:01 | PCM.PN.SRG ---
Subjective Subjective States abdominal pain is improving. Jina tube in place draining bilious fluid. Objective Data Objective Data Vital Signs: Vital Signs Temp Pulse Resp BP Pulse Ox O2 Del Method O2 Flow Rate 98.1 F 73 18 121/79 H 92 Room Air 2 09/16/22 09:10 09/16/22 09:10 09/16/22 09:10 09/16/22 09:10 09/16/22 09:10 09/16/22 09:10 09/16/22 03:08 Oxygen Flow Rate (L/min) [4] 6 Oxygen Flow Rate (L/min) [3] 6 Oxygen Flow Rate (L/min) [2] 6 Oxygen Flow Rate (L/min) [1 ( 4 Initial Baseline)] Oxygen Flow Rate (L/min) 2 Oxygen Delivery Method [4] Nasal Cannula Oxygen Delivery Method [3] Nasal Cannula Oxygen Delivery Method [2] Nasal Cannula Oxygen Delivery Method [1 ( Nasal Cannula Initial Baseline)] Oxygen Delivery Method Room Air Weight: 180 lb 5.41 oz Body Mass Index (BMI) 27.1 Intake & Output: Intake and Output for Last 24 Hours 09/14/22 09/15/22 09/16/22 23:59 23:59 23:59 Intake Total 4235.00 / 4235.00 4070.00 / 4270.00 480 / 480 Output Total 650 / 665 Balance 4234.00 / 4234.00 3420.00 / 3605.00 458 / 458 Lab / Micro Data Result Diagrams: 09/16/22 04:44 09/16/22 04:44 Labs: Laboratory Results - last 24 hr 09/16/22 04:44: WBC 11.1 H, RBC 3.60 L, Hgb 11.3 L, Hct 35.8 L, MCV 99.4 H, MCH 31.4, MCHC 31.6 L, RDW Std Deviation 51.4 H, RDW Coeff of Rashad 14.0, Plt Count 151, MPV 9.8, Immature Gran % (Auto) 1.000 H, Neut % (Auto) 79.2 H, Lymph % (Auto) 13.7 L, Walker % (Auto) 5.9, Eos % (Auto) 0.1, Baso % (Auto) 0.1, Absolute Neuts (auto) 8.8 H, Absolute Lymphs (auto) 1.53, Nucleated RBC % 0 09/16/22 04:44: Sodium 141, Potassium 3.3 L, Chloride 112 H, Carbon Dioxide 22.0, Anion Gap 7, BUN 33 H, Creatinine 1.19, Estim Creat Clear Calc 47.83, Est GFR (MDRD) Af Amer 76, Est GFR (MDRD) Non-Af 63, BUN/Creatinine Ratio 27.7 H, Glucose 97, Calcium 7.3 L, Total Bilirubin 0.80, AST 82 H, ALT 52, Alkaline Phosphatase 36 L, Total Protein 4.7 L, Albumin 2.2 L, Globulin 2.5, Albumin/Globulin Ratio 0.9 Micro: Microbiology 09/15/22 10:13 Aspirate - Abdominal Gram Stain - Final 09/15/22 10:13 Aspirate - Abdominal Wound Culture - Preliminary No growth-Final to follow 09/15/22 12:30 Nasal Secretion SARS-CoV-2 Antigen (Rapid) - Final Radiography Diagnostic Testing: Radiology Impression Abscess Drainage CT 09/15/22 08:00 IMPRESSION: Successful CT-guided percutaneous cholecystostomy with drainage catheter. 60 cc of dark bilious fluid was aspirated. Conscious sedation protocol was followed. The patient tolerated the procedure well. Electronically Signed: Rommel Duron MD at 10:24 EST , Physical Exam Const oriented x3 and no apparent distress Resp normal respiratory effort Cardio regular rate GI soft to palpation GI Narrative: mild RUQ, cholecystostomy tube in place- dark bilious fluid in MIRI Assessment & Plan Assessment/Plan (1) Acute cholecystitis: (2) Chronic anticoagulation: (3) Leukocytosis: PLAN: Plan Tolerating fulls-- okay for regular diet at home. cholecystostomy tube placed in IR today, cx pending, place patient on Augmentin 875 g p.o. twice daily x10 days Patient will follow-up in office as scheduled for September 23, 2022 and will discuss interval laparoscopic cholecystectomy during this time. Patient's family understands how to take care of the cholecystostomy tube will report output and bring to office. Also sent in a prescription for Oxy IR. Continue on Eliquis until appointment with we will discuss when he needs to stop prior to surgery. Jennifer Keller M.D. Pager: [phone] [facility] [address] [place] [address], [facility], [address] [place] [id number] Office: [phone] Charges/Coding Visit Charges Inpatient E&M: 93938 Subs Hosp L3
--- NOTE | 2022-09-16 13:11 | DCINST_ITS ---
Discharge Instructions Diet Discharge Diet: No restrictions Activity Discharge Activity: May Shower (Keep right upper abdomen drain site clean and dry, okay for lower shower) Dressing / Incision Call your doctor if your incision/area has: Continuous Slow Oozing, Sudden Increased Bleeding, Increased Pain/ Swelling and Swelling at the incision site Call your doctor if you observe: Fever of 101 or Higher Remove Dressing in: do not remove dressing Follow Up Care Please Follow Up With: Jennifer Keller MD When: Patient has follow-up appointment on September 23, 2022 already--MIRI log to appointment Test Results: Test results from this visit will be discussed in further detail at your follow- up appointment, if applicable. Discharge Plan Admission Admit Date/Time: 09/13/22 20:38 Attending Provider: Anastacio Pham Primary Care Provider: Fidencio Benson Consulting Providers: Jennifer Keller ; Beatrice Dave ; Marie Escalante Instructions Patient Instructions: Jay Dickinson Drain Tube Dc, JED KUMAR Procedural Sedation Discharge Orders/Prescriptions Prescriptions: New oxycodone 5 mg capsule 5 mg PO Q6H PRN (Reason: pain) 3 Days Qty: 10 0RF amoxicillin-pot clavulanate 875-125 mg tablet 1 tab PO BID Qty: 20 0RF Continued rosuvastatin 40 mg tablet 40 mg PO DAILY latanoprost 1 DROP bottle 1 drp LEFT EYE QHS bupropion HCl 100 MG tablet 100 mg PO BID tamsulosin 0.4 MG capsule 0.4 mg PO QHS coenzyme Q10 100 MG capsule 100 mg PO DAILY multivitamin Tablet 1 tab PO DAILY dorzolamide-timolol 22.3-6.8 mg/mL drops 1 drp EACH EYE DAILY montelukast 10 mg tablet 10 mg PO QHS zolpidem 5 mg tablet 2.5 mg PO QHS PRN (Reason: Sleep) fluticasone propionate 50 mcg/actuation spray,suspension 2 spray INTRANASAL DAILY lisinopril 10 mg tablet 10 mg PO QHS metoprolol tartrate 25 mg tablet 12.5 mg PO BID Eliquis 5 mg tablet 5 mg PO BID Referrals / Follow Up: Fidencio Benson MD [Primary Care Provider] - Disposition Disposition (needs filled in before D/C Order can be placed): Home, Self Care
--- NOTE | 2022-09-16 13:44 | DS.PCM_ITS ---
Providers Date of Admission: 09/13/22 Date of Discharge: 09/16/22 Primary Care Physician: Dr. Fidencio Benson MD Consultations 09/13/22 23:47 Consult: General Surgery Routine Consulting Provider: Jennifer Keller Reason for Consult: Acute cholecystitis, peritonitis, sepsis EMERGENT Consult: No MD Notified: Yes Date Notified: 09/13/22 Time Notified: 20:41 Method of Notification: called Reason For Visit: ACUTE CHOLECYSTITIS,SEPSIS Diagnosis Discharge Diagnosis (1) Acute cholecystitis: Status: Acute Code(s): K81.0 - Acute cholecystitis (2) Chronic anticoagulation: Status: Acute Code(s): Z79.01 - adjunct faculty for medical terminology (current) use of anticoagulants (3) Leukocytosis: Status: Acute Code(s): D72.829 - Elevated white blood cell count, unspecified Plan 1. Sepsis secondary to acute cholecystitis #2 acute cholecystitis #3 acute kidney injury on a backdrop of chronic kidney disease stage IIIb #4 coronary artery disease #5 cerebrovascular disease #6 paroxysmal atrial fibrillation Medications at Discharge Home Medications bupropion HCl 100 mg tablet 100 mg PO BID DEPRESSION 12/31/15 coenzyme Q10 100 mg capsule 100 mg PO DAILY SUPPLEMENT 12/31/15 latanoprost 0.005 % eye drops 1 drp LEFT EYE QHS GLAUCOMA 12/31/15 tamsulosin 0.4 mg capsule 0.4 mg PO QHS PROSTATE 12/31/15 rosuvastatin 40 mg tablet 40 mg PO DAILY CHOLESTEROL 10/19/21 apixaban 5 mg tablet (Eliquis) 5 mg PO BID BLOOD THINNER 09/13/22 dorzolamide 22.3 mg-timolol 6.8 mg/mL eye drops 1 drp EACH EYE DAILY eye health 09/13/22 fluticasone propionate 50 mcg/actuation nasal spray,suspension 2 spray intranasal DAILY NASAL CONGESTION 09/13/22 lisinopril 10 mg tablet 10 mg PO QHS BLOOD PRESSURE 09/13/22 metoprolol tartrate 25 mg tablet 12.5 mg PO BID BLOOD PRESSURE 09/13/22 montelukast 10 mg tablet 10 mg PO QHS ALLERGIES 09/13/22 multivitamin 1 tab PO DAILY SUPPLEMENT 09/13/22 zolpidem 5 mg tablet 2.5 mg PO QHS PRN Sleep 09/13/22 amoxicillin 875 mg-potassium clavulanate 125 mg tablet 1 tab PO BID #20 tabs 09/16/22 oxycodone 5 mg capsule 5 mg PO Q6H PRN pain 3 days #10 caps 09/16/22 Hospital Course Operations None Procedures - (Percutaneous cholecystostomy) Summary of Care Provided Minutes Spent on Discharge: 32 Hospital Course: 77-year-old white male was seen in the emergency room at [facility] with complaints of worsening abdominal pain with abdominal distention. He denied any vomiting or diarrhea but did admit to nausea. Patient was given IV morphine and Dilaudid for his abdominal pain, CT of the abdomen with contrast was performed and he was noted to have a distended gallbladder, laboratory studies were reviewed and were unremarkable. During the time the emergency room, his condition worsened and he exhibited peritoneal findings, repeat CBC showed a doubling of patient's white blood cell count, CT of the abdomen was obtained with IV contrast, it revealed a distended gallbladder with evidence of ascitic fluid, there was increased haziness in the gallbladder suspicious for acute cholecystitis. Blood cultures were obtained and the patient was given IV antibiotics, general surgery was contacted and the patient was admitted to PCU for acute sepsis secondary to cholecystitis. Gallbladder ultrasound showed multiple gallstones within the mildly thickened gallbladder wall and a dilated common bile duct. On 09/15/2022, patient underwent abscess draining under CT guidance in interventional radiology. Patient tolerated the procedure well. The following day patient was seen and examined on 09/16/2022: On examination he appeared in good health and spirits. Vital signs as documented. Skin warm and dry and without overt rashes. Neck without JVD, neck was supple, trachea midline, thyroid was normal. Lungs clear bilaterally, normal air movement was noted. Heart exam notable for regular rhythm, normal sounds and absence of murmurs, rubs or gallops. Abdomen unremarkable and without evidence of organomegaly, masses, or abdominal aortic enlargement. Bowel sounds are present, abdomen is not distended. Extremities nonedematous, no cyanosis was noted, no clubbing was noted. Neuro: Cranial nerves II through XII are grossly intact, no focal motor deficits were noted, sensation to light touch and pinprick intact, motor exam 5/5 throughout. Psych: Patient is alert and oriented x3, he does not appear anxious or depressed, he does not appear agitated. Patient appears stable for discharge on 09/16/2022, patient was discharged home Weight / BMI Weight Weight: 81.8 kg Body Mass Index (BMI) 27.1 ABG / Lab / Microbiology Data Result Diagrams: 09/16/22 04:44 09/16/22 04:44 Laboratory: Laboratory Results - last 24 hr 09/16/22 04:44: WBC 11.1 H, RBC 3.60 L, Hgb 11.3 L, Hct 35.8 L, MCV 99.4 H, MCH 31.4, MCHC 31.6 L, RDW Std Deviation 51.4 H, RDW Coeff of Rashad 14.0, Plt Count 151, MPV 9.8, Immature Gran % (Auto) 1.000 H, Neut % (Auto) 79.2 H, Lymph % (Auto) 13.7 L, [place]as % (Auto) 5.9, Eos % (Auto) 0.1, Baso % (Auto) 0.1, Absolute Neuts (auto) 8.8 H, Absolute Lymphs (auto) 1.53, Nucleated RBC % 0 09/16/22 04:44: Sodium 141, Potassium 3.3 L, Chloride 112 H, Carbon Dioxide 22.0, Anion Gap 7, BUN 33 H, Creatinine 1.19, Estim Creat Clear Calc 47.83, Est GFR (MDRD) Af Amer 76, Est GFR (MDRD) Non-Af 63, BUN/Creatinine Ratio 27.7 H, Glucose 97, Calcium 7.3 L, Total Bilirubin 0.80, AST 82 H, ALT 52, Alkaline Phosphatase 36 L, Total Protein 4.7 L, Albumin 2.2 L, Globulin 2.5, Albumin/Globulin Ratio 0.9 Microbiology: Microbiology 09/13/22 18:40 Blood Culture (Wb) - Left Forearm Blood Culture - Preliminary No growth in 48 hours. 09/13/22 18:45 Blood Culture (Wb) - Right Wrist Blood Culture - Preliminary No growth in 48 hours. 09/15/22 10:13 Aspirate - Abdominal Gram Stain - Final 09/15/22 10:13 Aspirate - Abdominal Wound Culture - Preliminary No growth-Final to follow 09/15/22 12:30 Nasal Secretion SARS-CoV-2 Antigen (Rapid) - Final Radiography Diagnostic Testing: Radiology Impression Chest X-Ray 09/16/22 05:16 IMPRESSION: No interval change Electronically Signed: Wilbur Luo MD at 11:41 EST , D/C Instructions Discharge Diet: No restrictions Weight Bearing Status: Full weight bearing Call your doctor if your incision/area has: Continuous Slow Oozing, Sudden Increased Bleeding, Increased Pain/ Swelling and Swelling at the incision site Call your doctor if you observe: Fever of 101 or Higher Please Follow Up With: Jennifer Keller MD When: Patient has follow-up appointment on September 23, 2022 already--MIRI log to appointment Meaningful Use Info Meaningful Use Diagnoses (Choose all that apply): None applicable Discharge Plan Admission Admit Date/Time: 09/13/22 20:38 Primary Reason for Your Visit: Cholecystitis Attending Provider: Anastacio Pham Primary Care Provider: Fidencio Benson Consulting Providers: Jennifer Keller ; Beatrice Dave ; Marie Escalante Instructions Patient Instructions: Jay Dickinson Drain Tube Rony, JED KUMAR Procedural Sedation Discharge Orders/Prescriptions Prescriptions: New oxycodone 5 mg capsule 5 mg PO Q6H PRN (Reason: pain) 3 Days Qty: 10 0RF amoxicillin-pot clavulanate 875-125 mg tablet 1 tab PO BID Qty: 20 0RF Continued rosuvastatin 40 mg tablet 40 mg PO DAILY latanoprost 1 DROP bottle 1 drp LEFT EYE QHS bupropion HCl 100 MG tablet 100 mg PO BID tamsulosin 0.4 MG capsule 0.4 mg PO QHS coenzyme Q10 100 MG capsule 100 mg PO DAILY multivitamin Tablet 1 tab PO DAILY dorzolamide-timolol 22.3-6.8 mg/mL drops 1 drp EACH EYE DAILY montelukast 10 mg tablet 10 mg PO QHS zolpidem 5 mg tablet 2.5 mg PO QHS PRN (Reason: Sleep) fluticasone propionate 50 mcg/actuation spray,suspension 2 spray INTRANASAL DAILY lisinopril 10 mg tablet 10 mg PO QHS metoprolol tartrate 25 mg tablet 12.5 mg PO BID Eliquis 5 mg tablet 5 mg PO BID Referrals / Follow Up: Fidencio Benson MD [Primary Care Provider] - Within 2 Weeks Jennifer Keller MD [Med Staff - Active Staff] - See Referral Note (as directed) Disposition Disposition (needs filled in before D/C Order can be placed): Home, Self Care Charges/Coding Visit Charges Inpatient E&M: 06845 Disch Hosp >30min
--- NOTE | 2022-09-16 14:47 | CASEMGMT ---
Patient has order for discharge. RN CM to follow-up with regarding discharge needs. Patient denies needs at discharge. Patient had no further questions or concerns at this.
== END 2022-09-16 15:11 | disposition home or self-care (01) | DRG 872 ==
LOC: ED 20:58 → PCU 22:22
PROVIDERS: Internal Medicine; Surgery; Admitting Provider Family Medicine; Emergency Provider Emergency Medicine; PCP Family Medicine; Visit Provider Internal Medicine
DX: A41.9 Sepsis, unspecified organism (principal); K80.62 Calculus of gallbladder and bile duct with acute cholecystitis without obstruction; N17.9 Acute kidney failure, unspecified; E87.20 Acidosis, unspecified; K83.8 Other specified diseases of biliary tract; I48.0 Paroxysmal atrial fibrillation; N18.32 Chronic kidney disease, stage 3b; I25.10 Atherosclerotic heart disease of native coronary artery without angina pectoris; E78.5 Hyperlipidemia, unspecified; I12.9 Hypertensive chronic kidney disease with stage 1 through stage 4 chronic kidney disease, or unspecified chronic kidney disease; E87.8 Other disorders of electrolyte and fluid balance, not elsewhere classified; F41.9 Anxiety disorder, unspecified; J30.2 Other seasonal allergic rhinitis; F32.A Depression, unspecified; N40.1 Benign prostatic hyperplasia with lower urinary tract symptoms; R39.15 Urgency of urination; H40.9 Unspecified glaucoma; Z90.49 Acquired absence of other specified parts of digestive tract; Z79.01 Long term (current) use of anticoagulants; Z79.899 Other long term (current) drug therapy; Z86.73 Personal history of transient ischemic attack (TIA), and cerebral infarction without residual deficits; Z87.891 Personal history of nicotine dependence
CPT/HCPCS: 36415; 71045; 74177; 75989; 76705; 80048; 80053; 80076; 81001; 82150; 83605; 83690; 83735; 84100; 85025; 85610; 85730; 87040; 87070; 87075; 87205; 87426; 93005; 94668; 96361; 96374; 96375; 96376; 99156; 99252; 99283; 99284; J7030; J7050; J7120; Q9967; A4216; G0463; J2405

== ENCOUNTER 2022-10-07 09:29 | Observation (INO) | payer MEDICARE, SELFPAY ==
[2022-10-07] VITALS (14 sets, daily range): BP systolic 114–147; BP diastolic 78–94; PULSE 66–83; RESP 16–18; TEMP 36.4–36.7; O2SAT 92–100; BMI 26.7
--- NOTE | 2022-10-07 | IMM_PTH ---
PATIENT: JAY JFEFERSON LOC: MS3 U#:[id number] AGE/SX: 77/M ROOM: [facility] [place] RE10/07/[address]: Dr. Jennifer Keller MD : 1945 BED: 1 DIS: 10/08/2022 SPEC #: [id number] RECD: 10/11/22 12:34 STATUS: MARY REQ #: [id number] EVER: 10/07/22 00:[address]: Jennifer Keller DEPT: IMMUNOHISTOCHEMISTRY RECD BY: Nina Hernández ENTERED: 10/11/22 12:38 SP TYPE: IMMUNO OTHR DR: Dr. Fidencio Benson MD Tissues: A - Gallbladder, NOS Procedures: RCC (add) NAPSIN A (add) CK20 (add) CK5-6 (add) CK7 (add) CK8 (add) HEP PAR (add) TTF1 (add) Pankeratin (initial) P40 (add) PSAP (add) Comments: @ Specimen number changed from [id number] to [id number] @ on 10/11/22 at 1246 by RGOOD. PHYSICIAN & [place] [id number] SPECIMEN INFORMATION: Tissue Source: A ? Posterior wall gallbladder Clinical Info: Acute cholecystitis Specimen Number: [id number] CPT code: 98614, 03350 x10 METHODOLOGY: Deparaffinized sections of prefer/formalin-fixed tissue or PAP/DQ stained slides are incubated with monoclonal/polyclonal antibodies/oligonucleotide probes. Localization is made via biotin free immunoperoxidase method. Appropriate controls are performed and reacted as expected. Results on target cell population are indicated in the following table: RESULTS: ANTIBODY / CLONE RESULT Block A AE1-3 (AE1/AE3/PCK26) positive CK7 (OV-TL12/30) positive CK8 (93aitmV14) positive CK20 (KS20.8) negative TTF-1 (8G7G3/1) negative Napsin A (Rabbit Polyclonal) negative HepPar (OCh1E5) negative RCC (PN-15) negative PSAP (PASE/4LJ) negative CK5-6 (D5 & 1684) positive P40 (BC28) positive These tests were developed and their performance characteristics determined by [facility]. They may not have been cleared or approved by the U.S. Food and Drug Administration. The FDA has determined that such clearance or approval is not necessary. The above immunohistochemical/dualISH markers are ordered and reviewed by the Pathologist. INTERPRETATION: A. 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 See comment. SJ:viktoria 10/12/2022 Comment: IHC profile favors adenosquamous carcinoma and primary includes but not limited to gallbladder, pancreas, upper gastrointestinal tract or lung. Clinical correlation is necessary. Case has been reviewed in consultation with Dr. Cabrera who concurs with the above diagnosis. IDC:AM
--- NOTE | 2022-10-07 | GALL_PTH ---
PATIENT: JAY JEFFERSON LOC: MS3 U#:[id number] AGE/SX: 77/M ROOM: [facility] RE10/07/[address]: Dr. Jennifer Keller MD : 1945 BED: 1 DIS: 10/08/2022 SPEC #: [id number] RECD: 10/07/22 09:02 STATUS: MARY REJojo #: [id number] EVER: 10/07/22 00:[address]: Jennifer Keller DEPT: SURGICAL PATHOLOGY RECD BY: Nina Hernández ENTERED: 10/07/22 09:54 SP TYPE: AYDE BORGES DR: Dr. Fidencio Benson MD Tissues: A - Gallbladder, NOS B - Gallbladder, NOS Procedures: Frozen Section (charge) Surgery Specimen Level III Surgery Specimen Level IV HEADER OPERATION: Laparoscopic cholecystectomy PRE-OP DIAGNOSIS: Acute cholecystitis TISSUE SUBMITTED: A ? Posterior wall of gallbladder, frozen section, B ? Gallbladder anterior wall FROZEN SECTION DIAGNOSIS A. Posterior wall gallbladder, biopsy: Negative for carcinoma. SJ:rg 10/07/2022 MICROSCOPIC DIAGNOSIS A. 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 See comment. B. Gallbladder anterior wall, biopsy: Portion of gallbladder wall with extensive necrosis and acute and chronic inflammation. A piece of adipose tissue with chronic inflammation, histiocytic reaction and foreign body giant cell reaction. SJ:rg 10/12/2022 COMMENT A. Immunohistochemistry ([id number]) supports the above diagnosis. IHC profile favors adenosquamous carcinoma and primary includes but not limited to gallbladder, pancreas, upper gastrointestinal tract or lung. Clinical correlation is necessary. Frozen section slides are reviewed again and negative for carcinoma. This case was discussed with Dr. Keller on 10/11/2022. Case has been reviewed in consultation with Dr. Cabrera who concurs with the above diagnosis. IDC:AM MICROSCOPIC DESCRIPTION Slides are reviewed. GROSS DESCRIPTION A - Received fresh for frozen section diagnosis labeled with the patient's name is a specimen designated posterior wall of gallbladder. The specimen consists of a fragment of torres soft tissue measuring 0.5 x 0.3 x 0.1 cm. The entire specimen is submitted for frozen section diagnosis in one cassette. / SJ:viktoria 10/07/2022 B - Received in fixative is one container labeled with the patient's name and designated gallbladder anterior wall. The specimen consists of a congested piece of tissue consistent with gallbladder wall measuring 4.0 x 3.5 x 0.3 cm. No mass lesion is identified. Also present in the container are two detached pieces of adipose tissue measuring in aggregate 3.5 x 3.0 x 0.5 cm. Sections do not reveal any mass lesion. [employer] sections from the gallbladder wall and adipose tissue are submitted in one cassette. / SJ:viktoria 10/10/2022 TC:0 CPT: 37770, 45349, 79428
[2022-10-07] MEDS: Lactated Ringers 1,000 ML 15 ML IV ×2 (06:15→08:15)
--- NOTE | 2022-10-07 06:30 | EKG12_ITS ---
Test Reason : PRE-OP Blood Pressure : / mmHG Vent. Rate : 077 BPM Atrial Rate : 077 BPM P-R Int : 198 ms QRS Dur : 094 ms QT Int : 386 ms P-R-T Axes : 046 014 043 degrees QTc Int : 436 ms Normal sinus rhythm Normal ECG When compared with ECG of 14-SEP-2022 05:48, No significant change was found Confirmed by AMAURI FRAGOSO, CHRISTEN ([id number]), state editor KELSI BURGOS ([id number]) on 10/11/2022 11:17:10 AM Referred By: Jennifer Keller Confirmed By:CHRISTEN BAUGH MD
--- NOTE | 2022-10-07 07:13 | HP.PCM_ITS ---
History and Physical Date of Admission: 10/07/22 Date of Service:? 09/23/22 MR#: [id number] Acct: [id number] Name:? JAY JEFFERSON Rep #: [id number] : 1945 ? ? Provider: Dr. Jennifer Keller MD Age/Sex:? 77/M ? ? Location: [facility] Status: Signed Intake Vital Signs ? 09/14/2310:42 Height 5 ft 7 in Intake Visit Reasons:?[facility] f/u? cholecystostomy tube09/16 Chief Complaint: Abdominal pain Allergies No Known Allergies Allergy (Verified 09/23/22 09:01) Medications bupropion HCl 100 mg tablet 100 mg PO BID DEPRESSION 12/31/15 [History Confirmed 09/23/22] coenzyme Q10 100 mg capsule 100 mg PO DAILY SUPPLEMENT 12/31/15 [History Confirmed 09/23/22] latanoprost 0.005 % eye drops 1 drp LEFT EYE QHS GLAUCOMA 12/31/15 [History Confirmed 09/23/22] tamsulosin 0.4 mg capsule 0.4 mg PO QHS PROSTATE 12/31/15 [History Confirmed 09/23/22] rosuvastatin 40 mg tablet 40 mg PO DAILY CHOLESTEROL 10/19/21 [History Confirmed 09/23/22] apixaban 5 mg tablet (Eliquis) 5 mg PO BID BLOOD THINNER 09/13/22 [History Confirmed 09/23/22] dorzolamide 22.3 mg-timolol 6.8 mg/mL eye drops 1 drp EACH EYE DAILY eye health 09/13/22 [History Confirmed 09/23/22] fluticasone propionate 50 mcg/actuation nasal spray,suspension 2 spray intranasal DAILY NASAL CONGESTION 09/13/22 [History Confirmed 09/23/22] lisinopril 10 mg tablet 10 mg PO QHS BLOOD PRESSURE 09/13/22 [History Confirmed 09/23/22] metoprolol tartrate 25 mg tablet 12.5 mg PO BID BLOOD PRESSURE 09/13/22 [History Confirmed 09/23/22] montelukast 10 mg tablet 10 mg PO QHS ALLERGIES 09/13/22 [History Confirmed 09/23/22] multivitamin 1 tab PO DAILY SUPPLEMENT 09/13/22 [History Confirmed 02/03/23] zolpidem 5 mg tablet 2.5 mg PO QHS PRN Sleep 09/13/22 [History Confirmed 09/23/22] PFSH Medical History?(Updated 09/23/22 @ 12:[address] Jennifer Keller MD) Benign essential hypertension Depression Hyperlipidemia Ischemic cerebrovascular accident (CVA) (09/2016) Nonobstructive atherosclerosis of coronary artery Paroxysmal atrial fibrillation Stage 3b chronic kidney disease (CKD) Surgical History? H/O repair of left rotator cuff (01/2018) History of appendectomy History of carpal tunnel release History of cataract surgery History of herniorrhaphy History of right and left heart catheterization (02/08/02) Family History? Mother CAD (coronary artery disease) HypertensionBrother CAD (coronary artery disease)Sister CAD (coronary artery disease) Social History?(Updated 09/14/22 @ 00:05 by Klaudia Singh) household members:? spouse housing:? house number of children:? 3 current occupational status:? retired pets and animals:? No Smoking Status:? Former smoker alcohol intake:? current alcohol intake frequency: holidays/special occasions only substance use type:? does not use caffeine:? Yes Type: coffee Number of servings: 2 what type of physical activity do you participate in:? other details: [employer] HPI HPI HPI: 77 y/o M presents for f/u from hospitalization for acute cholecystitis s/p cholecystostomy tube placement.? Pt is on eliquis due to afib and hx of stroke.? Pt states RUQ has resolved and he is almost done with his augmentin, which he was d/c home with.? Pt ari PO, MIRI has been draining about 5-10 cc daily bilious.? Pt did go to radiology as the original sticker used to secure the cholecystostomy tube was causing blisters- it was removed the tape was placed to secure. Exam Const General: cooperative, healthy appearing and no acute distress HENMT Head: normal to inspection Resp Effort & Inspection: normal respiratory effort Cardio Rate: regular rate GI Inspection: non-distended Palpation: soft, no guarding, no hernias and nontender Other: Cholecystostomy tube in placed- bilious; dressing changed in office--prev. blisters from original sticker used to secure tube healing. Skin General: no rashes or lesions noted Neuro General: patient oriented x3 Extrem General: no clubbing, cyanosis or edema Psych Affect: normal affect Assessment and Plan Assessment and Plan (1) Acute cholecystitis: ?Status:?Resolved ?Comment: Status post cholecystostomy tube placement (2) History of cholecystitis: ?Status:?Acute ?Comment: with cholecystostomy tube in place (3) History of atrial fibrillation: ?Status:?Acute Plan Patient denies any right upper quadrant pain.? Patient still completing his antibiotics from hospitalization.? Patient's drain is putting out about 5-10 cc of brownish bile daily.? We will schedule patient for laparoscopic cholecystectomy sometime the week of October 03.? We will have patient stop his Eliquis 3 days prior. Reviewed the anatomy with the patient and discussed the procedure: laparoscopic cholecystectomy with possible cholangiograms, possible open. Review risks including but not limited to bleeding, infection, hernia, bile leak, retained gallstones requiring another procedure ERCP- Endoscopic Retrograde Cholangiopancreatography, injury to another organ (bile ducts, common bile duct, small bowel, etc.) and conversion to an subtotal or open procedure. All questions were answered. Jennifer Keller M.D. Pager: [phone] [facility] [address] [place] [address], [address] [place] [address] Office: [phone] Coding Level of Care Code Off vis,est,level 4 Diagnoses Acute cholecystitis? K81.0 History of cholecystitis? Z87.19 History of atrial fibrillation? Z86.79 09/23/22 2314 <Electronically signed by Jennifer Keller MD> Date Jennifer Keller MD
[2022-10-07] MEDS: Cefotetan 2 GM in 0.9% NS 100 ML IV (07:35)
[2022-10-07] MEDS: Bacitracin 500 UNITS/GM PACKET (09:22)
--- NOTE | 2022-10-07 09:24 | PCM.OPRPT ---
Report of Operation Date of Procedure: 10/07/22 Pre-Operative Diagnosis: Acute cholecystitis status post cholecystostomy tube Post-Operative Diagnosis: Same Surgery/Procedure Performed:: Laparoscopic subtotal cholecystectomy with MIRI placement Surgeon: Jennifer Keller Type of Anesthesia: General/Supplemental Anesthesiologist: Mo Barth Special Medications: Cefotetan 2 g IV x1 Specimen's removed: 1. Frozen section posterior gallbladder wall, #2 anterior gallbladder wall Estimated Blood Loss (mL): 40 cc Description of Procedure: Indications: this is a 77 year-old male who developed abdominal pain/nausea/vomiting and on workup was found to have acute cholecystitis, cholelithiasis, with a normal common bile duct status post cholecystostomy tube placement due to time of presentation and Eliquis. Laparoscopic cholecystectomy was elected. Description procedure: The patient was placed on operating table in supine position. A timeout was completed verifying correct patient, procedure, site, position and special equipment prior to beginning procedure. General Anesthesia was induced. The abdomen was prepped and draped in usual sterile fashion. An incision was made in the natural skin line above the umbilicus. The fascia was elevated and incised. The peritoneum was elevated and incised. Entry into the peritoneum was confirmed visually and no bowel was noted in the vicinity of the incision. Diop trocar was placed. The abdomen was insufflated with carbon dioxide to a pressure of 12-15 mmHg. Patient tolerated insufflation well. The laparoscope was then inserted and abdomen inspected. No injuries from initial trocar placement were noted. Additional trochars were then inserted in the following locations 5 mm trocar in the epigastrium and 2 more 5 mm trochars along the right costal margin. The abdomen was inspected no abnormalities were found. The table is placed in reverse Trendelenburg position with the right side up. The omentum was densely adherent to the liver and gallbladder. Harmonic was used to carefully dissect. Transverse colon was also seen adherent in this area careful to stay away from the colon. The dome of the gallbladder was grasped with atraumatic grasper passed through the lateral port and retracted over the dome of the liver. There is a very thick adherent rind to the gallbladder wall which was carefully removed until towards the neck of the gallbladder there are still very dense adhesions decided to convert to a subtotal cholecystectomy. There was some nodular thick posterior gallbladder mucosa at the infundibulum some was excisioned for frozen. Frozen only showed inflammation. Harmonic was used to divide the gallbladder wall. Small black gallstones were suctioned or collected an endoscopic retrieval bag. The posterior wall of the gallbladder and mucosa the infundibulum of the gallbladder was coagulated with the [place]. No bile was currently seen during the case. The gallbladder then dissected from its peritoneal attachments by electrocautery. Hemostasis was checked and the gallbladder anterior wall and stones were removed using the endoscopic retrieval bag through the umbilical port. The gallbladder is passed off table as specimen. The gallbladder fossa was irrigated with saline and hemostasis obtained. There is no evidence of bleeding from the gallbladder fossa or cystic artery leakage of bile from the cystic duct stump. 15 Indonesian MIRI was placed through the lateral right trocar site into the gallbladder fossa. This was sutured with 3-0 nylon suture. Secondary trochars removed under direct vision. No bleeding was noted the trocar sites. The laparoscope was withdrawn and umbilical trocar removed. The abdomen was allowed to collapse. The fascia of the 12 mm trocar was closed with a [id number] 0 Vicryl suture. The skin was closed with sutures of 4-0 Monocryl and Steri-Strips. The patient was extubated. The patient tolerated procedure well and was taken to the postanesthesia care unit in stable condition. Complications none
[2022-10-07] MEDS: Bupivacaine 0.5% PF 10 ML VIAL ×2 (09:25)
[2022-10-07] MEDS: 0.9% Normal Saline 1,000 ML 100 ML IV (12:02)
[2022-10-07] MEDS: Fluticasone 0.05% 1 SPRAY NASAL.SRY 2 SPRAY NASAL (13:04)
[2022-10-07] MEDS: Dorzolamide HCL/Timolol 10 ml Bottle 1 DRP EACH EYE (13:05)
[2022-10-07] MEDS: Tamsulosin HCl 0.4 MG Capsule PO (21:16)
[2022-10-07] MEDS: Atorvastatin Calcium 80 MG Tablet PO (21:16)
[2022-10-07] MEDS: Lisinopril 10 MG Tablet PO (21:16)
[2022-10-07] MEDS: Metoprolol Tartrate 25 MG Tablet 12.5 MG PO (21:16)
[2022-10-07] MEDS: Latanoprost 0.005% 1 Bottle 1 DRP LEFT EYE (21:17)
[2022-10-07] MEDS: Acetaminophen 325 MG Tablet 650 MG PO (22:27)
[2022-10-07] MEDS: oxyCODONE 5 MG Tablet PO (22:28)
[2022-10-08] MEDS: 0.9% Normal Saline 1,000 ML 100 ML IV (00:42)
[2022-10-08 00:43] VITALS: BP 115/78; PULSE 79; RESP 16; TEMP 36.9; O2SAT 92
[2022-10-08 05:08] VITALS: BP 124/85; PULSE 73; RESP 16; TEMP 36.7; O2SAT 94
[2022-10-08 05:35] LABS: Absolute Lymphocyte Count 2.32 X10^3/uL (0.83-4.51); Absolute Neutrophil Count 6.3 X10^3/uL (2.0-7.7); Basophil# 0.01 X10^3/uL; Basophil% 0.1 % (0-1); Eosinophil# 0.01 X10^3/uL; Eosinophils% 0.1 % (0-5); Hematocrit 35.2 % (40-54); Hemoglobin 11.2 g/dL (13.0-16.5); Lymphocyte # 2.32 X10^3/ul (0.83-4.51); Lymphocyte % 24.2 % (19-41); Mean Corp Hgb Conc 31.8 g/dL (32-36); Mean Corpuscular Hgb 31.1 pg (27.0-32.0); Mean Corpuscular Volume 97.8 fL (80-94); Mean Platelet Vol. 9.2 fl (6.2-12.0); Monocyte# 0.93 X10^3/uL; Monocyte% 9.7 % (0-10); NRBC Flagged by Analyzer 0 % (0-5); Neutrophil # 6.29 X10^3/uL (2.7-7.7); Neutrophil % 65.6 % (47-70); Platelet Count 153 K/mm3 (150-450); RBC Distribution Width CV 12.9 % (11.6-14.6); RBC Distribution Width SD 46.6 fl (35.1-43.9); White Blood Count 9.6 K/mm3 (4.4-11.0)
[2022-10-08 06:10] LABS: AST(SGOT) 31 U/L (15-37); Alanine Aminotransfer ALT/SGPT 34 U/L (16-61); Albumin, Serum 2.5 g/dL (3.2-5.0); Alkaline Phosphatase 38 U/L (45-117); Anion Gap 6 (5-15); BUN 19 mg/dL (7-18); BUN/Creat Ratio 16.2 RATIO (10-20); Calcium,Total 8.2 mg/dL (8.5-10.1); Chloride 109 mmol/L (98-107); Creatinine, Serum 1.17 mg/dL (0.70-1.30); EST Glomerular Filtration Rate 64 mL/min (>60); Est Glom Filt Rate - Afr Amer 77 mL/min (>60); Estimated Creatinine Clearance 48.65 ml/min; Glucose 103 mg/dL (74-106); Potassium 3.6 mmol/L (3.5-5.1); Protein, Total 5.5 g/dL (6.4-8.2); Sodium Level 141 mmol/L (136-145)
--- NOTE | 2022-10-08 07:26 | PCM.PN.SRG ---
Subjective Subjective Patient tolerating regular diet states he is feeling well. MIRI is serosanguineous. Objective Data Objective Data Vital Signs: Vital Signs Temp Pulse Resp BP Pulse Ox O2 Del Method O2 Flow Rate 98.1 F 73 16 124/85 H 94 Room Air 2 10/08/22 05:08 10/08/22 05:08 10/08/22 05:08 10/08/22 05:08 10/08/22 05:08 10/08/22 05:08 10/07/22 13:19 Oxygen Flow Rate (L/min) 2 Oxygen Delivery Method Room Air Weight: 170 lb 12.8 oz Body Mass Index (BMI) 26.7 Intake & Output: Intake and Output for Last 24 Hours 10/06/22 10/07/22 10/08/22 23:59 23:59 23:59 Intake Total 1313.67 / 1313.67 1660 / 1660 Output Total 52 / 52 10 / 10 Balance 1261.67 / 1261.67 1650 / 1650 Lab / Micro Data Result Diagrams: 10/08/22 05:14 10/08/22 05:14 Labs: Laboratory Results - last 24 hr 10/08/22 05:14: WBC 9.6, RBC 3.60 L, Hgb 11.2 L, Hct 35.2 L, MCV 97.8 H, MCH 31.1, MCHC 31.8 L, RDW Std Deviation 46.6 H, RDW Coeff of Rashad 12.9, Plt Count 153, MPV 9.2, Immature Gran % (Auto) 0.300, Neut % (Auto) 65.6, Lymph % (Auto) 24.2, West[place] % (Auto) 9.7, Eos % (Auto) 0.1, Baso % (Auto) 0.1, Absolute Neuts (auto) 6.3, Absolute Lymphs (auto) 2.32, Nucleated RBC % 0 10/08/22 05:14: Sodium 141, Potassium 3.6, Chloride 109 H, Carbon Dioxide 26.0, Anion Gap 6, BUN 19 H, Creatinine 1.17, Estim Creat Clear Calc 48.65, Est GFR (MDRD) Af Amer 77, Est GFR (MDRD) Non-Af 64, BUN/Creatinine Ratio 16.2, Glucose 103, Calcium 8.2 L, Total Bilirubin 0.40, Direct Bilirubin 0.10, AST 31, ALT 34, Alkaline Phosphatase 38 L, Total Protein 5.5 L, Albumin 2.5 L, Globulin 3.0 Physical Exam Resp normal respiratory effort Cardio regular rate GI GI Narrative: Abdomen: Soft, nondistended, tender near incision's dressed clean dry and intact, no peritoneal signs, MIRI sanguinous/serous Assessment & Plan Assessment/Plan (1) S/P laparoscopic cholecystectomy: PLAN: Plan Patient is tolerating diet drain still remains sanguinous likely this will continue as patient was having minimal out of his cholecystostomy tube for the last several days. Plan to DC home with the drain and have patient come back on Monday for evaluation of the drain and likely removal. Patient will let us know if it changes over the weekend and becomes more of a brown or green color. We will stop antibiotics. Jennifer Keller M.D. Pager: [phone] [facility] [address] [place] [address], [facility], [address] [place] [address] Office: [phone]
[2022-10-08 07:37] VITALS: O2SAT 94
--- NOTE | 2022-10-08 08:29 | DCINST_ITS ---
Discharge Instructions Diet Discharge Diet: Light diet - advance as tolerated Activity Discharge Activity: May Not Drive (while taking narcotic pain medications.) May shower in (days): 1 Lifting Restrictions: no lifting >20 lbs x 2 wks, no strenuous exercise for 4 wks Dressing / Incision Call your doctor if your incision/area has: Continuous Slow Oozing, Sudden Increased Bleeding, Increased Pain/ Swelling, Increased Redness, Foul Smelling Discharge, Swelling at the incision site and - Call your doctor if you observe: Fever of 101 or Higher and - (Change in color of the MIRI to brown or green color like previous bile. Drain may change to light pink/yellow that is normal.) Remove Dressing in: 2 days Cleanse incision/area with: Soap & Water Drain: Suction (Keep MIRI to suction by folding the bulb, strip MIRI tubing 2-3 times daily, change MIRI dressing as needed, record MIRI output and color on a log.) Additional Dressing/Incision Instructions:: Steri-Strips will fall off in 7 to 10 days, if they do not fall off okay to remove after 10 days. Follow Up Care Please Follow Up With: Jennifer Keller MD When: Call the office for a follow-up appointment Monday?10/10/2022 at 1145; after 5 PM and on the weekends call [phone] with any concerns. Test Results: Test results from this visit will be discussed in further detail at your follow- up appointment, if applicable. Discharge Plan Admission Admit Date/Time: 10/07/22 09:29 Attending Provider: Jennifer Keller Primary Care Provider: Fidencio Benson Discharge Orders/Prescriptions Prescriptions: Continued rosuvastatin 40 mg tablet 40 mg PO DAILY latanoprost 1 DROP bottle 1 drp LEFT EYE QHS bupropion HCl 100 MG tablet 100 mg PO BID tamsulosin 0.4 MG capsule 0.4 mg PO QHS coenzyme Q10 100 MG capsule 100 mg PO DAILY multivitamin Tablet 1 tab PO DAILY dorzolamide-timolol 22.3-6.8 mg/mL drops 1 drp EACH EYE DAILY montelukast 10 mg tablet 10 mg PO QHS zolpidem 5 mg tablet 2.5 mg PO QHS PRN (Reason: Sleep) fluticasone propionate 50 mcg/actuation spray,suspension 2 spray INTRANASAL DAILY lisinopril 10 mg tablet 10 mg PO QHS metoprolol tartrate 25 mg tablet 12.5 mg PO BID Held Eliquis 5 mg tablet 5 mg PO BID Hold Instructions: Hold until after follow-up appointment on 10/10/2022 Referrals / Follow Up: Fidencio Benson MD [Primary Care Provider] - Disposition Disposition (needs filled in before D/C Order can be placed): Home, Self Care
[2022-10-08 09:00] VITALS: BP 135/83; PULSE 76; RESP 18; TEMP 36.7; O2SAT 94
[2022-10-08 09:34] VITALS: BP 135/83; PULSE 76
[2022-10-08] MEDS: Metoprolol Tartrate 25 MG Tablet 12.5 MG PO (09:34)
[2022-10-08] MEDS: buPROPion 100 MG Tablet PO (09:34)
[2022-10-08] MEDS: Dorzolamide HCL/Timolol 10 ml Bottle 1 DRP EACH EYE (09:35)
--- NOTE | 2022-10-08 10:06 | CASEMGMT ---
STACY CM in to discuss LOCO form with patient. RN CM explained LOCO form, patient voiced understanding. Pt signed form and filed in chart. Pt provided with a copy of signed LOCO form. Patient had no further questions or concerns at this time.
== END 2022-10-08 11:09 | disposition home or self-care (01) ==
LOC: MS3 10-08 08:31
PROVIDERS: Admitting Provider Surgery; PCP Family Medicine; Referring Provider Surgery; Visit Provider Surgery
PROC: (CPT 47610; principal; 2022-10-07 07:10)
DX: K80.12 Calculus of gallbladder with acute and chronic cholecystitis without obstruction (principal); C23 Malignant neoplasm of gallbladder; I48.0 Paroxysmal atrial fibrillation; N18.32 Chronic kidney disease, stage 3b; Z86.73 Personal history of transient ischemic attack (TIA), and cerebral infarction without residual deficits; Z87.891 Personal history of nicotine dependence; F32.A Depression, unspecified; E78.5 Hyperlipidemia, unspecified; I12.9 Hypertensive chronic kidney disease with stage 1 through stage 4 chronic kidney disease, or unspecified chronic kidney disease; I25.10 Atherosclerotic heart disease of native coronary artery without angina pectoris; Z79.899 Other long term (current) drug therapy; Z79.01 Long term (current) use of anticoagulants
CPT/HCPCS: 47562; 00790; 36415; 80048; 80076; 85025; 88304; 88305; 88331; 88341; 88342; 93005; 94668; 96361; 96365; 96366; 99221; 99252; J7030; J7120; G0378; G0463; J0330; J2405

== ENCOUNTER 2022-12-22 08:57 | Inpatient (IN) | payer MEDICARE, SELFPAY ==
[2022-12-22 08:59] VITALS: BP 129/90; PULSE 74; RESP 14; TEMP 36.6; O2SAT 98; BMI 25.3
--- NOTE | 2022-12-22 09:31 | EDS_ITS ---
HPI History of Present Illness Chief Complaint: Nausea/Vomiting Detail of Chief Complaint: Abdominal fullness with nausea and vomiting Informant: patient and spouse/S.O. Onset/Context/Timing Onset: Days (Past 2 days) Context: Sudden Onset Timing: Intermittent Quality: Fullness Location: Abdomen Current Severity: Mild Maximum Severity: Mild Worsened by: Nothing Relieved by: Nothing Associated Symptoms Associated Symptoms: Nausea and vomiting without blood or coffee-ground appearing emesis Narrative Narrative: Patient is a 77-year-old male with history of adenosquamous carcinoma of the gallbladder who presents from primary care office because of jaundice that patient was not aware of. He went to the office for nausea and vomiting. He vomited once yesterday and once today. He is on no antiemetic. He denies fever, chills night sweats. He denies hematemesis. His stool may be dark but not black or maroon. He denies bruising easily. He is not on anticoagulant. He does have history of atrial fibrillation, however. He does endorse 10 pound weight loss since September. He denies back pain. He denies swelling of his lower extremities. informed that he was sent to [facility] to have the posterior wall of his gallbladder removed which was adherent to the liver with a section of the liver removed. There was no evidence of cancer in the liver. Patient was admitted in September for acute cholecystitis. The gallbladder cancer was an incidental finding. Dr. Delgadillo's note was reviewed for the September admission. Prior similar symptoms: No Recent Illness/Hospitalization: Yes [facility] Medical History (Updated 12/22/22 @ 10:[address] Ervin Farrar MD) Benign essential hypertension Cardiology follow-up encounter Depression Depression Former smoker Gallbladder cancer, carcinoma High cholesterol History of atrial fibrillation History of echocardiogram History of stress test Hyperlipidemia Hypertension Ischemic cerebrovascular accident (CVA) (09/2016) Nonobstructive atherosclerosis of coronary artery Paroxysmal atrial fibrillation Peritonitis Prostate disease Stage 3b chronic kidney disease (CKD) Stroke/cerebrovascular accident Home Medications bupropion HCl 100 mg tablet 100 mg PO BID DEPRESSION 12/31/15 [History Last Taken 10/07/22] coenzyme Q10 100 mg capsule 100 mg PO DAILY SUPPLEMENT 12/31/15 [History Last Taken 09/12/22] latanoprost 0.005 % eye drops 1 drp LEFT EYE QHS GLAUCOMA 12/31/15 [History Last Taken 09/12/22] tamsulosin 0.4 mg capsule 0.4 mg PO QHS PROSTATE 12/31/15 [History Last Taken 09/12/22] rosuvastatin 40 mg tablet 40 mg PO DAILY CHOLESTEROL 10/19/21 [History Last Taken 09/12/22] apixaban 5 mg tablet (Eliquis) 5 mg PO BID BLOOD THINNER 09/13/22 [History Last Taken 09/13/22] dorzolamide 22.3 mg-timolol 6.8 mg/mL eye drops 1 drp EACH EYE DAILY eye health 09/13/22 [History Last Taken 09/12/22] fluticasone propionate 50 mcg/actuation nasal spray,suspension 2 spray intranasal DAILY NASAL CONGESTION 09/13/22 [History Last Taken Unknown] lisinopril 10 mg tablet 10 mg PO QHS BLOOD PRESSURE 09/13/22 [History Last Taken 09/12/22] metoprolol tartrate 25 mg tablet 12.5 mg PO BID BLOOD PRESSURE 09/13/22 [History Last Taken 10/07/22] montelukast 10 mg tablet 10 mg PO QHS ALLERGIES 09/13/22 [History Last Taken 09/12/22] multivitamin 1 tab PO DAILY SUPPLEMENT 09/13/22 [History Last Taken 09/12/22] zolpidem 5 mg tablet 2.5 mg PO QHS PRN Sleep 09/13/22 [History Last Taken Unknown] Allergy/AdvReac Type Severity Reaction Status Date / Time No Known Allergies Allergy Verified 12/22/22 08:59 Family History Mother CAD (coronary artery disease) Hypertension Brother CAD (coronary artery disease) Sister CAD (coronary artery disease) Surgical History (Updated 12/22/22 @ 10:[address] Jennifer Keller MD) H/O repair of left rotator cuff (01/2018) History of appendectomy History of cardiac catheterization History of carpal tunnel release History of cataract surgery History of herniorrhaphy History of resection of liver History of right and left heart catheterization (02/08/02) Hx of left knee surgery S/P laparoscopic cholecystectomy Social History household members: spouse housing: house number of children: 3 current occupational status: retired pets and animals: No Smoking Status: Former smoker alcohol intake: current alcohol intake frequency: holidays/special occasions only substance use type: does not use caffeine: Yes Type: coffee Number of servings: 2 what type of physical activity do you participate in: other details: [employer] ROS ROS ED Constitutional Constitutional ED: Denies chills, fever(s), subjective, sweats or weight loss Eyes Eyes: Denies blurry vision, change in vision or diplopia ENT ENT ED: Denies ear pain, rhinorrhea or sore throat Cardiovascular Cardiovascular: Denies chest pain, palpitations or racing heartbeat Respiratory/Chest Respiratory/Chest: Denies cough, dyspnea or dyspnea on exertion Gastrointestinal Gastrointestinal: Reports abdominal pain, constipation, nausea and vomiting; Denies diarrhea or melena Genitourinary Genitourinary ED: Denies dysuria, hematuria or urinary frequency Musculoskeletal Musculoskeletal: Denies arthralgias, back pain, myalgias or neck pain Integumentary Denies rash Neurologic Neurologic: Denies headache(s), paresthesias or weakness Endocrine Endocrinology: Denies cold intolerance or heat intolerance Hematologic/Lymphatic Hematologic/Lymphatic: Reports systems reviewed and no addt'l complaints, except as documented EXAM Physical Exam Const Vital Signs: 12/22/22 08:59 Temperature 98 F Temperature Source Temporal Pulse Rate 74 Respiratory Rate 14 Blood Pressure 129/90 H Blood Pressure Mean 103 Pulse Ox 98 Oxygen Delivery Method Room Air Positive well nourished and well developed General Appearance ED: well developed and NAD; Negative for cyanotic, diaphoretic or pallor HEENT Reports dry mucous membranes HEENT Narrative: Head is atraumatic normocephalic. Ears normal. Nares patent. Mucosa is dry. Uvula is midline. Posterior pharynx is normal. Mouth ED: Yes dry mucous membranes Mouth: dry mucous membranes Eyes PERRL and EOMs intact bilaterally General Eye ED: Yes scleral icterus; Negative for pale conjunctiva Neck no lymphadenopathy, supple and no JVD Chest Wall inspection of chest normal and palpation of chest normal Resp normal respiratory effort and clear to auscultation bilaterally Cardio regular rate, regular rhythm, S1 normal heart sound, S2 normal heart sound and no murmurs GI non-tender and no masses; Negative for non-distended or hepatosplenomegaly GI Narrative: There is slight tympany to percussion. Auscultation: hypoactive bowel sounds Palpation: soft Back/Spine no CVA tenderness Extremity normal to inspection General Extremety ED: Negative for edema or tenderness General Extremity: Negative for edema Neuro oriented x3, CN's II-XII intact bilaterally and no sensory deficits noted Sensorium / Orientation: alert Psych mental status grossly normal Skin no rashes or lesions noted, no wounds and skin turgor normal General Skin Exam: jaundice; Negative for pallor MDM MDM MDM Narrative Medical decision making narrative: With history of adenosquamous carcinoma of the gallbladder patient now appearing jaundice will need to evaluate for possible metastasis versus retained stone which is unlikely since he is having no pain. After discussion with Dr. Delgadillo will obtain CT of the abdomen pelvis with IV contrast. History & Record Review Additional record(s) reviewed:: Prior inpatient record and Prior labs Lab Data Attestation: I reviewed the patient's lab results. Lab results narrative: CBC is unremarkable. Comprehensive metabolic panel is remarkable for a total bili of 4.9 with a direct of 4.18. AST and ALT are elevated 421 and 769 respectively. Alkaline phosphatase elevated 449. These are all new findings from prior lab results. Labs: Laboratory Results - last 24 hr 12/22/22 12/22/22 09:30 09:30 WBC 5.8 RBC 4.30 L Hgb 13.3 Hct 40.9 MCV 95.1 H MCH 30.9 MCHC 32.5 RDW Std Deviation 56.0 H RDW Coeff of Rashad 15.9 H Plt Count 239 MPV 9.6 Immature Gran % (Auto) 0.200 Neut % (Auto) 54.0 Lymph % (Auto) 33.9 [place] % (Auto) 11.1 H Eos % (Auto) 0.3 Baso % (Auto) 0.5 Absolute Neuts (auto) 3.1 Absolute Lymphs (auto) 1.96 Nucleated RBC % 0 Sodium 139 Potassium 3.7 Chloride 104 Carbon Dioxide 24.0 Anion Gap 11 BUN 22 H Creatinine 1.13 Estim Creat Clear Calc 50.37 Est GFR (MDRD) Af Amer 81 Est GFR (MDRD) Non-Af 67 BUN/Creatinine Ratio 19.5 Glucose 115 H Calcium 9.6 Total Bilirubin 4.90 H Direct Bilirubin 4.18 H AST 421 H ALT 769 H Alkaline Phosphatase 449 H Total Protein 6.9 Albumin 3.2 Globulin 3.7 Lipase 54 Radiography Diagnostic Testing: Clinical Impression(s) from Imaging Studies Abdomen/Pelvis CT 12/22/22 10:15 IMPRESSION: Intrahepatic biliary ductal dilatation with the findings suggestive of a 2.6 cm x 2.4 cm soft tissue mass in the region of the blossom hepatis suggestive of either a neoplastic process versus enlargement of lymph nodes. Findings in keeping with metastatic disease in the liver. Electronically Signed: Rommel Duron MD at 10:43 EDT , CT of the abdomen reveals metastasis to liver. Formal read is pending. Dr. Delgadillo was made aware of findings. She is in agreement. She will talk to the patient. She is requesting admission to medical service. She will consult Dr. Almonte since he is not on-call for the ER. Also will need to consult oncology. She will speak with Dr. Almonte regarding pain and MRCP and possible decompression. Rhythm Strip Rhythm Strip: Sinus Rhythm Rate: 77 Ectopy: None Management Discussion w/another healthcare provider: Hospitalist, Applications Engineering Manager and Radiologi st Treatment and Re-Evaluation :: Patient not a candidate for endoscopy since he took his Eliquis this morning. Discharge Plan Dx/Rx/DC Orders Clinical Impression: Adenosquamous carcinoma of gallbladder, Benign essential hypertension, Nonobstructive atherosclerosis of coronary artery, Hyperlipidemia, Cancer, metastatic to liver, Painless jaundice Disposition Disposition: Acute Care Hospital [facility]
[2022-12-22] MEDS: Ondansetron 4 MG/2 ML Vial IV (09:34)
[2022-12-22] MEDS: 0.9% Normal Saline 1,000 ML 1000 ML IV (09:34)
[2022-12-22 09:39] LABS: Absolute Lymphocyte Count 1.96 X10^3/uL (0.83-4.51); Absolute Neutrophil Count 3.1 X10^3/uL (2.0-7.7); Basophil# 0.03 X10^3/uL; Basophil% 0.5 % (0-1); Eosinophil# 0.02 X10^3/uL; Eosinophils% 0.3 % (0-5); Hematocrit 40.9 % (40-54); Hemoglobin 13.3 g/dL (13.0-16.5); Lymphocyte # 1.96 X10^3/ul (0.83-4.51); Lymphocyte % 33.9 % (19-41); Mean Corp Hgb Conc 32.5 g/dL (32-36); Mean Corpuscular Hgb 30.9 pg (27.0-32.0); Mean Corpuscular Volume 95.1 fL (80-94); Mean Platelet Vol. 9.6 fl (6.2-12.0); Monocyte# 0.64 X10^3/uL; Monocyte% 11.1 % (0-10); NRBC Flagged by Analyzer 0 % (0-5); Neutrophil # 3.13 X10^3/uL (2.7-7.7); Platelet Count 239 K/mm3 (150-450); RBC Distribution Width CV 15.9 % (11.6-14.6); White Blood Count 5.8 K/mm3 (4.4-11.0)
[2022-12-22 09:55] LABS: AST(SGOT) 421 U/L (15-37); Alanine Aminotransfer ALT/SGPT 769 U/L (16-61); Albumin, Serum 3.2 g/dL (3.2-5.0); Alkaline Phosphatase 449 U/L (45-117); Anion Gap 11 (5-15); BUN 22 mg/dL (7-18); BUN/Creat Ratio 19.5 RATIO (10-20); Bilirubin, Direct 4.18 mg/dL (0.00-0.30); Calcium,Total 9.6 mg/dL (8.5-10.1); Chloride 104 mmol/L (98-107); Creatinine, Serum 1.13 mg/dL (0.70-1.30); EST Glomerular Filtration Rate 67 mL/min (>60); Est Glom Filt Rate - Afr Amer 81 mL/min (>60); Estimated Creatinine Clearance 50.37 ml/min; Globulin 3.7 g/dL (2.2-4.2); Glucose 115 mg/dL (74-106); Lipase 54 U/L (13-75); Potassium 3.7 mmol/L (3.5-5.1); Protein, Total 6.9 g/dL (6.4-8.2); Sodium Level 139 mmol/L (136-145)
--- NOTE | 2022-12-22 10:15 | CT_ITS ---
STUDY: CT ABDOMEN AND PELVIS WITH CONTRAST REASON FOR EXAM: Male, 77 years old. Jaundice history of adenosquamous carcinoma gall. The patient is status post partial cholecystectomy. RADIATION DOSAGE (If Supplied By Facility): CTDIvol = ( 16.19 ) mGy, DLP = ( 675.28 ) mGycm TECHNIQUE: Transaxial images were obtained from the dome of the diaphragm to the symphysis pubis without oral contrast. IV 100mL Isovue-300 was administered. Sagittal and coronal images were reconstructed. Individualized dose optimization techniques were used for this CT. COMPARISON: Comparison is made with prior examination dated September 13, 2022. FINDINGS: The visualized lung bases are unremarkable. Coronary artery calcification. There is decreased attenuation of the liver consistent with steatosis. There now is evidence of a scattered hypodense nodules in both lobes of the liver suggestive of metastatic disease as compared to prior study. The patient is status post partial cholecystectomy. There is evidence of dilated intra and extrahepatic biliary ducts. There is evidence of a 2.6 x 2.4 cm rounded soft tissue mass in the blossom hepatis suggestive of a either a mass lesion versus periportal adenopathy. Normal spleen. Normal pancreas. Normal bilateral adrenal glands. Normal right kidney. Normal left kidney. Normal visualized stomach. Normal small intestine. There are multiple colonic diverticula consistent with diverticulosis. The appendix is visualized and appears normal. There is diffuse atherosclerotic calcification of the abdominal aorta, without a demonstrated aneurysm. Normal inferior vena cava. Normal retroperitoneum. Normal urinary bladder. There is a small umbilical hernia containing fat. Small left inguinal hernia containing fat. There are degenerative changes of the visualized lumbar spine. CT/Abdomen/Pelvis W IV Cont ONLY IMPRESSION: Intrahepatic biliary ductal dilatation with the findings suggestive of a 2.6 cm x 2.4 cm soft tissue mass in the region of the blossom hepatis suggestive of either a neoplastic process versus enlargement of lymph nodes. Findings in keeping with metastatic disease in the liver. Electronically Signed: Rommel Duron MD at 10:43 EDT ,
--- NOTE | 2022-12-22 10:56 | EX.PCM.CON.S ---
Assessment & Plan Assessment/Plan (1) Painless jaundice: (2) Gallbladder cancer, carcinoma: (3) S/P laparoscopic cholecystectomy: (4) History of resection of liver: PLAN: Plan Reviewed CT abdomen pelvis with the patient. Read is currently pending. However there is evidence of liver metastasis overnight and they are in August. Patient also has dilated intrahepatic bile ducts. Patient will be admitted to medicine plan to consult oncology as well as discussed with GI. Plan for an MRCP to see if the biliary obstruction can be resolved with a possible ERCP. Patient did take his Eliquis this morning. Jennifer Keller M.D. Pager: [phone] [facility] [address] [place] [address], [facility], [address] [place] [address] Office: [phone] HPI Consult Data Date of Consult: 12/23/22 HPI Narrative HPI Narrative: JAY JEFFERSON, is a 77 M who presents to the ER due to nausea and vomiting and jaundice. Patient did have some nausea and vomiting on Monday as well as Monday did go see her PCP who sent them to the ER due to the jaundice. Patient is well-known to me had a subtotal cholecystectomy along with biopsy in September however initially the biopsy on frozen which showed inflammation near the neck of the gallbladder, but on frozen it showed a focal area of non-small cell carcinoma. Patient was then sent to see hepatobiliary surgeon at [facility] who did a liver resection/remove the posterior wall of the gallbladder. Pathology did not show any cancer only fibrosis and operative changes/thermal reaction--negative for malignancy. Patient CT abdomen pelvis does show evidence of liver metastasis she did not have back in August of this year. Patient does appear to have biliary obstruction due to bilirubin being almost 5. [facility] Medical History (Updated 12/22/22 @ 10:[address] Ervin Farrar MD) Benign essential hypertension Cardiology follow-up encounter Depression Depression Former smoker Gallbladder cancer, carcinoma High cholesterol History of atrial fibrillation History of echocardiogram History of stress test Hyperlipidemia Hypertension Ischemic cerebrovascular accident (CVA) (09/2016) Nonobstructive atherosclerosis of coronary artery Paroxysmal atrial fibrillation Peritonitis Prostate disease Stage 3b chronic kidney disease (CKD) Stroke/cerebrovascular accident Home Medications bupropion HCl 100 mg tablet 100 mg PO BID DEPRESSION 12/31/15 [History Last Taken 10/07/22] coenzyme Q10 100 mg capsule 100 mg PO DAILY SUPPLEMENT 12/31/15 [History Last Taken 09/12/22] latanoprost 0.005 % eye drops 1 drp LEFT EYE QHS GLAUCOMA 12/31/15 [History Last Taken 09/12/22] tamsulosin 0.4 mg capsule 0.4 mg PO QHS PROSTATE 12/31/15 [History Last Taken 09/12/22] rosuvastatin 40 mg tablet 40 mg PO DAILY CHOLESTEROL 10/19/21 [History Last Taken 09/12/22] apixaban 5 mg tablet (Eliquis) 5 mg PO BID BLOOD THINNER 09/13/22 [History Last Taken 09/13/22] dorzolamide 22.3 mg-timolol 6.8 mg/mL eye drops 1 drp EACH EYE DAILY eye health 09/13/22 [History Last Taken 09/12/22] fluticasone propionate 50 mcg/actuation nasal spray,suspension 2 spray intranasal DAILY NASAL CONGESTION 09/13/22 [History Last Taken Unknown] lisinopril 10 mg tablet 10 mg PO QHS BLOOD PRESSURE 09/13/22 [History Last Taken 09/12/22] metoprolol tartrate 25 mg tablet 12.5 mg PO BID BLOOD PRESSURE 09/13/22 [History Last Taken 10/07/22] montelukast 10 mg tablet 10 mg PO QHS ALLERGIES 09/13/22 [History Last Taken 09/12/22] multivitamin 1 tab PO DAILY SUPPLEMENT 09/13/22 [History Last Taken 09/12/22] zolpidem 5 mg tablet 2.5 mg PO QHS PRN Sleep 09/13/22 [History Last Taken Unknown] Allergy/AdvReac Type Severity Reaction Status Date / Time No Known Allergies Allergy Verified 12/22/22 08:59 Family History Mother CAD (coronary artery disease) Hypertension Brother CAD (coronary artery disease) Sister CAD (coronary artery disease) Surgical History (Updated 12/22/22 @ 10:[address] Jennifer Keller MD) H/O repair of left rotator cuff (01/2018) History of appendectomy History of cardiac catheterization History of carpal tunnel release History of cataract surgery History of herniorrhaphy History of resection of liver History of right and left heart catheterization (02/08/02) Hx of left knee surgery S/P laparoscopic cholecystectomy Social History household members: spouse housing: house number of children: 3 current occupational status: retired pets and animals: No Smoking Status: Former smoker alcohol intake: current alcohol intake frequency: holidays/special occasions only substance use type: does not use caffeine: Yes Type: coffee Number of servings: 2 what type of physical activity do you participate in: other details: [employer] Constitutional Constitutional: Denies anorexia Eyes Eyes: Denies loss of central vision ENT HEENT: Denies dysphagia Cardiovascular Cardiovascular: Denies chest pain Respiratory/Chest Respiratory/Chest: Denies cough Gastrointestinal Gastrointestinal: Reports nausea and vomiting; Denies abdominal pain Genitourinary Genitourinary: Denies dysuria Musculoskeletal Musculoskeletal: Denies joint swelling Integumentary Integumentary: Reports jaundice Neurologic Neurologic: Denies weakness Psychiatric Psychiatric: Denies anxiety or depression Hematologic/Lymphatic Hematologic/Lymphatic: Reports easy bleeding Physical Exam Const alert, oriented x3 and no apparent distress HEENT normocephalic and head/scalp atraumatic Resp normal respiratory effort Cardio regular rate GI soft to palpation and non-tender; Negative for non-distended GI Narrative: Well-healed midline incision Palpation: Negative for guarding Extremity no clubbing, cyanosis or edema Skin Skin Narrative: Jaundice Neuro CN's II-XII intact bilaterally Psych mental status grossly normal Lab / Micro Data Result Diagrams: 12/23/22 06:20 12/23/22 06:20 Labs: Laboratory Results - last 24 hr 12/22/22 09:30: WBC 5.8, RBC 4.30 L, Hgb 13.3, Hct 40.9, MCV 95.1 H, MCH 30.9, MCHC 32.5, RDW Std Deviation 56.0 H, RDW Coeff of Rashad 15.9 H, Plt Count 239, MPV 9.6, Immature Gran % (Auto) 0.200, Neut % (Auto) 54.0, Lymph % (Auto) 33.9, [place] % (Auto) 11.1 H, Eos % (Auto) 0.3, Baso % (Auto) 0.5, Absolute Neuts (auto) 3.1, Absolute Lymphs (auto) 1.96, Nucleated RBC % 0 12/22/22 09:30: Sodium 139, Potassium 3.7, Chloride 104, Carbon Dioxide 24.0, Anion Gap 11, BUN 22 H, Creatinine 1.13, Estim Creat Clear Calc 50.37, Est GFR (MDRD) Af Amer 81, Est GFR (MDRD) Non-Af 67, BUN/Creatinine Ratio 19.5, Glucose 115 H, Calcium 9.6, Total Bilirubin 4.90 H, Direct Bilirubin 4.18 H, AST 421 H, ALT 769 H, Alkaline Phosphatase 449 H, Total Protein 6.9, Albumin 3.2, Globulin 3.7, Lipase 54 Radiology Impression Abdomen/Pelvis CT 12/22/22 10:15 IMPRESSION: Intrahepatic biliary ductal dilatation with the findings suggestive of a 2.6 cm x 2.4 cm soft tissue mass in the region of the blossom hepatis suggestive of either a neoplastic process versus enlargement of lymph nodes. Findings in keeping with metastatic disease in the liver. Electronically Signed: Rommel Duron MD at 10:43 EDT , Charges/Coding Visit Charges Inpatient E&M: 35641 Init Hosp L3
--- NOTE | 2022-12-22 11:11 | HP.PCM.HOS_ITS ---
HPI - General General Date of Admission: 12/22/22 Date of Service: 12/22/22 Chief Complaint: nausea and vomiting HPI Narrative JAY JEFFERSON, is a 77 M with a PMH as outlined who presents via the ED on 12/22/2022 with a complaint of nausea and vomiting. HE had acute cholecystitis back in August 2022; he had cholecystectomy done then and biopsy done was concerning for gallbladder cancer. THe posterior wall of the gallbladder could not be resected and so he was referred to [facility] where he had the posterior wall of the gallbladder resected along with a portion of the liver. At that time he was told biopsies done were negative for cancer. He went to see his PCP today and was noted to be jaundiced, and also had nausea and vomiing. He was sent to the ED for further evaluation. He said had had abdominal distension and felt bloated. He denied any abdominal pain. He admitted to losing about 10 pounds unintentionally, but said it was because he couldnt eat much. He denied any fever, chills, cough, chest pain, palpitations or dizziness, nausea or vomiting. Review of systems is otherwise negative. Vitals in the ED were ttemp of 97.7F, BP of 133/88, RR of 16 and he was saturating at 96% on room air. CBC was unremarkable. Chemistry was significant for total bilirubin of 4.9, withtotal bilirubin of 4.18, AST of 421, ALT of 769 [address] ALP of 449. CT of the abdomen and pelvis showed intrahepatic biliary ductal dilatation with findings suggestive of 2.6cm x 2.4cm soft tissue mass in the region of the blossom hepatis suggestive of neoplastic process vs enlargement of lymph nodes, with finding suggestive of metastatic disease in the liver. 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 [facility] Medical History (Updated 12/22/22 @ 10:[address] Ervin Farrar MD) Benign essential hypertension Cardiology follow-up encounter Depression Depression Former smoker Gallbladder cancer, carcinoma High cholesterol History of atrial fibrillation History of echocardiogram History of stress test Hyperlipidemia Hypertension Ischemic cerebrovascular accident (CVA) (09/2016) Nonobstructive atherosclerosis of coronary artery Paroxysmal atrial fibrillation Peritonitis Prostate disease Stage 3b chronic kidney disease (CKD) Stroke/cerebrovascular accident Home Medications bupropion HCl 100 mg tablet 100 mg PO BID DEPRESSION 12/31/15 [History Last Taken 10/07/22] coenzyme Q10 100 mg capsule 100 mg PO DAILY SUPPLEMENT 12/31/15 [History Last Taken 09/12/22] latanoprost 0.005 % eye drops 1 drp LEFT EYE QHS GLAUCOMA 12/31/15 [History Last Taken 09/12/22] tamsulosin 0.4 mg capsule 0.4 mg PO QHS PROSTATE 12/31/15 [History Last Taken 09/12/22] rosuvastatin 40 mg tablet 40 mg PO DAILY CHOLESTEROL 10/19/21 [History Last Taken 09/12/22] apixaban 5 mg tablet (Eliquis) 5 mg PO BID BLOOD THINNER 09/13/22 [History Last Taken 09/13/22] dorzolamide 22.3 mg-timolol 6.8 mg/mL eye drops 1 drp EACH EYE DAILY eye health 09/13/22 [History Last Taken 09/12/22] fluticasone propionate 50 mcg/actuation nasal spray,suspension 2 spray intranasal DAILY NASAL CONGESTION 09/13/22 [History Last Taken Unknown] lisinopril 10 mg tablet 10 mg PO QHS BLOOD PRESSURE 09/13/22 [History Last Taken 09/12/22] metoprolol tartrate 25 mg tablet 12.5 mg PO BID BLOOD PRESSURE 09/13/22 [History Last Taken 10/07/22] montelukast 10 mg tablet 10 mg PO QHS ALLERGIES 09/13/22 [History Last Taken 09/12/22] multivitamin 1 tab PO DAILY SUPPLEMENT 09/13/22 [History Last Taken 09/12/22] zolpidem 5 mg tablet 2.5 mg PO QHS PRN Sleep 09/13/22 [History Last Taken Unknown] Allergy/AdvReac Type Severity Reaction Status Date / Time No Known Allergies Allergy Verified 12/22/22 08:59 Family History Mother CAD (coronary artery disease) Hypertension Brother CAD (coronary artery disease) Sister CAD (coronary artery disease) Surgical History (Updated 12/22/22 @ 10:[address] Jennifer Keller MD) H/O repair of left rotator cuff (01/2018) History of appendectomy History of cardiac catheterization History of carpal tunnel release History of cataract surgery History of herniorrhaphy History of resection of liver History of right and left heart catheterization (02/08/02) Hx of left knee surgery S/P laparoscopic cholecystectomy Social History household members: spouse housing: house number of children: 3 current occupational status: retired pets and animals: No Smoking Status: Former smoker alcohol intake: current alcohol intake frequency: holidays/special occasions only substance use type: does not use caffeine: Yes Type: coffee Number of servings: 2 what type of physical activity do you participate in: other details: [place] Constitutional Constitutional: Reports change in weight, fatigue, malaise and weakness; Denies anorexia, chills or fever(s) Eyes Eyes: Denies change in vision ENT HEENT: Denies dysphagia, headache(s) or nasal congestion Cardiovascular Cardiovascular: Denies chest pain, dyspnea on exertion, edema, lightheadedness, orthopnea, palpitations, paroxysmal nocturnal dyspnea or rapid heart rate Respiratory/Chest Respiratory/Chest: Denies cough, dyspnea, productive cough, shortness of breath at rest or shortness of breath with exertion Gastrointestinal Gastrointestinal: Denies abdominal pain, constipation, diarrhea, dyspepsia, hematochezia, nausea or vomiting Genitourinary Genitourinary: Denies burning urination or dysuria Musculoskeletal Musculoskeletal: Denies arthralgias or joint pain Vital Signs Vital Signs Vital Signs: 12/22/22 08:59 Temperature 98 F Temperature Source Temporal Pulse Rate 74 Respiratory Rate 14 Blood Pressure 129/90 H Blood Pressure Mean 103 Pulse Ox 98 Oxygen Delivery Method Room Air Weight Weight: 161 lb 13.109 oz Body Mass Index (BMI) 25.3 Physical Exam Const alert, oriented x3 and no apparent distress HEENT normocephalic, head/scalp atraumatic, hearing grossly normal bilaterally and moist oral mucous membranes Mouth: oral and palatal mucosa normal Eyes PERRL, EOMs intact bilaterally and conjunctivae normal Neck no lymphadenopathy Resp normal respiratory effort, no retractions, no use of accessory muscles and clear to auscultation bilaterally Cardio regular rate, regular rhythm, S1 normal heart sound, S2 normal heart sound and no murmurs GI normal to inspection, nondistended, normoactive bowel sounds, soft to palpation, non-tender and non-distended Extremity normal to inspection, full ROM and no clubbing, cyanosis or edema Skin Skin Narrative: has tinge of jaundice Neuro oriented x3, CN's II-XII intact bilaterally, moves all extremities and no focal motor deficits Sensorium / Orientation: awake and alert Motor Exam: strength 5/5 throughout Psych affect normal Results Lab / Micro Data Result Diagrams: 12/22/22 09:30 12/22/22 09:30 Labs: Laboratory Results - last 24 hr 12/22/22 09:30: WBC 5.8, RBC 4.30 L, Hgb 13.3, Hct 40.9, MCV 95.1 H, MCH 30.9, MCHC 32.5, RDW Std Deviation 56.0 H, RDW Coeff of Rashad 15.9 H, Plt Count 239, MPV 9.6, Immature Gran % (Auto) 0.200, Neut % (Auto) 54.0, Lymph % (Auto) 33.9, [place] % (Auto) 11.1 H, Eos % (Auto) 0.3, Baso % (Auto) 0.5, Absolute Neuts (auto) 3.1, Absolute Lymphs (auto) 1.96, Nucleated RBC % 0 12/22/22 09:30: Sodium 139, Potassium 3.7, Chloride 104, Carbon Dioxide 24.0, Anion Gap 11, BUN 22 H, Creatinine 1.13, Estim Creat Clear Calc 50.37, Est GFR (MDRD) Af Amer 81, Est GFR (MDRD) Non-Af 67, BUN/Creatinine Ratio 19.5, Glucose 115 H, Calcium 9.6, Total Bilirubin 4.90 H, Direct Bilirubin 4.18 H, AST 421 H, ALT 769 H, Alkaline Phosphatase 449 H, Total Protein 6.9, Albumin 3.2, Globulin 3.7, Lipase 54 Rhythm Strip Rhythm Strip: Sinus Rhythm Rate: 77 Ectopy: None Radiology Impression Abdomen/Pelvis CT 12/22/22 10:15 IMPRESSION: Intrahepatic biliary ductal dilatation with the findings suggestive of a 2.6 cm x 2.4 cm soft tissue mass in the region of the blossom hepatis suggestive of either a neoplastic process versus enlargement of lymph nodes. Findings in keeping with metastatic disease in the liver. 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 * CT of the abdomen and pelvis showed intrahepatic biliary ductal dilatation with findings suggestive of a tube 0.6 x 2.4 cm soft tissue mass in the region of the blossom hepatis suggestive of a neoplastic process with enlargement of lymph nodes and evidence of mets to the liver. 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 He was referred to [email or web address] as the posterior wall of the gallbladder could not be removed. He did have surgery then at [facility] and posterior wall of the gallbladder was removed together with a portion of his liver. Biopsy done at that time was negative for malignancy. * Total bilirubin is elevated at 4.9 and is appears to be an obstructive pattern with elevated ALP as well. AST and ALT also elevated. * General surgery consulted as well as gastroenterology and oncology. * Patient has been on Eliquis so cannot have an ERCP or CT-guided biopsy of the liver lesions until about 5 days after he last took Eliquis. * Per discussion with oncology, will order CA 19-9 and CEA. * Hydrate gently with IV fluids and monitor. #History of A-fib: On metoprolol. Hold Eliquis. #Benign essential hypertension: On lisinopril and metoprolol #History of ischemic stroke. Likely due to A-fib. Eliquis on hold. Hold rosuvastatin in light of elevated liver enzymes #BPH: On Flomax DVT prophylaxis: SCDs CODE STATUS: Full code * Patient and counseled extensively about different types of CODE STATUS including full code, DNR CCA and DNR CCA. Patient elects to be full code. Total [id number] time 18 minutes. * Total time spent on evaluation and management of patient, reviewing chart and specialist notes, discussing plan with patient and his , discussion with nursing and ancillary staff as well as documentation: 78 mins Charges/Coding Visit Charges Inpatient E&M: 98616 Init Hosp L3 Procedures Hospitalists Procedures: 89082 Advncd Care Plan 30 Min
--- NOTE | 2022-12-22 11:17 | NURSING ---
MED SURG KORAM PAINLESS JAUNDICE, ADRENOSQUAMOUS CA GALLBLADDER METASTASIS TO LIVER
[2022-12-22 11:50] VITALS: BP 133/88; PULSE 62; RESP 16; TEMP 36.5; O2SAT 96
[2022-12-22 13:15] VITALS: BMI 24.8
[2022-12-22 14:20] VITALS: BP 133/89; PULSE 64; RESP 16; TEMP 36.8; O2SAT 97
[2022-12-22] MEDS: Dextrose 5%/0.9% NaCl 1,000 ML 125 ML IV ×2 (14:55→22:34)
--- NOTE | 2022-12-22 16:38 | EX.PCM.CON.G ---
HPI Consult Data Date of Consult: 12/22/22 HPI Narrative Reason for Consultation: Obstructive jaundice HPI Narrative: JAY JEFFERSON, is a 77 M who presented in August 2022 with abdominal pain.? He underwent robotic laparoscopic cholecystectomy on 10/07/2022, sob total cholecystectomy was done.? 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 Pathology was negative.? He is now admitted with nausea vomiting.? CT of the chest abdomen and pelvis today 12/23/2019 shows evidence of multiple hypodensities in the liver suggestive of metastatic disease, there is dilated intra and extrahepatic biliary ducts with 2.6 cm soft tissue mass in the blossom hepatis. LFTs are consistent with cholestatic hepatitis and jaundice. He got a MRI with MRCP shows obstruction at the level of the mid to proximal common bile duct. [facility] Medical History (Updated 12/22/22 @ 10:[address] Ervin Farrar MD) Benign essential hypertension Cardiology follow-up encounter Depression Depression Former smoker Gallbladder cancer, carcinoma High cholesterol History of atrial fibrillation History of echocardiogram History of stress test Hyperlipidemia Hypertension Ischemic cerebrovascular accident (CVA) (09/2016) Nonobstructive atherosclerosis of coronary artery Paroxysmal atrial fibrillation Peritonitis Prostate disease Stage 3b chronic kidney disease (CKD) Stroke/cerebrovascular accident Home Medications bupropion HCl 100 mg tablet 100 mg PO BID DEPRESSION 12/31/15 [History Last Taken 10/07/22] coenzyme Q10 100 mg capsule 100 mg PO DAILY SUPPLEMENT 12/31/15 [History Last Taken 09/12/22] latanoprost 0.005 % eye drops 1 drp LEFT EYE QHS GLAUCOMA 12/31/15 [History Last Taken 09/12/22] tamsulosin 0.4 mg capsule 0.4 mg PO QHS PROSTATE 12/31/15 [History Last Taken 09/12/22] rosuvastatin 40 mg tablet 40 mg PO DAILY CHOLESTEROL 10/19/21 [History Last Taken 09/12/22] apixaban 5 mg tablet (Eliquis) 5 mg PO BID BLOOD THINNER 09/13/22 [History Last Taken 09/13/22] dorzolamide 22.3 mg-timolol 6.8 mg/mL eye drops 1 drp EACH EYE DAILY eye health 09/13/22 [History Last Taken 09/12/22] fluticasone propionate 50 mcg/actuation nasal spray,suspension 2 spray intranasal DAILY NASAL CONGESTION 09/13/22 [History Last Taken Unknown] lisinopril 10 mg tablet 10 mg PO QHS BLOOD PRESSURE 09/13/22 [History Last Taken 09/12/22] metoprolol tartrate 25 mg tablet 12.5 mg PO BID BLOOD PRESSURE 09/13/22 [History Last Taken 10/07/22] montelukast 10 mg tablet 10 mg PO QHS ALLERGIES 09/13/22 [History Last Taken 09/12/22] multivitamin 1 tab PO DAILY SUPPLEMENT 09/13/22 [History Last Taken 09/12/22] zolpidem 5 mg tablet 2.5 mg PO QHS PRN Sleep 09/13/22 [History Last Taken Unknown] Allergy/AdvReac Type Severity Reaction Status Date / Time No Known Allergies Allergy Verified 12/22/22 08:59 Family History Mother CAD (coronary artery disease) Hypertension Brother CAD (coronary artery disease) Sister CAD (coronary artery disease) Surgical History (Updated 12/22/22 @ 10:[address] Jennifer Keller MD) H/O repair of left rotator cuff (01/2018) History of appendectomy History of cardiac catheterization History of carpal tunnel release History of cataract surgery History of herniorrhaphy History of resection of liver History of right and left heart catheterization (02/08/02) Hx of left knee surgery S/P laparoscopic cholecystectomy Social History household members: spouse housing: house number of children: 3 current occupational status: retired pets and animals: No Smoking Status: Former smoker alcohol intake: current alcohol intake frequency: holidays/special occasions only substance use type: does not use caffeine: Yes Type: coffee Number of servings: 2 what type of physical activity do you participate in: other details: [employer] Constitutional Constitutional: Reports change in weight, fatigue, malaise and weakness; Denies anorexia, chills or fever(s) Eyes Eyes: Denies change in vision ENT HEENT: Denies dysphagia, headache(s) or nasal congestion Cardiovascular Cardiovascular: Denies chest pain, dyspnea on exertion, edema, lightheadedness, orthopnea, palpitations, paroxysmal nocturnal dyspnea or rapid heart rate Respiratory/Chest Respiratory/Chest: Denies cough, dyspnea, productive cough, shortness of breath at rest or shortness of breath with exertion Gastrointestinal Gastrointestinal: Denies abdominal pain, constipation, diarrhea, dyspepsia, hematochezia, nausea or vomiting Genitourinary Genitourinary: Denies burning urination or dysuria Musculoskeletal Musculoskeletal: Denies arthralgias or joint pain Physical Exam Const alert, oriented x3 and no apparent distress HEENT normocephalic, head/scalp atraumatic, hearing grossly normal bilaterally and moist oral mucous membranes Eyes PERRL, EOMs intact bilaterally and conjunctivae normal Neck no lymphadenopathy Resp normal respiratory effort, normal air movement, no retractions, no use of accessory muscles and clear to auscultation bilaterally Cardio regular rate, regular rhythm, S1 normal heart sound, S2 normal heart sound and no murmurs GI normal to inspection, nondistended, normoactive bowel sounds, soft to palpation, non-tender and non-distended Extremity normal to inspection, full ROM, normal capillary refill and no clubbing, cyanosis or edema Skin Skin Narrative: still has tinge of jaundice Neuro oriented x3, CN's II-XII intact bilaterally, moves all extremities and no focal motor deficits Sensorium / Orientation: awake and alert Motor Exam: strength 5/5 throughout Psych thought process normal, cooperative and affect normal Appearance: appropriate Medical Records Data Medical Nutrition Assessment Dietitian: Malnutrition Criteria Met Start: 12/23/22 09:17 Freq: Status: Active Protocol: Document 12/23/22 09:17 (Rec: 12/23/22 09:17 [id number]) Nutrition Malnutrition Evidence of Malnutrition Exists Yes Malnutrition (severe): Chronic Evidenced By Suboptimal Energy Intake ( Severe),Weight Loss (Severe) Clinical Problem Chronic Disease or Condition Related Malnutrition Etiology severe, chronic malnutrition related to inadequate energy intake w/ increased energy needs d/t metastatic disease Signs/Symptoms as evidenced by unintentional 15#/9% wt loss x 3.5 months, estimated PO intake meeting < 75% of estimated energy needs > 3 months Status Active Problem Recommendation Dietitian Recommendations/Changes Recommend advance diet as tolerated to regular; ensure plus high protein 120mL w/ medpass when PO diet is advanced. Will monitor tolerance of diet and adjust as indicated. Lab / Micro Data Result Diagrams: 12/23/22 06:20 12/23/22 06:20 Labs: Laboratory Results - last 24 hr 12/23/22 06:20: WBC 4.5, RBC 3.68 L, Hgb 11.8 L, Hct 35.4 L, MCV 96.2 H, MCH 32.1 H, MCHC 33.3, RDW Std Deviation 57.1 H, RDW Coeff of Rashad 15.9 H, Plt Count 201, MPV 9.7, Immature Gran % (Auto) 0.000, Neut % (Auto) 46.5 L, Lymph % (Auto) 39.4, [place] % (Auto) 13.0 H, Eos % (Auto) 0.7, Baso % (Auto) 0.4, Absolute Neuts (auto) 2.1, Absolute Lymphs (auto) 1.79, Nucleated RBC % 0 12/23/22 06:20: Sodium 141, Potassium 3.5, Chloride 109 H, Carbon Dioxide 24.0, Anion Gap 8, BUN 11, Creatinine 0.96, Estim Creat Clear Calc 59.29, Est GFR (MDRD) Af Amer 97, Est GFR (MDRD) Non-Af 80, BUN/Creatinine Ratio 11.4, Glucose 143 H, Calcium 8.7, Total Bilirubin 4.30 H, AST 356 H, ALT 625 H, Alkaline Phosphatase 383 H, Total Protein 5.9 L, Albumin 2.8 L, Globulin 3.1, Albumin/Globulin Ratio 0.9 Rhythm Strip Rhythm Strip: Sinus Rhythm Rate: 77 Ectopy: None Radiology Impression MRCP 12/23/22 09:00 IMPRESSION: 1. 2.6 cm mass causing marked compression of the proximal portion of the common bile duct associated with significant dilatation of the common hepatic duct and intrahepatic biliary tree which may represent primary biliary carcinoma or secondary to lymphadenopathy. 2. Multiple enlarged retroperitoneal lymph nodes along the hepatoduodenal ligament as well as multiple liver lesions consistent with metastatic disease. Electronically Signed: Fermin Hamm MD at 10:09 EDT , Assessment & Plan Assessment/Plan (1) Painless jaundice: (2) Gallbladder cancer, carcinoma: (3) S/P laparoscopic cholecystectomy: (4) History of resection of liver: PLAN: Plan Metastatic gallbladder cancer with CT abdomen pelvis with the patient. Read is currently pending. However there is evidence of liver metastasis overnight and they are in August. Patient also has dilated intrahepatic bile ducts. Patient will need ERCP with spyglass procedure in order to unblock the bile ducts and hopefully be able to get samples of the cancer for staging purposes. He will also need liver biopsy to confirm that he does not have a secondary primary tumor. He was explained alternatives, risk, benefits including understanding bleeding, infection, sepsis, perforation, need for discharge and . He will have an ASA of 3. Charges/Coding Visit Charges Inpatient E&M: 39612 Init Hosp L2
--- NOTE | 2022-12-22 16:42 | ONC.CONSULT ---
Assessment & Plan Assessment/Plan (1) Adenosquamous carcinoma of gallbladder: Status: Acute Code(s): C23 - Malignant neoplasm of gallbladder (2) Cancer, metastatic to liver: Status: Acute Code(s): C78.7 - Secondary malignant neoplasm of liver and intrahepatic bile duct Plan: To obtain CT guided liver biopsy of liver, CA19-9, CEA then decide on further management. Will follow with arronhter suggestions when biopsy is available. HPI Consult Data Date of Service:: 12/22/22 PCP / Referring Provider: Dr. Fidencio Benson MD Attending: Dr. Mary Anne Dye MD Chief Complaint Chief Complaint: Asked to see patient for metastatic carcinoma History of Present Illness History of Present Illness: 77-year-old man presented in August 2022 with abdominal pain. He underwent robotic laparoscopic cholecystectomy on 10/07/2022, sob total cholecystectomy was done. Pathology showed focus of poorly differentiated non-small cell carcinoma.He was then transferred to [facility], had partial resection of the liver and rest of gallbladder done. Pathology was negative. He is now admitted with nausea vomiting. CT of the chest abdomen and pelvis today 12/23/2019 shows evidence of multiple hypodensities in the liver suggestive of metastatic disease, there is dilated intra and extrahepatic biliary ducts with 2.6 cm soft tissue mass in the blossom hepatis. Advanced Directives Power of Property Insurance Inspector: Yes Living Will: Yes [facility] Medical History (Updated 12/22/22 @ 10:[address] Ervin Farrar MD) Benign essential hypertension Cardiology follow-up encounter Depression Depression Former smoker Gallbladder cancer, carcinoma High cholesterol History of atrial fibrillation History of echocardiogram History of stress test Hyperlipidemia Hypertension Ischemic cerebrovascular accident (CVA) (09/2016) Nonobstructive atherosclerosis of coronary artery Paroxysmal atrial fibrillation Peritonitis Prostate disease Stage 3b chronic kidney disease (CKD) Stroke/cerebrovascular accident Home Medications bupropion HCl 100 mg tablet 100 mg PO BID DEPRESSION 12/31/15 [History Last Taken 10/07/22] coenzyme Q10 100 mg capsule 100 mg PO DAILY SUPPLEMENT 12/31/15 [History Last Taken 09/12/22] latanoprost 0.005 % eye drops 1 drp LEFT EYE QHS GLAUCOMA 12/31/15 [History Last Taken 09/12/22] tamsulosin 0.4 mg capsule 0.4 mg PO QHS PROSTATE 12/31/15 [History Last Taken 09/12/22] rosuvastatin 40 mg tablet 40 mg PO DAILY CHOLESTEROL 10/19/21 [History Last Taken 09/12/22] apixaban 5 mg tablet (Eliquis) 5 mg PO BID BLOOD THINNER 09/13/22 [History Last Taken 09/13/22] dorzolamide 22.3 mg-timolol 6.8 mg/mL eye drops 1 drp EACH EYE DAILY eye health 09/13/22 [History Last Taken 09/12/22] fluticasone propionate 50 mcg/actuation nasal spray,suspension 2 spray intranasal DAILY NASAL CONGESTION 09/13/22 [History Last Taken Unknown] lisinopril 10 mg tablet 10 mg PO QHS BLOOD PRESSURE 09/13/22 [History Last Taken 09/12/22] metoprolol tartrate 25 mg tablet 12.5 mg PO BID BLOOD PRESSURE 09/13/22 [History Last Taken 10/07/22] montelukast 10 mg tablet 10 mg PO QHS ALLERGIES 09/13/22 [History Last Taken 09/12/22] multivitamin 1 tab PO DAILY SUPPLEMENT 09/13/22 [History Last Taken 09/12/22] zolpidem 5 mg tablet 2.5 mg PO QHS PRN Sleep 09/13/22 [History Last Taken Unknown] Allergy/AdvReac Type Severity Reaction Status Date / Time No Known Allergies Allergy Verified 12/22/22 08:59 Family History Mother CAD (coronary artery disease) Hypertension Brother CAD (coronary artery disease) Sister CAD (coronary artery disease) Surgical History (Updated 12/22/22 @ 10:[address] Jennifer Keller MD) H/O repair of left rotator cuff (01/2018) History of appendectomy History of cardiac catheterization History of carpal tunnel release History of cataract surgery History of herniorrhaphy History of resection of liver History of right and left heart catheterization (02/08/02) Hx of left knee surgery S/P laparoscopic cholecystectomy Social History household members: spouse housing: house number of children: 3 current occupational status: retired pets and animals: No Smoking Status: Former smoker alcohol intake: current alcohol intake frequency: holidays/special occasions only substance use type: does not use caffeine: Yes Type: coffee Number of servings: 2 what type of physical activity do you participate in: other details: [employer] Physical Exam Const alert, oriented x3 and no apparent distress HEENT normocephalic, head/scalp atraumatic, hearing grossly normal bilaterally and moist oral mucous membranes Mouth: oral and palatal mucosa normal Eyes PERRL, EOMs intact bilaterally and conjunctivae normal Neck no lymphadenopathy Resp normal respiratory effort, no retractions, no use of accessory muscles and clear to auscultation bilaterally Cardio regular rate, regular rhythm, S1 normal heart sound, S2 normal heart sound and no murmurs GI normal to inspection, nondistended, normoactive bowel sounds, soft to palpation, non-tender and non-distended Extremity normal to inspection, full ROM and no clubbing, cyanosis or edema Skin Skin Narrative: has tinge of jaundice Neuro oriented x3, CN's II-XII intact bilaterally, moves all extremities and no focal motor deficits Sensorium / Orientation: awake and alert Motor Exam: strength 5/5 throughout Psych affect normal Vital Signs Temperature 97.7 F L 12/22/22 11:50 Temperature Source Temporal 12/22/22 11:50 Pulse Rate 62 12/22/22 11:50 Respiratory Rate 16 12/22/22 11:50 Blood Pressure 133/88 H 12/22/22 11:50 Blood Pressure Mean 103 12/22/22 11:50 Pulse Ox 96 12/22/22 11:50 Oxygen Delivery Method Room Air 12/22/22 11:50 Laboratory Results - last 24 hr 12/22/22 09:30: WBC 5.8, RBC 4.30 L, Hgb 13.3, Hct 40.9, MCV 95.1 H, MCH 30.9, MCHC 32.5, RDW Std Deviation 56.0 H, RDW Coeff of Rashad 15.9 H, Plt Count 239, MPV 9.6, Immature Gran % (Auto) 0.200, Neut % (Auto) 54.0, Lymph % (Auto) 33.9, [place] % (Auto) 11.1 H, Eos % (Auto) 0.3, Baso % (Auto) 0.5, Absolute Neuts (auto) 3.1, Absolute Lymphs (auto) 1.96, Nucleated RBC % 0 12/22/22 09:30: Sodium 139, Potassium 3.7, Chloride 104, Carbon Dioxide 24.0, Anion Gap 11, BUN 22 H, Creatinine 1.13, Estim Creat Clear Calc 50.37, Est GFR (MDRD) Af Amer 81, Est GFR (MDRD) Non-Af 67, BUN/Creatinine Ratio 19.5, Glucose 115 H, Calcium 9.6, Total Bilirubin 4.90 H, Direct Bilirubin 4.18 H, AST 421 H, ALT 769 H, Alkaline Phosphatase 449 H, Total Protein 6.9, Albumin 3.2, Globulin 3.7, Lipase 54 Diagnostic Data Abdomen/Pelvis CT 12/22/22 10:15 IMPRESSION: Intrahepatic biliary ductal dilatation with the findings suggestive of a 2.6 cm x 2.4 cm soft tissue mass in the region of the blossom hepatis suggestive of either a neoplastic process versus enlargement of lymph nodes. Findings in keeping with metastatic disease in the liver. Electronically Signed: Rommel Duron MD at 10:43 EDT , Charges/Coding Visit Charges Office Visits / Consults: [id number] IP Consult L3
[2022-12-22 20:28] VITALS: BP 154/93; PULSE 74; RESP 18; TEMP 36.7; O2SAT 97
[2022-12-22 20:34] VITALS: BP 154/93; PULSE 74
[2022-12-22] MEDS: buPROPion 100 MG Tablet PO (20:34)
[2022-12-22] MEDS: Tamsulosin HCl 0.4 MG Capsule PO (20:34)
[2022-12-22] MEDS: Montelukast 10 MG Tablet PO (20:34)
[2022-12-22] MEDS: Lisinopril 10 MG Tablet PO (20:34)
[2022-12-22] MEDS: Latanoprost 0.005% 1 Bottle 1 DRP LEFT EYE (20:34)
[2022-12-22] MEDS: Metoprolol Tartrate 25 MG Tablet 12.5 MG PO (20:34)
[2022-12-22] MEDS: Famotidine 20 MG Tablet PO (20:36)
[2022-12-23] VITALS (18 sets, daily range): BP systolic 126–170; BP diastolic 85–102; PULSE 60–96; RESP 10–22; TEMP 36.1–36.9; O2SAT 85–100; BMI 24.8
--- NOTE | 2022-12-23 | FLU_PTH ---
PATIENT: JAY JEFFERSON LOC: MS3 U#:[id number] AGE/SX: 77/M ROOM: [facility] RE12/22/[address]: Dr. Mary Anne Dye MD : 1945 BED: 1 DIS: 12/24/2022 SPEC #: [id number] RECD: 12/23/22 18:42 STATUS: MARY REQ #: [id number] EVER: 12/23/22 00:[address]: Vick Almonte DEPT: CYTOLOGY RECD BY: Lala Payne ENTERED: 12/26/22 09:59 SP TYPE: Fluid OTHR DR: MD Dr. Fidencio Cruz MD Dr. Joseph Prah, MD Dr. Mansour Isckarus, MD Dr. Nana Yaa Koram, MD Dr. Robert Field, MD Dr. Ryan Jin, MD Dr. Roger Macklis, MD Dr. Steve Walston, DO Dr. Tamera Robotham, MD Tyra Schlabach, METER CALIBRATOR-C Tissues: A - Bile duct, NOS B - Bile duct, NOS Procedures: Special Stain Group II Surgery Specimen Level IV Cytospin Fluid Cytology Other Comments: @ Ordering doctor for SSII edited from to @ by RGOSHANTI at 12/26/22 1430 @ Ordering doctor for SUIV edited from to @ by RGOOD at 12/26/22 1430 @ Ordering doctor for CYSPIN edited from to @ by RGOOD at 12/26/22 1430 @ Ordering doctor for CYOTHER edited from to @ by RGOOD at 12/26/22 1430 @ Submitting doctor edited from to @ by RGOOD at 12/26/22 1430 HEADER OPERATION: ERCP with Spyglass, dilation, stent placement PRE-OP DIAGNOSIS: Adenosquamous carcinoma of gallbladder, metastatic cancer to liver TISSUE SUBMITTED: A ? Biliary stricture brushings x3 slides, B - Biliary stricture brush tip DIAGNOSIS CYTOLOGY A. Biliary stricture brushings (smears): Rare atypical cells noted. See comment. B. Biliary stricture brush tip fluid (cytospin and cell block): A few malignant cells present derived from non-small cell carcinoma, favor adenocarcinoma. SJ:rg 12/27/2022 COMMENT A. Smears show drying artifact. Please also refer to additional specimen ([id number]) liver, CT-guided core biopsy with diagnosis of ?metastatic poorly differentiated adenocarcinoma? Please make reference to previous specimen ([id number]), posterior wall gallbladder, biopsy with diagnosis of ?small focus of poorly differentiated non-small cell carcinoma.? This case is discussed with Dr. Keller on 12/27/2022. Case has been reviewed in consultation with Dr. Cabrera who concurs with the above diagnosis. IDC:AM CYTOLOGY STUDY Slides are reviewed. CYTOLOGY GROSS A - Received are three smears labeled with the patient's name and designated per the requisition as biliary stricture brushings. Submitted for staining. B - Received is 0.5 ml of red cloudy fluid labeled with the patient's name and and designated per the requisition as biliary stricture brush tip. Submitted for cytology preparation including cell block. / rg 12/26/2022 TC:0 CPT: 66673, 43856, 51472
[2022-12-23 06:58] LABS: Absolute Lymphocyte Count 1.79 X10^3/uL (0.83-4.51); Absolute Neutrophil Count 2.1 X10^3/uL (2.0-7.7); Basophil# 0.02 X10^3/uL; Basophil% 0.4 % (0-1); Eosinophil# 0.03 X10^3/uL; Eosinophils% 0.7 % (0-5); Hematocrit 35.4 % (40-54); Hemoglobin 11.8 g/dL (13.0-16.5); Lymphocyte # 1.79 X10^3/ul (0.83-4.51); Lymphocyte % 39.4 % (19-41); Mean Corp Hgb Conc 33.3 g/dL (32-36); Mean Corpuscular Hgb 32.1 pg (27.0-32.0); Mean Corpuscular Volume 96.2 fL (80-94); Mean Platelet Vol. 9.7 fl (6.2-12.0); Monocyte# 0.59 X10^3/uL; NRBC Flagged by Analyzer 0 % (0-5); Neutrophil # 2.11 X10^3/uL (2.7-7.7); Neutrophil % 46.5 % (47-70); Platelet Count 201 K/mm3 (150-450); RBC Distribution Width CV 15.9 % (11.6-14.6); RBC Distribution Width SD 57.1 fl (35.1-43.9); Red Blood Count 3.68 M/mm3 (4.6-6.2); White Blood Count 4.5 K/mm3 (4.4-11.0)
[2022-12-23 07:34] LABS: ALB/GLOB Ratio 0.9 RATIO (0.9-2.4); AST(SGOT) 356 U/L (15-37); Alanine Aminotransfer ALT/SGPT 625 U/L (16-61); Albumin, Serum 2.8 g/dL (3.2-5.0); Alkaline Phosphatase 383 U/L (45-117); Anion Gap 8 (5-15); BUN 11 mg/dL (7-18); BUN/Creat Ratio 11.4 RATIO (10-20); Calcium,Total 8.7 mg/dL (8.5-10.1); Chloride 109 mmol/L (98-107); Creatinine, Serum 0.96 mg/dL (0.70-1.30); EST Glomerular Filtration Rate 80 mL/min (>60); Est Glom Filt Rate - Afr Amer 97 mL/min (>60); Estimated Creatinine Clearance 59.29 ml/min; Globulin 3.1 g/dL (2.2-4.2); Glucose 143 mg/dL (74-106); Potassium 3.5 mmol/L (3.5-5.1); Protein, Total 5.9 g/dL (6.4-8.2); Sodium Level 141 mmol/L (136-145)
--- NOTE | 2022-12-23 09:00 | MRI_ITS ---
EXAM: MR ABDOMEN WITHOUT INTRAVENOUS CONTRAST, MRCP PROTOCOL CLINICAL INDICATION: jaundice, N/V, Hx of gallbladder CA TECHNIQUE: Multiplanar and multisequence MR images of the abdomen without intravenous contrast obtained with MRCP sequence. Three-dimensional post-processing reconstructions were performed. COMPARISON: CT abdomen and pelvis 12/22/2022 FINDINGS: LOWER THORAX: Normal. No pleural effusion. LIVER: Several small lesions within the liver consistent with metastatic disease measuring 15 mm in maximum diameter. GALLBLADDER AND BILE DUCTS: Susceptibility artifacts along the gallbladder bed related to the presence of surgical clips. Distention of the intrahepatic biliary radicles noted. The common hepatic duct measures 12 mm in maximum diameter. Abrupt cut off of the common hepatic bile duct noted near the blossom hepatis. Approximately 3.3 cm of the common bile duct appears diffusely narrowed. 4 mm diameter of the distal 1.2 cm of the CBD. There is a 2.6 cm mass obstructing the mid and proximal portion of the common bile duct suggestive of either primary biliary carcinoma or metastatic adenopathy along the hepatoduodenal ligament. PANCREAS: No focal cystic mass. No discrete evidence of pancreatic mass. No pancreatic duct dilatation. SPLEEN: Normal. Non-enlarged. ADRENALS: Normal. No nodules. KIDNEYS AND URETERS: Normal. Normal renal size and position. No hydronephrosis. INTRAPERITONEAL SPACE: Normal. No ascites or other fluid collection. VASCULATURE: Normal. Abdominal aorta is non-dilated. LYMPH NODES: Additional 2.2 cm retroperitoneal lymph node noted adjacent to the proximal hepatic artery and additional 14 mm nodule along the distal portion of the hepatoduodenal ligament. MRI/MRCP Abdomen without Contrast IMPRESSION: 1. 2.6 cm mass causing marked compression of the proximal portion of the common bile duct associated with significant dilatation of the common hepatic duct and intrahepatic biliary tree which may represent primary biliary carcinoma or secondary to lymphadenopathy. 2. Multiple enlarged retroperitoneal lymph nodes along the hepatoduodenal ligament as well as multiple liver lesions consistent with metastatic disease. Electronically Signed: Fermin Hamm MD at 10:09 EDT ,
[2022-12-23] MEDS: Famotidine 20 MG Tablet PO ×2 (09:57→22:41)
[2022-12-23] MEDS: buPROPion 100 MG Tablet PO ×2 (09:57→22:41)
[2022-12-23] MEDS: Metoprolol Tartrate 25 MG Tablet 12.5 MG PO ×2 (09:57→22:41)
[2022-12-23] MEDS: Dorzolamide HCL/Timolol 10 ml Bottle 1 DRP EACH EYE (09:59)
--- NOTE | 2022-12-23 11:25 | CASEMGMT ---
STACY THAKUR Assessment: Face to Face with pt for initial transition planning/care coordination assessment. RN BLAZE introduced self and role at [facility], pt voices understanding and consents to assessment. Pt is A/O x4 and answers all questions appropriately at this time. Pt sitting up in chair in no distress. Care providers, pharmacy, and demographics verified/updated. Admitting Dx: metastatic gallbladder cancer PCP:Kelley Specialists:Pt cannot recall his specialists for his cancer Preferred Pharmacy: [facility] Insurance: [employer] [facility] Prescription Benefit: yes LNOK: Lynda Vitale, ; Kimberly Gatito, dtr Living Arrangements: Pt lives with in a single story home with 1 step to enter through the garage. Pt reports he is I in ADL's and denies concerns at home. Transportation: Pt drives self and denies concerns with transportation. DME/HHC/SNF: Pt denies having any DME in the home, previous HHC or SNF stays. Pt states no concerns with going home at time of dc. Pt states no further concerns/needs. CM to follow. Advised pt to ask CM if any further question/concerns/needs arise, voices understanding. Pt Goal: Home Plan: Home
--- NOTE | 2022-12-23 11:36 | PN.SURG_ITS ---
Subjective Subjective Patient's MRCP completed shows a 2.6 cm mass obstructing the proximal common bile duct. Patient's liver function is still elevated. Objective Data Objective Data Vital Signs: Vital Signs Temp Pulse Resp BP Pulse Ox O2 Del Method 98.0 F 77 18 126/85 H 99 Room Air 12/23/22 08:04 12/23/22 09:57 12/23/22 08:04 12/23/22 08:04 12/23/22 08:04 12/23/22 08:04 Oxygen Delivery Method Room Air Weight: 158 lb 11.725 oz Body Mass Index (BMI) 24.8 Intake & Output: Intake and Output for Last 24 Hours 12/21/22 12/22/22 12/23/22 23:59 23:59 23:59 Intake Total 1000 / 1000 Balance 1000 / 1000 Medical Nutrition Assessment Dietitian: Malnutrition Criteria Met Start: 12/23/22 09:17 Freq: Status: Active Protocol: Document 12/23/22 09:17 (Rec: 12/23/22 09:17 [id number]) Nutrition Malnutrition Evidence of Malnutrition Exists Yes Malnutrition (severe): Chronic Evidenced By Suboptimal Energy Intake ( Severe),Weight Loss (Severe) Clinical Problem Chronic Disease or Condition Related Malnutrition Etiology severe, chronic malnutrition related to inadequate energy intake w/ increased energy needs d/t metastatic disease Signs/Symptoms as evidenced by unintentional 15#/9% wt loss x 3.5 months, estimated PO intake meeting < 75% of estimated energy needs > 3 months Status Active Problem Recommendation Dietitian Recommendations/Changes Recommend advance diet as tolerated to regular; ensure plus high protein 120mL w/ medpass when PO diet is advanced. Will monitor tolerance of diet and adjust as indicated. Lab / Micro Data Result Diagrams: 12/23/22 06:20 12/23/22 06:20 Labs: Laboratory Results - last 24 hr 12/23/22 06:20: WBC 4.5, RBC 3.68 L, Hgb 11.8 L, Hct 35.4 L, MCV 96.2 H, MCH 32.1 H, MCHC 33.3, RDW Std Deviation 57.1 H, RDW Coeff of Rashad 15.9 H, Plt Count 201, MPV 9.7, Immature Gran % (Auto) 0.000, Neut % (Auto) 46.5 L, Lymph % (Auto) 39.4, [place] % (Auto) 13.0 H, Eos % (Auto) 0.7, Baso % (Auto) 0.4, Absolute Neuts (auto) 2.1, Absolute Lymphs (auto) 1.79, Nucleated RBC % 0 12/23/22 06:20: Sodium 141, Potassium 3.5, Chloride 109 H, Carbon Dioxide 24.0, Anion Gap 8, BUN 11, Creatinine 0.96, Estim Creat Clear Calc 59.29, Est GFR (MDRD) Af Amer 97, Est GFR (MDRD) Non-Af 80, BUN/Creatinine Ratio 11.4, Glucose 143 H, Calcium 8.7, Total Bilirubin 4.30 H, AST 356 H, ALT 625 H, Alkaline Phosphatase 383 H, Total Protein 5.9 L, Albumin 2.8 L, Globulin 3.1, Albumin/Globulin Ratio 0.9 Radiography Diagnostic Testing: Radiology Impression MRCP 12/23/22 09:00 IMPRESSION: 1. 2.6 cm mass causing marked compression of the proximal portion of the common bile duct associated with significant dilatation of the common hepatic duct and intrahepatic biliary tree which may represent primary biliary carcinoma or secondary to lymphadenopathy. 2. Multiple enlarged retroperitoneal lymph nodes along the hepatoduodenal ligament as well as multiple liver lesions consistent with metastatic disease. Electronically Signed: Fermin Hamm MD at 10:09 EDT Reading Location ID and State: [address] [place] [address] Tel , Service support , Rhythm Strip Rhythm Strip: Sinus Rhythm Rate: 77 Ectopy: None Physical Exam Const oriented x3 and no apparent distress Resp normal respiratory effort Cardio regular rate GI soft to palpation and non-tender Assessment & Plan Assessment/Plan (1) Painless jaundice: (2) Gallbladder cancer, carcinoma: (3) S/P laparoscopic cholecystectomy: (4) History of resection of liver: PLAN: Plan Patient's MRCP showed mass obstructing the common bile duct proximally. Patient is scheduled for ERCP with Dr. Almonte about -12 18 today. Did discuss liver biopsy with Dr. Duron or radiologist he was agreeable that he would be able to likely biopsy one of the liver lesions would plan for Monday even as an outpatient. We will place orders in case patient does leave over the weekend and we will have him hold his Eliquis. Dr. Castorena is covering this weekend however there is no planned acute surgical intervention---call with any concerns. Jennifer Keller M.D. Pager: [phone] [facility] [address] [place] [address], [facility], [address] [place] [address] Office: [phone] Charges/Coding Visit Charges Inpatient E&M: 74430 Init Hosp L3
--- NOTE | 2022-12-23 13:01 | PN_ITS ---
Subjective Subjective Patient seen and examined. was by his bedside. He had no active complaints and felt well. He had an uneventful night and review of systems otherwise negative. He has remained hemodynamically stable. He is for ERCP and MRCP today. He has remained hemodynamically stable. Objective Data Objective Data Vital Signs: Vital Signs Temp Pulse Resp BP Pulse Ox O2 Del Method 98.0 F 77 18 126/85 H 99 Room Air 12/23/22 08:04 12/23/22 09:57 12/23/22 08:04 12/23/22 08:04 12/23/22 08:04 12/23/22 08:04 Oxygen Delivery Method Room Air Weight: 158 lb 11.725 oz Body Mass Index (BMI) 24.8 Intake & Output: Intake and Output for Last 24 Hours 12/21/22 12/22/22 12/23/22 23:59 23:59 23:59 Intake Total 1955.25 / 1955.25 1000 / 1000 Balance 1955. / 1000 / 1000 Medical Nutrition Assessment Dietitian: Malnutrition Criteria Met Start: 12/23/22 09:17 Freq: Status: Active Protocol: Document 12/23/22 09:17 AG (Rec: 12/23/22 09:17 AG [id number]) Nutrition Malnutrition Evidence of Malnutrition Exists Yes Malnutrition (severe): Chronic Evidenced By Suboptimal Energy Intake ( Severe),Weight Loss (Severe) Clinical Problem Chronic Disease or Condition Related Malnutrition Etiology severe, chronic malnutrition related to inadequate energy intake w/ increased energy needs d/t metastatic disease Signs/Symptoms as evidenced by unintentional 15#/9% wt loss x 3.5 months, estimated PO intake meeting < 75% of estimated energy needs > 3 months Status Active Problem Recommendation Dietitian Recommendations/Changes Recommend advance diet as tolerated to regular; ensure plus high protein 120mL w/ medpass when PO diet is advanced. Will monitor tolerance of diet and adjust as indicated. Lab / Micro Data Result Diagrams: 12/23/22 06:20 12/23/22 06:20 Labs: Laboratory Results - last 24 hr 12/23/22 06:20: WBC 4.5, RBC 3.68 L, Hgb 11.8 L, Hct 35.4 L, MCV 96.2 H, MCH 32.1 H, MCHC 33.3, RDW Std Deviation 57.1 H, RDW Coeff of Rashad 15.9 H, Plt Count 201, MPV 9.7, Immature Gran % (Auto) 0.000, Neut % (Auto) 46.5 L, Lymph % (Auto) 39.4, [place] % (Auto) 13.0 H, Eos % (Auto) 0.7, Baso % (Auto) 0.4, Absolute Neuts (auto) 2.1, Absolute Lymphs (auto) 1.79, Nucleated RBC % 0 12/23/22 06:20: Sodium 141, Potassium 3.5, Chloride 109 H, Carbon Dioxide 24.0, Anion Gap 8, BUN 11, Creatinine 0.96, Estim Creat Clear Calc 59.29, Est GFR (MDRD) Af Amer 97, Est GFR (MDRD) Non-Af 80, BUN/Creatinine Ratio 11.4, Glucose 143 H, Calcium 8.7, Total Bilirubin 4.30 H, AST 356 H, ALT 625 H, Alkaline Phosphatase 383 H, Total Protein 5.9 L, Albumin 2.8 L, Globulin 3.1, Album in/Globulin Ratio 0.9 Radiography Diagnostic Testing: Radiology Impression MRCP 12/23/22 09:00 IMPRESSION: 1. 2.6 cm mass causing marked compression of the proximal portion of the common bile duct associated with significant dilatation of the common hepatic duct and intrahepatic biliary tree which may represent primary biliary carcinoma or secondary to lymphadenopathy. 2. Multiple enlarged retroperitoneal lymph nodes along the hepatoduodenal ligament as well as multiple liver lesions consistent with metastatic disease. Electronically Signed: Fermin Hamm MD at 10:09 EDT , Rhythm Strip Rhythm Strip: Sinus Rhythm Rate: 77 Ectopy: None Physical Exam Const alert, oriented x3 and no apparent distress HEENT normocephalic, head/scalp atraumatic, hearing grossly normal bilaterally and moist oral mucous membranes Eyes PERRL, EOMs intact bilaterally and conjunctivae normal Neck no lymphadenopathy Resp normal respiratory effort, normal air movement, no retractions, no use of accessory muscles and clear to auscultation bilaterally Cardio regular rate, regular rhythm, S1 normal heart sound, S2 normal heart sound and no murmurs GI normal to inspection, nondistended, normoactive bowel sounds, soft to palpation, non-tender and non-distended Extremity normal to inspection, full ROM, normal capillary refill and no clubbing, cyanosis or edema Skin Skin Narrative: still has tinge of jaundice Neuro oriented x3, CN's II-XII intact bilaterally, moves all extremities and no focal motor deficits Sensorium / Orientation: awake and alert Motor Exam: strength 5/5 throughout Psych thought process normal, cooperative and affect normal Appearance: appropriate Assessment & Plan Assessment/Plan (1) Adenosquamous carcinoma of gallbladder: (2) Cancer, metastatic to liver: (3) History of resection of liver: PLAN: Plan # Obstructive Jaundice to probable gallbladder cancer with liver mets * CT of the abdomen and pelvis showed intrahepatic biliary ductal dilatation with findings suggestive of a tube 0.6 x 2.4 cm soft tissue mass in the region of the blossom hepatis suggestive of a neoplastic process with enlargement of lymph nodes and evidence of mets to the liver. 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 He was referred to [facility] as the posterior wall of the gallbladder could not be removed. He did have surgery then at [facility] and posterior wall of the gallbladder was removed together with a portion of his liver. Biopsy done at that time was negative for malignancy. * Total bilirubin has trended down to 4.2 today. and is appears to be an obstructive pattern with elevated ALP as well. AST and ALT also elevated. * General surgery, gastroenterology and oncology consulted. * for MRCP and ERCP today * eliquis on hold * CA 19-9 and CEA ordered and pending. * #History of A-fib: On metoprolol. Hold Eliquis. #Benign essential hypertension: On lisinopril and metoprolol #History of ischemic stroke. Likely due to A-fib. Eliquis on hold. Hold rosuvastatin in light of elevated liver enzymes #BPH: On Flomax DVT prophylaxis: SCDs CODE STATUS: Full code * * Total time spent on evaluation and management of patient, reviewing chart and specialist notes, discussing plan with patient and his , discussion with nursing and ancillary staff as well as documentation: 45 mins Charges/Coding Visit Charges Inpatient E&M: 00788 Subs Hosp L2
--- NOTE | 2022-12-23 15:17 | CHAPLAIN ---
Type of Pastoral Visit _x__ Initial Visit ___ Follow-up Visit ___ On-call Visit ___ General Patient Visit ___ Spiritual Assessment ___ Family Conference ___ Bereavement ___ Rapid Response ___ Code Blue ___ Other (describe below) Pastoral Care Referral From _x__ Patient ___ Family ___ Nurse ___ Physician ___ [employer] ___ Travel Pta ___ Other (describe below) Sacrament/Intervention _x__ Active listening ___ Anointing ___ Yarsanism ___ Bereavement ___ Communion ___ Melony exploration ___ ___ Life review _x__ Prayer ___ Reconciliation ___ Sacrament of Sick _x__ Supportive presence ___ Wedding ___ Other (describe below) Pastoral Comments patient is welcoming and describes his new updated diagnosis which is to be further explored today through scope; asked pt about his feelings during this time; pt is asked about support that he has or needs; pt states that his is active in [employer] but that he only attends sporadically; pt has family support; pt is given time to talk about this experience and offered help as desired; prayer is welcomed
[2022-12-23] MEDS: Lactated Ringers 1,000 ML 15 ML IV (15:39)
--- NOTE | 2022-12-23 16:55 | RAD_ITS ---
CLINICAL HISTORY: Male, 77 years old. Pain. PROCEDURE: ERCP. FLUOROSCOPY TIME (if supplied): 311.6 cm. 70.79 mGy exposure. TECHNIQUE: Fluoroscopic guidance was provided in the OR during the performance of an ERCP. 19 spot images were performed for documentation purposes. Please refer to the procedural report for further details. RAD/ERCP Biliary Only IMPRESSION: Fluoroscopy provided during an ERCP. Electronically Signed: José Hughes DO at 18:37 EDT ,
--- NOTE | 2022-12-23 18:22 | OP.ERCP_ITS ---
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 Refer to note in patient chart for documentation of history and physical. Patient has symptoms of acute jaundice. He is status post laparoscopic cholecystectomy within the past three months. Complications: No immediate complications. Procedure: Pre-Anesthesia Assessment: - Prior to the procedure, a History and Physical was performed, and patient medications and allergies were reviewed. The patient is competent. The risks and benefits of the procedure and the sedation options and risks were discussed with the patient. All questions were answered and informed consent was obtained. Patient identification and proposed procedure were verified by the physician in the pre-procedure area. Mental Status Examination: alert and oriented. Airway Examination: normal oropharyngeal airway and neck mobility. Respiratory Examination: clear to auscultation. CV Examination: normal. Prophylactic Antibiotics: The patient does not require prophylactic antibiotics. Prior Anticoagulants: The patient has taken no previous anticoagulant or antiplatelet agents. ASA Grade Assessment: II - A patient with mild systemic disease. After reviewing the risks and benefits, the patient was deemed in satisfactory condition to undergo the procedure. The anesthesia plan was to use general anesthesia. Immediately prior to administration of medications, the patient was re-assessed for adequacy to receive sedatives. The heart rate, respiratory rate, oxygen saturations, blood pressure, adequacy of pulmonary ventilation, and response to care were monitored throughout the procedure. The physical status of the patient was re-assessed after the procedure. After obtaining informed consent, the scope was passed under direct vision. Throughout the procedure, the patient's blood pressure, pulse, and oxygen saturations were monitored continuously. The Duodenoscope was introduced through the mouth, and advanced to the duodenum and used to inject contrast into the bile duct. The ERCP was technically difficult and complex due to challenging cannulation because of abnormal anatomy. The patient tolerated the procedure fairly well. Scope In: 5:06:06 PM Scope Out: 6:10:28 PM Total Procedure Duration Time 1 hour 4 minutes 22 seconds Findings: The armature tester film was normal. The esophagus was successfully intubated under direct vision. The scope was advanced to a normal major papilla in the descending duodenum without detailed examination of the pharynx, larynx and associated structures, and upper GI tract. The upper GI tract was grossly normal. The bile duct was deeply cannulated with the short-nosed traction sphincterotome. Contrast was injected. I personally interpreted the bile duct images. There was brisk flow of contrast through the ducts. Image quality was excellent. Contrast extended to the entire biliary tree. The upper third of the main bile duct was diffusely dilated, secondary to a stricture. The largest diameter was 5 mm. A cholecystectomy had been performed. An angled Roadrunner wire was passed into the biliary tree. A 5 mm biliary sphincterotomy was made with a traction (standard) sphincterotome using ERBE electrocautery. Severe bleeding from the sphincterotomy continued for over 5 minutes. The biliary tree was swept with a basket starting at the bifurcation. Mucus was swept from the duct. Debris was swept from the duct. Dilation of the hepatic duct bifurcation with a 10-11-12 mm balloon (to a maximum balloon size of 10 mm) dilator resulted in 60 percent obliteration of the waist. Fluid aspiration for cytology was performed in the hepatic duct bifurcation. Cells for cytology were obtained by brushing in the hepatic duct bifurcation. Two 7 Fr by 12 cm temporary stents were placed 5 cm into the common bile duct. Clear fluid flowed through the stents. The stents were in good position. Impression: - The upper third of the main bile duct was dilated, secondary to a stricture. - The patient has had a cholecystectomy. - A biliary sphincterotomy was performed. - The biliary tree was swept and mucus and debris were found. - The hepatic duct bifurcation was successfully dilated. - Fluid aspiration was performed. - Cells for cytology obtained at the hepatic duct bifurcation. - Two temporary stents were placed into the common bile duct. Procedure Code(s): --- Professional --- 65953, Endoscopic retrograde cholangiopancreatography (ERCP); with placement of endoscopic stent into biliary or pancreatic duct, including pre- and post-dilation and guide wire passage, when performed, including sphincterotomy, when performed, each stent [id number], 59, Endoscopic retrograde cholangiopancreatography (ERCP); with placement of endoscopic stent into biliary or pancreatic duct, including pre- and post-dilation and guide wire passage, when performed, including sphincterotomy, when performed, each stent [id number], 59, Endoscopic retrograde cholangiopancreatography (ERCP); with trans-endoscopic balloon dilation of biliary/pancreatic duct(s) or of ampulla (sphincteroplasty), including sphincterotomy, when performed, each duct 63182, 51, Endoscopic retrograde cholangiopancreatography (ERCP); with removal of calculi/debris from biliary/pancreatic duct(s) 03623, 26, Endoscopic catheterization of the biliary ductal system, radiological supervision and interpretation CPT copyright 2017 [employer]. All rights reserved. The codes documented in this report are preliminary and upon brusher and shearer review may be revised to meet current compliance requirements. Vick Almonte DO 12/23/2022 6:22:22 PM This report has been signed electronically. Number of Addenda: 0 Note Initiated On: 12/23/2022 3:04 PM
--- NOTE | 2022-12-23 18:23 | OP.CCLET_ITS ---
12/23/2022 Fidencio Benson MD Re : ERCP procedure for Valdemar Vitale Dear Dr. Benson This procedure was performed on Friday, December 23, 2022. My impressions and recommendations are as follows: Impressions : - The upper third of the main bile duct was dilated, secondary to a stricture. - The patient has had a cholecystectomy. - A biliary sphincterotomy was performed. - The biliary tree was swept and mucus and debris were found. - The hepatic duct bifurcation was successfully dilated. - Fluid aspiration was performed. - Cells for cytology obtained at the hepatic duct bifurcation. - Two temporary stents were placed into the common bile duct. Recommendations : My findings are described in the full procedure note, which is enclosed. If I can be of further assistance, please feel free to contact me at . Sincerely, Vick Almonte, 12/23/2022 6:22:22 PM This report has been signed electronically.
[2022-12-23] MEDS: Ipratropium/Albuterol Sulfate 3 ML AMPUL.NEB INHALATION (18:32)
[2022-12-23] MEDS: Racepinephrine HCl 0.5 ML VIAL.NEB. INHALATION (18:40)
--- NOTE | 2022-12-23 18:45 | RAD_ITS ---
INDICATION: Short of breath EXAMINATION/TECHNIQUE: X-RAY - XR Chest 1 View COMPARISON: 09/16/2022 FINDINGS: LUNGS: No consolidation, edema or effusion. No pneumothorax. Mild left lung base atelectasis. MEDIASTINUM AND CARDIOVASCULAR STRUCTURES: Cardiac silhouette not enlarged. Central airways and mediastinal contour are unremarkable. RAD/Chest 1 View (Portable) IMPRESSION: Mild left lung base atelectasis. Electronically Signed: Pete Cunha MD at 19:02 EDT ,
--- NOTE | 2022-12-23 19:58 | SUR.PHASEI ---
Call made to [facility] and they are okay with pt coming back to the floor.
[2022-12-23] MEDS: Lisinopril 10 MG Tablet PO (22:40)
[2022-12-23] MEDS: Montelukast 10 MG Tablet PO (22:41)
[2022-12-23] MEDS: Latanoprost 0.005% 1 Bottle 1 DRP LEFT EYE (22:42)
[2022-12-23] MEDS: Tamsulosin HCl 0.4 MG Capsule PO (22:43)
[2022-12-24 00:31] VITALS: BP 142/98; PULSE 96; RESP 16; TEMP 37.1; O2SAT 94
[2022-12-24 05:48] VITALS: BP 138/92; PULSE 83; RESP 16; TEMP 36.8; O2SAT 95
[2022-12-24 06:29] LABS: Absolute Lymphocyte Count 1.77 X10^3/uL (0.83-4.51); Absolute Neutrophil Count 4.7 X10^3/uL (2.0-7.7); Hemoglobin 12.9 g/dL (13.0-16.5); Lymphocyte # 1.77 X10^3/ul (0.83-4.51); Lymphocyte % 25.6 % (19-41); Mean Corp Hgb Conc 32.3 g/dL (32-36); Mean Corpuscular Hgb 30.4 pg (27.0-32.0); Mean Corpuscular Volume 94.3 fL (80-94); Mean Platelet Vol. 9.7 fl (6.2-12.0); Monocyte# 0.41 X10^3/uL; Monocyte% 5.9 % (0-10); NRBC Flagged by Analyzer 0 % (0-5); Neutrophil % 68.1 % (47-70); Platelet Count 244 K/mm3 (150-450); Red Blood Count 4.24 M/mm3 (4.6-6.2); White Blood Count 6.9 K/mm3 (4.4-11.0)
[2022-12-24 07:12] LABS: ALB/GLOB Ratio 0.8 RATIO (0.9-2.4); AST(SGOT) 303 U/L (15-37); Alanine Aminotransfer ALT/SGPT 595 U/L (16-61); Alkaline Phosphatase 418 U/L (45-117); Anion Gap 7 (5-15); BUN 14 mg/dL (7-18); BUN/Creat Ratio 12.5 RATIO (10-20); Calcium,Total 9.5 mg/dL (8.5-10.1); Chloride 104 mmol/L (98-107); Creatinine, Serum 1.12 mg/dL (0.70-1.30); EST Glomerular Filtration Rate 67 mL/min (>60); Est Glom Filt Rate - Afr Amer 81 mL/min (>60); Estimated Creatinine Clearance 50.82 ml/min; Globulin 3.9 g/dL (2.2-4.2); Glucose 153 mg/dL (74-106); Protein, Total 6.9 g/dL (6.4-8.2); Sodium Level 136 mmol/L (136-145)
[2022-12-24] MEDS: Dorzolamide HCL/Timolol 10 ml Bottle 1 DRP EACH EYE (07:58)
[2022-12-24 07:59] VITALS: PULSE 81
[2022-12-24] MEDS: Famotidine 20 MG Tablet PO (07:59)
[2022-12-24] MEDS: Metoprolol Tartrate 25 MG Tablet 12.5 MG PO (07:59)
[2022-12-24] MEDS: buPROPion 100 MG Tablet PO (07:59)
[2022-12-24 08:00] VITALS: BP 121/81; PULSE 76; RESP 18; TEMP 37.1; O2SAT 99
--- NOTE | 2022-12-24 10:27 | DCINST_ITS ---
Discharge Instructions Diet Discharge Diet: Low fat / Low cholesterol Activity Discharge Activity: Return to Normal Activity Weight Bearing Status: Weight bearing as tolerated Dressing / Incision Call your doctor if you observe: Fever of 101 or Higher, Shortness of breath, Dizziness, Swelling in the ankles, Chest pain, Uncontrolled pain and - (abdominal pain, worsening jaundice) Follow Up Care Test Results: Test results from this visit will be discussed in further detail at your follow- up appointment, if applicable. 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 Discharge Orders/Prescriptions Prescriptions: Continued rosuvastatin 40 mg tablet 40 mg PO DAILY latanoprost 1 DROP bottle 1 drp LEFT EYE QHS tamsulosin 0.4 MG capsule 0.4 mg PO QHS coenzyme Q10 100 MG capsule 100 mg PO DAILY multivitamin Tablet 1 tab PO DAILY dorzolamide-timolol 22.3-6.8 mg/mL drops 1 drp EACH EYE DAILY montelukast 10 mg tablet 10 mg PO QHS zolpidem 5 mg tablet 2.5 mg PO QHS PRN (Reason: Sleep) fluticasone propionate 50 mcg/actuation spray,suspension 2 spray INTRANASAL DAILY lisinopril 10 mg tablet 10 mg PO QHS metoprolol tartrate 25 mg tablet 12.5 mg PO BID Held Eliquis 5 mg tablet 5 mg PO BID Hold Instructions: until CT guided liver biopsy 12/26/22 No Action bupropion HCl 100 MG tablet 100 mg PO BID Other Ambulatory Orders: Biopsy/Inj or Needle Placement (Routine) Timeframe: 20221226 Facility: [facility] - Location: [facility] Ordered By: Dr. Jennifer Keller Referrals / Follow Up: Fidencio Benson MD [Primary Care Provider] - Ian Chandler MD [Med Staff - Active Staff] - Within 2 Weeks Friend,Vick, DO [Med Staff - Active Staff] - Within 2 Weeks Jennifer Keller MD [Med Staff - Active Staff] - Within 2 Weeks Disposition Disposition (needs filled in before D/C Order can be placed): Home, Self Care
--- NOTE | 2022-12-24 10:28 | PCM.DC.SUM ---
Providers Date of Admission: 12/22/22 Date of Discharge: 12/24/22 Primary Care Physician: Dr. Fidencio Benson MD Consultations 12/22/22 14:12 Consult: Gastroenterology Routine Consulting Provider: [facility] Reason for Consult: gallbladder malignancy EMERGENT Consult: No Notified: Yes Date Notified: 12/22/22 Time Notified: 14:12 Method of Notification: Dr Keller informed GI Consult: Oncology/Hematology Routine Consulting Provider: [facility] Reason for Consult: gallbladder cancer EMERGENT Consult: No Notified: Yes Date Notified: 12/22/22 Time Notified: 14:13 Method of Notification: Dr Keller informed Onc Reason For Visit: METASTATIC GALLBLADDER CANCER Diagnosis Discharge Diagnosis (1) Painless jaundice: Status: Acute Code(s): R17 - Unspecified jaundice (2) Gallbladder cancer, carcinoma: Status: Acute Code(s): C23 - Malignant neoplasm of gallbladder (3) S/P laparoscopic cholecystectomy: Status: Acute Code(s): Z90.49 - Acquired absence of other specified parts of digestive tract (4) History of resection of liver: Status: Acute Code(s): Z90.49 - Acquired absence of other specified parts of digestive tract Plan # Obstructive Jaundice to probable gallbladder cancer with liver mets CT of the abdomen and pelvis showed intrahepatic biliary ductal dilatation with findings suggestive of a tube 0.6 x 2.4 cm soft tissue mass in the region of the blossom hepatis suggestive of a neoplastic process with enlargement of lymph nodes and evidence of mets to the liver. 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 He was referred to [facility] as the posterior wall of the gallbladder could not be removed. He did have surgery then at [facility] and posterior wall of the gallbladder was removed together with a portion of his liver. Biopsy done at that time was negative for malignancy. Total bilirubin has trended down to 4.2 today. and is appears to be an obstructive pattern with elevated ALP as well. AST and ALT also elevated. General surgery, gastroenterology and oncology consulted. for MRCP and ERCP today eliquis on hold CA 19-9 and CEA ordered and pending. #History of A-fib: On metoprolol. Hold Eliquis. #Benign essential hypertension: On lisinopril and metoprolol #History of ischemic stroke. Likely due to A-fib. Eliquis on hold. Hold rosuvastatin in light of elevated liver enzymes #BPH: On Flomax DVT prophylaxis: SCDs CODE STATUS: Full code Total time spent on evaluation and management of patient, reviewing chart and specialist notes, discussing plan with patient and his , discussion with nursing and ancillary staff as well as documentation: 45 mins Medications at Discharge Home Medications bupropion HCl 100 mg tablet 100 mg PO BID DEPRESSION 12/31/15 coenzyme Q10 100 mg capsule 100 mg PO DAILY SUPPLEMENT 12/31/15 latanoprost 0.005 % eye drops 1 drp LEFT EYE QHS GLAUCOMA 12/31/15 tamsulosin 0.4 mg capsule 0.4 mg PO QHS PROSTATE 12/31/15 rosuvastatin 40 mg tablet 40 mg PO DAILY CHOLESTEROL 10/19/21 apixaban 5 mg tablet (Eliquis) 5 mg PO BID BLOOD THINNER 09/13/22 dorzolamide 22.3 mg-timolol 6.8 mg/mL eye drops 1 drp EACH EYE DAILY eye health 09/13/22 fluticasone propionate 50 mcg/actuation nasal spray,suspension 2 spray intranasal DAILY NASAL CONGESTION 09/13/22 lisinopril 10 mg tablet 10 mg PO QHS BLOOD PRESSURE 09/13/22 metoprolol tartrate 25 mg tablet 12.5 mg PO BID BLOOD PRESSURE 09/13/22 montelukast 10 mg tablet 10 mg PO QHS ALLERGIES 09/13/22 multivitamin 1 tab PO DAILY SUPPLEMENT 09/13/22 zolpidem 5 mg tablet 2.5 mg PO QHS PRN Sleep 09/13/22 Hospital Course Operations None Procedures - (ERCP) Summary of Care Provided Minutes Spent on Discharge: 52 Hospital Course: JAY JEFFERSON, is a 77 M with a PMH as outlined who presents via the ED on 12/22/2022 with a complaint of nausea and vomiting. HE had acute cholecystitis back in August 2022; he had cholecystectomy done then and biopsy done was concerning for gallbladder cancer. THe posterior wall of the gallbladder could not be resected and so he was referred to [facility] where he had the posterior wall of the gallbladder resected along with a portion of the liver.? At that time he was told biopsies done were negative for cancer. He went to see his PCP today and was noted to be jaundiced, and also had nausea and vomiing. He was sent to the ED for further evaluation. He said had had abdominal distension and felt bloated. He denied any abdominal pain. He admitted to losing about 10 pounds unintentionally, but said it was because he couldnt eat much. He denied any fever, chills, cough, chest pain, palpitations or dizziness, nausea or vomiting. Review of systems is otherwise negative. Vitals in the ED were ttemp of 97.7F, BP of 133/88, RR of 16 and he was saturating at 96% on room air. CBC was unremarkable. Chemistry was significant for total bilirubin of 4.9, with total bilirubin of 4.18, AST of 421, ALT of 769 and ALP of 449. CT of the abdomen and pelvis showed intrahepatic biliary ductal dilatation with findings suggestive of 2.6cm x 2.4cm soft tissue mass in the region of the blossom hepatis suggestive of neoplastic process vs enlargement of lymph nodes, with finding suggestive of metastatic disease in the liver. He was admitted to be managed for probable gallbladder cancer with liver mets. General surgery, oncology and gastroenterology were consulted. MRCP showed 2.6cm mass causing marked compression of the proximal portion of the common bile duct associated with significant dilatation of the common hepatic duct and intrahepatic biliary tree which may represent primary biliary carcinoma or secondary to lymphadenopathy. There are also multiple enlarged retroperitoneal lymph nodes along the hepatoduodenal ligament as well as multiple liver lesions consistent with metastatic disease. He had ERCP by gastroenterology which showed the upper third of the main bile duct was dilated due to a stricture. He had a biliary sphincterotomy and biliary tree was swept and mucus and debris were found. Hepatic duct bifurcation was successfully dilated and fluid aspiration was performed as well as also obtained for cytology and 2 temporary stents placed into the common bile duct. Patient is jaundice improved markedly and bilirubin trended downwards. He felt much better. Plan was for patient to have liver biopsy on 12/26/2022 on outpatient basis. Patient was therefore discharged home on 12/24/2022. Oncology reviewed him and recommended patient follow-up with them on outpatient basis once biopsy results were available for plan of care to be formulated. He is to follow-up with his primary care doctor, gastroenterology and oncology as well as general surgery all within 1 to 2 weeks. Patient was instructed to hold off on taking his Eliquis until he had a liver biopsy on 01/05/2023 and then he was to resume Eliquis 1 or 2 days after that. Patient was seen and examined prior to discharge. His was by his bedside. He felt much better and had no active complaints. Review of systems otherwise negative. Labs and vitals reviewed. Home medication reviewed and reconciled. Physical Exam Const alert, oriented x3 and no apparent distress General Appearance: cooperative and comfortable HEENT normocephalic, head/scalp atraumatic, hearing grossly normal bilaterally and moist oral mucous membranes Eyes PERRL, EOMs intact bilaterally and conjunctivae normal Neck no lymphadenopathy Resp normal respiratory effort, normal air movement, no retractions, no use of accessory muscles and clear to auscultation bilaterally Cardio regular rate, regular rhythm, S1 normal heart sound, S2 normal heart sound and no murmurs GI normal to inspection, nondistended, normoactive bowel sounds, soft to palpation, non-tender and non-distended Extremity normal to inspection, full ROM, normal capillary refill and no clubbing, cyanosis or edema Skin Skin Narrative: jaundice has improved markedly Neuro oriented x3, CN's II-XII intact bilaterally, moves all extremities and no focal motor deficits Sensorium / Orientation: awake and alert Motor Exam: strength 5/5 throughout Psych thought process normal, cooperative and affect normal Appearance: appropriate Medical Records Data Medical Nutrition Assessment Dietitian: Malnutrition Criteria Met Start: 12/23/22 09:17 Freq: Status: Active Protocol: Document 12/23/22 09:17 (Rec: 12/23/22 09:17 AG [id number]) Nutrition Malnutrition Evidence of Malnutrition Exists Yes Malnutrition (severe): Chronic Evidenced By Suboptimal Energy Intake ( Severe),Weight Loss (Severe) Clinical Problem Chronic Disease or Condition Related Malnutrition Etiology severe, chronic malnutrition related to inadequate energy intake w/ increased energy needs d/t metastatic disease Signs/Symptoms as evidenced by unintentional 15#/9% wt loss x 3.5 months, estimated PO intake meeting < 75% of estimated energy needs > 3 months Status Active Problem Recommendation Dietitian Recommendations/Changes Recommend advance diet as tolerated to regular; ensure plus high protein 120mL w/ medpass when PO diet is advanced. Will monitor tolerance of diet and adjust as indicated. Weight / BMI Weight Weight: 158 lb 11.725 oz Body Mass Index (BMI) 24.8 ABG / Lab / Microbiology Data Result Diagrams: 12/24/22 05:45 12/24/22 05:45 Laboratory: Laboratory Results - last 24 hr 12/24/22 05:45: WBC 6.9, RBC 4.24 L, Hgb 12.9 L, Hct 40.0, MCV 94.3 H, MCH 30.4, MCHC 32.3, RDW Std Deviation 56.0 H, RDW Coeff of Rashad 16.0 H, Plt Count 244, MPV 9.7, Immature Gran % (Auto) 0.400, Neut % (Auto) 68.1, Lymph % (Auto) 25.6, Nuckolls % (Auto) 5.9, Eos % (Auto) 0.0, Baso % (Auto) 0.0, Absolute Neuts (auto) 4.7, Absolute Lymphs (auto) 1.77, Nucleated RBC % 0 12/24/22 05:45: Sodium 136, Potassium 4.0, Chloride 104, Carbon Dioxide 25.0, Anion Gap 7, BUN 14, Creatinine 1.12, Estim Creat Clear Calc 50.82, Est GFR (MDRD) Af Amer 81, Est GFR (MDRD) Non-Af 67, BUN/Creatinine Ratio 12.5, Glucose 153 H, Calcium 9.5, Total Bilirubin 2.30 H, AST 303 H, ALT 595 H, Alkaline Phosphatase 418 H, Total Protein 6.9, Albumin 3.0 L, Globulin 3.9, Albumin/Globulin Ratio 0.8 L Radiography Diagnostic Testing: Radiology Impression ERCP X-Ray 12/23/22 16:55 IMPRESSION: Fluoroscopy provided during an ERCP. Electronically Signed: José Hughes DO at 18:37 EDT Reading Location ID and State: [address] [place] [address] Tel [phone], Service support , Chest X-Ray 12/23/22 18:45 IMPRESSION: Mild left lung base atelectasis. Electronically Signed: Pete Cunha MD at 19:02 EDT Reading Location ID and State: [facility] / [place] Tel , Service support , D/C Instructions Discharge Diet: Low fat / Low cholesterol Discharge Activity: Return to Normal Activity Weight Bearing Status: Weight bearing as tolerated Call your doctor if you observe: Fever of 101 or Higher, Shortness of breath, Dizziness, Swelling in the ankles, Chest pain, Uncontrolled pain and - (abdominal pain, worsening jaundice) Meaningful Use Info Meaningful Use Diagnoses (Choose all that apply): None applicable Discharge Plan Admission Admit Date/Time: 12/22/22 11:17 Primary Reason for Your Visit: obstructive jaundice to gallbladder ca Attending Provider: Mary Anne Dye Primary Care Provider: Fidencio Benson Consulting Providers: Bebeto Gutierrez ; Ian Chandler ; Nahid Galan ; Raimundo Chandra ; Estrada Honeycutt ; Julio Palacio ; Baron Montilla ; Lien Espinoza PHOTOGRAPHIC PROCESSOR Instructions Patient Instructions: Cancer Gallbladder Dc, Jaundice Inf Dc, Liver Problems Signs Ch Additional Instructions / Restrictions: hold eliquis till 12/26/2022, then resume eliquis. Discharge Orders/Prescriptions Prescriptions: Continued rosuvastatin 40 mg tablet 40 mg PO DAILY latanoprost 1 DROP bottle 1 drp LEFT EYE QHS tamsulosin 0.4 MG capsule 0.4 mg PO QHS coenzyme Q10 100 MG capsule 100 mg PO DAILY multivitamin Tablet 1 tab PO DAILY dorzolamide-timolol 22.3-6.8 mg/mL drops 1 drp EACH EYE DAILY montelukast 10 mg tablet 10 mg PO QHS zolpidem 5 mg tablet 2.5 mg PO QHS PRN (Reason: Sleep) fluticasone propionate 50 mcg/actuation spray,suspension 2 spray INTRANASAL DAILY lisinopril 10 mg tablet 10 mg PO QHS metoprolol tartrate 25 mg tablet 12.5 mg PO BID Held Eliquis 5 mg tablet 5 mg PO BID Hold Instructions: until after liver biopsy No Action bupropion HCl 100 MG tablet 100 mg PO BID Other Ambulatory Orders: Biopsy/Inj or Needle Placement (Routine) Timeframe: 20221226 Facility: [facility] - Location: [facility] Ordered By: Dr. Jennifer Keller Referrals / Follow Up: Fidencio Benson MD [Primary Care Provider] - Ian Chandler MD [Med Staff - Active Staff] - Within 2 Weeks Vick Almonte DO [Med Staff - Active Staff] - Within 2 Weeks Jennifer Keller MD [Med Staff - Active Staff] - Within 2 Weeks Disposition Disposition (needs filled in before D/C Order can be placed): Home, Self Care Charges/Coding Visit Charges Inpatient E&M: 27800 Disch Hosp >30min
[2022-12-24 11:08] LABS: Carbohydrate AG 19-9 6580 U/mL (0-35); Carcinoembryonic Antigen 18.1 ng/mL (0.0-4.7)
[2022-12-24 11:19] VITALS: BP 130/93; PULSE 66; RESP 18; TEMP 36.8; O2SAT 99
== END 2022-12-24 11:19 | disposition home or self-care (01) | DRG 435 ==
LOC: ED 11:25 → MS3 11:43
PROVIDERS: Internal Medicine Gastroenterology; Admitting Provider Student in an Organized Health Care Education/Training Program; Emergency Provider Emergency Medicine; PCP Family Medicine; Visit Provider Student in an Organized Health Care Education/Training Program
PROC: 0FC98ZZ Extirpation of Matter from Common Bile Duct, Via Natural or Artificial Opening Endoscopic (ICD-10-PCS; CPT 43260; principal; 2022-12-23 16:10)
DX: C23 Malignant neoplasm of gallbladder (principal); K83.1 Obstruction of bile duct; R17 Unspecified jaundice; C24.0 Malignant neoplasm of extrahepatic bile duct; C78.7 Secondary malignant neoplasm of liver and intrahepatic bile duct; K83.8 Other specified diseases of biliary tract; I48.91 Unspecified atrial fibrillation; N18.32 Chronic kidney disease, stage 3b; I25.10 Atherosclerotic heart disease of native coronary artery without angina pectoris; E78.5 Hyperlipidemia, unspecified; I12.9 Hypertensive chronic kidney disease with stage 1 through stage 4 chronic kidney disease, or unspecified chronic kidney disease; Z66 Do not resuscitate; Z87.891 Personal history of nicotine dependence; Z90.49 Acquired absence of other specified parts of digestive tract; Z86.73 Personal history of transient ischemic attack (TIA), and cerebral infarction without residual deficits; N40.0 Benign prostatic hyperplasia without lower urinary tract symptoms
CPT/HCPCS: 36415; 71045; 74177; 74181; 74328; 76000; 80048; 80053; 80076; 82378; 83690; 85025; 86301; 88108; 88161; 88305; 88313; 93005; 94640; 97802; 99284; J7030; J7120; Q9967; A4216; C1726; C1769; J2405

== ENCOUNTER → 2022-12-26 | Outpatient (CLI) | payer MEDICARE, SELFPAY ==
[2022-12-26] VITALS (10 sets, daily range): BP systolic 95–147; BP diastolic 67–97; PULSE 60–73; RESP 10–23; TEMP 36.6; O2SAT 92–100; BMI 25.0
--- NOTE | 2022-12-26 | IMM_PTH ---
PATIENT: JAY JEFFERSON LOC: CT U#:[id number] AGE/SX: 77/M ROOM: RE12/26/[address]: Dr. Jennifer Keller MD : 1945 BED: DIS: 12/26/2022 SPEC #: [id number] RECD: 12/26/22 13:13 STATUS: MARY REQ #: [id number] EVER: 12/26/22 00:[address]: Jennifer Keller DEPT: IMMUNOHISTOCHEMISTRY RECD BY: Nina Hernández ENTERED: 12/26/22 13:14 SP TYPE: IMMUNO OTHR DR: MD Dr. Fidencio Sinclair MD Dr. Joseph Prah, MD Tissues: Liver, NOS Procedures: RCC (add) NAPSIN A (add) CK20 (add) CK5-6 (add) CK7 (add) CK8 (add) HEP PAR (add) TTF1 (add) Pankeratin (initial) P40 (add) PSAP (add) PHYSICIAN & INSTITUTION [address] [address] SPECIMEN INFORMATION: Tissue Source: Liver Clinical Info: Liver masses Specimen Number: [id number] CPT code: 12912, 67154 x10 METHODOLOGY: Deparaffinized sections of prefer/formalin-fixed tissue or PAP/DQ stained slides are incubated with monoclonal/polyclonal antibodies/oligonucleotide probes. Localization is made via biotin free immunoperoxidase method. Appropriate controls are performed and reacted as expected. Results on target cell population are indicated in the following table: RESULTS: ANTIBODY / CLONE RESULT AE1-3 (AE1/AE3/PCK26) positive CK7 (OV-TL12/30) positive CK8 (53jqfcM62) positive CK20 (KS20.8) negative TTF-1 (8G7G3/1) negative Napsin A (Rabbit Polyclonal) negative HepPar (OCh1E5) positive, focal RCC (PN-15) negative PSAP (PASE/4LJ) negative CK5-6 (D5 & 1684) positive, rare cells P40 (BC28) negative These tests were developed and their performance characteristics determined by [facility]. They may not have been cleared or approved by the U.S. Food and Drug Administration. The FDA has determined that such clearance or approval is not necessary. The above immunohistochemical/dualISH markers are ordered and reviewed by the Pathologist. INTERPRETATION: Liver, CT-guided biopsy: Consistent with poorly differentiated metastatic adenocarcinoma. See comment. SJ:viktoria 12/27/2022 Comment: IHC profile is compatible with clinical impression of biliary primary.
--- NOTE | 2022-12-26 | ASPIGT_PTH ---
PATIENT: JAY JEFFERSON LOC: [facility] U#:[id number] AGE/SX: 77/M ROOM: RE12/26/[address]: Dr. Jennifer Keller MD : 1945 BED: DIS: 12/26/2022 SPEC #: [id number] RECD: 12/26/22 09:30 STATUS: MARY REJojo #: [id number] EVER: 12/26/22 00:[address]: Jennifer Keller DEPT: SURGICAL PATHOLOGY RECD BY: Lala Payne ENTERED: 12/26/22 10:11 SP TYPE: ASP RAD OTHR DR: MD Dr. Fidencio Sinclair MD Dr. Joseph Prah, MD Procedures: FNA Specimen Adequacy Special Stain Group II Surgery Specimen Level IV Imprint (control) HEADER OPERATION: CT-guided liver biopsy PRE-OP DIAGNOSIS: Liver masses TISSUE SUBMITTED: Liver MICROSCOPIC DIAGNOSIS Liver, CT-guided core biopsy: Consistent with metastatic poorly differentiated adenocarcinoma. See comment. SJ:rg 12/27/2022 COMMENT The specimen is evaluated at the time of biopsy by Dr. Stephenson. Immediate Evaluation = Malignant cells derived from non-small cell carcinoma. Immunohistochemistry ([id number]) supports the above diagnosis and compatible with clinical impression of biliary primary. Please also refer to additional specimen [id number], biliary stricture brush tip fluid with diagnosis of a few malignant present derived from non-small cell carcinoma, favor adenocarcinoma. Please make reference to previous specimen ([id number]), posterior wall gallbladder, biopsy with diagnosis of ?small focus of poorly differentiated non-small cell carcinoma.? This case is discussed with Dr. Keller on 12/27/2022. Case has been reviewed in consultation with Dr. Cabrera who concurs with the above diagnosis. IDC:AM MICROSCOPIC DESCRIPTION Slides are reviewed. GROSS DESCRIPTION Received in fixative is one container labeled with the patient's name and designated right lobe liver. The specimen consists of multiple irregular fragments of torres soft tissue that in aggregate measure 2.0 x 0.5 x 0.1 cm. The specimen is totally submitted in one cassette. Two touch imprints are prepared at the time of core biopsy. / SCOTT:viktoria 12/26/2022 TC:0 CPT: 02095, 50177
--- NOTE | 2022-12-26 07:53 | CT_ITS ---
PROCEDURE: CT DIRECTED CORE LIVER BIOPSY INDICATION: Male, 77 years old. Liver masses -- pt will hold Elmquist (last dose 12/22/22 AM) PHYSICIAN: Dr. Oliverio Sanchez CONSENT: Written informed consent was obtained having explained the risks, benefits and alternatives in detail with the patient who accepted the risks and agreed to proceed. Laboratory review and clinical assessment was performed. CONSCIOUS SEDATION PROTOCOL: The Drugs used were: 2 mg Versed, IV., and 50 mcg Fentanyl, IV. The sedation time was: 20 minutes. Conscious sedation was started at 9:18 AM and terminated at 9:38 AM. The conscious sedation protocol was independently monitored. RADIATION DOSAGE (If Supplied By Facility): CTDIvol = ( 17 ) mGy, DLP = ( 640.83 ) mGycm Individualized dose optimization techniques were used for this CT. TECHNIQUE: Using CT image guidance with image documentation, a suitable location in the right lobe of the liver was identified. Using a right lateral approach, puncture of the liver was uneventful with an 18-gauge core needle system. 5, 18-gauge core samples were obtained, and submitted in formalin to the pathologist for further assessment. Followup CT scan revealed no distinct sequelae. CT/Biopsy/Inj or Needle Placement IMPRESSION: 1. CT directed core needle biopsy of the liver, using CT image guidance with image documentation as described. 2. Conscious Sedation protocol utilized with independent monitoring. Electronically Signed: Rommel Duron MD at 10:15 EDT ,
[2022-12-26 07:58] LABS: Platelet Count 227 K/mm3 (150-450)
[2022-12-26 08:37] LABS: International Normalized Ratio 1.2; Prothrombin Time (Protime)PT. 15.3 SECONDS (11.7-14.9)
[2022-12-26 08:38] LABS: Partial Thromboplast Time 28.4 Seconds (24.1-36.2)
[2022-12-26] MEDS: Midazolam 2 MG/2 ML Syringe IV (09:18)
[2022-12-26] MEDS: fentaNYL 100 MCG/2 ML Ampul IV (09:20)
[2022-12-26] MEDS: Lidocaine 2% (20 ml mdv) 20 ML Vial INFILT (09:35)
== END | disposition home or self-care (01) ==
PROVIDERS: Radiology Diagnostic Radiology; PCP Family Medicine; Referring Provider Surgery; Visit Provider Surgery
DX: Z01.818 Encounter for other preprocedural examination (principal); C78.7 Secondary malignant neoplasm of liver and intrahepatic bile duct; C80.1 Malignant (primary) neoplasm, unspecified; Z79.01 Long term (current) use of anticoagulants
CPT/HCPCS: 47000; 36415; 77012; 85049; 85610; 85730; 88172; 88305; 88313; 88341; 88342; 99156; J7050; A4216

== ENCOUNTER 2023-01-06 05:50 | Day surgery (SDC) | payer MEDICARE, SELFPAY ==
[2023-01-06 06:30] VITALS: BP 110/77; PULSE 76; RESP 16; TEMP 37.2; O2SAT 95; BMI 24.8
[2023-01-06] MEDS: Lactated Ringers 1,000 ML 15 ML IV (06:35)
--- NOTE | 2023-01-06 07:12 | PCM.HP.STD ---
HPI - General General Date of Admission: 01/06/23 HPI Narrative JAY JEFFERSON, is a 77 M who presents for port placement due to metastatic gallbladder cancer/cholangiocarcinoma. [facility] Medical History Adenosquamous carcinoma of gallbladder Benign essential hypertension Cancer, metastatic to liver Cardiology follow-up encounter Depression Depression Encounter for education Former smoker Gallbladder cancer, carcinoma High cholesterol History of atrial fibrillation History of echocardiogram History of stress test Hyperlipidemia Hypertension Ischemic cerebrovascular accident (CVA) (09/2016) Nonobstructive atherosclerosis of coronary artery Painless jaundice Paroxysmal atrial fibrillation Peritonitis Prostate disease Stage 3b chronic kidney disease (CKD) Stroke/cerebrovascular accident Home Medications bupropion HCl 100 mg tablet 100 mg PO BID DEPRESSION 12/31/15 [History Last Taken 01/06/23 05:30] coenzyme Q10 100 mg capsule 100 mg PO DAILY SUPPLEMENT 12/31/15 [History Last Taken 09/12/22] latanoprost 0.005 % eye drops 1 drp LEFT EYE QHS GLAUCOMA 12/31/15 [History Last Taken 09/12/22] tamsulosin 0.4 mg capsule 0.4 mg PO QHS PROSTATE 12/31/15 [History Last Taken 09/12/22] rosuvastatin 40 mg tablet 40 mg PO DAILY CHOLESTEROL 10/19/21 [History Last Taken 09/12/22] apixaban 5 mg tablet (Eliquis) 5 mg PO BID BLOOD THINNER 09/13/22 [History Last Taken 01/02/23 08:00] dorzolamide 22.3 mg-timolol 6.8 mg/mL eye drops 1 drp EACH EYE DAILY eye health 09/13/22 [History Last Taken 09/12/22] fluticasone propionate 50 mcg/actuation nasal spray,suspension 2 spray intranasal DAILY NASAL CONGESTION 09/13/22 [History Last Taken Unknown] lisinopril 10 mg tablet 10 mg PO QHS BLOOD PRESSURE 09/13/22 [History Last Taken 01/06/23 05:30] metoprolol tartrate 25 mg tablet 12.5 mg PO BID BLOOD PRESSURE 09/13/22 [History Last Taken 01/06/23 05:30] montelukast 10 mg tablet 10 mg PO QHS ALLERGIES 09/13/22 [History Last Taken 09/12/22] multivitamin 1 tab PO DAILY SUPPLEMENT 09/13/22 [History Last Taken 09/12/22] zolpidem 5 mg tablet 2.5 mg PO QHS PRN Sleep 09/13/22 [History Last Taken Unknown] ondansetron HCl 8 mg tablet 8 mg PO Q8H PRN nausea and vomiting #30 tabs 12/28/22 [Rx Last Taken Unknown] dexamethasone 4 mg tablet 8 mg PO .COMPLEX #12 tabs 01/02/23 [Rx Last Taken Unknown] lidocaine-prilocaine 2.5 %-2.5 % topical cream 1 applic topical ONCE PRN port access 30 days #30 grams 01/02/23 [Rx Last Taken Unknown] omeprazole 20 mg capsule,delayed release 20 mg PO DAILY #30 caps 01/02/23 [Rx Last Taken 01/06/23 05:30] prochlorperazine maleate 10 mg tablet 10 mg PO Q6H PRN nausea and vomiting #30 tabs 01/02/23 [Rx Last Taken Unknown] Allergy/AdvReac Type Severity Reaction Status Date / Time No Known Allergies Allergy Verified 01/06/23 06:28 Family History Mother CAD (coronary artery disease) Hypertension Brother CAD (coronary artery disease) Sister CAD (coronary artery disease) Surgical History H/O repair of left rotator cuff (01/2018) History of appendectomy History of cardiac catheterization History of carpal tunnel release History of cataract surgery History of herniorrhaphy History of resection of liver History of right and left heart catheterization (02/08/02) Hx of left knee surgery S/P laparoscopic cholecystectomy Social History household members: spouse housing: house number of children: 3 current occupational status: retired pets and animals: No Smoking Status: Former smoker alcohol intake: current alcohol intake frequency: holidays/special occasions only substance use type: does not use caffeine: Yes Type: coffee Number of servings: 2 what type of physical activity do you participate in: other details: [employer] Vital Signs Vital Signs Vital Signs: 01/06/23 06:30 Temperature 98.9 F Temperature Source Temporal Pulse Rate 76 Respiratory Rate 16 Blood Pressure 110/77 Blood Pressure Mean 88 Blood Pressure Source Monitor Blood Pressure Position Semi-Fowlers Blood Pressure Location Right Arm Pulse Ox 95 Oxygen Delivery Method Room Air Weight Weight: 158 lb 11.725 oz Body Mass Index (BMI) 24.8 Physical Exam Const alert, oriented x3 and no apparent distress HEENT normocephalic and head/scalp atraumatic Resp normal respiratory effort Cardio regular rate GI soft to palpation and non-tender; Negative for non-distended GI Narrative: Previous incision well-healed Palpation: Negative for guarding Extremity no clubbing, cyanosis or edema Neuro CN's II-XII intact bilaterally Psych mental status grossly normal Assessment & Plan Assessment/Plan (1) Encounter for insertion of venous access port: (2) Gallbladder cancer, carcinoma: (3) Carcinoma of extrahepatic bile duct: (4) Cancer, metastatic to liver: PLAN: Plan I have discussed above with the patient- Port-a-Cath placement. Left possible right Patient has been counseled as to the risks/benefits of the procedure. I have explained the risks of the surgery, including but not limited to: infection, bleeding, injury to any blood vessels/nerves, injury to lungs (such as pneumothorax or hemothorax and need for chest tube), not having any access, nonfunctioning of port due to thrombosis, infection of port, etc. the patient understands and agrees to proceed. I have answered all the patient's questions to the patient?s satisfaction and the patient has no further questions. Jennifer Keller M.D. Pager: [phone] [facility] [address] [place] [address], [address] [place] [address] Office: [phone]
[2023-01-06] MEDS: Cefazolin 2 GM in 0.9% Normal Saline 100 ML IV (07:23)
[2023-01-06] MEDS: Lidocaine 1% /Epi 1:100 (20ml) 20 ML Vial (07:35)
[2023-01-06] MEDS: Bupivacaine 0.5% PF 10 ML VIAL (07:35)
--- NOTE | 2023-01-06 08:02 | RAD_ITS ---
STUDY: X-RAY CHEST REASON FOR EXAM: Male, 77 years old. Port -- pacu TECHNIQUE: Single AP portable view of the chest. COMPARISON: Comparison is made with prior study dated December 23, 2022. FINDINGS: A left-sided Port-A-Cath has been placed. The tip is at the junction of the superior vena cava and left brachiocephalic vein. Stable mild increased markings in the left mid lung. There is no demonstrated pleural abnormality. Normal size heart. Normal mediastinum and royce. Normal visualized pulmonary arteries. There is atherosclerotic calcification of the aortic arch with tortuosity. There are diffuse degenerative changes of the visualized thoracic spine. Normal visualized ribs, clavicles, and shoulders. There is no demonstrated abnormality of the visualized soft tissue structures of the upper abdomen. RAD/Chest 1 View (Portable) IMPRESSION: The tip of the left portacatheter is at the junction of the superior vena cava and left brachiocephalic vein. Electronically Signed: Rommel Duron MD at 8:34 EDT ,
--- NOTE | 2023-01-06 08:02 | PCM.OPRPT ---
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 Placement of left IJ Port-A-Cath 2. Use of ultrasound 3. Use of fluoroscopy Surgeon: Jennifer Keller Type of Anesthesia: Local MAC Anesthesiologist: Aubrey Mcmahon Special Medications: Ancef 2 g IV x1 Specimen's removed: None Estimated Blood Loss (mL): < 10 cc Description of Procedure: After informed consent was given, the patient was brought to the operating room and placed in the supine position. Appropriate time out protocol was followed. Patient was then given IV conscious sedation for anesthesia. The patient's left upper chest and neck were then prepped with a surgical skin preparation and sterile surgical drapes were placed. After proper landmarks were ascertained, the skin at the upper left chest area was then infiltrated with 1:1 mixture of 1% lidocaine with epinephrine and 0.5% marcaine. A needle trocar was then inserted into the left internal jugular vein with ultrasound guidance-multiple vessels were viewed with u/s and the left IJ was chosen-- and there was good aspiration of venous blood. A wire was then threaded into the needle trocar and this was visualized under fluoroscopy to ensure that the wire was in the superior vena cava. Once this was done, then the needle trocar was removed. A small skin bacilio was made with an 11 blade knife at the wire entrance site. The dilator with the introducer sheath attached was then placed over the wire into the left internal jugular vein via the Seldinger technique and this was visualized under fluoroscopy. The dilator and sheath were in proper position as visualized by fluoroscopy. A subcutaneous pocket was then created caudad to the catheter insertion site. A transverse skin incision was made after the skin and subcutaneous tissues were infiltrated with local anesthetic. Blunt dissection was then used to create a space large enough for placement of the subcutaneous port. The catheter was then tunneled into the subcutaneous pocket. The wire and dilator were then removed. The catheter was then threaded into the introducer sheath and was positioned with its tip at the junction of the superior vena cava and the right atrium as visualized under fluoroscopy. The excess catheter was transected. The catheter was then attached to the subcutaneous port using manufacturers guidelines. The catheter was flushed with a heparin saline mixture prior to placement. Hemostasis was carefully controlled with electrocautery. The port was sutured to the subcutaneous fascia using 2-0 Vicryl suture at two sites. The port was then placed in the subcutaneous pocket. The incision were reapproximated with interrupted subdermal 3-0 vicryl sutures. The skin was reapproximated with 3-0 nylon suture in a interrupted fashion. Steristrips were used for reinforcement of the skin closure at IJ insertion site and a sterile opsite dressings were applied. The patient tolerated the procedure well. Grafts/Implants Used: [employer] PowerPort isp M.R.I. 8Fr Lot [id number] Complications none
--- NOTE | 2023-01-06 08:05 | DCINST_ITS ---
Discharge Instructions Procedure Port-A-Cath Diet Discharge Diet: Light diet - advance as tolerated Activity May shower in (days): 5 (Keep port site clean and dry x5 days. Neck incision okay to get wet after 1 day. Okay to lower shower and upper sponge bath. OR okay to taper off port site with a Ziploc bag to shower) Lifting Restrictions: No lifting > 15 pounds for 3 days with the arm on the side of the port Dressing / Incision Call your doctor if your incision/area has: Continuous Slow Oozing, Sudden Increased Bleeding, Increased Pain/ Swelling, Increased Redness, Foul Smelling Discharge and Swelling at the incision site Call your doctor if you observe: Fever of 101 or Higher Change Dressing in: 2 days Follow Up Care Please Follow Up With: Jennifer Keller MD When: In 10 days for permanent suture removal?call office for appointment Test Results: Test results from this visit will be discussed in further detail at your follow- up appointment, if applicable. Discharge Plan Admission Attending Provider: Jennifer Keller Primary Care Provider: Fidencio Benson Discharge Orders/Prescriptions Prescriptions: New oxycodone-acetaminophen 5-325 mg tablet 1 tab PO Q6H PRN (Reason: pain) 3 Days Qty: 5 0RF Continued rosuvastatin 40 mg tablet 40 mg PO DAILY ondansetron HCl 8 mg tablet 8 mg PO Q8H PRN (Reason: nausea and vomiting) Qty: 30 0RF lidocaine-prilocaine 2.5-2.5 % cream 1 applic topical ONCE PRN (Reason: port access) 30 Days Qty: 30 2RF prochlorperazine maleate 10 mg tablet 10 mg PO Q6H PRN (Reason: nausea and vomiting) Qty: 30 2RF dexamethasone 4 mg tablet 8 mg PO .COMPLEX Qty: 12 5RF Rx Instructions: Take 8 mg orally on days 2,3,4 and 9,10,11 of chemotherapy cycle omeprazole 20 mg capsule,delayed release(DR/EC) 20 mg PO DAILY Qty: 30 2RF latanoprost 1 DROP bottle 1 drp LEFT EYE QHS bupropion HCl 100 MG tablet 100 mg PO BID tamsulosin 0.4 MG capsule 0.4 mg PO QHS coenzyme Q10 100 MG capsule 100 mg PO DAILY multivitamin Tablet 1 tab PO DAILY dorzolamide-timolol 22.3-6.8 mg/mL drops 1 drp EACH EYE DAILY montelukast 10 mg tablet 10 mg PO QHS zolpidem 5 mg tablet 2.5 mg PO QHS PRN (Reason: Sleep) fluticasone propionate 50 mcg/actuation spray,suspension 2 spray INTRANASAL DAILY lisinopril 10 mg tablet 10 mg PO QHS metoprolol tartrate 25 mg tablet 12.5 mg PO BID Held Eliquis 5 mg tablet 5 mg PO BID Hold Instructions: Resume on 01/07/23. Referrals / Follow Up: Fidencio Benson MD [Primary Care Provider] - Disposition Disposition (needs filled in before D/C Order can be placed): Home, Self Care
[2023-01-06 08:10] VITALS: BP 110/77; BP 111/69; PULSE 71; RESP 16; TEMP 36.7; O2SAT 100
[2023-01-06 08:15] VITALS: BP 108/75; BP 110/77; PULSE 70; RESP 16; O2SAT 96
[2023-01-06 08:20] VITALS: BP 110/77; BP 117/77; PULSE 61; RESP 16; O2SAT 97
[2023-01-06 08:25] VITALS: BP 110/74; BP 110/77; PULSE 61; RESP 16; TEMP 36.8; O2SAT 96
[2023-01-06 09:17] VITALS: BP 110/77
== END 2023-01-06 09:18 | disposition home or self-care (01) ==
LOC: SDC 05:51 → AC 05:53
PROVIDERS: PCP Family Medicine; Referring Provider Surgery; Visit Provider Surgery
PROC: (CPT 36561; principal; 2023-01-06 07:15)
DX: Z45.2 Encounter for adjustment and management of vascular access device (principal); C78.7 Secondary malignant neoplasm of liver and intrahepatic bile duct; C23 Malignant neoplasm of gallbladder; I48.0 Paroxysmal atrial fibrillation; N18.32 Chronic kidney disease, stage 3b; I25.10 Atherosclerotic heart disease of native coronary artery without angina pectoris; I12.9 Hypertensive chronic kidney disease with stage 1 through stage 4 chronic kidney disease, or unspecified chronic kidney disease; F32.A Depression, unspecified; Z86.73 Personal history of transient ischemic attack (TIA), and cerebral infarction without residual deficits; Z79.899 Other long term (current) drug therapy; Z87.891 Personal history of nicotine dependence; Z79.01 Long term (current) use of anticoagulants
CPT/HCPCS: 36561; 00532; 71045; 77001; J7120; C1788

== ENCOUNTER 2023-01-26 18:04 | Inpatient (IN) | payer MEDICARE, SELFPAY ==
[2023-01-26] VITALS (8 sets, daily range): BP systolic 134–163; BP diastolic 79–94; PULSE 81–90; RESP 16–22; TEMP 36.6–39.4; O2SAT 94–100; BMI 24.5; BMI 24.7
--- NOTE | 2023-01-26 18:31 | EX.ED.DYSGE1 ---
HPI History of Present Illness Chief Complaint: Weakness Detail of Chief Complaint: Generalized weakness and not feeling well Informant: patient and spouse/S.O. Narrative Narrative: Patient presents the emergency department with complaint of generalized weakness and not feeling well. Patient currently being treated for gallbladder cancer and receiving chemotherapy. Last chemotherapy was 1 week ago. Patient on December 23 had stents placed in his biliary ducts by Dr. Almonte. Patient has metastasis to the liver. Apparently patient had lab work today and Dr. Chandler's office and had blood work performed. He has had increase in his LFTs. An MRCP was obtained which showed obstructed biliary ducts and could not see the prior placed stent. Patient was sent to the emergency department to be admitted with consult to Dr. Almonte for possible repeat stent placement. Patient denies any fevers. Patient's had no vomiting or diarrhea. He just describes feeling achy. [facility] Medical History (Updated 01/26/23 @ 18:[address] Dar Jeff, DO) Adenosquamous carcinoma of gallbladder Benign essential hypertension Cancer, metastatic to liver Cardiology follow-up encounter Depression Depression Elevated BUN Encounter for education Former smoker Gallbladder cancer, carcinoma High cholesterol History of atrial fibrillation History of echocardiogram History of stress test Hyperbilirubinemia Hyperlipidemia Hypertension Ischemic cerebrovascular accident (CVA) (09/2016) Nonobstructive atherosclerosis of coronary artery Painless jaundice Paroxysmal atrial fibrillation Peritonitis Prostate disease Stage 3b chronic kidney disease (CKD) Stroke/cerebrovascular accident Thrombocytopenia Transaminitis Home Medications bupropion HCl 100 mg tablet 100 mg PO BID DEPRESSION 12/31/15 [History Last Taken 01/06/23 05:30] coenzyme Q10 100 mg capsule 100 mg PO DAILY SUPPLEMENT 12/31/15 [History Last Taken 09/12/22] latanoprost 0.005 % eye drops 1 drp LEFT EYE QHS GLAUCOMA 12/31/15 [History Last Taken 09/12/22] tamsulosin 0.4 mg capsule 0.4 mg PO QHS PROSTATE 12/31/15 [History Last Taken 09/12/22] rosuvastatin 40 mg tablet 40 mg PO DAILY CHOLESTEROL 10/19/21 [History Last Taken 09/12/22] apixaban 5 mg tablet (Eliquis) 5 mg PO BID BLOOD THINNER 09/13/22 [History Last Taken 01/02/23 08:00] dorzolamide 22.3 mg-timolol 6.8 mg/mL eye drops 1 drp EACH EYE DAILY eye health 09/13/22 [History Last Taken 09/12/22] fluticasone propionate 50 mcg/actuation nasal spray,suspension 2 spray intranasal DAILY NASAL CONGESTION 09/13/22 [History Last Taken Unknown] lisinopril 10 mg tablet 10 mg PO QHS BLOOD PRESSURE 09/13/22 [History Last Taken 01/06/23 05:30] metoprolol tartrate 25 mg tablet 12.5 mg PO BID BLOOD PRESSURE 09/13/22 [History Last Taken 01/06/23 05:30] montelukast 10 mg tablet 10 mg PO QHS ALLERGIES 09/13/22 [History Last Taken 09/12/22] multivitamin 1 tab PO DAILY SUPPLEMENT 09/13/22 [History Last Taken 09/12/22] zolpidem 5 mg tablet 2.5 mg PO QHS PRN Sleep 09/13/22 [History Last Taken Unknown] dexamethasone 4 mg tablet 8 mg PO .COMPLEX #12 tabs 01/02/23 [Rx Last Taken Unknown] lidocaine-prilocaine 2.5 %-2.5 % topical cream 1 applic topical ONCE PRN port access 30 days #30 grams 01/02/23 [Rx Last Taken Unknown] omeprazole 20 mg capsule,delayed release 20 mg PO DAILY #30 caps 01/02/23 [Rx Last Taken 01/06/23 05:30] prochlorperazine maleate 10 mg tablet 10 mg PO Q6H PRN nausea and vomiting #30 tabs 01/02/23 [Rx Last Taken Unknown] oxycodone-acetaminophen 5 mg-325 mg tablet 1 tab PO Q6H PRN pain 3 days #5 tabs 01/06/23 [Rx Last Taken Unknown] metronidazole 500 mg tablet 500 mg PO TID #30 tabs 01/26/23 [Rx Last Taken Unknown] ondansetron HCl 8 mg tablet 8 mg PO Q8H PRN nausea and vomiting #30 tabs 01/26/23 [Rx Last Taken Unknown] Allergy/AdvReac Type Severity Reaction Status Date / Time No Known Allergies Allergy Verified 01/26/23 18:05 Family History Mother CAD (coronary artery disease) Hypertension Brother CAD (coronary artery disease) Sister CAD (coronary artery disease) Surgical History H/O repair of left rotator cuff (01/2018) History of appendectomy History of cardiac catheterization History of carpal tunnel release History of cataract surgery History of herniorrhaphy History of resection of liver History of right and left heart catheterization (02/08/02) Hx of left knee surgery S/P laparoscopic cholecystectomy Social History household members: spouse housing: house number of children: 3 current occupational status: retired pets and animals: No Smoking Status: Former smoker alcohol intake: current alcohol intake frequency: holidays/special occasions only substance use type: does not use caffeine: Yes Type: coffee Number of servings: 2 what type of physical activity do you participate in: other details: [employer] ROS ED Review of Systems ROS Unobtainable: other Constitutional Constitutional ED: Reports lethargy; Denies chills, fever(s), sweats or weight loss Eyes Eyes: Denies blurry vision, change in vision or diplopia ENT ENT ED: Denies rhinorrhea or sore throat Cardiovascular Cardiovascular: Denies chest pain, orthopnea or racing heartbeat Respiratory/Chest Respiratory/Chest: Denies cough, dyspnea, dyspnea on exertion, orthopnea or sputum Gastrointestinal Gastrointestinal: Reports abdominal pain and nausea; Denies diarrhea or vomiting Genitourinary Genitourinary ED: Denies dysuria, hematuria or urinary frequency Musculoskeletal Musculoskeletal: Denies arthralgias, back pain, myalgias or neck pain Integumentary Denies abscess, Abrasions or rash Neurologic Neurologic: Denies headache(s) or weakness Psychiatric Psychiatric: Denies anxiety, depression or suicidal thoughts Endocrine Endocrinology: Denies polydipsia, polyphagia or polyuria Hematologic/Lymphatic Hematologic/Lymphatic: Denies easy bleeding, easy bruising or lymphadenopathy Allergic/Immunologic Allergic/Immunologic ED: Denies mouth swelling, tongue swelling or urticaria EXAM Physical Exam Const Vital Signs: 01/26/23 18:05 Temperature 98.7 F Temperature Source Temporal Pulse Rate 81 Respiratory Rate 18 Blood Pressure 145/82 H Blood Pressure Mean 103 Pulse Ox 100 Oxygen Delivery Method Room Air Positive well nourished and well developed General Appearance ED: well developed and NAD HEENT Reports TM's clear and moist mucous membranes normocephalic and atraumatic; Negative for trauma or tenderness Tympanic Membrane ED: Yes TM's clear Eyes PERRL and EOMs intact bilaterally General Eye ED: Negative for pale conjunctiva or scleral icterus Neck no lymphadenopathy, supple and no JVD General: Negative for tenderness Chest Wall inspection of chest normal and palpation of chest normal Chest: Negative for tenderness Resp normal respiratory effort and clear to auscultation bilaterally Effort and Inspection: Negative for respiratory distress or pain with movement Auscultation: Negative for rhonchi, wheezes or diminished lung sounds Cardio regular rate, regular rhythm, S1 normal heart sound, S2 normal heart sound and no murmurs Peripheral Pulses: pulses 2+ throughout GI normal to inspection, nondistended, normoactive bowel sounds, soft to palpation, non-distended and no masses GI Narrative: Mild diffuse tenderness to the upper abdomen. No rebound, rigidity, or pedal signs. No mass palpated Back/Spine no CVA tenderness and no thoracic nor lumbar tenderness Extremity normal to inspection General Extremety ED: Negative for edema General Extremity: Negative for edema Neuro oriented x3, CN's II-XII intact bilaterally, no sensory deficits noted and gait normal Sensorium / Orientation: awake, alert, oriented to person, oriented to place and oriented to time Motor Exam: strength 5/5 throughout and strength abnormal Psych mental status grossly normal Skin no rashes or lesions noted and no wounds MDM MDM MDM Narrative Medical decision making narrative: Patient presents with generalized weakness and mild upper abdomen pain. Prior placed biliary stent not noted on MRCP today with evidence of obstructed ducts. Clinically looks well and comfortable. Blood work already performed today shows elevated LFTs with a bilirubin of 1.9. Patient will have an IV line established or his port accessed and will be given Zofran for nausea. Case will be discussed with hospitalist to evaluate patient for admission. After discussing case with Dr. Bills he asked that I speak with Dr. Almonte and I did discuss case with Dr. Almonte who would be happy to see patient in consultation. Discharge Plan Dx/Rx/DC Orders Clinical Impression: Bile duct obstruction, Abdominal pain, Elevated liver enzymes, Generalized weakness Disposition Disposition: Acute Care Hospital [facility]
[2023-01-26] MEDS: Ondansetron 4 MG/2 ML Vial IV (18:46)
[2023-01-26] MEDS: 0.9% Normal Saline 1,000 ML 150 ML IV (18:48)
--- NOTE | 2023-01-26 20:13 | HP.PCM.HOS_ITS ---
[facility] - General General Date of Admission: 01/26/23 Date of Service: 01/26/23 Chief Complaint: Oncologist office sent to ER for admission after MRCP Biliary stent. Elevated liver chemistry. 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 They are patient had blood test which shows elevated transaminases, alkaline phosphatase and total bilirubin and MRCP. MRCP showed dilated intrahepatic ducts and cutoff common hepatic duct and unchanged dilated common biliary duct. It could not see biliary stent therefore patient was sent to ED. Patient himself denies abdominal pain, fever, nausea vomiting or other symptoms acutely. He was shivering and tremors in ED but temperature was normal, 98.9 Fahrenheit. Patient has history of poorly differentiated non-small cell carcinoma after robotic laparoscopic subtotal cholecystectomy as it has involved the liver. Later on he was transferred to [facility] and he had partial resection of liver and remnant cholecystectomy. At that time pathology was negative for malignancy. But CT chest abdomen pelvis showed multiple metastatic disease in liver, dilated intrahepatic biliary duct with 2.6 cm soft tissue mass in blossom hepatis CEA 18.1, CA 19-9 6580 on 12/23/2022. He had ERCP in 2 temporary stents in CBD by Dr. Almonte. CT-guided biopsy of the liver on 12/26/2022 was consistent with metastatic poorly differentiated adenocarcinoma. PET/CT of 01/02/2023 shows multiple hypermetabolic activities on right and left lobes of liver, blossom hepatis and pericaval nodes, mediastinum and left hilar area suggestive of metastatic disease. Patient had port placed on 01/06/2023. [facility] Medical History [place] carcinoma of gallbladder Benign essential hypertension Cancer, metastatic to liver Cardiology follow-up encounter Depression Depression Elevated BUN Encounter for education Former smoker Gallbladder cancer, carcinoma High cholesterol History of atrial fibrillation History of echocardiogram History of stress test Hyperbilirubinemia Hyperlipidemia Hypertension Ischemic cerebrovascular accident (CVA) (09/2016) Nonobstructive atherosclerosis of coronary artery Painless jaundice Paroxysmal atrial fibrillation Peritonitis Prostate disease Stage 3b chronic kidney disease (CKD) Stroke/cerebrovascular accident Thrombocytopenia Transaminitis Home Medications bupropion HCl 100 mg tablet 100 mg PO BID DEPRESSION 12/31/15 [History Last Taken 01/26/23] coenzyme Q10 100 mg capsule 100 mg PO DAILY SUPPLEMENT 12/31/15 [History Last Taken 01/25/23] latanoprost 0.005 % eye drops 1 drp EACH EYE QHS GLAUCOMA 12/31/15 [History Last Taken 09/12/22] tamsulosin 0.4 mg capsule 0.4 mg PO QHS PROSTATE 12/31/15 [History Last Taken 01/26/23] rosuvastatin 40 mg tablet 40 mg PO DAILY CHOLESTEROL 10/19/21 [History Last Taken 01/26/23] apixaban 5 mg tablet (Eliquis) 5 mg PO BID BLOOD THINNER 09/13/22 [History Last Taken 01/26/23] dorzolamide 22.3 mg-timolol 6.8 mg/mL eye drops 1 drp EACH EYE DAILY eye health 09/13/22 [History Last Taken 01/26/23] lisinopril 10 mg tablet 10 mg PO QHS BLOOD PRESSURE 09/13/22 [History Last Taken 01/25/23] metoprolol tartrate 25 mg tablet 12.5 mg PO BID BLOOD PRESSURE 09/13/22 [History Last Taken 01/26/23] multivitamin 1 tab PO DAILY SUPPLEMENT 09/13/22 [History Last Taken 01/26/23] zolpidem 5 mg tablet 2.5 mg PO QHS PRN Sleep 09/13/22 [History Last Taken Unknown] dexamethasone 4 mg tablet 8 mg PO .COMPLEX #12 tabs 01/02/23 [Rx Last Taken Unknown] lidocaine-prilocaine 2.5 %-2.5 % topical cream 1 applic topical ONCE PRN port access 30 days #30 grams 01/02/23 [Rx Last Taken Unknown] omeprazole 20 mg capsule,delayed release 20 mg PO DAILY #30 caps 01/02/23 [Rx Last Taken 01/06/23 05:30] prochlorperazine maleate 10 mg tablet 10 mg PO Q6H PRN nausea and vomiting #30 tabs 01/02/23 [Rx Last Taken Unknown] ondansetron HCl 8 mg tablet 8 mg PO Q8H PRN nausea and vomiting #30 tabs 01/26/23 [Rx Last Taken Unknown] Allergy/AdvReac Type Severity Reaction Status Date / Time No Known Allergies Allergy Verified 01/26/23 18:05 Family History Mother CAD (coronary artery disease) Hypertension Brother CAD (coronary artery disease) Sister CAD (coronary artery disease) Surgical History H/O repair of left rotator cuff (01/2018) History of appendectomy History of cardiac catheterization History of carpal tunnel release History of cataract surgery History of herniorrhaphy History of resection of liver History of right and left heart catheterization (02/08/02) Hx of left knee surgery S/P laparoscopic cholecystectomy Social History household members: spouse housing: house number of children: 3 current occupational status: retired pets and animals: No Smoking Status: Former smoker alcohol intake: current alcohol intake frequency: holidays/special occasions only substance use type: does not use caffeine: Yes Type: coffee Number of servings: 2 what type of physical activity do you participate in: other details: [facility] ROS ROS Narrative Constitutional: Reports fatigue and weakness. No fever. Thin gentleman. HEENT: Reports systems reviewed and no addt'l complaints, except as documented Respiratory/Chest: No acute shortness of breath or respiratory distress or wheezing. CVS: No history of coronary artery disease. No chest pain or tightness. Gastrointestinal: Denies coffee ground emesis, hematemesis or vomiting. No abdo zachary pain. Genitourinary: Denies burning urination or new urinary tract symptoms Musculoskeletal: Denies acute joint pain or limited range of motion. No acute injury. Does not use walker but walks and modestly. Neurologic: Denies seizure-like symptoms. History of a stroke in 2017. skin: No ulcer. No rash Endocrinology: Reports systems reviewed and no addt'l complaints, except as documented Hematologic/Lymphatic: Reports systems reviewed and no addt'l complaints, except as documented Rest 14 ROS are negative except as mentioned in HPI Vital Signs Vital Signs Vital Signs: 01/26/23 18:05 01/26/23 18:59 01/26/23 19:13 Temperature 98.7 F 97.8 F Temperature Source Temporal Temporal Pulse Rate 81 82 Respiratory Rate 18 16 Respiratory Effort Normal Non-Labored Respiratory Pattern Normal Blood Pressure 145/82 H 163/84 H Blood Pressure Mean 103 110 Pulse Ox 100 97 Oxygen Delivery Method Room Air Room Air 01/26/23 19:35 Temperature 98.9 F Temperature Source Oral Pulse Rate Respiratory Rate Respiratory Effort Respiratory Pattern Blood Pressure Blood Pressure Mean Pulse Ox Oxygen Delivery Method Weight Weight: 156 lb 14.4 oz Body Mass Index (BMI) 24.5 Physical Exam Narrative General: Alert, Oriented x3, Cooperative HEENT: Mild icterus/jaundice. Atraumatic, PERRLA, EOMI, Normocephalic Oral: Oral mucosa dry. No Gingival or Mucosal Lesions/ Ulcerations Neck: Supple, No JVD, Negative Carotid Bruits Lungs: Air entry diminished in bilateral lung bases. No crepitation/rhonchi Cardiovascular: Regular rate, Regular Rhythm, Normal S1, Normal S2, No murmurs Abdomen: Bowel Sounds Present, Soft, Non Tender, Non-Distended. No palpable mass. : No renal angle tenderness. No suprapubic tenderness. Extremities: No edema, Capillary Refill Less than 3 Seconds Skin: No rashes, No breakdown Musculoskeletal: No Tenderness to Palpation of Joints or Extremities, muscle strength 5/5 at major joints of lower extremities. Neurological: Cranial nerves II-XII grossly intact, DTR 2+/4 and Symmetrical, Neuro grossly intact Psych/Mental Status: Flat affect. Assessment & Plan Assessment/Plan (1) Bile duct obstruction: (2) Gallbladder cancer, carcinoma: PLAN: Plan This 77-year-old gentleman who is admitted through ER from oncologist office for abnormal MRCP and elevated liver chemistry. 1. Complete obstruction of common hepatic duct with nonvisualization of prior biliary stent seen in prior PET scan: Patient is being admitted to the floor. Patient had ERCP on 12/23/2022 which showed upper third of main biliary duct dilated secondary to stricture. At that time biliary sphincterotomy was done and hepatic duct bifurcation was successfully dilated and 2 temporary stents were placed into CBD. Stents were not seen MRCP done today. GI is consulted. I talked to Dr. Almonte and n.p.o. after breakfast. 2. Obstructive jaundice with priority of cholangitis: Liver chemistry done today shows total bilirubin 1.9, ALT 675, AST 540, alkaline phosphatase 275. Albumin low 2.8. Patient does not have abdominal pain or documented fever but wishes evening. With obstructive jaundice, probability of cholangitis is high more sober and immunocompromised host. Therefore started on IV Zosyn with blood culture. Discussed with Dr. Almonte. IV fluid normal saline with 20 mEq KCl. Mild hypokalemia and potassium supplement. Serum magnesium and phosphorus ordered. Monitor CMP daily. Lipase and lactic acid ordered. Patient does not have features or signs and symptoms of sepsis. 3. Metastatic, poorly differentiated GB adenocarcinoma to both lobes of liver, blossom hepatis, pericaval lymph nodes mediastinum and left hilar area: Patient has port placed on 01/06/2023. Patient on palliative chemotherapy with cisplatin Gemzar and Imfinzi on 01/12/2023. Patient had first chemo on 12 January and second chemo on January 19. Patient had a scheduled visit to oncologist office for evaluation of toxicity. Patient has fatigue but not interfering with instrumental ADLs. Mild dehydrated. Chronic tinnitus unchanged. 4. Paroxysmal A-fib on Eliquis, ischemic CVA in 09/2016, nonobstructive coronary artery atherosclerosis: Hold Eliquis for procedure tomorrow AM. Twelve-lead EKG ordered. 5. Stage IIIa CKD: BUNs/creatinine 20/1.01. On IV fluid. Monitor kidney function daily. 6. Pancytopenia, anemia of chronic disease, leukopenia, chronic thrombocytopenia: Platelet count is 46,000.: Platelet count is 46,000. Hemoglobin 9.6 g. ANC 1.9, WBC 3.1 thousand.. Monitored CBC with differential daily Living will/advanced directive/end of life care: Patient does have living will or advanced directive. His is power of sports attorney for health. After discussion of benefits/risks procedures involved with full code, DNR CC arrest and DNR CC, the patient opted for full code. Patient and his do want artificial life support including intubation, tube feed, ventilator and/chest compression, central venous catheter, vasopressor and DC shock if needed Total time spent in [id number] encounter in discussion of advanced directive 17 minutes. Charges/Coding Visit Charges Inpatient E&M: 88908 Init Hosp L3 Procedures Hospitalists Procedures: 85998 Advncd Care Plan 30 Min
--- NOTE | 2023-01-26 21:11 | EKG12_ITS ---
Test Reason : A FIB Blood Pressure : / mmHG Vent. Rate : 092 BPM Atrial Rate : 092 BPM P-R Int : 162 ms QRS Dur : 088 ms QT Int : 362 ms P-R-T Axes : 039 008 037 degrees QTc Int : 447 ms Normal sinus rhythm Nonspecific ST abnormality Abnormal ECG When compared with ECG of 23-DEC-2022 05:31, No significant change was found Confirmed by AMAURI FRAGOSO, CHRISTEN ([id number]), senior technical editor KELSI BURGOS ([id number]) on 01/30/2023 1:52:38 PM Referred By: SEBASTIAN Confirmed By:CHRISTEN BAUGH MD
[2023-01-26] MEDS: Potassium Chloride Oral Tablet 20 MEQ 40 MEQ PO (21:56)
[2023-01-26 22:03] LABS: Lipase 46 U/L (13-75); Magnesium 1.8 mg/dL (1.6-2.6)
[2023-01-26 22:07] LABS: Phosphorus 1.8 mg/dL (2.5-4.9)
[2023-01-26 22:19] LABS: Lactic Acid 0.9 mmol/L (0.4-1.9)
[2023-01-26] MEDS: Atorvastatin Calcium 80 MG Tablet PO (22:23)
[2023-01-26] MEDS: Latanoprost 0.005% 1 Bottle 1 DRP EACH EYE (22:23)
[2023-01-26] MEDS: Tamsulosin HCl 0.4 MG Capsule PO (22:23)
[2023-01-26] MEDS: buPROPion 100 MG Tablet PO (22:23)
[2023-01-26] MEDS: Metoprolol Tartrate 25 MG Tablet 12.5 MG PO (22:23)
[2023-01-26] MEDS: Lisinopril 10 MG Tablet PO (22:24)
[2023-01-26] MEDS: Acetaminophen 325 MG Tablet 650 MG PO (22:24)
[2023-01-26] MEDS: Zolpidem Tartrate 5 MG Tablet 2.5 MG PO (22:40)
[2023-01-26] MEDS: KCL 20MEQ in 0.9% NS 20 MEQ/1,000 ML IV.SOLN. 100 MEQ IV (23:50)
[2023-01-27] VITALS (20 sets, daily range): BP systolic 73–160; BP diastolic 33–107; PULSE 71–123; RESP 16–36; TEMP 36.5–38; O2SAT 86–99; BMI 24.7
[2023-01-27 06:16] LABS: Absolute Lymphocyte Count 1.04 X10^3/uL (0.83-4.51); Absolute Neutrophil Count 4.6 X10^3/uL (2.0-7.7); Basophil# 0.01 X10^3/uL; Basophil% 0.2 % (0-1); Hematocrit 32.4 % (40-54); Hemoglobin 10.7 g/dL (13.0-16.5); Lymphocyte # 1.04 X10^3/ul (0.83-4.51); Lymphocyte % 16.8 % (19-41); Mean Corpuscular Hgb 30.6 pg (27.0-32.0); Mean Corpuscular Volume 92.6 fL (80-94); Mean Platelet Vol. 9.3 fl (6.2-12.0); Monocyte# 0.54 X10^3/uL; Monocyte% 8.7 % (0-10); NRBC Flagged by Analyzer 0 % (0-5); Neutrophil # 4.57 X10^3/uL (2.7-7.7); POSITIVE COUNT YES; RBC Distribution Width CV 14.4 % (11.6-14.6); RBC Distribution Width SD 48.4 fl (35.1-43.9); White Blood Count 6.2 K/mm3 (4.4-11.0)
[2023-01-27 06:18] LABS: Differential Indicated SCAN CRITERIA MET
[2023-01-27 06:19] LABS: Platelet Count 33 K/mm3 (150-450)
[2023-01-27 06:24] LABS: International Normalized Ratio 1.6; Prothrombin Time (Protime)PT. 19.6 SECONDS (11.7-14.9)
[2023-01-27 06:28] LABS: Partial Thromboplast Time 32.8 Seconds (24.1-36.2)
[2023-01-27 06:49] LABS: Differential Comment SCANNED; Platelet Estimate MKD DEC (ADEQ)
[2023-01-27 06:53] LABS: ALB/GLOB Ratio 0.8 RATIO (0.9-2.4); AST(SGOT) 259 U/L (15-37); Alanine Aminotransfer ALT/SGPT 454 U/L (16-61); Albumin, Serum 2.5 g/dL (3.2-5.0); Alkaline Phosphatase 168 U/L (45-117); Anion Gap 5 (5-15); BUN 21 mg/dL (7-18); BUN/Creat Ratio 21.9 RATIO (10-20); Calcium,Total 8.2 mg/dL (8.5-10.1); Chloride 105 mmol/L (98-107); Creatinine, Serum 0.96 mg/dL (0.70-1.30); EST Glomerular Filtration Rate 81 mL/min (>60); Est Glom Filt Rate - Afr Amer 97 mL/min (>60); Estimated Creatinine Clearance 57.23 ml/min; Globulin 3.1 g/dL (2.2-4.2); Glucose 94 mg/dL (74-106); Protein, Total 5.6 g/dL (6.4-8.2); Sodium Level 133 mmol/L (136-145)
--- NOTE | 2023-01-27 09:03 | PN.HOSP_ITS ---
Reason for Visit Reason for Visit: Diagnoses Malignant neoplasm of gallbladder (01/26/23) Obstruction of bile duct (01/26/23) Subjective Subjective Patient feeling better than he did when he presented, no diarrhea or significant abdominal pain at this time Objective Data Objective Data Vital Signs: Vital Signs Temp Pulse Resp BP Pulse Ox O2 Del Method 99.0 F 89 18 112/59 L 95 Room Air 01/27/23 03:41 01/27/23 03:41 01/27/23 03:41 01/27/23 03:41 01/27/23 07:28 01/27/23 07:28 Oxygen Delivery Method Room Air Weight: 71.5 kg Body Mass Index (BMI) 24.7 Intake & Output: Intake and Output for Last 24 Hours 01/25/23 01/26/23 01/27/23 23:59 23:59 23:59 Intake Total 235 / 385 250 / 250 Output Total 750 / 750 Balance 235 / 85 -500 / -500 Lab / Micro Data Result Diagrams: 01/27/23 06:00 01/27/23 06:00 Labs: Laboratory Results - last 24 hr 01/26/23 21:41: Magnesium 1.8, Lipase 46 01/26/23 21:41: Lactic Acid 0.9 01/26/23 21:41: Phosphorus 1.8 L 01/27/23 06:00: WBC 6.2, RBC 3.50 L, Hgb 10.7 L, Hct 32.4 L, MCV 92.6, MCH 30.6, MCHC 33.0, RDW Std Deviation 48.4 H, RDW Coeff of Rashad 14.4, Plt Count 33 L*, MPV 9.3, Immature Gran % (Auto) 0.300, Neut % (Auto) 74.0 H, Lymph % (Auto) 16.8 L, Angelina % (Auto) 8.7, Eos % (Auto) 0.0, Baso % (Auto) 0.2, Absolute Neuts (auto) 4.6, Absolute Lymphs (auto) 1.04, Nucleated RBC % 0, Differential Comment SCANNED, Diff Path Review December, Platelet Estimate MKD 01/27/23 06:00: PT 19.6 H, INR 1.6 01/27/23 06:00: Sodium 133 L, Potassium 4.0, Chloride 105, Carbon Dioxide 23.0, Anion Gap 5, BUN 21 H, Creatinine 0.96, Estim Creat Clear Calc 57.23, Est GFR (MDRD) Af Amer 97, Est GFR (MDRD) Non-Af 81, BUN/Creatinine Ratio 21.9 H, Glucose 94, Calcium 8.2 L, Total Bilirubin 2.20 H, AST 259 H, ALT 454 H, Alk edita Phosphatase 168 H, Total Protein 5.6 L, Albumin 2.5 L, Globulin 3.1, Albumin/Globulin Ratio 0.8 L 01/27/23 06:00: APTT 32.8 Physical Exam Narrative General: Alert, oriented, no apparent distress HEENT: Atraumatic, normocephalic Eyes: Somewhat icteric extraocular movements grossly intact Neck: Supple Respiratory: Clear to auscultation bilaterally, normal respiratory effort Cardiovascular: Regular rate and rhythm GI: Soft, mild tenderness without rebound, guarding, rigidity Extremities: No edema Musculoskeletal: Moving all extremities Neuro: No overt focal neurological deficits Skin: No rashes appreciated Psych: Cooperative Assessment & Plan Assessment/Plan (1) Elevated liver enzymes: (2) Generalized weakness: (3) Gallbladder cancer, carcinoma: PLAN: Plan #Complete obstruction of common hepatic duct with nonvisualization of prior biliary stent seen in prior PET scan/Transaminitis/hyperbilirubinemia -Had MRCP which showed dilated intra hepatic ducts and cut off in the common hepatic duct. Cannot see biliary stent so patient was sent to ED -Has history of ERCP with [address] Almonte 12/23/2022 -GI consulted -Patient for ERCP today 01/27/2023 #Obstructive jaundice with history of cholangitis -total bilirubin 1.9, ALT 675, AST 540, alkaline phosphatase 275 on day of admission -Patient also febrile -Blood cultures obtained and started on Zosyn, blood culture growing gram- negative rods -Also received IV fluids #Metastatic, poorly differentiated GB adenocarcinoma to both lobes of liver, blossom hepatis, pericaval lymph nodes mediastinum and left hilar area -Had port placed 01/06/2023 -On chemotherapy and follows with oncology -On palliative chemotherapy with cisplatin Gemzar and Imfinzi started on 01/12/2023 and had second on 01/19 #Paroxysmal atrial fibrillation/ischemic CVA 2017 -Holding Eliquis for possible procedure and due to platelets #CKD stage IIIa -s/p IV fluids, BMP daily #Pancytopenia -CBC daily -We will need SCDs for DVT prophylaxis given low platelet count -Platelets ordered for transfusion given platelet count of 33 #DVT ppx: SCDs Britney Mujica MD Time spent in the patient's overall evaluation,decision-making process, review of diagnostic data, adjustment of management, discussion with other providers, nursing nursing and ancillary staff involved in patient's care documentation, 30 Minutes Charges/Coding Visit Charges Inpatient E&M: 19916 Subs Hosp L2
[2023-01-27] MEDS: KCL 20MEQ in 0.9% NS 20 MEQ/1,000 ML IV.SOLN. 100 MEQ IV (10:42)
--- NOTE | 2023-01-27 12:00 | CASEMGMT ---
RN?CM?LABORER GOLD LEAF?CM?to room to meet with patient for initial transition planning/care coordination?assessment.?RN?CM?introduced self and role at [facility].? Pt voices understanding and consents to?assessment?at this time.? Pt resting in bed in no distress at this time. at bedside. Pt is A/O at this time and answers all questions appropriately.?? Care providers, pharmacy, and demographics verified/updated at this time. PCP:Kelley Specialists: Dr Keller-surgeon, Dr Almonte-GI, Dr Chandler/Lien Espinoza, INSOLE REINFORCER-oncology Preferred Pharmacy: [facility] Insurance: [employer] [facility] Prescription Benefit: yes LNOK: Lynda Vitale, ; Kimberly Mederos, dtr Living Arrangements: Pt lives with in a single story home with 1 step to enter through the garage. Pt is I in ADL's and denies concerns at home. Transportation: Pt drives self and denies concerns with transportation. also drives. DME/HHC/SNF: Pt denies having any DME in the home, previous HHC or SNF stays. Pt and state no concerns with going home at time of dc. Advised them to ask CM if any further question/concerns/needs arise. They voice understanding. PLAN:??Home w/spousal support and discharge plans in place. Khadijah ANGELESN?RN?CM
[2023-01-27] MEDS: Dorzolamide HCL/Timolol 10 ml Bottle 1 DRP EACH EYE (12:16)
--- NOTE | 2023-01-27 13:26 | NURSING ---
Dr. Almonte is aware that pt has not had his transfusion of platelets yet and surgery coming for patient soon for ERCP. Dr. Almonte is okay with ERCP despite platelets not transfused yet.
[2023-01-27 13:30] LABS: Pathologist Review Reviewed
--- NOTE | 2023-01-27 13:58 | NURSING ---
pt off floor for procedure
[2023-01-27] MEDS: Lactated Ringers 1,000 ML 15 ML IV (14:40)
--- NOTE | 2023-01-27 15:20 | RAD_ITS ---
ERCP INDICATION: Abdominal pain. Fluoroscopy time: 69 seconds. Next Images obtained: 15 TECHNIQUE: Fluoroscopy of the abdomen is visualized upper arm during ERCP and 15 images are submitted for interpretation. FINDINGS: 2 biliary stents are noted. A long stricture of the common bile duct is noted. This was treated with placement of a metallic stent. RAD/ERCP Biliary Only IMPRESSION: Fluoroscopy during ERCP and biliary stent placement. Electronically Signed: Tyree Irene MD at 19:13 EDT ,
--- NOTE | 2023-01-27 18:02 | OP.CCLET_ITS ---
01/27/2023 Fidencio Benson MD Re : ERCP procedure for Valdemar Vitale Dear Dr. Benson This procedure was performed on Friday, January 27, 2023. My impressions and recommendations are as follows: Impressions : - Biliary tumor of the upper third of the main duct visualized via SpyGlass. 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 - A biliary sphincterotomy was performed. - The biliary tree was swept and mucus was found. - The upper third of the main bile duct was successfully dilated. - Two stents were removed from the biliary tree. - One covered metal stent was placed into the common bile duct. - Two temporary stents were placed into the common bile duct. - Snare papillectomy of the major papilla was performed. Resection was complete, but the papilla tissue was not retrieved. Recommendations : My findings are described in the full procedure note, which is enclosed. If I can be of further assistance, please feel free to contact me at . Sincerely, Vick Almonte DO 01/27/2023 6:01:40 PM This report has been signed electronically.
--- NOTE | 2023-01-27 18:02 | OP.ERCP_ITS ---
Patient Name: Valdemar Vitale Procedure Date: 01/27/2023 11:56 AM Date of : 1945 Age: 77 Procedure: ERCP Indications: Abnormal abdominal MRI, Jaundice, Elevated liver enzymes, Stent change Providers: Vick Almonte DO Medicines: Monitored Anesthesia Care Patient Profile: This is a 77 year old male. Refer to note in patient chart for documentation of history and physical. Patient has symptoms of acute jaundice. Complications: No immediate complications. Procedure: Pre-Anesthesia Assessment: - Prior to the procedure, a History and Physical was performed, and patient medications and allergies were reviewed. The risks and benefits of the procedure and the sedation options and risks were discussed with the patient. All questions were answered and informed consent was obtained. Patient identification and proposed procedure were verified by the physician in the pre-procedure area. Mental Status Examination: alert and oriented. Airway Examination: normal oropharyngeal airway and neck mobility. Respiratory Examination: clear to auscultation. CV Examination: normal. Prophylactic Antibiotics: The patient does not require prophylactic antibiotics. Prior Anticoagulants: The patient has taken no previous anticoagulant or antiplatelet agents. After reviewing the risks and benefits, the patient was deemed in satisfactory condition to undergo the procedure. The anesthesia plan was to use monitored anesthesia care (MAC). Immediately prior to administration of medications, the patient was re-assessed for adequacy to receive sedatives. The heart rate, respiratory rate, oxygen saturations, blood pressure, adequacy of pulmonary ventilation, and response to care were monitored throughout the procedure. The physical status of the patient was re-assessed after the procedure. After obtaining informed consent, the scope was passed under direct vision. Throughout the procedure, the patient's blood pressure, pulse, and oxygen saturations were monitored continuously. The Duodenoscope was introduced through the mouth, and advanced to the duodenum and used to inject contrast into the bile duct. The ERCP was accomplished without difficulty. The patient tolerated the procedure well. Scope In: 3:40:55 PM Scope Out: 5:44:31 PM Total Procedure Duration Time 2 hours 3 minutes 36 seconds Findings: The director commercial sales film was normal. The esophagus was successfully intubated under direct vision. The scope was advanced to a normal major papilla in the descending duodenum without detailed examination of the pharynx, larynx and associated structures, and upper GI tract. The upper GI tract was grossly normal. The bile duct was deeply cannulated with the short-nosed traction sphincterotome. Contrast was injected. I personally interpreted the bile duct images. The flow of contrast through the ducts was poor. Image quality was adequate. Contrast extended to the hepatic ducts. Opacification of the entire opacified area was successful. The maximum diameter of the ducts was 5 mm. The upper third of the main bile duct contained a single severe stenosis 6 mm in length. A straight Roadrunner wire was passed into the biliary tree. A 5 mm biliary sphincterotomy was made with a monofilament traction (standard) sphincterotome using ERBE electrocautery. Major bleeding from the sphincterotomy required intervention. The biliary tree was swept with a 12 mm balloon starting at the left intrahepatic duct(s). Mucus was swept from the duct. The upper third of the main bile duct was successfully dilated with a 6-7-8 mm balloon (to a maximum balloon size of 8 mm) dilator. Two stents were removed from the biliary tree using a snare. The stents were found to be partially occluded via the water column test. The bile duct was explored endoscopically using the [employer] direct visualization system. The SpyScope was advanced to the middle third of the main bile duct. Visibility with the scope was good. The upper third of the main bile duct contained a ulcerated mass. One 10 mm by 8 cm covered metal stent was placed 5 cm into the common bile duct. Clear fluid flowed through the stent. The stent was placed downstream (towards the lumen of the GI tract). Two 7 Fr by 12 cm temporary stents were placed 5 cm into the common bile duct. Necrotic tissue flowed through the stents. The stents were placed downstream (towards the lumen of the GI tract). Using a snare, the major papilla was grasped. The papilla was then resected using ERBE electrocautery. Resection was complete, but the papilla tissue was not retrieved. 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 - A biliary sphincterotomy was performed. - The biliary tree was swept and mucus was found. - The upper third of the main bile duct was successfully dilated. - Two stents were removed from the biliary tree. - One covered metal stent was placed into the common bile duct. - Two temporary stents were placed into the common bile duct. - Snare papillectomy of the major papilla was performed. Resection was complete, but the papilla tissue was not retrieved. Procedure Code(s): --- Professional --- 13038, Endoscopic retrograde cholangiopancreatography (ERCP); with removal and exchange of stent(s), biliary or pancreatic duct, including pre- and post-dilation and guide wire passage, when performed, including sphincterotomy, when performed, each stent exchanged [id number], 59, Endoscopic retrograde cholangiopancreatography (ERCP); with removal and exchange of stent(s), biliary or pancreatic duct, including pre- and post-dilation and guide wire passage, when performed, including sphincterotomy, when performed, each stent exchanged [id number], 59, Endoscopic retrograde cholangiopancreatography (ERCP); with removal and exchange of stent(s), biliary or pancreatic duct, including pre- and post-dilation and guide wire passage, when performed, including sphincterotomy, when performed, each stent exchanged [id number], Esophagogastroduodenoscopy, flexible, transoral; with removal of tumor(s), polyp(s), or other lesion(s) by snare technique 92849, Endoscopic cannulation of papilla with direct visualization of pancreatic/common bile duct(s) (List separately in addition to code(s) for primary procedure) 17505, 26, Endoscopic catheterization of the biliary ductal system, radiological supervision and interpretation CPT copyright 2017 [employer]. All rights reserved. The codes documented in this report are preliminary and upon food service associate review may be revised to meet current compliance requirements. Vick Almonte DO 01/27/2023 6:01:40 PM This report has been signed electronically. Number of Addenda: 0 Note Initiated On: 01/27/2023 11:56 AM
--- NOTE | 2023-01-27 20:45 | PCM.PN.BLA ---
Progress Note Nurse reports sepsis alert. However patient meets only 1 criteria for SIRS which is tachycardia with heart rate of more than 111. Blood pressure is 92/63. Normal saline bolus. Will put parameters on blood pressure medications. Continue to monitor.
[2023-01-27] MEDS: 0.9% Normal Saline 1,000 ML 999 ML IV (21:36)
[2023-01-27] MEDS: Tamsulosin HCl 0.4 MG Capsule PO (21:43)
[2023-01-27] MEDS: Latanoprost 0.005% 1 Bottle 1 DRP EACH EYE (21:44)
--- NOTE | 2023-01-27 23:20 | RAD_ITS ---
EXAM: XR CHEST, 1 VIEW CLINICAL INDICATION: increased resps TECHNIQUE: Frontal view of the chest. COMPARISON: 01/06/2023 FINDINGS: LUNGS AND PLEURAL SPACES: Mild right basilar airspace disease. No pneumothorax. No effusion. HEART: Unremarkable. Cardiac silhouette not enlarged. MEDIASTINUM: Central airways and mediastinal contour are unremarkable. BONES/JOINTS: Degenerative changes of the spine. SOFT TISSUES: Unremarkable. TUBES, LINES AND DEVICES: Left chest port. RAD/Chest 1 View (Portable) IMPRESSION: Mild right basilar airspace disease. Findings may indicate atelectasis or infection. Electronically Signed: Dagoberto Thorne MD at 0:13 EDT ,
[2023-01-27 23:25] LABS: Allen Test Positive; Base Excess -10 mmol/L (-2 to +2); Bicarbonate 13.5 mmol/L (22-26); Blood Gas Specimen Type ART; O2 Delivery Device NRB; PO2 100 mmHG (75-100); SITE L Radial; SO2 98 % (95-99); Total Carbon Dioxide 14 mmol/L; pCO2 18.3 mmHg (35-45); pH 7.48 (7.35-7.45)
--- NOTE | 2023-01-27 23:39 | EKG12_ITS ---
Test Reason : ALT LOC Blood Pressure : / mmHG Vent. Rate : 112 BPM Atrial Rate : 112 BPM P-R Int : 142 ms QRS Dur : 070 ms QT Int : 338 ms P-R-T Axes : 045 021 044 degrees QTc Int : 461 ms Sinus tachycardia with Premature atrial complexes Nonspecific ST abnormality Abnormal ECG When compared with ECG of 26-JAN-2023 21:47, MANUAL COMPARISON REQUIRED, DATA IS UNCONFIRMED Confirmed by AMAURI FRAGOSO, CHRISTEN ([id number]), editor news KELSI BURGOS ([id number]) on 01/31/2023 9:48:43 AM Referred By: Ian Chandler Confirmed By:CHRISTEN BAUGH MD
--- NOTE | 2023-01-27 23:54 | PCM.PN.BLA ---
Progress Note Rapid response note: Rapid response was called because patient had alteration in mental status and he was tachypneic. Of note earlier on patient had ERCP with exchange of stents. Patient was evaluated at the bedside Patient was flipping back and forth in his alertness. At the time of evaluation patient was receiving plasma. Nurse reported the patient symptoms started before plasma was initiated. Of note patient had received platelets earlier on in the day. ABG showed metabolic alkalosis and respiratory alkalosis. Patient was moved to the intensive care unit for close monitoring.
[2023-01-28] VITALS (82 sets, daily range): BP systolic 58–152; BP diastolic 43–96; PULSE 67–120; RESP 11–29; TEMP 36.4–39.4; O2SAT 90–100; BMI 24.7
[2023-01-28 00:15] LABS: Bedside Glucose 74 mg/dL (74-106)
[2023-01-28 00:23] LABS: Absolute Lymphocyte Count 0.65 X10^3/uL (0.83-4.51); Absolute Neutrophil Count 7.5 X10^3/uL (2.0-7.7); Basophil# 0.01 X10^3/uL; Basophil% 0.1 % (0-1); Hematocrit 22.3 % (40-54); Lymphocyte # 0.65 X10^3/ul (0.83-4.51); Lymphocyte % 7.4 % (19-41); Mean Corp Hgb Conc 31.4 g/dL (32-36); Mean Corpuscular Volume 98.7 fL (80-94); Mean Platelet Vol. 9.8 fl (6.2-12.0); Monocyte# 0.66 X10^3/uL; Monocyte% 7.5 % (0-10); NRBC Flagged by Analyzer 0 % (0-5); Neutrophil # 7.48 X10^3/uL (2.7-7.7); Neutrophil % 84.5 % (47-70); POSITIVE COUNT YES; POSITIVE MORPHOLOGY YES; Platelet Count 53 K/mm3 (150-450); RBC Distribution Width CV 14.7 % (11.6-14.6); RBC Distribution Width SD 52.5 fl (35.1-43.9); Red Blood Count 2.26 M/mm3 (4.6-6.2); White Blood Count 8.8 K/mm3 (4.4-11.0)
[2023-01-28 00:25] LABS: Differential Indicated SCAN CRITERIA MET
[2023-01-28 00:37] LABS: Anisocytosis 1+; Differential Comment SCANNED; Hypochromasia 1+; Platelet Estimate MKD DEC (ADEQ)
[2023-01-28 00:43] LABS: BNP,B-Type NATRIURETIC PEPTIDE 107.8 pg/mL (0-100)
[2023-01-28 00:47] LABS: Anion Gap 16 (5-15); BUN 32 mg/dL (7-18); BUN/Creat Ratio 14.3 RATIO (10-20); Calcium,Total 7.9 mg/dL (8.5-10.1); Chloride 106 mmol/L (98-107); Creatinine, Serum 2.23 mg/dL (0.70-1.30); EST Glomerular Filtration Rate 30 mL/min (>60); Est Glom Filt Rate - Afr Amer 37 mL/min (>60); Estimated Creatinine Clearance 24.64 ml/min; Glucose 84 mg/dL (74-106); Potassium 4.3 mmol/L (3.5-5.1); Sodium Level 137 mmol/L (136-145)
[2023-01-28 00:57] LABS: Lactic Acid 10.9 mmol/L (0.4-1.9)
--- NOTE | 2023-01-28 00:58 | PCM.RX.CS ---
Consult Pharmacy has been consulted to manage selected antiobiotic: Vancomycin Type of Consult: New start Prior Doses of Antibiotics Received/Current Regimen: Medications Vancomycin HCl 1,750 mg/ (Sodium Chloride) 535 mls @ 250 mls/hr IV X1 ONE Stop: 01/28/23 01:38 Last Admin: 01/28/23 00:27 Dose: 250 mls/hr Vancomycin HCl 750 mg/ Sodium (Chloride) 265 mls @ 250 mls/hr IV Q12H ELAINE Labs: Sodium 137 mmol/L (136-145) 01/28/23 00:15 Potassium 4.3 mmol/L (3.5-5.1) 01/28/23 00:15 Chloride 106 mmol/L (98-107) 01/28/23 00:15 Carbon Dioxide 15.0 mmol/L (21.0-32.0) L 01/28/23 00:15 Anion Gap 16 (5-15) H 01/28/23 00:15 BUN 32 mg/dL (7-18) H 01/28/23 00:15 Creatinine 2.23 mg/dL (0.70-1.30) H 01/28/23 00:15 Est GFR (MDRD) Af Amer 37 mL/min (>60) L 01/28/23 00:15 Est GFR (MDRD) Non-Af 30 mL/min (>60) L 01/28/23 00:15 BUN/Creatinine Ratio 14.3 RATIO (10-20) 01/28/23 00:15 Glucose 84 mg/dL (74-106) 01/28/23 00:15 Microbiology: Microbiology 01/26/23 21:50 Blood Culture (Wb) #2 - Anticubital Right Blood Culture - Preliminary 01/26/23 21:41 Blood Culture (Wb) #2 - Anticubital Left Blood Culture - Preliminary Weight used for dosin.5 kg Estimated Creatinine Clearance: 57 Goal Trough: 15-20 mcg/mL Pharmacy Plan for Drug Dosing: Pharmacy Service will continue to monitor and adjust dosing as required. Follow-Up Labs: Trough Vancomycin Labs to be done on [date and time ordered]: 01/29/23 @1200
[2023-01-28] MEDS: Acetaminophen 650 MG Suppository RC ×2 (01:39→20:23)
[2023-01-28] MEDS: 0.9% Normal Saline 1,000 ML 999 ML IV ×3 (02:00→04:00)
[2023-01-28] MEDS: Epinephrine (POST-RESUSCITATION) 1 mg in 0.9% NS 250 mL 15 MG CONT INF (02:17)
[2023-01-28] MEDS: Midazolam 2 MG/2 ML Syringe 4 MG IV (02:45)
--- NOTE | 2023-01-28 03:00 | RAD_ITS ---
EXAM: XR CHEST, 1 VIEW CLINICAL INDICATION: LINE PLACEMENT, ETT AND NG/OG PLACEMENT TECHNIQUE: Frontal view of the chest. COMPARISON: 01/27/2023 FINDINGS: LUNGS AND PLEURAL SPACES: Bibasilar atelectasis. No pneumothorax. No effusion. HEART: Unremarkable. Cardiac silhouette not enlarged. MEDIASTINUM: Central airways and mediastinal contour are unremarkable. BONES/JOINTS: Degenerative changes of the spine. SOFT TISSUES: Unremarkable. TUBES, LINES AND DEVICES: Endotracheal tube with tip 5 cm above the kole. Enteric tube with tip in the distal stomach. Right jugular central line with tip at the cavoatrial junction. Left chest port. RAD/CXR for Line Placement IMPRESSION: Endotracheal tube with tip 5 cm above the kole. Enteric tube with tip in the distal stomach. Right jugular central line with tip at the cavoatrial junction. Electronically Signed: Dagoberto Thorne MD at 4:05 EDT ,
[2023-01-28] MEDS: Epinephrine (POST-RESUSCITATION) 1 mg in 0.9% NS 250 mL 300 MG CONT INF ×2 (03:19→04:20)
--- NOTE | 2023-01-28 03:27 | PN_ITS ---
Progress Note Intubation Indication: Respiratory failure Consent was not obtained as the procedure was done emergently The patient was placed in the appropriate sniffing position. Preoxygenated sedation via Ambu bag was provided for a minimum of 3 minutes. The patient had continuous cardiac as well as pulse oximetry monitoring during the procedure. Kaleidoscope laryngoscopy was then performed which revealed a grade 2 view. A 7.5 mm endotracheal tube was visualized advancing between the cords to the level of 24 cm at the lip. The stylette was then removed and discarded. Tube placement was confirmed by fogging in the tube along with equal and bilateral breath sounds. Colorimetric change was visualized on the CO2 meter. The cuff w as then inflated and the tube secured using a commercially available device. A good pulse oximetry waveform was seen on the monitor throughout the procedure. A portable chest x-ray has been ordered to confirm appropriate placement. The patient tolerated the procedure well.
--- NOTE | 2023-01-28 03:27 | PCM.PN.BLA ---
Progress Note A second rapid response was called because patient became unresponsive. While in patient room it was noted the patient did not have a pulse. ACLS with CPR was initiated. Patient received bicarbonate and magnesium and epinephrine. ROSC was achieved. Patient was intubated. He was started on epinephrine drip. Also he received Casper-Synephrine sticks. Patient was intubated..
[2023-01-28 04:18] LABS: Reflex Lactate? Y
[2023-01-28] MEDS: Propofol 10MG/Ml 1,000 MG/100 ML Bottle 4.3 MG CONT INF ×2 (04:40→15:15)
[2023-01-28 04:47] LABS: Base Excess -21 mmol/L (-2 to +2); Bicarbonate 8.7 mmol/L (22-26); Blood Gas Specimen Type ART; FI02 100; Mode AC; O2 Delivery Device Adult Vent; PEEP 5; PO2 127 mmHG (75-100); RR 14; SITE Art Line; SO2 97 % (95-99); Total Carbon Dioxide 10 mmol/L; Vt 450; pCO2 29.5 mmHg (35-45); pH 7.08 (7.35-7.45)
[2023-01-28] MEDS: Hydrocortisone Sod Succinate 100 MG/2 ML Vial 50 MG IV (05:00)
--- NOTE | 2023-01-28 05:00 | PCM.PN.BLA ---
Progress Note Central Venous Catheter Indication: Septic shock needed Oral consent was obtained from patient who was in the room. A time-out was completed verifying correct patient, procedure, site, positioning, and special equipment if applicable. The patient was placed in a dependent position appropriate for central line placement based on the vein to be cannulated. The patient's right knee was prepped and draped in a sterile fashion. 1% lidocaine was used to anesthetize the surrounding skin area. A triple-lumen catheter was introduced into the [ ] using the Seldinger technique and under ultrasound guidance. The catheter was threaded smoothly over the guidewire and appropriate blood return was obtained. Each lumen of the catheter was evacuated of air and flushed with sterile saline. The catheter was then sutured in place to the skin and a sterile dressing applied. Chest x-ray to confirm appropriate positioning is pending. ULTRASOUND GUIDANCE STATEMENT (Vascular Access): I performed ultrasound image acquisition and interpretation for needle placement during the procedure. The vessel was identified and found to be free of thrombosis by compression technique. A safe point of entry was marked at the skin in an angle for axis was determined. The needle was guided by obtaining free-flowing fluid and by real-time visualization. Procedures Hospitalists Procedures: 80801 Insert Non-tunnel CV Cath
--- NOTE | 2023-01-28 05:02 | PCM.PN.BLA ---
Progress Note Patient who was on responded and lost his pulse and could not breathe. Physical Exam Narrative Patient with no pause. He could not breathe. Assessment & Plan Assessment/Plan (1) Septic shock: (2) Cholangitis: PLAN: Plan Acute septic shock/cholangitis The patient presented with sepsis due to cholangitis) with acute sepsis related organ dysfunction as evidenced by (lactic acidosis and hypotension). SIRS criteria: Temperature more than 100.9 Fahrenheit or less than 96.8 Fahrenheit Respiratory rate more than 20 Heart rate more than 90 organ dysfunction: SBP less than 90 or MAP less than 65 Acute respiratory failure Creatinine more than 2 or urine output less than 0.5 mL/kg/h for 2 hours. Assessment and plan Zosyn started. Merrem ordered. Vancomycin ordered. Gentamicin x1 ordered. Received normal saline per septic shock protocol. Hydrocortisone ordered. Stop all blood pressure medications. I discussed with GI specialist. Notify cabin equipment supervisor. Service And Repair Supervisor consult. Acute cardiac arrest ACLS performed. Achieved ROSC. CODE STATUS: Discussed CODE STATUS with family. Family wants patient to be on antibiotics at least for 24 hours and then make further determination. Sepsis Attestation Sepsis Alert: Yes Sepsis Attestation: Agree w/Sepsis Date exam was performed: 01/28/23 Time exam was performed: 02:00 Possible Source of Sepsis: GI tract/intra-abdominal Sepsis Organ Dysfunction Criteria Present: SBP < 90 mmHg or MAP < 65 mmHg, Creatinine > 2.0 mg/dL and Lactic Acid > 2 mmol/L Fluid Resuscitation Fluid resuscitation indicated?: Yes Fluid Resuscitation ordered: 30 ml/kg fluid bolus ordered Sepsis Note Sepsis Attestation: Sepsis re-evaluation was performed Response to fluids: Non Fluid responsive hypotension and Vasopressors started
[2023-01-28 05:46] LABS: Absolute Lymphocyte Count 1.16 X10^3/uL (0.83-4.51); Absolute Neutrophil Count 5.3 X10^3/uL (2.0-7.7); Basophil# 0.01 X10^3/uL; Basophil% 0.1 % (0-1); Hematocrit 16.9 % (40-54); Lymphocyte # 1.16 X10^3/ul (0.83-4.51); Lymphocyte % 16.9 % (19-41); Mean Corpuscular Hgb 30.4 pg (27.0-32.0); Mean Platelet Vol. 11.3 fl (6.2-12.0); Monocyte# 0.35 X10^3/uL; Monocyte% 5.1 % (0-10); NRBC Flagged by Analyzer 0 % (0-5); Neutrophil # 5.33 X10^3/uL (2.7-7.7); Neutrophil % 77.6 % (47-70); POSITIVE COUNT YES; POSITIVE MORPHOLOGY YES; RBC Distribution Width CV 14.6 % (11.6-14.6); RBC Distribution Width SD 55.8 fl (35.1-43.9); Red Blood Count 1.61 M/mm3 (4.6-6.2); White Blood Count 6.9 K/mm3 (4.4-11.0)
[2023-01-28 05:48] LABS: Hemoglobin 4.9 g/dL (13.0-16.5)
[2023-01-28 05:49] LABS: Differential Indicated SCAN CRITERIA MET; Platelet Count 48 K/mm3 (150-450)
[2023-01-28 06:34] LABS: Absolute Lymphocyte Count 0.97 X10^3/uL (0.83-4.51); Absolute Neutrophil Count 5.8 X10^3/uL (2.0-7.7); Hematocrit 16.6 % (40-54); Lymphocyte # 0.97 X10^3/ul (0.83-4.51); Lymphocyte % 13.7 % (19-41); Mean Corp Hgb Conc 29.5 g/dL (32-36); Mean Corpuscular Hgb 30.6 pg (27.0-32.0); Mean Corpuscular Volume 103.8 fL (80-94); Mean Platelet Vol. 10.9 fl (6.2-12.0); Monocyte# 0.31 X10^3/uL; Monocyte% 4.4 % (0-10); NRBC Flagged by Analyzer 0 % (0-5); Neutrophil # 5.79 X10^3/uL (2.7-7.7); Neutrophil % 81.6 % (47-70); POSITIVE COUNT YES; POSITIVE MORPHOLOGY YES; RBC Distribution Width CV 14.6 % (11.6-14.6); RBC Distribution Width SD 55.7 fl (35.1-43.9); White Blood Count 7.1 K/mm3 (4.4-11.0)
[2023-01-28 06:35] LABS: Differential Indicated SCAN CRITERIA MET
[2023-01-28 06:36] LABS: Hemoglobin 4.9 g/dL (13.0-16.5); Platelet Count 47 K/mm3 (150-450)
[2023-01-28 06:43] LABS: Fibrinogen 229 mg/dl (203-444)
[2023-01-28 06:45] LABS: ALB/GLOB Ratio 0.7 RATIO (0.9-2.4); AST(SGOT) 12879 U/L (15-37); Alanine Aminotransfer ALT/SGPT 8561 U/L (16-61); Albumin, Serum 1.7 g/dL (3.2-5.0); Alkaline Phosphatase 198 U/L (45-117); Anion Gap 22 (5-15); BUN 36 mg/dL (7-18); Calcium,Total 6.7 mg/dL (8.5-10.1); Chloride 112 mmol/L (98-107); EST Glomerular Filtration Rate 28 mL/min (>60); Est Glom Filt Rate - Afr Amer 34 mL/min (>60); Estimated Creatinine Clearance 22.89 ml/min; Globulin 2.3 g/dL (2.2-4.2); Glucose 55 mg/dL (74-106); Magnesium 2.5 mg/dL (1.6-2.6); Potassium 4.4 mmol/L (3.5-5.1); Sodium Level 144 mmol/L (136-145)
[2023-01-28 06:47] LABS: Lactic Acid 14.9 mmol/L (0.4-1.9)
[2023-01-28] MEDS: Dextrose 50%-Water 25 GM/50 ML DISP.SYRIN IV (07:00)
[2023-01-28 07:06] LABS: Anisocytosis 2+; Differential Comment SCANNED; Macrocytosis 2+; Platelet Estimate MKD DEC (ADEQ)
[2023-01-28 07:07] LABS: Anisocytosis 2+; Differential Comment SCANNED; Macrocytosis 2+; Platelet Estimate MKD DEC (ADEQ)
--- NOTE | 2023-01-28 07:11 | EX.PCM.CONCC ---
Assessment & Plan Assessment/Plan (1) Septic shock: (2) Gallbladder cancer, carcinoma: (3) Biliary obstruction due to cancer: PLAN: Plan RECOMMENDATIONS: 1. Continue broad-spectrum antibiotics. No further gentamicin 2. Wean oxygen as tolerated 3. Blood transfusion with goal of greater than 7 4. Hold on bicarbonate for now 5. Remain full code for the first 24 hours 6. Initiate stress dose steroids 7. Monitor blood sugars for hypoglycemia IMPRESSIONS: 1. Septic shock secondary to gram-negative gualberto High clinical suspicion for cholangitis leading to bacteremia with subsequent septic shock. Patient has evidence of endorgan damage with acute kidney injury, hepatitis and respiratory failure. Patient is currently on vasopressin and Levophed. Epinephrine is currently on hold. Will hold further doses of gentamicin given acute kidney injury. Continue antibiotics for now. Patient will benefit from volume resuscitation with blood products. Clinical suspicion for hypoglycemia secondary to significant bacteremia. 2. Acute kidney injury on CKD stage IIIa Patient's baseline creatinine appears to be approximately 1, but morning labs are showing a creatinine of 2.4. Clinical suspicion for prerenal etiology with ATN secondary to problem #1. Blood pressure is being supported. Patient does have some urine output at this time, but we will have to follow closely. Low clinical suspicion for hepatorenal syndrome at this time. 3. Pancytopenia Likely multifactorial. Patient has received chemotherapy 1 week ago. Patient also likely has an element of suppression secondary to problem #1. Patient does not have any active bleeding noted, but has had a significant drop in hemoglobin. Blood transfusions have been ordered. We will hold off on platelet transfusions at this time given lack of clinical bleeding. 4. Metastatic poorly differentiated gallbladder adenocarcinoma Patient is undergoing chemotherapy. Patient reportedly has had a good response to therapy with clogging of his stents. Patient likely should not receive chemotherapy at this time given problem #1. We will have to discuss with Dr. Almonte on the appropriateness of Tylenol for high fevers as this does increase metabolic demand, but may worsen shock liver. 5. Acute hypoxic respiratory failure Patient with partial compensation for metabolic acidosis, but also has an increased AA gradient. Patient has received volume resuscitation and may have an element of fluid overload. Will increase PEEP to 8. ABGs as necessary. 6. Advanced age/ongoing chemotherapy/paroxysmal A-fib/history of CVA/hyperlipidemia/BPH/hypertension Complicates care, management, recovery and prognosis. Patient currently has a Sandy catheter for BPH. Patient is on PPI prophylaxis. Blood pressure medications have been held secondary to problem #1. TIME: 55 minutes critical care time spent addressing patient's septic shock, respiratory failure, pancytopenia, acute kidney injury, review of all data and collaboration with care team HPI Consult Data Date of Consult: 01/28/23 HPI Narrative Reason for Consultation: Septic shock HPI Narrative: JAY JEFFERSON is a 77 M, with past medical history listed below, who presents to [facility] on 01/26/2023 secondary to generalized weakness and not feeling well. Patient was recently diagnosed with gallbladder cancer and has received 2 doses of chemotherapy. Last chemotherapy was approximately a week ago. On December 23, patient had stents placed in his biliary duct secondary to metastasis to the liver. Patient was noted to have an increase in LFTs and MRCP showed obstruction of the biliary ducts. Patient reportedly had not reported any fevers, nausea, vomiting or diarrhea, but did have a sensation of generalized achiness. In the ER, patient was afebrile, normotensive and saturating 100% on room air. LFTs did show an elevated bilirubin of 1.9, so Dr. Almonte was consulted. Patient was admitted to the floor and underwent an ERCP by Dr. Almonte and was sent to the floor. Patient subsequently had progressive decline with hypotension and was ultimately transferred to the intensive care unit. While in the intensive care unit, patient did have a PEA arrest for approximately 20 minutes. ROSC was achieved and patient has been on pressors overnight. Patient is intubated on 75% FiO2. Some pressor requirements have improved, but patient remains unresponsive. Did discuss with the patient's at the bedside along with her son. They have stated they would like to have leave the patient is a full code for the first 24 hours to give antibiotics time to work. Family was not able to provide any additional information as far as review of systems. Patient was to have chemotherapy in the near future. Patient's did reiterate that she was not aware of any fevers or chills. Family does believe that he appears more yellow and puffy. [facility] Medical History Adenosquamous carcinoma of gallbladder Benign essential hypertension Cancer, metastatic to liver Cardiology follow-up encounter Depression Depression Elevated BUN Encounter for education Former smoker Gallbladder cancer, carcinoma High cholesterol History of atrial fibrillation History of echocardiogram History of stress test Hyperbilirubinemia Hyperlipidemia Hypertension Ischemic cerebrovascular accident (CVA) (09/2016) Nonobstructive atherosclerosis of coronary artery Painless jaundice Paroxysmal atrial fibrillation Peritonitis Prostate disease Stage 3b chronic kidney disease (CKD) Stroke/cerebrovascular accident Thrombocytopenia Transaminitis Home Medications bupropion HCl 100 mg tablet 100 mg PO BID DEPRESSION 12/31/15 [History Last Taken 01/26/23] coenzyme Q10 100 mg capsule 100 mg PO DAILY SUPPLEMENT 12/31/15 [History Last Taken 01/25/23] latanoprost 0.005 % eye drops 1 drp EACH EYE QHS GLAUCOMA 12/31/15 [History Last Taken 09/12/22] tamsulosin 0.4 mg capsule 0.4 mg PO QHS PROSTATE 12/31/15 [History Last Taken 01/26/23] rosuvastatin 40 mg tablet 40 mg PO DAILY CHOLESTEROL 10/19/21 [History Last Taken 01/26/23] apixaban 5 mg tablet (Eliquis) 5 mg PO BID BLOOD THINNER 09/13/22 [History Last Taken 01/26/23] dorzolamide 22.3 mg-timolol 6.8 mg/mL eye drops 1 drp EACH EYE DAILY eye health 09/13/22 [History Last Taken 01/26/23] lisinopril 10 mg tablet 10 mg PO QHS BLOOD PRESSURE 09/13/22 [History Last Taken 01/25/23] metoprolol tartrate 25 mg tablet 12.5 mg PO BID BLOOD PRESSURE 09/13/22 [History Last Taken 01/26/23] multivitamin 1 tab PO DAILY SUPPLEMENT 09/13/22 [History Last Taken 01/26/23] zolpidem 5 mg tablet 2.5 mg PO QHS PRN Sleep 09/13/22 [History Last Taken Unknown] dexamethasone 4 mg tablet 8 mg PO .COMPLEX #12 tabs 01/02/23 [Rx Last Taken Unknown] lidocaine-prilocaine 2.5 %-2.5 % topical cream 1 applic topical ONCE PRN port access 30 days #30 grams 01/02/23 [Rx Last Taken Unknown] omeprazole 20 mg capsule,delayed release 20 mg PO DAILY #30 caps 01/02/23 [Rx Last Taken 01/06/23 05:30] prochlorperazine maleate 10 mg tablet 10 mg PO Q6H PRN nausea and vomiting #30 tabs 01/02/23 [Rx Last Taken Unknown] ondansetron HCl 8 mg tablet 8 mg PO Q8H PRN nausea and vomiting #30 tabs 01/26/23 [Rx Last Taken Unknown] Allergy/AdvReac Type Severity Reaction Status Date / Time No Known Allergies Allergy Verified 01/26/23 18:05 Family History Mother CAD (coronary artery disease) Hypertension Brother CAD (coronary artery disease) Sister CAD (coronary artery disease) Surgical History H/O repair of left rotator cuff (01/2018) History of appendectomy History of cardiac catheterization History of carpal tunnel release History of cataract surgery History of herniorrhaphy History of resection of liver History of right and left heart catheterization (02/08/02) Hx of left knee surgery S/P laparoscopic cholecystectomy Social History household members: spouse housing: house number of children: 3 current occupational status: retired pets and animals: No Smoking Status: Former smoker alcohol intake: current alcohol intake frequency: holidays/special occasions only substance use type: does not use caffeine: Yes Type: coffee Number of servings: 2 what type of physical activity do you participate in: other details: [employer] ROS ROS Narrative See HPI Review of Systems ROS Unobtainable: due to endotracheal tube and due to mental status Physical Exam Const Constitutional Narrative: RASS -3. Jaundice. Good ventilator synchrony. General Appearance: ill appearing and patient mechanically ventilated HEENT normocephalic and head/scalp atraumatic Eyes PERRL and EOMs intact bilaterally Sclera: sclera abnormal Positive for bilateral (Icterus) Neck full ROM Chest inspection of chest normal Resp Effort and Inspection: tachypneic Auscultation: Negative for rales, rhonchi or wheezes Cardio S1 normal heart sound, S2 normal heart sound, no murmurs, no rub and no gallops Rate: tachycardic GI Inspection: abdominal distention Palpation: Negative for tender or guarding Extremity General Extremity: edema; Negative for clubbing Skin Skin Narrative: Jaundice Neuro Sensorium / Orientation: sedated on vent Psych Mood & Affect: flat affect Medical Records Data Attestation: I reviewed the patient's medical records Medical Nutrition Assessment Dietitian: Malnutrition Criteria Met Start: 01/27/23 11:43 Freq: Status: Active Protocol: Document 01/27/23 11:43 ELISE (Rec: 01/27/23 11:43 SLA [id number]) Nutrition Malnutrition Evidence of Malnutrition Exists Yes Malnutrition (moderate): Chronic Evidenced By Suboptimal Energy Intake ( Moderate),Weight Loss (Severe) Clinical Problem Chronic Disease or Condition Related Malnutrition Etiology moderate related to cancer w/ chemo tx and inadequate energy intake Signs/Symptoms as evidenced by ~50% of usual po intake and 8.4% unintended wt loss x 6 months Status Active Problem Recommendation Dietitian Recommendations/Changes Continue liberal regular diet d/t signs and symptoms of malnutrition. Pt allowed to order ONS w/ meals prn - pt does not want at this time. Lab / Micro Data Attestation: I reviewed the patient's lab results. Result Diagrams: 01/28/23 06:15 01/28/23 05:38 Labs: Laboratory Results - last 24 hr 01/27/23 06:00: Diff Path Review Reviewed 01/27/23 12:55: Blood Type A POSITIVE 01/27/23 12:55: Blood Type Cancelled, A1 Antigen Typing Cancelled, Rho(D) Type Cancelled, Antibody Screen NEGATIVE, Crossmatch See Detail 01/27/23 23:05: POC Glucose 74 01/28/23 00:00: COVID-19 (BRENDA) Not Detected 01/28/23 00:15: Sodium 137, Potassium 4.3, Chloride 106, Carbon Dioxide 15.0 L, Anion Gap 16 H, BUN 32 H, Creatinine 2.23 H, Estim Creat Clear Calc 24.64, Est GFR (MDRD) Af Amer 37 L, Est GFR (MDRD) Non-Af 30 L, BUN/Creatinine Ratio 14.3, Glucose 84, Calcium 7.9 L 01/28/23 00:15: WBC 8.8, RBC 2.26 L, Hgb 7.0 L, Hct 22.3 L, MCV 98.7 H D, MCH 31.0, MCHC 31.4 L, RDW Std Deviation 52.5 H, RDW Coeff of Rashad 14.7 H, Plt Count 53 L, MPV 9.8, Immature Gran % (Auto) 0.500, Neut % (Auto) 84.5 H, Lymph % (Auto) 7.4 L, [place] % (Auto) 7.5, Eos % (Auto) 0.0, Baso % (Auto) 0.1, Absolute Neuts (auto) 7.5, Absolute Lymphs (auto) 0.65 L, Nucleated RBC % 0, Differential Comment SCANNED, Platelet Estimate MKD DEC, Hypochromasia 1+, Anisocytosis 1+ 01/28/23 00:15: Lactic Acid 10.9 H* 01/28/23 00:15: B-Natriuretic Peptide 107.8 H 01/28/23 00:15: Ammonia 83.0 H 01/28/23 04:55: Lactic Acid Cancelled 01/28/23 05:38: Lactic Acid 14.9 H* 01/28/23 05:38: WBC 6.9, RBC 1.61 L, Hgb 4.9 L*, Hct 16.9 L, MCV 105.0 H D, MCH 30.4, MCHC 29.0 L D, RDW Std Deviation 55.8 H, RDW Coeff of Rashad 14.6, Plt Count 48 L*, MPV 11.3, Immature Gran % (Auto) 0.300, Neut % (Auto) 77.6 H, Lymph % (Auto) 16.9 L, [place] % (Auto) 5.1, Eos % (Auto) 0.0, Baso % (Auto) 0.1, Absolute Neuts (auto) 5.3, Absolute Lymphs (auto) 1.16, Nucleated RBC % 0, Differential Comment SCANNED, Diff Path Review May foll, Platelet Estimate MKD DEC, Anisocytosis 2+, Macrocytosis 2+ 01/28/23 05:38: Sodium 144, Potassium 4.4, Chloride 112 H, Carbon Dioxide 10.0 L, Anion Gap 22 H, BUN 36 H, Creatinine 2.40 H, Estim Creat Clear Calc 22.89, Est GFR (MDRD) Af Amer 34 L, Est GFR (MDRD) Non-Af 28 L, BUN/Creatinine Ratio 15.0, Glucose 55 L, Calcium 6.7 L, Magnesium 2.5, Total Bilirubin 3.60 H, AST 33324 H, ALT 8561 H, Alkaline Phosphatase 198 H, Total Protein 4.0 L, Albumin 1.7 L, Globulin 2.3, Albumin/Globulin Ratio 0.7 L 01/28/23 05:38: Phosphorus 7.0 H 01/28/23 06:15: WBC 7.1, RBC 1.60 L, Hgb 4.9 L*, Hct 16.6 L, MCV 103.8 H, MCH 30.6, MCHC 29.5 L, RDW Std Deviation 55.7 H, RDW Coeff of Rashad 14.6, Plt Count 47 L*, MPV 10.9, Immature Gran % (Auto) 0.300, Neut % (Auto) 81.6 H, Lymph % (Auto) 13.7 L, [place] % (Auto) 4.4, Eos % (Auto) 0.0, Baso % (Auto) 0.0, Absolute Neuts (auto) 5.8, Absolute Lymphs (auto) 0.97, Nucleated RBC % 0, Differential Comment SCANNED, Diff Path Review December, Platelet Estimate MKD DEC, Anisocytosis 2+, Macrocytosis 2+ 01/28/23 06:20: Fibrinogen 229 Micro: Microbiology 01/26/23 21:50 Blood Culture (Wb) #2 - Anticubital Right Blood Culture - Preliminary 01/26/23 21:41 Blood Culture (Wb) #2 - Anticubital Left Blood Culture - Preliminary ABG Data ABG results: ABG 01/27/23 01/28/23 23:17 04:41 Specimen Type ART ART Sample Site L Radial Art Line pH 7.48 H 7.08 L* Bicarbonate Actual 13.5 L 8.7 L Total CO2 14 10 Base Excess -10 L -21 L O2 Saturation 98 97 O2 % 100 ABG pCO2 18.3 L* 29.5 L ABG pO2 100 127 H Angel Test Positive N/A Respiration Rate 14 O2 Delivery Device NRB Adult Vent Vent Mode AC Tidal Volume 450 POC PEEP 5 Crit Call To/Read Back Yes Yes Blood Gas Notified Whom DR.JOE ALLEN Briones Attestation: I personally reviewed and interpreted this ABG as follows: (Partially compensated severe metabolic acidosis with increased AA gradient) Radiology Impression ERCP X-Ray 01/27/23 15:20 IMPRESSION: Fluoroscopy during ERCP and biliary stent placement. Electronically Signed: Tyree Irene MD at 19:13 EDT , Chest X-Ray 01/27/23 23:20 IMPRESSION: Mild right basilar airspace disease. Findings may indicate atelectasis or infection. Electronically Signed: Dagoberto Thorne MD at 0:13 EDT , Chest X-Ray 01/28/23 03:00 IMPRESSION: Endotracheal tube with tip 5 cm above the kole. Enteric tube with tip in the distal stomach. Right jugular central line with tip at the cavoatrial junction. Electronically Signed: Dagoberto Thorne MD at 4:05 EDT , Charges/Coding Procedures Hospitalists Procedures: [id number] [facility]
[2023-01-28 07:41] LABS: Base Excess -21 mmol/L (-2 to +2); Blood Gas Specimen Type ART; FI02 75; Mode AC; O2 Delivery Device Adult Vent; PEEP 5; PO2 112 mmHG (75-100); RR 12; SITE Art Line; SO2 97 % (95-99); Total Carbon Dioxide 9 mmol/L; Vt 450; pCO2 24.8 mmHg (35-45); pH 7.12 (7.35-7.45)
[2023-01-28] MEDS: Hydrocortisone Sod Succinate 100 MG/2 ML Vial IV ×3 (08:01→21:51)
--- NOTE | 2023-01-28 08:29 | CPS ---
verbal order from RN to increase peep to 8cmh20
--- NOTE | 2023-01-28 08:30 | PHA.PHARE_ITS ---
Consult Pharmacy has been consulted to manage selected antiobiotic: Vancomycin Type of Consult: Follow-up Labs: Sodium 144 mmol/L (136-145) 01/28/23 05:38 Potassium 4.4 mmol/L (3.5-5.1) 01/28/23 05:38 Chloride 112 mmol/L (98-107) H 01/28/23 05:38 Carbon Dioxide 10.0 mmol/L (21.0-32.0) L 01/28/23 05:38 Anion Gap 22 (5-15) H 01/28/23 05:38 BUN 36 mg/dL (7-18) H 01/28/23 05:38 Creatinine 2.40 mg/dL (0.70-1.30) H 01/28/23 05:38 Est GFR (MDRD) Af Amer 34 mL/min (>60) L 01/28/23 05:38 Est GFR (MDRD) Non-Af 28 mL/min (>60) L 01/28/23 05:38 BUN/Creatinine Ratio 15.0 RATIO (10-20) 01/28/23 05:38 Glucose 55 mg/dL (74-106) L 01/28/23 05:38 Microbiology: Microbiology 01/26/23 21:50 Blood Culture (Wb) #2 - Anticubital Right Blood Culture - 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 Will adjust dose of vancomycin to 750mg IV Q24hr to start 01/29/23 @0000. Pending Level: 01/29/23 @2330, prior to 3rd total dose of vancomycin per protocol Pharmacy Service will continue to monitor and adjust dosing as required.
[2023-01-28 08:32] LABS: Bedside Glucose 140 mg/dL (74-106)
[2023-01-28] MEDS: Chlorhexidine 15 ML PO ×2 (08:48→20:22)
--- NOTE | 2023-01-28 08:51 | NURSING ---
Verbal order given by Dr. Briones for Epi gtt to be increased above top threshold (see MAR titrations)
--- NOTE | 2023-01-28 09:13 | PCM.PN.HOSP ---
Reason for Visit Reason for Visit: Diagnoses Sepsis, unspecified organism (01/26/23) Malignant neoplasm of gallbladder (01/26/23) Other cholangitis (01/26/23) Obstruction of bile duct (01/26/23) Weakness (01/26/23) Severe sepsis with septic shock (01/26/23) Abnormal levels of other serum enzymes (01/26/23) Subjective Subjective Overnight patient had 2 SEWER LINE REPAIRER's and then had a PEA arrest, presently in the ICU, intubated and sedated, on multiple pressors Objective Data Objective Data Vital Signs: Vital Signs Temp Pulse Resp BP Pulse Ox O2 Del Method O2 Flow Rate 97.9 F 103 H 20 H 114/63 90 Mechanical Ventilator 75 01/28/23 06:00 01/28/23 07:05 01/28/23 07:05 01/28/23 06:00 01/28/23 07:05 01/28/23 06:00 01/28/23 06:00 FiO2 75 01/28/23 07:05 Oxygen Flow Rate (L/min) 75 Oxygen Delivery Method Mechanical Ventilator Weight: 71.5 kg Body Mass Index (BMI) 24.7 Intake & Output: Intake and Output for Last 24 Hours 01/26/23 01/27/23 01/28/23 23:59 23:59 23:59 Intake Total 235 / 385 / 4943.555 / 4943.555 Output Total 1150 / 1150 Balance 235 / 85 863.35 / 863.35 4943.555 / 4943.555 Medical Nutrition Assessment Dietitian: Malnutrition Criteria Met Start: 01/27/23 11:43 Freq: Status: Active Protocol: Document 01/27/23 11:43 ELISE (Rec: 01/27/23 11:43 ELISE [id number]) Nutrition Malnutrition Evidence of Malnutrition Exists Yes Malnutrition (moderate): Chronic Evidenced By Suboptimal Energy Intake ( Moderate),Weight Loss (Severe) Clinical Problem Chronic Disease or Condition Related Malnutrition Etiology moderate related to cancer w/ chemo tx and inadequate energy intake Signs/Symptoms as evidenced by ~50% of usual po intake and 8.4% unintended wt loss x 6 months Status Active Problem Recommendation Dietitian Recommendations/Changes Continue liberal regular diet d/t signs and symptoms of malnutrition. Pt allowed to order ONS w/ meals prn - pt does not want at this time. Lab / Micro Data Result Diagrams: 01/28/23 06:15 01/28/23 05:38 Labs: Laboratory Results - last 24 hr 01/27/23 06:00: Diff Path Review Reviewed 01/27/23 12:55: Blood Type A POSITIVE 01/27/23 12:55: Blood Type Cancelled, A1 Antigen Typing Cancelled, Rho(D) Type Cancelled, Antibody Screen NEGATIVE, Crossmatch See Detail 01/27/23 12:55: Blood Type Cancelled, A1 Antigen Typing Cancelled, Rho(D) Type Cancelled, Antibody Screen Cancelled, Crossmatch See Detail 01/27/23 23:05: POC Glucose 74 01/28/23 00:00: COVID-19 (BRENDA) Not Detected 01/28/23 00:15: Sodium 137, Potassium 4.3, Chloride 106, Carbon Dioxide 15.0 L, Anion Gap 16 H, BUN 32 H, Creatinine 2.23 H, Estim Creat Clear Calc 24.64, Est GFR (MDRD) Af Amer 37 L, Est GFR (MDRD) Non-Af 30 L, BUN/Creatinine Ratio 14.3, Glucose 84, Calcium 7.9 L 01/28/23 00:15: WBC 8.8, RBC 2.26 L, Hgb 7.0 L, Hct 22.3 L, MCV 98.7 H D, MCH 31.0, MCHC 31.4 L, RDW Std Deviation 52.5 H, RDW Coeff of Rashad 14.7 H, Plt Count 53 L, MPV 9.8, Immature Gran % (Auto) 0.500, Neut % (Auto) 84.5 H, Lymph % (Auto) 7.4 L, Holmes % (Auto) 7.5, Eos % (Auto) 0.0, Baso % (Auto) 0.1, Absolute Neuts (auto) 7.5, Absolute Lymphs (auto) 0.65 L, Nucleated RBC % 0, Differential Comment SCANNED, Platelet Estimate MKD DEC, Hypochromasia 1+, Anisocytosis 1+ 01/28/23 00:15: Lactic Acid 10.9 H* 01/28/23 00:15: B-Natriuretic Peptide 107.8 H 01/28/23 00:15: Ammonia 83.0 H 01/28/23 04:55: Lactic Acid Cancelled 01/28/23 05:38: Lactic Acid 14.9 H* 01/28/23 05:38: WBC 6.9, RBC 1.61 L, Hgb 4.9 L*, Hct 16.9 L, MCV 105.0 H D, MCH 30.4, MCHC 29.0 L D, RDW Std Deviation 55.8 H, RDW Coeff of Rashad 14.6, Plt Count 48 L*, MPV 11.3, Immature Gran % (Auto) 0.300, Neut % (Auto) 77.6 H, Lymph % (Auto) 16.9 L, [place] % (Auto) 5.1, Eos % (Auto) 0.0, Baso % (Auto) 0.1, Absolute Neuts (auto) 5.3, Absolute Lymphs (auto) 1.16, Nucleated RBC % 0, Differential Comment SCANNED, Diff Path Review December, Platelet Estimate MKD DEC, Anisocytosis 2+, Macrocytosis 2+ 01/28/23 05:38: Sodium 144, Potassium 4.4, Chloride 112 H, Carbon Dioxide 10.0 L, Anion Gap 22 H, BUN 36 H, Creatinine 2.40 H, Estim Creat Clear Calc 22.89, Est GFR (MDRD) Af Amer 34 L, Est GFR (MDRD) Non-Af 28 L, BUN/Creatinine Ratio 15.0, Glucose 55 L, Calcium 6.7 L, Magnesium 2.5, Total Bilirubin 3.60 H, AST 14029 H, ALT 8561 H, Alkaline Phosphatase 198 H, Total Protein 4.0 L, Albumin 1.7 L, Globulin 2.3, Albumin/Globulin Ratio 0.7 L 01/28/23 05:38: Phosphorus 7.0 H 01/28/23 06:15: WBC 7.1, RBC 1.60 L, Hgb 4.9 L*, Hct 16.6 L, MCV 103.8 H, MCH 30.6, MCHC 29.5 L, RDW Std Deviation 55.7 H, RDW Coeff of Rashad 14.6, Plt Count 47 L*, MPV 10.9, Immature Gran % (Auto) 0.300, Neut % (Auto) 81.6 H, Lymph % (Auto) 13.7 L, [place] % (Auto) 4.4, Eos % (Auto) 0.0, Baso % (Auto) 0.0, Absolute Neuts (auto) 5.8, Absolute Lymphs (auto) 0.97, Nucleated RBC % 0, Differential Comment SCANNED, Diff Path Review May foll, Platelet Estimate MKD DEC, Anisocytosis 2+, Macrocytosis 2+ 01/28/23 06:20: Fibrinogen 229 01/28/23 08:14: POC Glucose 140 H Micro: Microbiology 01/28/23 07:45 Gastric Fluid/Contents Gastric Occult Blood - Final Occult Blood Positive 01/26/23 21:50 Blood Culture (Wb) #2 - Anticubital Right Blood Culture - Preliminary GNR lactose finance administrator 01/26/23 21:41 Blood Culture (Wb) #2 - Anticubital Left Blood Culture - Preliminary GNR lactose finance administrator ABG Data ABG results: ABG 01/27/23 01/28/23 01/28/23 23:17 04:41 07:36 Specimen Type ART ART ART Sample Site L Radial Art Line Art Line pH 7.48 H 7.08 L* 7.12 L* Bicarbonate Actual 13.5 L 8.7 L 8.0 L Total CO2 14 10 9 Base Excess -10 L -21 L -21 L O2 Saturation 98 97 97 O2 % 100 75 ABG pCO2 18.3 L* 29.5 L 24.8 L ABG pO2 100 127 H 112 H Angel Test Positive N/A Respiration Rate 14 12 O2 Delivery Device NRB Adult Vent Adult Vent Vent Mode AC AC Tidal Volume 450 450 POC PEEP 5 5 Crit Call To/Read Back Yes Yes Yes Blood Gas Notified Whom DR.JOE ALLEN DUTTON Radiography Diagnostic Testing: Radiology Impression ERCP X-Ray 01/27/23 15:20 IMPRESSION: Fluoroscopy during ERCP and biliary stent placement. Electronically Signed: Tyree Irene MD at 19:13 EDT , Chest X-Ray 01/27/23 23:20 IMPRESSION: Mild right basilar airspace disease. Findings may indicate atelectasis or infection. Electronically Signed: Dagoberto Thorne MD at 0:13 EDT , Chest X-Ray 01/28/23 03:00 IMPRESSION: Endotracheal tube with tip 5 cm above the kole. Enteric tube with tip in the distal stomach. Right jugular central line with tip at the cavoatrial junction. Electronically Signed: Dagoberto Thorne MD at 4:05 EDT , Physical Exam Narrative General: Intubated and sedated in the ICU HEENT: Atraumatic, normocephalic Eyes: Icteric Neck: Supple Respiratory: Clear to auscultation bilaterally Cardiovascular: Regular rhythm at time of exam GI: Slightly distended but still compressible with no rigidity, decreased bowel sounds Extremities: No edema Musculoskeletal: Presently sedated Neuro: Unable to participate in neuro exam secondary to intubated sedated Skin: Icteric Psych: Unable to cooperate secondary to intubated sedated Assessment & Plan Assessment/Plan (1) Elevated liver enzymes: (2) Generalized weakness: (3) Gallbladder cancer, carcinoma: PLAN: Plan #Septic shock secondary to gram-negative gualberto/PEA arrest status post CPR and ROSC -Patient with 1 out of 2 blood cultures gram-negative gualberto before his ERCP and stent exchange and was on Zosyn and had been improving -Overnight became hypotensive and had PEA arrest, switch to Merrem and 2 of 2 blood cultures growing gram-negative rods with lactose found finance administrator given severity of illness is also on Vanco pending final cultures -Awaiting sensitivities -Presently intubated, sedated, on multiple pressors. Wean as able -Patient started on stress dose steroids -Discussed plan with staple processing machine operator #SHAMAR on CKD stage IIIb -Secondary to septic shock -Treat underlying illness -Fluids, pressors #High anion gap metabolic acidosis -Acidotic on ABG, lactic acid 14.9 -Suspect secondary to septic shock, treat underlying illness #Acute hypoxic respiratory failure -As seen on ABG Secondary to PEA arrest likely secondary to septic shock -Intubated and sedated in the ICU #Acute anemia/persistent thrombocytopenia -Labs not consistent with DIC -Abdomen slightly distended however not rigid, hemoglobin 4.9 today, receiving 2 units packed red blood cells and will recheck, if not increasing appropriately may need CT scan to evaluate for any intra-abdominal pathology, discussed with staple processing machine operator -Has OG tube with minimal dark fluid and no overt blood, no overt blood per rectum reported, no blood in [place] #Complete obstruction of common hepatic duct with nonvisualization of prior biliary stent seen in prior PET scan/Transaminitis/hyperbilirubinemia-> significant transaminitis and hyperbilirubinemia 01/28 -Had MRCP which showed dilated intra hepatic ducts and cut off in the common hepatic duct. Cannot see biliary stent so patient was sent to ED -Has history of ERCP with [address] Almonte 12/23/2022 -GI consulted -Patient for ERCP today 01/27/2023 -01/28: Status post ERCP 01/27 with: Biliary tumor of the upper third of the main duct visualized via SpyGlass. A single severe biliary stricture was found in the upper third of the main bile duct. The stricture was malignant appearing. A biliary sphincterotomy was performed. The biliary tree was swept and mucus was found. The upper third of the main bile duct was successfully dilated. Two stents were removed from the biliary tree. One covered metal stent was placed into the common bile duct. Two temporary stents were placed into the common bile duct. Snare papillectomy of the major papilla was performed. Resection was complete, but the papilla tissue was not retrieved. *A.m. of 01/28 patient had AST of 12,879 and an ALT of 8561 with a total bili of 3.60. 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, blossom hepatis, pericaval lymph nodes mediastinum and left hilar area -Had port placed 01/06/2023 -On chemotherapy and follows with oncology -On palliative chemotherapy with cisplatin Gemzar and Imfinzi started on 01/12/2023 and had second on 01/19 #Paroxysmal atrial fibrillation/ischemic CVA 2017 -Holding Eliquis for possible procedure and due to platelets #DVT ppx: SCDs Britney Mujica MD Time spent in the patient's overall evaluation,decision-making process, review of diagnostic data, adjustment of management, discussion with other providers, nursing nursing and ancillary staff involved in patient's care documentation, 45 Minutes Charges/Coding Visit Charges Inpatient E&M: 57988 Subs Hosp L3
[2023-01-28 09:44] LABS: Reflex Lactate? Y
[2023-01-28] MEDS: Dorzolamide HCL/Timolol 10 ml Bottle 1 DRP EACH EYE (11:09)
[2023-01-28 12:32] LABS: CPK Total, Creatine Kinase 1073 U/L (39-308); Triglycerides 103 mg/dL
[2023-01-28] MEDS: 0.9% Saline Lock 10 ML Syringe IV ×3 (13:53→20:26)
[2023-01-28] MEDS: Vital High Protein 1,000 ML 10 ML GT (13:54)
[2023-01-28 13:58] LABS: Bedside Glucose 95 mg/dL (74-106)
[2023-01-28 14:52] LABS: Mucous, Urine 0 SEEN /hpf (<or=2+); Squamous Epithelial Cells - UA 0 SEEN /hpf (0-5)
[2023-01-28 14:55] LABS: Glucose, Dipstick 50 mg/dl (Normal); Ketone-Dipstick 15 mg/dl (Negative); Leukocyte Esterase-Dipstick 25 /ul (Negative); Nitrite-Dipstick Positive (Negative); Occult Blood-Urine 250 /ul (Negative); Protein-Dipstick 100 mg/dl (Negative); Urine Bilirubin Dipstick Negative (Negative); Urine Urobilinogen 1 mg/dl (Normal)
[2023-01-28 14:56] LABS: Color, Urine Yellow (Yellow); Urine Clarity Sl Cldy (Clear)
[2023-01-28 15:15] LABS: White Blood Cells 0-5 SEEN /hpf (0-5)
[2023-01-28 15:16] LABS: Amorphous Sediment 1+; Bacteria RARE /hpf (None Seen); Red Blood Cells-Urine 0-5 SEEN /hpf (0-5)
[2023-01-28 15:20] LABS: Absolute Lymphocyte Count 0.63 X10^3/uL (0.83-4.51); Absolute Neutrophil Count 7.9 X10^3/uL (2.0-7.7); Basophil# 0.01 X10^3/uL; Basophil% 0.1 % (0-1); Hematocrit 25.8 % (40-54); Hemoglobin 8.1 g/dL (13.0-16.5); Lymphocyte # 0.63 X10^3/ul (0.83-4.51); Lymphocyte % 7.1 % (19-41); Mean Corp Hgb Conc 31.4 g/dL (32-36); Mean Corpuscular Volume 95.6 fL (80-94); Mean Platelet Vol. 11.3 fl (6.2-12.0); Monocyte# 0.35 X10^3/uL; Monocyte% 3.9 % (0-10); NRBC Flagged by Analyzer 0 % (0-5); Neutrophil % 88.5 % (47-70); POSITIVE COUNT YES; POSITIVE MORPHOLOGY YES; Platelet Count 69 K/mm3 (150-450); RBC Distribution Width CV 14.6 % (11.6-14.6); RBC Distribution Width SD 50.7 fl (35.1-43.9); White Blood Count 8.9 K/mm3 (4.4-11.0)
[2023-01-28 15:29] LABS: Differential Indicated SCAN CRITERIA MET
[2023-01-28 15:37] LABS: Anion Gap 17 (5-15); BUN 44 mg/dL (7-18); BUN/Creat Ratio 14.1 RATIO (10-20); Calcium,Total 6.6 mg/dL (8.5-10.1); Chloride 111 mmol/L (98-107); Creatinine, Serum 3.12 mg/dL (0.70-1.30); EST Glomerular Filtration Rate 21 mL/min (>60); Est Glom Filt Rate - Afr Amer 25 mL/min (>60); Estimated Creatinine Clearance 17.61 ml/min; Glucose 95 mg/dL (74-106); Magnesium 2.5 mg/dL (1.6-2.6); Phosphorus 7.7 mg/dL (2.5-4.9); Potassium 4.9 mmol/L (3.5-5.1); Sodium Level 141 mmol/L (136-145)
[2023-01-28 15:50] LABS: Anisocytosis RARE; Macrocytosis RARE; Platelet Estimate MOD DEC (ADEQ); Red Cell Morphology N CHROM NORMAL (NORM C&C)
--- NOTE | 2023-01-28 16:30 | CPS ---
verbal order from Dr. Lynn to decrease the peep from 8 to 5cmh20.
[2023-01-28 18:40] LABS: Bedside Glucose 82 mg/dL (74-106)
--- NOTE | 2023-01-28 20:34 | PN.GI_ITS ---
Subjective Subjective Patient was transferred to the ICU overnight due to septic shock. Currently he is on one pressor. Family is at the bedside. Objective Data Objective Data Vital Signs: Vital Signs Temp Pulse Resp BP Pulse Ox O2 Del Method O2 Flow Rate 99.4 F H 96 17 84/53 L 94 Mechanical Ventilator 75 01/28/23 17:45 01/28/23 19:15 01/28/23 19:15 01/28/23 17:45 01/28/23 19:15 01/28/23 17:45 01/28/23 06:00 FiO2 40 01/28/23 19:15 Oxygen Flow Rate (L/min) 75 Oxygen Delivery Method Mechanical Ventilator Weight: 157 lb 10.088 oz Body Mass Index (BMI) 24.7 Intake & Output: Intake and Output for Last 24 Hours 01/26/23 01/27/23 01/28/23 23:59 23:59 23:59 Intake Total 235 / 385 2013.35 / 2012.35 5744.855 / 5744.855 Output Total 1150 / 1150 285 / 285 Balance 235 / 85 863.35 / 863.35 5459.855 / 5459.855 Medical Nutrition Assessment Dietitian: Malnutrition Criteria Met Start: 01/27/23 11:43 Freq: Status: Active Protocol: Document 01/28/23 09:43 AG (Rec: 01/28/23 09:43 AG [id number]) Nutrition Malnutrition Evidence of Malnutrition Exists Yes Malnutrition (moderate): Chronic Evidenced By Suboptimal Energy Intake ( Moderate),Weight Loss ( Moderate) Clinical Problem Chronic Disease or Condition Related Malnutrition Etiology moderate, chronic malnutrition related to inadequate energy intake w/ increased energy needs d/t cancer Signs/Symptoms as evidenced by estimated PO intake meeting <75% of estimated energy needs > 3 months; unintentional wt loss of 7.3kg/9.2% x 5.5 months Status Active Problem Recommendation Dietitian Recommendations/Changes NPO while intubated; Will initiate enteral nutrition support via OGT at trophic rate- will order Vital HP at 10mL/hour w/ 30mL H2O flush every 4 hours to provide 240 calories, 21 g protein, and 380mL fluid/day. Will monitor clinical status and advance EN as indicated. Lab / Micro Data Result Diagrams: 01/28/23 14:30 01/28/23 14:30 Labs: Laboratory Results - last 24 hr 01/27/23 12:55: Blood Type Cancelled, A1 Antigen Typing Cancelled, Rho(D) Type Cancelled, Antibody Screen NEGATIVE, Crossmatch See Detail 01/27/23 12:55: Blood Type Cancelled, A1 Antigen Typing Cancelled, Rho(D) Type Cancelled, Antibody Screen Cancelled, Crossmatch See Detail 01/27/23 23:05: POC Glucose 74 01/28/23 00:00: COVID-19 (BREDNA) Not Detected 01/28/23 00:15: Sodium 137, Potassium 4.3, Chloride 106, Carbon Dioxide 15.0 L, Anion Gap 16 H, BUN 32 H, Creatinine 2.23 H, Estim Creat Clear Calc 24.64, Est GFR (MDRD) Af Amer 37 L, Est GFR (MDRD) Non-Af 30 L, BUN/Creatinine Ratio 14.3, Glucose 84, Calcium 7.9 L 01/28/23 00:15: WBC 8.8, RBC 2.26 L, Hgb 7.0 L, Hct 22.3 L, MCV 98.7 H D, MCH 31.0, MCHC 31.4 L, RDW Std Deviation 52.5 H, RDW Coeff of Rashad 14.7 H, Plt Count 53 L, MPV 9.8, Immature Gran % (Auto) 0.500, Neut % (Auto) 84.5 H, Lymph % (Auto) 7.4 L, [place] % (Auto) 7.5, Eos % (Auto) 0.0, Baso % (Auto) 0.1, Absolute Neuts (auto) 7.5, Absolute Lymphs (auto) 0.65 L, Nucleated RBC % 0, Differential Comment SCANNED, Platelet Estimate MKD DEC, Hypochromasia 1+, Anisocytosis 1+ 01/28/23 00:15: Lactic Acid 10.9 H* 01/28/23 00:15: B-Natriuretic Peptide 107.8 H 01/28/23 00:15: Ammonia 83.0 H 01/28/23 04:55: Lactic Acid Cancelled 01/28/23 05:38: Lactic Acid 14.9 H* 01/28/23 05:38: WBC 6.9, RBC 1.61 L, Hgb 4.9 L*, Hct 16.9 L, MCV 105.0 H D, MCH 30.4, MCHC 29.0 L D, RDW Std Deviation 55.8 H, RDW Coeff of Rashad 14.6, Plt Count 48 L*, MPV 11.3, Immature Gran % (Auto) 0.300, Neut % (Auto) 77.6 H, Lymph % (Auto) 16.9 L, [place] % (Auto) 5.1, Eos % (Auto) 0.0, Baso % (Auto) 0.1, Absolute Neuts (auto) 5.3, Absolute Lymphs (auto) 1.16, Nucleated RBC % 0, Differential Comment SCANNED, Diff Path Review December, Platelet Estimate MKD DEC, Anisocytosis 2+, Macrocytosis 2+ 01/28/23 05:38: Sodium 144, Potassium 4.4, Chloride 112 H, Carbon Dioxide 10.0 L , Anion Gap 22 H, BUN 36 H, Creatinine 2.40 H, Estim Creat Clear Calc 22.89, Est GFR (MDRD) Af Amer 34 L, Est GFR (MDRD) Non-Af 28 L, BUN/Creatinine Ratio 15.0, Glucose 55 L, Calcium 6.7 L, Magnesium 2.5, Total Bilirubin 3.60 H, AST 70162 H, ALT 8561 H, Alkaline Phosphatase 198 H, Total Protein 4.0 L, Albumin 1.7 L, Globulin 2.3, Albumin/Globulin Ratio 0.7 L 01/28/23 05:38: Phosphorus 7.0 H 01/28/23 05:38: Total Creatine Kinase 1073 H, Triglycerides 103 01/28/23 06:15: WBC 7.1, RBC 1.60 L, Hgb 4.9 L*, Hct 16.6 L, MCV 103.8 H, MCH 30.6, MCHC 29.5 L, RDW Std Deviation 55.7 H, RDW Coeff of Rashad 14.6, Plt Count 47 L*, MPV 10.9, Immature Gran % (Auto) 0.300, Neut % (Auto) 81.6 H, Lymph % (Auto) 13.7 L, [place] % (Auto) 4.4, Eos % (Auto) 0.0, Baso % (Auto) 0.0, Absolute Neuts (auto) 5.8, Absolute Lymphs (auto) 0.97, Nucleated RBC % 0, Differential Comment SCANNED, Diff Path Review May anne-marie, Platelet Estimate MKD DEC, Anisocytosis 2+, Macrocytosis 2+ 01/28/23 06:20: Fibrinogen 229 01/28/23 08:14: POC Glucose 140 H 01/28/23 13:40: POC Glucose 95 01/28/23 14:00: Urine Color Yellow, Urine Clarity Sl Cldy, Urine pH 5.0, Ur Specific Hanna 1.030, Urine Protein 100 H, Urine Glucose (UA) 50 H, Urine Ketones 15 H, Urine Occult Blood 250 H, Urine Nitrite Positive H, Urine Bilirubin Negative, Urine Urobilinogen 1 H, Ur Leukocyte Esterase 25 H, Urine RBC 0-5 SEEN, Urine WBC 0-5 SEEN, Ur Squamous Epith Cells 0 SEEN, Amorphous Sediment 1+, Urine Bacteria RARE, Urine Mucus 0 SEEN 01/28/23 14:30: WBC 8.9, RBC 2.70 L, Hgb 8.1 L, Hct 25.8 L, MCV 95.6 H D, MCH 30.0, MCHC 31.4 L D, RDW Std Deviation 50.7 H, RDW Coeff of Rashad 14.6, Plt Count 69 L, MPV 11.3, Immature Gran % (Auto) 0.400, Neut % (Auto) 88.5 H, Lymph % (Auto) 7.1 L, [place] % (Auto) 3.9, Eos % (Auto) 0.0, Baso % (Auto) 0.1, Absolute Neuts (auto) 7.9 H, Absolute Lymphs (auto) 0.63 L, Nucleated RBC % 0, Diff Path Review May anne-marie, Platelet Estimate MOD DEC, RBC Morphology N CHROM, Anisocytosis RARE, Macrocytosis RARE 01/28/23 14:30: Sodium 141, Potassium 4.9, Chloride 111 H, Carbon Dioxide 13.0 L , Anion Gap 17 H, BUN 44 H, Creatinine 3.12 H, Estim Creat Clear Calc 17.61, Est GFR (MDRD) Af Amer 25 L, Est GFR (MDRD) Non-Af 21 L, BUN/Creatinine Ratio 14.1, Glucose 95, Calcium 6.6 L, Phosphorus 7.7 H, Magnesium 2.5 01/28/23 18:22: POC Glucose 82 Micro: Microbiology 01/28/23 00:51 Blood Culture (Wb) - Port Blood Culture - Preliminary 01/28/23 07:45 Gastric Fluid/Contents Gastric Occult Blood - Final Occult Blood Positive 01/26/23 21:50 Blood Culture (Wb) #2 - Anticubital Right Blood Culture - Preliminary GNR lactose it support specialist 01/26/23 21:41 Blood Culture (Wb) #2 - Anticubital Left Blood Culture - Preliminary GNR lactose it support specialist ABG Data ABG results: ABG 01/27/23 01/28/23 01/28/23 23:17 04:41 07:36 Specimen Type ART ART ART Sample Site L Radial Art Line Art Line pH 7.48 H 7.08 L* 7.12 L* Bicarbonate Actual 13.5 L 8.7 L 8.0 L Total CO2 14 10 9 Base Excess -10 L -21 L -21 L O2 Saturation 98 97 97 O2 % 100 75 ABG pCO2 18.3 L* 29.5 L 24.8 L ABG pO2 100 127 H 112 H Angel Test Positive N/A Respiration Rate 14 12 O2 Delivery Device NRB Adult Vent Adult Vent Vent Mode AC AC Tidal Volume 450 450 POC PEEP 5 5 Crit Call To/Read Back Yes Yes Yes Blood Gas Notified Whom DR.JOE ALLEN DUTTON Radiography Diagnostic Testing: Radiology Impression Chest X-Ray 01/27/23 23:20 IMPRESSION: Mild right basilar airspace disease. Findings may indicate atelectasis or infection. Electronically Signed: Dagoberto Thorne MD at 0:13 EDT Reading Location ID and State: [address] [place] [address] Tel , Service support , Chest X-Ray 01/28/23 03:00 IMPRESSION: Endotracheal tube with tip 5 cm above the kole. Enteric tube with tip in the distal stomach. Right jugular central line with tip at the cavoatrial junction. Electronically Signed: Dagoberto Thorne MD at 4:05 EDT Reading Location ID and State: [facility] / [place] Tel , Service support , Physical Exam Narrative General: Intubated and sedated in the ICU HEENT: Atraumatic, normocephalic Eyes: Icteric Neck: Supple Respiratory: Clear to auscultation bilaterally Cardiovascular: Regular rhythm at time of exam GI: Slightly distended but still compressible with no rigidity, decreased bowel sounds Extremities: No edema Musculoskeletal: Presently sedated Neuro: Unable to participate in neuro exam secondary to intubated sedated Skin: Icteric Psych: Unable to cooperate secondary to intubated sedated Assessment & Plan Assessment/Plan (1) Cholangitis: (2) Septic shock: (3) Bile duct obstruction: (4) Elevated liver enzymes: (5) Gallbladder cancer, carcinoma: (6) Cancer, metastatic to liver: (7) Chemotherapy management, encounter for: (8) Elevated BUN: PLAN: Plan 77-year-old man presented in August 2022 with abdominal pain. ? He underwent robotic laparoscopic cholecystectomy on 10/07/2022, sub total cholecystectomy was done.? Pathology showed focus of poorly differentiated non-small cell carcinoma. He was then transferred to [facility], had partial resection of the liver and rest of gallbladder removed. Pathology was negative for malignancy. ? ? On 12/22/2022, presented to [facility] emergency department with complaints of nausea vomiting and was subsequently admitted. CT of the chest abdomen and pelvis today 12/22/22 showed evidence of multiple hypodensities in the liver suggestive of metastatic disease, there were dilated intra and extrahepatic biliary ducts with 2.6 cm soft tissue mass in the blossom hepatis. CEA on 12/23/2022 was 18.1.? CA 19?9 on 12/23/2022 was 6580.? He had ERCP with with placement of 2 temporary stents in the common bile bile duct.? He had CT-guided biopsy of liver lesion on 12/26/2022, Pathology was consistent with metastatic poorly differentiated adenocarcinoma. ? PET/CT on 01/02/2023 showed multiple hypermetabolic activities in R & L liver lobes, ,blossom-hepatis and pericaval nodes, mediastinum and L hilar area suggestive of metastatic disease. Port was placed on 01/06/2023. Radiation t herapy was not recommended for Biliary obstruction so comes for follow up to start chemotherapy with Cisplatin/Gemzar and Imfinzi. I was called To evaluate the patient due to worsening liver function test. An MRCP was ordered and it showed obstruction of the biliary since they were placed in his bile duct. H he underwent ERCP yesterday. When the stance were removed, he developed bleeding. The bleeding was eventually stopped, but he dropped his blood count. A metal stent was placed along with two plastic stents. He was given FFP2 rounds of platelets, and 10 mg of vitamin K. Overnight he was transferred, he was transferred to the ICU. H he was discovered to be in septic shock. Blood cultures are positive for gram-negative rods, consistent with E. coli. He was on three pressers and is currently on one presser. OG tube feedings were started. 1. Septic Shock- Patient is on antibiotic therapy and being managed very well by ICU team. Hopefully he will continue to improve. 2. Blood loss anemia- Secondary to severe thrombocytopenia status post chemotherapy. Hopefully blood loss has stopped. Currenthemoglobin is 8.1. 3. Shock liver- Hopefully he did not experience too much of a reperfusion injury. Monitor INR and bilirubin. 4. Nutrition- Agree with the early feeding to maintain, got permeability to hopefully stop translocation of bacteria into the bloodstream. 5. Biliary obstruction- Hopefully the stents do not clot off. There are three stents at the level of the blossom hepatic extending into the right and left hepatic ducts. 6. Guarded prognosis Charges/Coding Visit Charges Inpatient E&M: 89039 [facility] Hosp L3
[2023-01-28] MEDS: Latanoprost 0.005% 1 Bottle 1 DRP EACH EYE (21:50)
[2023-01-28] MEDS: CHLORHEXIDINE GLUC 2% CLOTH 1 EACH TOWELETTE TOPICAL (21:54)
--- NOTE | 2023-01-28 23:30 | NURSING ---
Pt repositioned on to right side and BP immediately dropped to 50s/30s; pt placed supine, vasopressors increased and propofol turned off at this time.
[2023-01-29] VITALS (33 sets, daily range): BP systolic 62–122; BP diastolic 48–67; PULSE 92–178; RESP 14–23; TEMP 37.2–37.7; O2SAT 90–95; BMI 28.1
[2023-01-29] MEDS: Dextrose 50%-Water 25 GM/50 ML DISP.SYRIN IV (00:04)
[2023-01-29 00:14] LABS: Bedside Glucose 61 mg/dL (74-106)
--- NOTE | 2023-01-29 00:21 | NURSING ---
Pt's fingerstick glucometer 61, given 12.5gm of D50inj
[2023-01-29 01:05] LABS: Bedside Glucose 98 mg/dL (74-106)
--- NOTE | 2023-01-29 01:15 | NURSING ---
Pt's BP dropped sharply while new Levophed bag being started, quickly increased Casper-synephrine.
[2023-01-29] MEDS: Propofol 10MG/Ml 1,000 MG/100 ML Bottle 2.1 MG CONT INF (03:00)
[2023-01-29 03:10] LABS: Absolute Lymphocyte Count 0.75 X10^3/uL (0.83-4.51); Absolute Neutrophil Count 7.7 X10^3/uL (2.0-7.7); Basophil# 0.04 X10^3/uL; Basophil% 0.4 % (0-1); Eosinophil# 0.01 X10^3/uL; Eosinophils% 0.1 % (0-5); Hematocrit 21.2 % (40-54); Hemoglobin 6.7 g/dL (13.0-16.5); Lymphocyte # 0.75 X10^3/ul (0.83-4.51); Lymphocyte % 8.3 % (19-41); Mean Corp Hgb Conc 31.6 g/dL (32-36); Mean Corpuscular Hgb 29.9 pg (27.0-32.0); Mean Corpuscular Volume 94.6 fL (80-94); Mean Platelet Vol. 11.9 fl (6.2-12.0); Monocyte# 0.44 X10^3/uL; Monocyte% 4.9 % (0-10); NRBC Flagged by Analyzer 0.2 % (0-5); Neutrophil # 7.66 X10^3/uL (2.7-7.7); Neutrophil % 84.9 % (47-70); POSITIVE COUNT YES; POSITIVE MORPHOLOGY YES; Platelet Count 57 K/mm3 (150-450); RBC Distribution Width CV 15.9 % (11.6-14.6); RBC Distribution Width SD 54.2 fl (35.1-43.9); Red Blood Count 2.24 M/mm3 (4.6-6.2)
[2023-01-29 03:23] LABS: Differential Indicated SCAN CRITERIA MET
[2023-01-29 03:33] LABS: International Normalized Ratio 6.3; Prothrombin Time (Protime)PT. 56.8 SECONDS (11.7-14.9)
[2023-01-29 03:55] LABS: Anisocytosis 1+; Macrocytosis RARE; Platelet Estimate MOD DEC (ADEQ)
[2023-01-29 04:49] LABS: ALB/GLOB Ratio 0.9 RATIO (0.9-2.4); AST(SGOT) 19492 U/L (15-37); Alanine Aminotransfer ALT/SGPT 8893 U/L (16-61); Albumin, Serum 1.8 g/dL (3.2-5.0); Alkaline Phosphatase 386 U/L (45-117); Anion Gap 16 (5-15); BUN 53 mg/dL (7-18); BUN/Creat Ratio 13.8 RATIO (10-20); Calcium,Total 5.7 mg/dL (8.5-10.1); Chloride 110 mmol/L (98-107); Creatinine, Serum 3.83 mg/dL (0.70-1.30); EST Glomerular Filtration Rate 16 mL/min (>60); Est Glom Filt Rate - Afr Amer 20 mL/min (>60); Estimated Creatinine Clearance 14.34 ml/min; Globulin 1.9 g/dL (2.2-4.2); Glucose 121 mg/dL (74-106); Magnesium 2.2 mg/dL (1.6-2.6); Phosphorus 7.7 mg/dL (2.5-4.9); Potassium 5.3 mmol/L (3.5-5.1); Protein, Total 3.7 g/dL (6.4-8.2); Sodium Level 140 mmol/L (136-145)
--- NOTE | 2023-01-29 05:08 | RAD_ITS ---
STUDY: X-RAY CHEST REASON FOR EXAM: Male, 77 years old. increased airway pressure TECHNIQUE: Single AP portable view of the chest. COMPARISON: 01/28/2023 FINDINGS: Endotracheal tube, nasogastric tube, right internal jugular deep venous line, left internal jugular chest port all of which are unchanged. Poor inspiration with some bibasilar atelectasis. Elevated right hemidiaphragm which is unchanged. Normal size heart. Normal mediastinum and royce. Normal visualized pulmonary arteries. Normal visualized aortic arch and descending thoracic aorta. Normal visualized thoracic spine. Normal visualized ribs, clavicles, and shoulders. There is no demonstrated abnormality of the visualized soft tissue structures of the upper abdomen. RAD/Chest 1 View (Portable) IMPRESSION: Poor inspiration with some bibasilar atelectasis. Electronically Signed: Tyree Irene MD at 8:59 EDT ,
[2023-01-29 05:18] LABS: Fibrinogen 214 mg/dl (203-444)
[2023-01-29] MEDS: Hydrocortisone Sod Succinate 100 MG/2 ML Vial IV (05:23)
[2023-01-29 05:49] LABS: LDH > 4000 U/L (87-241)
--- NOTE | 2023-01-29 07:05 | PCM.PN.INT ---
Assessment & Plan Assessment/Plan (1) Septic shock: (2) Gallbladder cancer, carcinoma: (3) Biliary obstruction due to cancer: PLAN: Plan RECOMMENDATIONS: 1. Continue broad-spectrum antibiotics. 2. Wean oxygen as tolerated 3. Blood transfusion with goal of greater than 7 4. Continue with bicarbonate drip. Possible renal consult if family remains aggressive 5. Continue on pressors, broad-spectrum antibiotics and stress dose steroids 6. Discuss with family about goals of therapy 7. Monitor blood sugars for hypoglycemia IMPRESSIONS: 1. Septic shock secondary to gram-negative gualberto High clinical suspicion for cholangitis leading to bacteremia with subsequent septic shock. Patient has evidence of endorgan damage with acute kidney injury, hepatic and respiratory failure. Patient is currently on vasopressin and Levophed. Phenylephrine had to be restarted. Will hold further doses of gentamicin given acute kidney injury. Continue antibiotics for now. Patient will benefit from volume resuscitation with blood products. Clinical suspicion for hypoglycemia secondary to significant bacteremia. 2. Acute kidney injury on CKD stage IIIa Patient's baseline creatinine appears to be approximately 1, but morning labs are showing a creatinine of 3.8. Clinical suspicion for prerenal etiology with ATN secondary to problem #1. Patient currently is oliguric. Blood pressure is being supported. Will likely need dialysis if family wants to remain aggressive. 3. Pancytopenia Likely multifactorial. Patient has received chemotherapy 1 week ago. Patient also likely has an element of suppression secondary to problem #1. Patient does not have any active bleeding noted, but has had a significant drop in hemoglobin. Blood transfusions have been ordered. Patient has received platelets. Will give FFP and vitamin K. Complicated by hepatic failure. 4. Metastatic poorly differentiated gallbladder adenocarcinoma Patient has undergone chemotherapy. Patient reportedly has had a good response to therapy with clogging of his stents. Patient likely should not receive chemotherapy at this time given problem #1. We will have to discuss with Dr. Almonte on the appropriateness of Tylenol for high fevers as this does increase metabolic demand, but may worsen shock liver. 5. Acute hypoxic respiratory failure Patient with partial compensation for metabolic acidosis, but also has an increased AA gradient. Patient has received volume resuscitation and may have an element of fluid overload. Oxygenation has remained relatively stable 6. Advanced age/ongoing chemotherapy/paroxysmal A-fib/history of CVA/hyperlipidemia/BPH/hypertension Complicates care, management, recovery and prognosis. Patient currently has a Sandy catheter for BPH. Patient is on PPI prophylaxis. Blood pressure medications have been held secondary to problem #1. 7. New onset A-fib with RVR Patient currently on an amiodarone drip. Patient converted to sinus rhythm at approximately 6 AM. No anticoagulation given ongoing blood loss and pancytopenia. TIME: 50 minutes critical care time spent addressing patient's septic shock, respiratory failure, pancytopenia, acute kidney injury, review of all data and collaboration with care team Subjective Subjective Patient with some transient improvement yesterday with decreasing pressors. However, overnight patient became more hypotensive and is back on 3 pressors at this time. Patient also developed A-fib with RVR approximately 12:30 AM and had to be placed on amiodarone drip. Nursing continues to report no clinical bleeding, but hemoglobin continues to fall. No spontaneous bleeding has been noted. Oxygen requirements have been relatively stable. Objective Data Objective Data Vital Signs: Vital Signs Temp Pulse Resp BP Pulse Ox O2 Del Method O2 Flow Rate 37.3 C 107 H 18 101/63 94 Mechanical Ventilator 75 01/29/23 06:00 01/29/23 06:52 01/29/23 06:00 01/29/23 06:45 01/29/23 06:00 01/29/23 06:00 01/28/23 06:00 FiO2 45 01/29/23 06:00 Oxygen Flow Rate (L/min) 75 Oxygen Delivery Method Mechanical Ventilator Weight: 81.4 kg Body Mass Index (BMI) 28.1 Intake & Output: Intake and Output for Last 24 Hours 01/27/23 01/28/23 01/29/23 23:59 23:59 23:59 Intake Total 6533.285 / 6640.285 2716.19 / 2716.19 Output Total 1150 / 1150 285 / 295 20 / Balance 863.35 / 863.35 6248.285 / 6345.285 2696.19 / 2696.19 Medical Nutrition Assessment Dietitian: Malnutrition Criteria Met Start: 01/27/23 11:43 Freq: Status: Active Protocol: Document 01/28/23 09:43 AILYN (Rec: 01/28/23 09:43 [id number]) Nutrition Malnutrition Evidence of Malnutrition Exists Yes Malnutrition (moderate): Chronic Evidenced By Suboptimal Energy Intake ( Moderate),Weight Loss ( Moderate) Clinical Problem Chronic Disease or Condition Related Malnutrition Etiology moderate, chronic malnutrition related to inadequate energy intake w/ increased energy needs d/t cancer Signs/Symptoms as evidenced by estimated PO intake meeting <75% of estimated energy needs > 3 months; unintentional wt loss of 7.3kg/9.2% x 5.5 months Status Active Problem Recommendation Dietitian Recommendations/Changes NPO while intubated; Will initiate enteral nutrition support via OGT at trophic rate- will order Vital HP at 10mL/hour w/ 30mL H2O flush every 4 hours to provide 240 calories, 21 g protein, and 380mL fluid/day. Will monitor clinical status and advance EN as indicated. Lab / Micro Data Attestation: I reviewed the patient's lab results. Result Diagrams: 01/29/23 03:00 01/29/23 03:00 Labs: Laboratory Results - last 24 hr 01/27/23 12:55: Blood Type Cancelled, A1 Antigen Typing Cancelled, Rho(D) Type Cancelled, Antibody Screen NEGATIVE, Crossmatch See Detail 01/27/23 12:55: Blood Type Cancelled, A1 Antigen Typing Cancelled, Rho(D) Type Cancelled, Antibody Screen Cancelled, Crossmatch See Detail 01/28/23 05:38: Differential Comment SCANNED, Diff Path Review May anne-marie, Platelet Estimate MKD DEC, Anisocytosis 2+, Macrocytosis 2+ 01/28/23 05:38: Total Creatine Kinase 1073 H, Triglycerides 103 01/28/23 06:15: Differential Comment SCANNED, Diff Path Review May anne-marie Platelet Estimate MKD DEC, Anisocytosis 2+, Macrocytosis 2+ 01/28/23 08:14: POC Glucose 140 H 01/28/23 13:40: POC Glucose 95 01/28/23 14:00: Urine Color Yellow, Urine Clarity Sl Cldy, Urine pH 5.0, Ur Specific [place] 1.030, Urine Protein 100 H, Urine Glucose (UA) 50 H, Urine Ketones 15 H, Urine Occult Blood 250 H, Urine Nitrite Positive H, Urine Bilirubin Negative, Urine Urobilinogen 1 H, Ur Leukocyte Esterase 25 H, Urine RBC 0-5 SEEN, Urine WBC 0-5 SEEN, Ur Squamous Epith Cells 0 SEEN, Amorphous Sediment 1+, Urine Bacteria RARE, Urine Mucus 0 SEEN 01/28/23 14:30: WBC 8.9, RBC 2.70 L, Hgb 8.1 L, Hct 25.8 L, MCV 95.6 H D, MCH 30.0, MCHC 31.4 L D, RDW Std Deviation 50.7 H, RDW Coeff of Rashad 14.6, Plt Count 69 L, MPV 11.3, Immature Gran % (Auto) 0.400, Neut % (Auto) 88.5 H, Lymph % (Auto) 7.1 L, [place] % (Auto) 3.9, Eos % (Auto) 0.0, Baso % (Auto) 0.1, Absolute Neuts (auto) 7.9 H, Absolute Lymphs (auto) 0.63 L, Nucleated RBC % 0, Diff Path Review December, Platelet Estimate MOD DEC, RBC Morphology N CHROM, Anisocytosis RARE, Macrocytosis RARE 01/28/23 14:30: Sodium 141, Potassium 4.9, Chloride 111 H, Carbon Dioxide 13.0 L, Anion Gap 17 H, BUN 44 H, Creatinine 3.12 H, Estim Creat Clear Calc 17.61, Est GFR (MDRD) Af Amer 25 L, Est GFR (MDRD) Non-Af 21 L, BUN/Creatinine Ratio 14.1, Glucose 95, Calcium 6.6 L, Phosphorus 7.7 H, Magnesium 2.5 01/28/23 18:22: POC Glucose 82 01/28/23 23:34: POC Glucose 61 L 01/29/23 00:47: POC Glucose 98 01/29/23 03:00: WBC 9.0, RBC 2.24 L, Hgb 6.7 L, Hct 21.2 L, MCV 94.6 H, MCH 29.9, MCHC 31.6 L, RDW Std Deviation 54.2 H, RDW Coeff of Rashad 15.9 H, Plt Count 57 L, MPV 11.9, Immature Gran % (Auto) 1.400 H, Neut % (Auto) 84.9 H, Lymph % (Auto) 8.3 L, [place] % (Auto) 4.9, Eos % (Auto) 0.1, Baso % (Auto) 0.4, Absolute Neuts (auto) 7.7, Absolute Lymphs (auto) 0.75 L, Nucleated RBC % 0.2, Platelet Estimate MOD DEC, Anisocytosis 1+, Macrocytosis RARE 01/29/23 03:00: Sodium 140, Potassium 5.3 H, Chloride 110 H, Carbon Dioxide 14.0 L, Anion Gap 16 H, BUN 53 H, Creatinine 3.83 H, Estim Creat Clear Calc 14.34, Est GFR (MDRD) Af Amer 20 L, Est GFR (MDRD) Non-Af 16 L, BUN/Creatinine Ratio 13.8, Glucose 121 H, Calcium 5.7 L*, Phosphorus 7.7 H, Magnesium 2.2, Total Bilirubin 6.50 H, AST 91426 H, ALT 8893 H, Alkaline Phosphatase 386 H, Total Protein 3.7 L, Albumin 1.8 L, Globulin 1.9 L, Albumin/Globulin Ratio 0.9 01/29/23 03:00: PT 56.8 H, INR 6.3 H*, APTT 45.0 H 01/29/23 03:00: Fibrinogen 214 01/29/23 03:00: Lactate Dehydrogenase > 4000 H Micro: Microbiology 01/26/23 21:41 Blood Culture (Wb) #2 - Anticubital Left Blood Culture - Final Escherichia coli 01/28/23 22:45 Sputum, Tracheal Aspirate Gram Stain - Preliminary 01/28/23 00:51 Blood Culture (Wb) - Port Blood Culture - Preliminary 01/28/23 07:45 Gastric Fluid/Contents Gastric Occult Blood - Final Occult Blood Positive 01/26/23 21:50 Blood Culture (Wb) #2 - Anticubital Right Blood Culture - Preliminary GNR lactose fundraising consultant ABG Data ABG results: ABG 01/28/23 07:36 Specimen Type ART Sample Site Art Line pH 7.12 L* Bicarbonate Actual 8.0 L Total CO2 9 Base Excess -21 L O2 Saturation 97 O2 % 75 ABG pCO2 24.8 L ABG pO2 112 H Respiration Rate 12 O2 Delivery Device Adult Vent Vent Mode AC Tidal Volume 450 POC PEEP 5 Crit Call To/Read Back Yes Blood Gas Notified Whom DR DUTTON Physical Exam Const Constitutional Narrative: RASS -3. Jaundice. Good ventilator synchrony. General Appearance: ill appearing and patient mechanically ventilated HEENT normocephalic and head/scalp atraumatic Eyes PERRL and EOMs intact bilaterally Sclera: sclera abnormal Positive for bilateral (Icterus) Neck full ROM Chest inspection of chest normal Resp Effort and Inspection: tachypneic Auscultation: Negative for rales, rhonchi or wheezes Cardio S1 normal heart sound, S2 normal heart sound, no murmurs, no rub and no gallops Rate: tachycardic GI GI Narrative: Abdomen seems more distended and firm today compared to yesterday. Patient is grimacing with palpation today. Inspection: abdominal distention Palpation: tender; Negative for guarding Extremity General Extremity: edema; Negative for clubbing Skin Skin Narrative: Jaundice Neuro Sensorium / Orientation: sedated on vent Psych Mood & Affect: flat affect Charges/Coding Procedures Hospitalists Procedures: 24082 Critial Care 1st Hr
[2023-01-29] MEDS: TITRATION PARAMETER CHANGE 1 EACH IV (07:14)
[2023-01-29] MEDS: 0.9% Saline Lock 10 ML Syringe IV (07:15)
--- NOTE | 2023-01-29 07:30 | NURSING ---
update called to pt's Lynda. Notified events of the nights, all medications/blood products currently running. She is very tearful and states she has made a decision to let him go. She requests no new meds/blood products to be given. She will gather her family and come to the hospital. Dr. Lynn notified Lynda's request.
--- NOTE | 2023-01-29 09:31 | NURSING ---
family at bedside, questions answered, much reassurance given
[2023-01-29] MEDS: LORazepam 2 MG/ML Syringe IV (09:45)
[2023-01-29] MEDS: Morphine 2 MG/ML Syringe IV (09:45)
--- NOTE | 2023-01-29 09:57 | NURSING ---
0945 ativan and morphine given, propofol/fentanyl dc. 0950 extubated to RA 0952 family at bedside 0955 all meds dc per family request.
--- NOTE | 2023-01-29 10:15 | NURSING ---
pt apneic and asystolic, verified per this RN and Donna Paez RN. family at bedside
--- NOTE | 2023-01-29 10:26 | CPS ---
Patient family requested to withdraw care and terminally extubate.
--- NOTE | 2023-01-29 10:35 | PCM.DEATH ---
Preliminary Cause of Preliminary Cause of Preliminary Cause of : Septic shock Date of Admission: 01/26/23 Date of : 01/29/23 Principle Diagnosis Problem List: Active and Suspected Problems (Updated 01/28/23 @ 05:[address] Ian Briones MD) Cholangitis (Acute) Septic shock (Acute) Bile duct obstruction (Acute) Abdominal pain (Acute) Elevated liver enzymes (Acute) Generalized weakness (Acute) Elevated BUN (Acute) Gallbladder cancer, carcinoma (Acute) S/P cholecystectomy now metastatic to portal nodes and liver. Chemotherapy management, encounter for (Acute) Counts and chemistry reviewed and OK for therapy. Biliary obstruction due to cancer (Acute) S/P stenting. Radiation therapy is not advised at this time. Hospital Course -year-old male with history of gallbladder cancer with metastasis to portal lymph nodes and liver on chemotherapy presented to [facility] 01/26/2023 due to elevated transaminases, alk phos, total bili and MRCP showing dilated intrahepatic ducts and cut off in the common hepatic duct. Patient has history of poorly differentiated non-small cell carcinoma after robotic laparoscopic subtotal cholecystectomy as it has involved the liver.? Later on he was transferred to [facility] and he had partial resection of liver and remnant cholecystectomy.? At that time pathology was negative for malignancy.? But CT chest abdomen pelvis showed multiple metastatic disease in liver, dilated intrahepatic biliary duct with 2.6 cm soft tissue mass in blossom hepatis CEA 18.1, CA 19-9 6580 on 12/23/2022.? He had ERCP in 2 temporary stents in [place] by Dr. Almonte.? CT-guided biopsy of the liver on 12/26/2022 was consistent with metastatic poorly differentiated adenocarcinoma.? PET/CT of 01/02/2023 shows multiple hypermetabolic activities on right and left lobes of liver, blossom hepatis and pericaval nodes, mediastinum and left hilar area suggestive of metastatic disease.? Patient had port placed on 01/06/2023. In the ED he was generally weak and had upper abdominal pain, he had elevated LFTs and a bilirubin of 1.9 and hospitalist consulted for admission. Patient admitted and GI consulted and patient additionally was febrile and had signs and symptoms suggestive of cholangitis so he was on Zosyn and blood cultures growing gram-negative rods. He went for an ERCP 01/27/2023 with: Biliary tumor of the upper third of the main duct visualized via SpyGlass. A single severe biliary stricture was found in the upper third of the main bile duct.? The stricture was malignant appearing. A biliary sphincterotomy was performed. The biliary tree was swept and mucus was found. The upper third of the main bile duct was successfully dilated. Two stents were removed from the biliary tree. One covered metal stent was placed into the common bile duct. Two temporary stents were placed into the common bile duct. Snare papillectomy of the major papilla was performed.? Resection was complete, but the papilla tissue was not retrieved. He returned to the [facility] unit and remained on IV antibiotics. Overnight however he decompensated and ultimately had a PEA arrest with CPR and ROSC achieved and he was transferred to the ICU. Had significantly elevated LFTs consistent with shock liver and patient diagnosed with septic shock secondary to gram-negative rods. Broad-spectrum antibiotics, patient was on multiple pressors and remained intubated. Also required blood transfusion. Family opted to keep patient full code with aggressive measures for 24 hours and reevaluate. Patient continued to decompensate with worsening renal function and required very escalation of pressors and ultimately family decided comfort care. Comfort care measures in place and patient passed at 10:15 AM on 01/29/2023 Cause of likely gram-negative gualberto septic shock due to cholangitis due to biliary obstruction. Additionally underlying metastatic poorly differentiated gallbladder adenocarcinoma and had additional history of A-fib and ischemic CVA in 2017 Assessment & Plan Assessment/Plan (1) Septic shock: (2) Cholangitis: (3) Bile duct obstruction: (4) Transaminitis: (5) Hyperbilirubinemia: (6) Thrombocytopenia: (7) Gallbladder cancer, carcinoma: (8) History of atrial fibrillation: (9) Ischemic cerebrovascular accident (CVA): (10) SHAMAR (acute kidney injury): PLAN: Plan Patient was seen on day he was made comfort care. Remained intubated and sedated with escalating pressors. Patient made comfort care by family and time of 10:15 AM on 01/29/2023. Physical exam at time of AM evaluation before pt : General: Intubated and sedated in the ICU HEENT: Atraumatic, normocephalic Eyes: Icteric Neck: Supple Respiratory: Clear to auscultation bilaterally Cardiovascular: Regular rhythm at time of exam GI: Distended, decreased bowel sounds Extremities: No edema Musculoskeletal: Presently sedated Neuro: Unable to participate in neuro exam secondary to intubated sedated Skin: Icteric Psych: Unable to cooperate secondary to intubated sedated #Septic shock secondary to gram-negative gualberto/PEA arrest status post CPR and ROSC -Patient with 1 out of 2 blood cultures gram-negative gualberto before his ERCP and stent exchange and was on Zosyn and had been improving -Overnight became hypotensive and had PEA arrest, switch to Merrem and 2 of 2 blood cultures growing gram-negative rods with lactose found legal administrator given severity of illness is also on Vanco pending final cultures -Awaiting sensitivities -Presently intubated, sedated, on multiple pressors.? Wean as able -Patient started on stress dose steroids -Discussed plan with customer solutions teammate -01/29: Pt made comfort care, pt passed with TOD 1015 AM 01/29/23 #SHAMAR on CKD stage IIIb -Secondary to septic shock -Treat underlying illness -Fluids, pressors -01/29: Pt made comfort care, pt passed with TOD 1015 AM 01/29/23 #High anion gap metabolic acidosis -Acidotic on ABG, lactic acid 14.9 -Suspect secondary to septic shock, treat underlying illness -01/29: Pt made comfort care, pt passed with TOD 1015 AM 01/29/23 #Acute hypoxic respiratory failure -As seen on ABG Secondary to PEA arrest likely secondary to septic shock -Intubated and sedated in the ICU -01/29: Pt made comfort care, pt passed with TOD 1015 AM 01/29/23 #Acute anemia/persistent thrombocytopenia -Labs not consistent with DIC -Abdomen slightly distended however not rigid, hemoglobin 4.9 today, receiving 2 units packed red blood cells and will recheck, if not increasing appropriately may need CT scan to evaluate for any intra-abdominal pathology, discussed with customer solutions teammate -Has OG tube with minimal dark fluid and no overt blood, no overt blood per rectum reported, no blood in Sandy -01/29: Pt made comfort care, pt passed with TOD 1015 AM 01/29/23 #Complete obstruction of common hepatic duct with nonvisualization of prior biliary stent seen in prior PET scan/Transaminitis/hyperbilirubinemia-> significant transaminitis and hyperbilirubinemia 01/28 -Had MRCP which showed dilated intra hepatic ducts and cut off in the common hepatic duct.? Cannot see biliary stent so patient was sent to ED -Has history of ERCP with [address] Almonte 12/23/2022 -GI consulted -Patient for ERCP today 01/27/2023 -01/28: Status post ERCP 01/27 with: Biliary tumor of the upper third of the main duct visualized via SpyGlass. A single severe biliary stricture was found in the upper third of the main bile duct.? The stricture was malignant appearing. A biliary sphincterotomy was performed. The biliary tree was swept and mucus was found. The upper third of the main bile duct was successfully dilated. Two stents were removed from the biliary tree. One covered metal stent was placed into the common bile duct. Two temporary stents were placed into the common bile duct. Snare papillectomy of the major papilla was performed.? Resection was complete, but the papilla tissue was not retrieved. *A.m. of 01/28 patient had AST of 12,879 and an ALT of 8561 with a total bili of 3.60.? Suspect this is shock liver -01/29: Pt made comfort care, pt passed with TOD 1015 AM 01/29/23 #Obstructive jaundice with history of cholangitis -total bilirubin 1.9, ALT 675, AST 540, alkaline phosphatase 275 on day of admission -Patient also febrile -Blood cultures obtained and started on Zosyn, blood culture growing gram-negative rods -Also received IV fluids -01/28: See above -01/29: Pt made comfort care, pt passed with TOD 1015 AM 01/29/23 #Metastatic, poorly differentiated GB adenocarcinoma to both lobes of liver, blossom hepatis, pericaval lymph nodes mediastinum and left hilar area -Had port placed 01/06/2023 -On chemotherapy and follows with oncology -On palliative chemotherapy with cisplatin Gemzar and Imfinzi started on 01/12/2023 and had second on 01/19 -01/29: Pt made comfort care, pt passed with TOD 1015 AM 01/29/23 #Paroxysmal atrial fibrillation/ischemic CVA 2016 -Holding Eliquis for possible procedure and due to platelets -01/29: Pt made comfort care, pt passed with TOD 1015 AM 01/29/23 Visit Charges Inpatient E&M: 15744 Subs Hosp L2
[2023-01-30 12:45] LABS: Pathologist Review Reviewed
[2023-01-30 12:45] LABS: Pathologist Review Reviewed
[2023-01-30 12:46] LABS: Pathologist Review Reviewed
== END 2023-01-29 10:50 | DRG 444 ==
LOC: ED 18:45 → MS3 19:08 → ICU 01-28 05:21
PROVIDERS: Anesthesiology; Hospitalist; Internal Medicine Critical Care Medicine; Internal Medicine Gastroenterology; Admitting Provider Internal Medicine; Emergency Provider Emergency Medicine; PCP Family Medicine; Visit Provider Internal Medicine
PROC: 0FPB8DZ Removal of Intraluminal Device from Hepatobiliary Duct, Via Natural or Artificial Opening Endoscopic (ICD-10-PCS; CPT 43260; principal; 2023-01-27 14:40)
DX: K83.1 Obstruction of bile duct (principal); R65.21 Severe sepsis with septic shock; J96.01 Acute respiratory failure with hypoxia; A41.51 Sepsis due to Escherichia coli [E. coli]; D61.818 Other pancytopenia; C77.1 Secondary and unspecified malignant neoplasm of intrathoracic lymph nodes; E87.20 Acidosis, unspecified; C77.2 Secondary and unspecified malignant neoplasm of intra-abdominal lymph nodes; C78.7 Secondary malignant neoplasm of liver and intrahepatic bile duct; E44.0 Moderate protein-calorie malnutrition; C23 Malignant neoplasm of gallbladder; N17.9 Acute kidney failure, unspecified; E87.4 Mixed disorder of acid-base balance; K83.09 Other cholangitis; D63.1 Anemia in chronic kidney disease; I48.0 Paroxysmal atrial fibrillation; N18.31 Chronic kidney disease, stage 3a; I46.9 Cardiac arrest, cause unspecified; E78.00 Pure hypercholesterolemia, unspecified; E87.6 Hypokalemia; I25.10 Atherosclerotic heart disease of native coronary artery without angina pectoris; I12.9 Hypertensive chronic kidney disease with stage 1 through stage 4 chronic kidney disease, or unspecified chronic kidney disease; F32.A Depression, unspecified; N40.0 Benign prostatic hyperplasia without lower urinary tract symptoms; Z68.24 Body mass index [BMI] 24.0-24.9, adult; Z66 Do not resuscitate; Z90.49 Acquired absence of other specified parts of digestive tract; Z79.01 Long term (current) use of anticoagulants; Z79.899 Other long term (current) drug therapy; Z86.73 Personal history of transient ischemic attack (TIA), and cerebral infarction without residual deficits; Z87.891 Personal history of nicotine dependence
CPT/HCPCS: 31500; 31720; 36415; 36591; 36600; 36620; 71045; 74181; 74328; 76000; 80048; 80053; 81001; 82140; 82271; 82550; 82803; 82962; 83605; 83615; 83690; 83735; 83880; 84100; 84439; 84443; 84478; 85025; 85384; 85610; 85730; 86850; 86900; 86901; 86920; 86921; 86922; 86965; 87040; 87070; 87077; 87086; 87186; 87205; 87635; 92950; 93005; 94002; 94003; 94668; 97802; 99252; 99283; J2185; J7030; J7040; J7050; J7120; P9016; P9017; P9035; A4216; G0463; J2405; J3010; J3475; J3490

== ENCOUNTER → 2023-01-26 | Outpatient (CLI) | payer MEDICARE, SELFPAY ==
--- NOTE | 2023-01-26 15:03 | MRI_ITS ---
EXAM: MR ABDOMEN WITHOUT INTRAVENOUS CONTRAST, MRCP PROTOCOL CLINICAL INDICATION: Hyperbilirubinemia, biliary obstruction, history of gallbladder cancer TECHNIQUE: Multiplanar and multisequence MR images of the abdomen without intravenous contrast obtained with MRCP sequence. Three-dimensional post-processing reconstructions were performed. COMPARISON: MRCP 12/23/2022, PET scan 01/02/2023 FINDINGS: LOWER THORAX: No sizable effusion. LIVER: Subtle hyperintense T2 lesions are redemonstrated, better seen on prior CT and PET scan. GALLBLADDER AND BILE DUCTS: Susceptibility artifacts in the gallbladder fossa once again identified. Persistent dilation of the intrahepatic bile ducts not significantly changed since the prior exam. There is complete cutoff of the common hepatic duct in the blossom hepatis caused by a solid mass in the blossom hepatis up to 11 mm, correlating to lesion evident on recent PET scan. The common hepatic duct measures up to 11 mm, stable. The biliary stent on prior PET scan is not clearly seen on MRI. PANCREAS: No focal cystic mass. No discrete evidence of pancreatic mass. No pancreatic duct dilatation. SPLEEN: Normal. Non-enlarged. ADRENALS: Normal. No nodules. KIDNEYS AND URETERS: Normal. Normal renal size and position. No hydronephrosis. INTRAPERITONEAL SPACE: Normal. No ascites or other fluid collection. VASCULATURE: Normal. Abdominal aorta is non-dilated. LYMPH NODES: Hepatoduodenal and retroperitoneal adenopathy not substantially changed since prior MRI. MRI/MRCP Abdomen without Contrast IMPRESSION: 1. Stable solid mass in the blossom hepatis causing complete obstruction of the common hepatic duct. The biliary stent evident on prior PET scan is not clearly documented on this MRI. Electronically Signed: Walt Em (Brooks), at 17:02 EDT ,
== END | disposition home or self-care (01) ==
LOC: MRI 15:01
PROVIDERS: PCP Family Medicine; Referring Provider Nurse Practitioner Family; Visit Provider Nurse Practitioner Family
DX: C24.0 Malignant neoplasm of extrahepatic bile duct (principal); C78.7 Secondary malignant neoplasm of liver and intrahepatic bile duct; K83.1 Obstruction of bile duct; E80.6 Other disorders of bilirubin metabolism; R74.01 Elevation of levels of liver transaminase levels
CPT/HCPCS: 74181